=== PATIENT | female | born 1950 | race Caucasian/White ===

== ENCOUNTER 2022-01-23 19:39 | Inpatient (IN) | payer OTHER, SELFPAY ==
[2022-01-23] MEDS: Gabapentin 300 MG CAPSULE PO (22:05)
[2022-01-23] MEDS: QUEtiapine Fumarate 100 MG TABLET PO (22:05)
[2022-01-23] MEDS: Atorvastatin Calcium 20 MG TABLET PO (22:05)
[2022-01-23] MEDS: carvediloL 25 MG TABLET PO (22:05)
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
[2022-01-23] MEDS: traZODone HCL 50 MG TABLET PO (23:43)
[2022-01-23] MEDS: LORazepam 0.5 MG TABLET PO (23:43)
--- NOTE | 2022-01-24 00:17 | PC.NURSE ---
T/W received a phone call from Dr. Mueller at [facility] @[id number] alerting us that results from a CDiff test patient had while in ER came back positive after patient was transferred to our unit. T/W immediately notified InHouse Psychiatric Provider for a doc-to-doc to be done, and notified Nursing Director Foundation. Patient denies abdominal pain, denies diarrhea, reports no BM since arriving on the unit; patient's only report is of burning sensation of genital region, and burning and urgency of urination; UA from [facility] ER was negative. Patient was moved into a private room and placed on precautions; d/t agitation level patient refusing to stay isolated in bedroom. Discussed situation with Psychiatric Provider and Nursing Director Foundation who are aware of patient being in milieu; bleach wipes being used on all surfaces touched, patient limited to using only her bathroom. Will continue to monitor situation and notify MD of changes.
[2022-01-24 06:00] VITALS: BP 132/92; PULSE 74; O2SAT 96
[2022-01-24] MEDS: Ascorbic Acid 500 MG TABLET PO (08:08)
[2022-01-24] MEDS: Gabapentin 300 MG CAPSULE PO ×2 (08:08→20:17)
[2022-01-24] MEDS: carvediloL 25 MG TABLET PO ×2 (08:08→20:17)
[2022-01-24 08:10] LABS: Estimated Average Glucose 82 mg/dL; Hemoglobin A1c % 4.5 %
[2022-01-24 09:14] LABS: Cholesterol 152 mg/dL; HDL Cholesterol 43 mg/dL; LDL Cholesterol Calculated 94 mg/dl; Magnesium 1.7 mg/dL (1.6-2.6); Triglycerides 78 mg/dL
[2022-01-24 09:37] LABS: Free T4 (Free Thyroxine) 0.97 ng/dL (0.71-1.85); Thyroid Stimulating Hormone 0.82 uIU/mL (0.32-4.0)
[2022-01-24 11:20] LABS: Folate 13.5 ng/mL (> or = 4.0); Vitamin B12 449 pg/mL (200-900)
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
[2022-01-24 18:00] VITALS: BP 130/80; PULSE 69; RESP 20; TEMP 36.7; O2SAT 95
[2022-01-24] MEDS: Atorvastatin Calcium 20 MG TABLET PO (20:17)
[2022-01-24] MEDS: QUEtiapine Fumarate 100 MG TABLET PO (20:17)
[2022-01-24] MEDS: vancomycin HCL 125 MG CAPSULE PO (22:01)
[2022-01-24] MEDS: Lidocaine 5 % Ointment 35 GM 1 APPL TOPICAL (23:59)
[2022-01-25] MEDS: Acetaminophen 325 MG TABLET 650 MG PO (00:35)
[2022-01-25] MEDS: hydrOXYzine HCL 25 MG TABLET PO (00:36)
[2022-01-25] MEDS: traZODone HCL 50 MG TABLET PO (00:36)
[2022-01-25] MEDS: LORazepam 0.5 MG TABLET PO (03:39)
--- NOTE | 2022-01-25 05:10 | PC.NURSE ---
Received a phone call from the patient's son, Imer at 02:30h asking for an update of the patient and informed this medical technical writer that Patient has been taking Oxycodone and requested to bring it to the doctors attention in the morning. He said he will call again in the morning.
[2022-01-25] MEDS: vancomycin HCL 125 MG CAPSULE PO ×3 (05:43→16:32)
[2022-01-25 08:15] VITALS: BP 158/93; PULSE 71; RESP 17; TEMP 36.2; O2SAT 98
[2022-01-25] MEDS: Isosorbide Mononitrate 60 MG TAB.ER.24H PO (08:35)
[2022-01-25] MEDS: carvediloL 25 MG TABLET PO ×2 (08:35→20:55)
[2022-01-25] MEDS: Gabapentin 300 MG CAPSULE PO ×2 (08:35→20:54)
[2022-01-25] MEDS: Ascorbic Acid 500 MG TABLET PO (08:35)
--- NOTE | 2022-01-25 15:23 | P.PNPSI_ITS ---
Subjective Subjective Date of Service: 01/25/22 Reason For Visit: Manic Subjective Notes: Conditional Voluntary Interim History: The nursing staff reported the patient is on constant observation due to C diff positive. She slept 5 hours. On interview the patient reports that she is doing fine and she denies side effects with medications. She wanted to go back to [facility]. But the patient is not aware that she was manic and her family called 911. We will try to gather collateral information Mental Status Exam Mental Status Exam Patient Appearance: Well Grooomed Patient Orientation: Person and Situation Level of Consciousness: Awake Patient Behavior: Cooperative Mood Description: Calm Affect Description: Labile Ability to Follow Directions: Good Speech Pattern: Clear Hallucinations: None Delusions: Grandiose Thought Process: Racing and Distracted Thought Content: positive for [place] and positive for Poverty of Content Judgement: Poor Diagnostics Vital Signs (24Hr): Vital Signs - 24 hr 01/24/22 18:00 01/25/22 08:15 Temperature 98.1 F 97.2 F Pulse Rate 69 71 Respiratory Rate 20 17 Blood Pressure 130/80 158/93 H Pulse Oximetry 95 98 Oxygen Delivery Method Room Air Room Air Labs Labs: Laboratory Results - last 48 hr 01/24/22 01/24/22 01/24/22 07:54 07:54 07:54 Estimat Average Glucose 82 Hemoglobin A1c % 4.5 Magnesium 1.7 Triglycerides 78 Cholesterol 152 LDL Cholesterol, Calc 94 HDL Cholesterol 43 Vitamin B12 449 Folate 13.5 TSH 0.82 Free T4 0.97 Medications Medications Current Medications Acetaminophen (Acetaminophen 325 Mg Tablet) 650 mg PO Q6H PRN PRN Reason: Headache/Pain Mild Scale (1-3) Last Admin: 01/25/22 00:35 Dose: 650 mg Al Hydroxide/Mg Hydroxide (Magnesium Hydrox/Alum Hydrox 30 Ml Oral.Susp) 30 ml PO Q6H PRN PRN Reason: Heartburn/Nausea Ascorbic Acid (Ascorbic Acid 500 Mg Tablet) 500 mg PO DAILY [facility] Last Admin: 01/25/22 08:35 Dose: 500 mg Atorvastatin Calcium (Atorvastatin Calcium 20 Mg Tablet) 20 mg PO BEDTIME [facility] Last Admin: 01/24/22 20:17 Dose: 20 mg Carvedilol (Carvedilol 25 Mg Tablet) 25 mg PO BID [facility]; Protocol Last Admin: 01/25/22 08:35 Dose: 25 mg Gabapentin (Gabapentin 300 Mg Capsule) 300 mg PO BID [facility] Last Admin: 01/25/22 08:35 Dose: 300 mg Hydroxyzine HCl (Hydroxyzine Hcl 25 Mg Tablet) 25 mg PO Q6H PRN PRN Reason: Anxiety Last Admin: 01/25/22 00:36 Dose: 25 mg Isosorbide Mononitrate (Isosorbide Mononitrate 60 Mg Tab.Er.24h) 60 mg PO DAILY [facility]; Protocol Last Admin: 01/25/22 08:35 Dose: 60 mg Lidocaine (Lidocaine 5 % Ointment 35 Gm) 1 appl TOPICAL Q6H PRN PRN Reason: musculoskeletal pain Last Admin: 01/24/22 23:59 Dose: 1 appl Lorazepam (Lorazepam 0.5 Mg Tablet) 0.5 mg PO Q6H PRN PRN Reason: anxiety Last Admin: 01/25/22 03:39 Dose: 0.5 mg Magnesium Hydroxide (Milk Of Magnesia 30 Ml Oral.Susp) 30 ml PO DAILY PRN PRN Reason: Constipation Melatonin (Melatonin 3 Mg Tablet) 9 mg PO BEDTIME PRN PRN Reason: sleep Oxybutynin Chloride (Oxybutynin Chloride Er 5 Mg Tab.Er.24) 5 mg PO DAILY [facility] Last Admin: 01/25/22 08:35 Dose: 5 mg Oxycodone HCl (Oxycodone Hcl Immed Release 5 Mg Tablet) 5 mg PO TID [facility] Quetiapine Fumarate (Quetiapine Fumarate 100 Mg Tablet) 100 mg PO BEDTIME [facility] Last Admin: 01/24/22 20:17 Dose: 100 mg Trazodone HCl (Trazodone Hcl 50 Mg Tablet) 50 mg PO BEDTIME PRN PRN Reason: Insomnia Last Admin: 01/25/22 00:36 Dose: 50 mg Vancomycin HCl (Vancomycin Hcl 125 Mg Capsule) 125 mg PO Q6H [facility] Stop: 02/03/22 11:01 Last Admin: 01/25/22 11:37 Dose: 125 mg Allergies Allergies Allergy/AdvReac Type Severity Reaction Status Date / Time No Known Allergies Allergy Verified 01/23/22 20:18 Assessment & Plan Assessment & Plan (1) Clostridioides difficile infection: Status: Acute Code(s): A49.8 - Other bacterial infections of unspecified site (2) Bipolar disorder: Status: Acute Code(s): F31.9 - Bipolar disorder, unspecified (3) Alcohol use with alcohol-induced disorder: Status: Acute Code(s): F10.99 - Alcohol use, unspecified with unspecified alcohol-induced disorder Plan Elderly female , referred from the community for increased agitation and james in the context of starting Cymbalta with a prior history of an admission 10 years ago. She also has history of alcohol use disorder that she denies and now medical problems such as closely during the physical. Plan 1. Gather collateral information. 2. Continue neuroleptics. 3. Cymbalta. 4. Continue treatment for C diff I spent ___20___ minutes with the patient and/or on the patient floor today, greater than?50% of which was spent counseling/coordinating care. Reason for contiued inpatient stay Substantial Risk for: inability to function, rapid decompensation and med/psych decompensation
[2022-01-25] MEDS: oxyCODONE HCl Immed Release 5 MG TABLET PO ×2 (16:32→20:54)
[2022-01-25 18:00] VITALS: BP 154/94; PULSE 68; TEMP 36.7; O2SAT 96
[2022-01-25] MEDS: QUEtiapine Fumarate 100 MG TABLET PO (20:53)
[2022-01-25] MEDS: Atorvastatin Calcium 20 MG TABLET PO (20:54)
[2022-01-26] MEDS: vancomycin HCL 125 MG CAPSULE PO ×4 (04:11→22:04)
--- NOTE | 2022-01-26 04:25 | PC.NURSE ---
Pt's son Imer called at approx 0230 to get an update on his mother. Son reported that pt has a hx of kidney disease and was worried about pt being prescribed vancomycin.
[2022-01-26 06:00] VITALS: BP 173/87; PULSE 75; RESP 17; TEMP 36.9; O2SAT 96
[2022-01-26] MEDS: Isosorbide Mononitrate 60 MG TAB.ER.24H PO (08:26)
[2022-01-26] MEDS: oxyCODONE HCl Immed Release 5 MG TABLET PO ×3 (08:26→20:31)
[2022-01-26] MEDS: carvediloL 25 MG TABLET PO ×2 (08:27→20:30)
[2022-01-26] MEDS: Ascorbic Acid 500 MG TABLET PO (08:27)
[2022-01-26] MEDS: Gabapentin 300 MG CAPSULE PO ×2 (08:27→20:31)
--- NOTE | 2022-01-26 15:23 | HO.PSYCHPN ---
Subjective Subjective Date of Service: 01/26/22 Reason For Visit: Manic Subjective Notes: Section 7, Section 8 and Section 12B Interim History: The nursing staff reported that her stools are normal no diarrhea. The elementary school social worker reported that we are going to schedule a family meeting tomorrow. Apparently she has a history of substance abuse and she was in recovery for quite a long time but eventually she drank before coming here when she was manic due to Cymbalta. On interview the patient reports that she is feeling fine that she wants to get discharged today I explained her that we are going to file for section 7 and 8, still with very labile mood. Mental Status Exam Mental Status Exam Patient Appearance: Appropriate Patient Orientation: Person, Place and Situation Level of Consciousness: Restless Patient Behavior: Guarded Mood Description: Labile Affect Description: Withdrawn and Sad Ability to Follow Directions: Fair Speech Pattern: Clear Hallucinations: None Delusions: Bizarre Thought Process: Distracted Thought Content: positive for [place] and positive for Poverty of Content Judgement: Fair Diagnostics Vital Signs (24Hr): Vital Signs - 24 hr 01/25/22 18:00 01/26/22 06:00 Temperature 98.0 F 98.4 F Pulse Rate 68 75 Respiratory Rate 17 Blood Pressure 154/94 H 173/87 H Pulse Oximetry 96 96 Oxygen Delivery Method Room Air Medications Medications Current Medications Acetaminophen (Acetaminophen 325 Mg Tablet) 650 mg PO Q6H PRN PRN Reason: Headache/Pain Mild Scale (1-3) Last Admin: 01/25/22 00:35 Dose: 650 mg Al Hydroxide/Mg Hydroxide (Magnesium Hydrox/Alum Hydrox 30 Ml Oral.Susp) 30 ml PO Q6H PRN PRN Reason: Heartburn/Nausea Ascorbic Acid (Ascorbic Acid 500 Mg Tablet) 500 mg PO DAILY [facility] Last Admin: 01/26/22 08:27 Dose: 500 mg Atorvastatin Calcium (Atorvastatin Calcium 20 Mg Tablet) 20 mg PO BEDTIME [facility] Last Admin: 01/25/22 20:54 Dose: 20 mg Carvedilol (Carvedilol 25 Mg Tablet) 25 mg PO BID [facility]; Protocol Last Admin: 01/26/22 08:27 Dose: 25 mg Gabapentin (Gabapentin 300 Mg Capsule) 300 mg PO BID [facility] Last Admin: 01/26/22 08:27 Dose: 300 mg Hydroxyzine HCl (Hydroxyzine Hcl 25 Mg Tablet) 25 mg PO Q6H PRN PRN Reason: Anxiety Last Admin: 01/25/22 00:36 Dose: 25 mg Isosorbide Mononitrate (Isosorbide Mononitrate 60 Mg Tab.Er.24h) 60 mg PO DAILY [facility]; Protocol Last Admin: 01/26/22 08:26 Dose: 60 mg Lidocaine (Lidocaine 5 % Ointment 35 Gm) 1 appl TOPICAL Q6H PRN PRN Reason: musculoskeletal pain Last Admin: 01/24/22 23:59 Dose: 1 appl Lorazepam (Lorazepam 0.5 Mg Tablet) 0.5 mg PO Q6H PRN PRN Reason: anxiety Last Admin: 01/25/22 03:39 Dose: 0.5 mg Magnesium Hydroxide (Milk Of Magnesia 30 Ml Oral.Susp) 30 ml PO DAILY PRN PRN Reason: Constipation Melatonin (Melatonin 3 Mg Tablet) 9 mg PO BEDTIME PRN PRN Reason: sleep Oxybutynin Chloride (Oxybutynin Chloride Er 5 Mg Tab.Er.24) 5 mg PO DAILY [facility] Last Admin: 01/26/22 08:27 Dose: 5 mg Oxycodone HCl (Oxycodone Hcl Immed Release 5 Mg Tablet) 5 mg PO TID [facility] Last Admin: 01/26/22 08:26 Dose: 5 mg Quetiapine Fumarate (Quetiapine Fumarate 100 Mg Tablet) 100 mg PO BEDTIME [facility] Last Admin: 01/25/22 20:53 Dose: 100 mg Trazodone HCl (Trazodone Hcl 50 Mg Tablet) 50 mg PO BEDTIME PRN PRN Reason: Insomnia Last Admin: 01/25/22 00:36 Dose: 50 mg Vancomycin HCl (Vancomycin Hcl 125 Mg Capsule) 125 mg PO Q6H [facility] Stop: 02/03/22 11:01 Last Admin: 01/26/22 11:29 Dose: 125 mg Allergies Allergies Allergy/AdvReac Type Severity Reaction Status Date / Time No Known Allergies Allergy Verified 01/23/22 20:18 Assessment & Plan Assessment & Plan (1) Clostridioides difficile infection: Status: Acute Code(s): A49.8 - Other bacterial infections of unspecified site (2) Bipolar disorder: Status: Acute Code(s): F31.9 - Bipolar disorder, unspecified (3) Alcohol use with alcohol-induced disorder: Status: Acute Code(s): F10.99 - Alcohol use, unspecified with unspecified alcohol-induced disorder Plan Elderly female , referred from the community for increased agitation and james in the context of starting Cymbalta with a prior history of an admission 10 years ago. She also has history of alcohol use disorder that she denies and now medical problems such as closely during the physical. Plan 1. Gather collateral information. 2. Continue neuroleptics. 3. Discontinue Cymbalta. 4. Continue treatment for C diff. 5. Blood work for tomorrow morning I spent ___20___ minutes with the patient and/or on the patient floor today, greater than?50% of which was spent counseling/coordinating care. Reason for contiued inpatient stay Substantial Risk for: inability to function, rapid decompensation and med/psych decompensation
[2022-01-26 20:15] VITALS: BP 162/88; PULSE 80; RESP 16; TEMP 36.4; O2SAT 95
[2022-01-26] MEDS: QUEtiapine Fumarate 100 MG TABLET PO (20:32)
[2022-01-26] MEDS: Atorvastatin Calcium 20 MG TABLET PO (20:32)
[2022-01-27] MEDS: vancomycin HCL 125 MG CAPSULE PO ×4 (05:36→23:34)
[2022-01-27 07:00] VITALS: BP 166/86; PULSE 69; RESP 16; TEMP 37.2; O2SAT 95
[2022-01-27 08:06] LABS: MANUAL DIFF FLAG NO
[2022-01-27 08:09] LABS: Basophils Percent Auto 0.6 % (0-2); Eosinophils Absolute Auto 1.4 X10*3/uL (0.0-0.4); Eosinophils Percent Auto 19.6 % (0-4); Hematocrit 35.3 % (37.0-47.0); Hemoglobin 11.4 g/dl (12.0-16.0); Imm Gran Abs Auto 0.02 X10*3/uL (0.00-0.03); Imm Gran Pct Auto 0.3 % (0.0-0.4); Lymphocytes Absolute Auto 2.1 X10*3/uL (1.2-4.9); Lymphocytes Percent Auto 30.8 % (20-40); Mean Corpuscular HGB Conc 32.3 g/dl (31.0-35.0); Mean Corpuscular Hemoglobin 36.1 pg (27.0-33.0); Mean Platelet Volume 10.4 fL (9.4-12.3); Monocytes Absolute Auto 0.4 X10*3/uL (0.1-1.2); Monocytes Percent Auto 6.4 % (2-11); Neutrophils Absolute Auto 2.9 x10*3/uL (2.0-8.3); Neutrophils Percent Auto 42.3 % (45-73); Platelet Count 178 X10*3/uL (160-400); Red Blood Count 3.16 X10*6/uL (4.20-5.50); Red Cell Distribution Width 11.6 % (11.0-16.0); White Blood Count 6.9 X10*3/uL (4.8-10.8)
[2022-01-27 08:10] LABS: Mean Corpuscular Volume 111.7 fL (80.0-98.0)
[2022-01-27 08:31] LABS: Alanine Aminotransferase 13 U/L (0-31); Alkaline Phosphatase 120 U/L (39-117); Anion Gap 10 (12-20); Aspartate Amino Transferase 21 U/L (5-31); Bilirubin Direct < 0.2 mg/dL (0.0-0.5); Bilirubin Total 0.3 mg/dL (0.0-1.0); Blood Urea Nitrogen 15 mg/dL (9-16); Carbon Dioxide 29 mmol/L (22-29); Chloride 106 mmol/L (96-108); Cholesterol 148 mg/dL; Estimated Glomerular Filt Rate 41; Glucose Random 94 mg/dL (60-115); HDL Cholesterol 39 mg/dL; LDL Cholesterol Calculated 90 mg/dl; Potassium 4.4 mmol/L (3.3-5.1); Sodium 141 mmol/L (135-145); Total Protein 6.5 g/dL (6.5-8.0); Triglycerides 98 mg/dL
[2022-01-27 08:44] LABS: Estimated Average Glucose 82 mg/dL; Hemoglobin A1c % 4.5 %
[2022-01-27 08:52] LABS: Thyroid Stimulating Hormone 2.64 uIU/mL (0.32-4.0)
[2022-01-27 09:10] LABS: Vancomycin Random < 3.0 mcg/mL (15-20)
[2022-01-27] MEDS: oxyCODONE HCl Immed Release 5 MG TABLET PO ×3 (09:51→20:32)
[2022-01-27] MEDS: Ascorbic Acid 500 MG TABLET PO (09:51)
[2022-01-27] MEDS: carvediloL 25 MG TABLET PO ×2 (09:51→20:33)
[2022-01-27] MEDS: Gabapentin 300 MG CAPSULE PO ×2 (09:51→20:32)
[2022-01-27] MEDS: Isosorbide Mononitrate 60 MG TAB.ER.24H PO (09:51)
[2022-01-27] MEDS: Paliperidone Palmitate 156 MG/ML SYRINGE IM (17:30)
[2022-01-27 18:00] VITALS: BP 143/92; PULSE 88; RESP 16; TEMP 37.1; O2SAT 96
[2022-01-27] MEDS: Atorvastatin Calcium 20 MG TABLET PO (20:32)
[2022-01-27] MEDS: QUEtiapine Fumarate 100 MG TABLET PO (20:32)
[2022-01-28] MEDS: vancomycin HCL 125 MG CAPSULE PO ×4 (05:19→23:19)
[2022-01-28] MEDS: Lidocaine 5 % Ointment 35 GM 1 APPL TOPICAL (06:40)
[2022-01-28 07:00] VITALS: BP 149/72; PULSE 73; RESP 17; TEMP 36.2; O2SAT 99
[2022-01-28] MEDS: Gabapentin 300 MG CAPSULE PO ×2 (08:28→20:55)
[2022-01-28] MEDS: carvediloL 25 MG TABLET PO ×2 (08:28→20:57)
[2022-01-28] MEDS: Isosorbide Mononitrate 60 MG TAB.ER.24H PO (08:28)
[2022-01-28] MEDS: oxyCODONE HCl Immed Release 5 MG TABLET PO ×3 (08:29→20:55)
[2022-01-28] MEDS: Ascorbic Acid 500 MG TABLET PO (08:35)
--- NOTE | 2022-01-28 10:02 | P.PNPSI_ITS ---
Subjective Subjective Date of Service: 01/28/22 Reason For Visit: Manic Subjective Notes: Conditional Voluntary Interim History: The nursing staff reported that her stools are normal no diarrhea. Pt has been visible on the unit. She is social with select peer. She reports she is doing good. He reports sleeping and eating well. She denies SI/HI. no VH/AH. Per nursing, pt with no behavioral concerns. Medication Compliance: Yes Side effects from medications: No Attending Groups: Intermittent Review of Systems Review of Systems Yes Unobtainable due to mental status Mental Status Exam Mental Status Exam Patient Appearance: Appropriate Patient Orientation: Person, Place and Situation Level of Consciousness: Restless Patient Behavior: Guarded Mood Description: Labile Affect Description: Withdrawn and Sad Ability to Follow Directions: Fair Speech Pattern: Clear Diagnostics Vital Signs (24Hr): Vital Signs - 24 hr 01/28/22 19:58 01/29/22 06:00 Temperature 97.4 F 97.3 F Pulse Rate 79 80 Respiratory Rate 16 16 Blood Pressure 127/82 154/84 H Pulse Oximetry 96 95 Oxygen Delivery Method Room Air Room Air Labs Results: 01/27/22 08:02 01/27/22 08:02 Labs: Laboratory Results - last 48 hr 01/27/22 08:02 Smear Path Review SEE NOTE Medications Medications Current Medications Acetaminophen (Acetaminophen 325 Mg Tablet) 650 mg PO Q6H PRN PRN Reason: Headache/Pain Mild Scale (1-3) Last Admin: 01/25/22 00:35 Dose: 650 mg Al Hydroxide/Mg Hydroxide (Magnesium Hydrox/Alum Hydrox 30 Ml Oral.Susp) 30 ml PO Q6H PRN PRN Reason: Heartburn/Nausea Ascorbic Acid (Ascorbic Acid 500 Mg Tablet) 500 mg PO DAILY [facility] Last Admin: 01/29/22 08:39 Dose: 500 mg Atorvastatin Calcium (Atorvastatin Calcium 20 Mg Tablet) 20 mg PO BEDTIME [facility] Last Admin: 01/28/22 20:57 Dose: 20 mg Carvedilol (Carvedilol 25 Mg Tablet) 25 mg PO BID [facility]; Protocol Last Admin: 01/29/22 08:40 Dose: 25 mg Gabapentin (Gabapentin 300 Mg Capsule) 300 mg PO BID [facility] Last Admin: 01/29/22 08:40 Dose: 300 mg Hydroxyzine HCl (Hydroxyzine Hcl 25 Mg Tablet) 25 mg PO Q6H PRN PRN Reason: Anxiety Last Admin: 01/25/22 00:36 Dose: 25 mg Isosorbide Mononitrate (Isosorbide Mononitrate 60 Mg Tab.Er.24h) 60 mg PO DAILY [facility]; Protocol Last Admin: 01/29/22 08:40 Dose: 60 mg Lidocaine (Lidocaine 5 % Ointment 35 Gm) 1 appl TOPICAL Q6H PRN PRN Reason: musculoskeletal pain Last Admin: 01/28/22 06:40 Dose: 1 appl Magnesium Hydroxide (Milk Of Magnesia 30 Ml Oral.Susp) 30 ml PO DAILY PRN PRN Reason: Constipation Melatonin (Melatonin 3 Mg Tablet) 9 mg PO BEDTIME PRN PRN Reason: sleep Oxybutynin Chloride (Oxybutynin Chloride Er 5 Mg Tab.Er.24) 5 mg PO DAILY [facility] Last Admin: 01/29/22 08:39 Dose: 5 mg Oxycodone HCl (Oxycodone Hcl Immed Release 5 Mg Tablet) 5 mg PO TID [facility] Last Admin: 01/29/22 08:39 Dose: 5 mg Quetiapine Fumarate (Quetiapine Fumarate 100 Mg Tablet) 100 mg PO BEDTIME [facility] Last Admin: 01/28/22 20:57 Dose: 100 mg Trazodone HCl (Trazodone Hcl 50 Mg Tablet) 50 mg PO BEDTIME PRN PRN Reason: Insomnia Last Admin: 01/25/22 00:36 Dose: 50 mg Vancomycin HCl (Vancomycin Hcl 125 Mg Capsule) 125 mg PO Q6H [facility] Stop: 02/03/22 11:01 Last Admin: 01/29/22 05:47 Dose: 125 mg Allergies Allergies Allergy/AdvReac Type Severity Reaction Status Date / Time No Known Allergies Allergy Verified 01/23/22 20:18 Assessment & Plan Assessment & Plan (1) Clostridioides difficile infection: Status: Acute Code(s): A49.8 - Other bacterial infections of unspecified site (2) Bipolar disorder: Status: Acute Code(s): F31.9 - Bipolar disorder, unspecified (3) Alcohol use with alcohol-induced disorder: Status: Acute Code(s): F10.99 - Alcohol use, unspecified with unspecified alcohol-induced disorder Plan Elderly female , referred from the community for increased agitation and james in the context of starting Cymbalta with a prior history of an admission 10 years ago. She also has history of alcohol use disorder that she denies and now medical problems such as closely during the physical. Plan 1. Gather collateral information. 2. Continue neuroleptics. 3. Discontinue Cymbalta. 4. Continue treatment for C diff. 5. Blood work for tomorrow morning 01/29/2022- continue current medications. I spent minutes with the patient and/or on the patient floor today, greater than?50% of which was spent counseling/coordinating care. Reason for contiued inpatient stay Substantial Risk for: inability to function
[2022-01-28 19:58] VITALS: BP 127/82; PULSE 79; RESP 16; TEMP 36.3; O2SAT 96
[2022-01-28] MEDS: Atorvastatin Calcium 20 MG TABLET PO (20:57)
[2022-01-28] MEDS: QUEtiapine Fumarate 100 MG TABLET PO (20:57)
[2022-01-29] MEDS: vancomycin HCL 125 MG CAPSULE PO ×4 (05:47→23:28)
[2022-01-29 06:00] VITALS: BP 154/84; PULSE 80; RESP 16; TEMP 36.3; O2SAT 95
[2022-01-29] MEDS: oxyCODONE HCl Immed Release 5 MG TABLET PO ×3 (08:39→20:40)
[2022-01-29] MEDS: Ascorbic Acid 500 MG TABLET PO (08:39)
[2022-01-29] MEDS: Isosorbide Mononitrate 60 MG TAB.ER.24H PO (08:40)
[2022-01-29] MEDS: carvediloL 25 MG TABLET PO ×2 (08:40→20:40)
[2022-01-29] MEDS: Gabapentin 300 MG CAPSULE PO ×2 (08:40→20:40)
--- NOTE | 2022-01-29 10:20 | P.PNPSI_ITS ---
Subjective Subjective Date of Service: 01/29/22 Reason For Visit: Manic Subjective Notes: Conditional Voluntary Healthcare Proxy: No Guardianship: No Medical Problems Affecting Mental Status: No Interim History: Patient was seen and discussed in rounds today. Records and plans were reviewed. She is doing much better with no signs of hypomania. Eating and sleeping adequately. No complaints or side effects. No symptoms related to her C diff. no dangerous behaviors. She is interactive on the unit and social. No changes were made Review of Systems Review of Systems Yes all other systems are reviewed and are negative Mental Status Exam Mental Status Exam Narrative: In today's visit she is alert, oriented and pleasant. She was reading a book. Normal speech. Good eye contact. Affect is appropriate and varied. No acute signs of psychosis. No hyper home james or hyperactivity. No SI. Cognitively is grossly intact. Judgment is intact Diagnostics Vital Signs (24Hr): Vital Signs - 24 hr 01/28/22 19:58 01/29/22 06:00 Temperature 97.4 F 97.3 F Pulse Rate 79 80 Respiratory Rate 16 16 Blood Pressure 127/82 154/84 H Pulse Oximetry 96 95 Oxygen Delivery Method Room Air Room Air Labs Results: 01/27/22 08:02 01/27/22 08:02 Labs: Laboratory Results - last 48 hr 01/27/22 08:02 Smear Path Review SEE NOTE Medications Medications Current Medications Acetaminophen (Acetaminophen 325 Mg Tablet) 650 mg PO Q6H PRN PRN Reason: Headache/Pain Mild Scale (1-3) Last Admin: 01/25/22 00:35 Dose: 650 mg Al Hydroxide/Mg Hydroxide (Magnesium Hydrox/Alum Hydrox 30 Ml Oral.Susp) 30 ml PO Q6H PRN PRN Reason: Heartburn/Nausea Ascorbic Acid (Ascorbic Acid 500 Mg Tablet) 500 mg PO DAILY [facility] Last Admin: 01/29/22 08:39 Dose: 500 mg Atorvastatin Calcium (Atorvastatin Calcium 20 Mg Tablet) 20 mg PO BEDTIME [facility] Last Admin: 01/28/22 20:57 Dose: 20 mg Carvedilol (Carvedilol 25 Mg Tablet) 25 mg PO BID [facility]; Protocol Last Admin: 01/29/22 08:40 Dose: 25 mg Gabapentin (Gabapentin 300 Mg Capsule) 300 mg PO BID [facility] Last Admin: 01/29/22 08:40 Dose: 300 mg Hydroxyzine HCl (Hydroxyzine Hcl 25 Mg Tablet) 25 mg PO Q6H PRN PRN Reason: Anxiety Last Admin: 01/25/22 00:36 Dose: 25 mg Isosorbide Mononitrate (Isosorbide Mononitrate 60 Mg Tab.Er.24h) 60 mg PO DAILY [facility]; Protocol Last Admin: 01/29/22 08:40 Dose: 60 mg Lidocaine (Lidocaine 5 % Ointment 35 Gm) 1 appl TOPICAL Q6H PRN PRN Reason: musculoskeletal pain Last Admin: 01/28/22 06:40 Dose: 1 appl Magnesium Hydroxide (Milk Of Magnesia 30 Ml Oral.Susp) 30 ml PO DAILY PRN PRN Reason: Constipation Melatonin (Melatonin 3 Mg Tablet) 9 mg PO BEDTIME PRN PRN Reason: sleep Oxybutynin Chloride (Oxybutynin Chloride Er 5 Mg Tab.Er.24) 5 mg PO DAILY [facility] Last Admin: 01/29/22 08:39 Dose: 5 mg Oxycodone HCl (Oxycodone Hcl Immed Release 5 Mg Tablet) 5 mg PO TID [facility] Last Admin: 01/29/22 08:39 Dose: 5 mg Quetiapine Fumarate (Quetiapine Fumarate 100 Mg Tablet) 100 mg PO BEDTIME [facility] Last Admin: 01/28/22 20:57 Dose: 100 mg Trazodone HCl (Trazodone Hcl 50 Mg Tablet) 50 mg PO BEDTIME PRN PRN Reason: Insomnia Last Admin: 01/25/22 00:36 Dose: 50 mg Vancomycin HCl (Vancomycin Hcl 125 Mg Capsule) 125 mg PO Q6H [facility] Stop: 02/03/22 11:01 Last Admin: 01/29/22 05:47 Dose: 125 mg Allergies Allergies Allergy/AdvReac Type Severity Reaction Status Date / Time No Known Allergies Allergy Verified 01/23/22 20:18 Assessment & Plan Assessment & Plan (1) Clostridioides difficile infection: Status: Acute Code(s): A49.8 - Other bacterial infections of unspecified site (2) Bipolar disorder: Status: Acute Code(s): F31.9 - Bipolar disorder, unspecified (3) Alcohol use with alcohol-induced disorder: Status: Acute Code(s): F10.99 - Alcohol use, unspecified with unspecified alcohol-induced disorder Plan Elderly female , referred from the community for increased agitation and james in the context of starting Cymbalta with a prior history of an admission 10 years ago. She also has history of alcohol use disorder that she denies and now medical problems such as closely during the physical. Plan 1. Gather collateral information. 2. Continue neuroleptics. 3. Discontinue Cymbalta. 4. Continue treatment for C diff. 5. Blood work for tomorrow morning 01/28/2022- continue current medications. 01/29: Continue current regimen and plans I spent minutes with the patient and/or on the patient floor today, greater than?50% of which was spent counseling/coordinating care. Reason for contiued inpatient stay Substantial Risk for: med/psych decompensation
[2022-01-29 18:00] VITALS: BP 153/83; PULSE 77; RESP 18; O2SAT 95
[2022-01-29] MEDS: Atorvastatin Calcium 20 MG TABLET PO (20:40)
[2022-01-29] MEDS: QUEtiapine Fumarate 100 MG TABLET PO (20:40)
[2022-01-30] MEDS: vancomycin HCL 125 MG CAPSULE PO ×4 (04:28→22:06)
[2022-01-30] MEDS: Ascorbic Acid 500 MG TABLET PO (07:59)
[2022-01-30] MEDS: carvediloL 25 MG TABLET PO ×2 (07:59→20:23)
[2022-01-30 08:00] VITALS: BP 147/81; PULSE 82; RESP 17; TEMP 36.2; O2SAT 98
[2022-01-30] MEDS: Gabapentin 300 MG CAPSULE PO ×2 (08:01→20:23)
[2022-01-30] MEDS: oxyCODONE HCl Immed Release 5 MG TABLET PO ×3 (08:01→20:22)
[2022-01-30] MEDS: Isosorbide Mononitrate 60 MG TAB.ER.24H PO (08:01)
--- NOTE | 2022-01-30 14:42 | HO.PSYCHPN ---
Subjective Subjective Date of Service: 01/30/22 Reason For Visit: Manic Subjective Notes: Conditional Voluntary Interim History: The nursing staff reported that she was confused last night from 05-15, she wanted to leave somatically preoccupied stating that she has pain after urinating and she said that she had diarrhea but it was not documented by nursing staff. The nursing staff reported that probably she has cellulitis oin her legs. On interview the patient reported somatic complaints and stated that she has to leave the hospital. I explained about her legal circumstances. Mental Status Exam Mental Status Exam Patient Appearance: Well Grooomed Patient Orientation: Person and Situation Level of Consciousness: Awake Patient Behavior: Guarded and Suspicious Mood Description: Withdrawn Affect Description: Labile Patient Cognition Impaired: Yes Ability to Follow Directions: Good Speech Pattern: Clear Hallucinations: None Delusions: Paranoid Ideation Thought Process: Evasive Thought Content: positive for [place] and positive for Poverty of Content Judgement: Poor Diagnostics Vital Signs (24Hr): Vital Signs - 24 hr 01/29/22 18:00 01/30/22 08:00 Temperature 97.1 F Pulse Rate 77 82 Respiratory Rate 18 17 Blood Pressure 153/83 H 147/81 H Pulse Oximetry 95 98 Oxygen Delivery Method Room Air Room Air Labs Results: 01/27/22 08:02 01/27/22 08:02 Medications Medications Current Medications Acetaminophen (Acetaminophen 325 Mg Tablet) 650 mg PO Q6H PRN PRN Reason: Headache/Pain Mild Scale (1-3) Last Admin: 01/25/22 00:35 Dose: 650 mg Al Hydroxide/Mg Hydroxide (Magnesium Hydrox/Alum Hydrox 30 Ml Oral.Susp) 30 ml PO Q6H PRN PRN Reason: Heartburn/Nausea Ascorbic Acid (Ascorbic Acid 500 Mg Tablet) 500 mg PO DAILY [facility] Last Admin: 01/30/22 07:59 Dose: 500 mg Atorvastatin Calcium (Atorvastatin Calcium 20 Mg Tablet) 20 mg PO BEDTIME [facility] Last Admin: 01/29/22 20:40 Dose: 20 mg Carvedilol (Carvedilol 25 Mg Tablet) 25 mg PO BID [facility]; Protocol Last Admin: 01/30/22 07:59 Dose: 25 mg Estrogens Conjugated (Estrogens, Conjugated Cream 30 Gm Tube) 0.5 gm VAGINAL DAILY [facility] Gabapentin (Gabapentin 300 Mg Capsule) 300 mg PO BID [facility] Last Admin: 01/30/22 08:01 Dose: 300 mg Hydroxyzine HCl (Hydroxyzine Hcl 25 Mg Tablet) 25 mg PO Q6H PRN PRN Reason: Anxiety Last Admin: 01/25/22 00:36 Dose: 25 mg Isosorbide Mononitrate (Isosorbide Mononitrate 60 Mg Tab.Er.24h) 60 mg PO DAILY [facility]; Protocol Last Admin: 01/30/22 08:01 Dose: 60 mg Lidocaine (Lidocaine 5 % Ointment 35 Gm) 1 appl TOPICAL Q6H PRN PRN Reason: musculoskeletal pain Last Admin: 01/28/22 06:40 Dose: 1 appl Magnesium Hydroxide (Milk Of Magnesia 30 Ml Oral.Susp) 30 ml PO DAILY PRN PRN Reason: Constipation Melatonin (Melatonin 3 Mg Tablet) 9 mg PO BEDTIME PRN PRN Reason: sleep Oxybutynin Chloride (Oxybutynin Chloride Er 5 Mg Tab.Er.24) 5 mg PO DAILY [facility] Last Admin: 01/30/22 08:00 Dose: 5 mg Oxycodone HCl (Oxycodone Hcl Immed Release 5 Mg Tablet) 5 mg PO TID [facility] Last Admin: 01/30/22 08:01 Dose: 5 mg Quetiapine Fumarate (Quetiapine Fumarate 100 Mg Tablet) 100 mg PO BEDTIME [facility] Last Admin: 01/29/22 20:40 Dose: 100 mg Trazodone HCl (Trazodone Hcl 50 Mg Tablet) 50 mg PO BEDTIME PRN PRN Reason: Insomnia Last Admin: 01/25/22 00:36 Dose: 50 mg Vancomycin HCl (Vancomycin Hcl 125 Mg Capsule) 125 mg PO Q6H [facility] Stop: 02/03/22 11:01 Last Admin: 01/30/22 11:19 Dose: 125 mg Allergies Allergies Allergy/AdvReac Type Severity Reaction Status Date / Time No Known Allergies Allergy Verified 01/23/22 20:18 Assessment & Plan Assessment & Plan (1) Clostridioides difficile infection: Status: Acute Code(s): A49.8 - Other bacterial infections of unspecified site (2) Bipolar disorder: Status: Acute Code(s): F31.9 - Bipolar disorder, unspecified (3) Alcohol use with alcohol-induced disorder: Status: Acute Code(s): F10.99 - Alcohol use, unspecified with unspecified alcohol-induced disorder Plan Elderly female , referred from the community for increased agitation and james in the context of starting Cymbalta with a prior history of an admission 10 years ago. She also has history of alcohol use disorder that she denies and now medical problems such as closely during the physical. Plan 1. Gather collateral information. 2. Continue neuroleptics. 3. Discontinue Cymbalta. 4. Continue treatment for C diff. 5. u/A and possible hospital consult. I spent __20____ minutes with the patient and/or on the patient floor today, greater than?50% of which was spent counseling/coordinating care. Reason for contiued inpatient stay Substantial Risk for: inability to function, rapid decompensation and med/psych decompensation
[2022-01-30 14:58] LABS: Appearance Urine CLEAR; Color Urine YELLOW; Glucose Urine UA NEG (NEG); Leukocyte Esterase Urine NEG (NEG); Nitrite Urine NEG (NEG); Urine Blood NEG (NEG); Urine Ketones NEG (NEG); Urine Protein NEG (NEG-TRACE)
[2022-01-30 18:00] VITALS: BP 151/93; PULSE 71; TEMP 36.3; O2SAT 96
--- NOTE | 2022-01-30 19:13 | PC.NURSE ---
Pt upset re: meeting with with Dr Emmanuel. States Dr Emmanuel informed her he would be filing for commitment. Pt called lithographic press feeder and lithographic press feeder in at present time meeting with pt.
[2022-01-30] MEDS: QUEtiapine Fumarate 100 MG TABLET PO (20:23)
[2022-01-30] MEDS: Atorvastatin Calcium 20 MG TABLET PO (20:23)
[2022-01-30] MEDS: Lidocaine 5 % Ointment 35 GM 1 APPL TOPICAL (22:06)
--- NOTE | 2022-01-31 04:53 | PC.NURSE ---
Pt's son Michael called at approx.[phone], to check on mother's status, son was assured of mothers well being. The son asked staff to note the following; 1. He would like to speak to the social welfare administrator before 02/[address] ([address] date) 2. Why the pt had spoken a section chief on 01/30/22 without him (the HCP) being present. 3. The status of the pt's legs (Bilateral Edema with right leg showing more swelling). 4. To remove the applicator from pt's room after the scheduled Estrogen cream is applied.
[2022-01-31] MEDS: vancomycin HCL 125 MG CAPSULE PO ×4 (05:36→23:05)
[2022-01-31 08:10] VITALS: BP 142/87; PULSE 79; RESP 18; TEMP 36.4; O2SAT 98
[2022-01-31] MEDS: Ascorbic Acid 500 MG TABLET PO (08:26)
[2022-01-31] MEDS: oxyCODONE HCl Immed Release 5 MG TABLET PO ×3 (08:27→19:51)
[2022-01-31] MEDS: Gabapentin 300 MG CAPSULE PO ×2 (08:27→19:54)
[2022-01-31] MEDS: carvediloL 25 MG TABLET PO ×2 (08:28→19:53)
[2022-01-31] MEDS: Isosorbide Mononitrate 60 MG TAB.ER.24H PO (08:28)
--- NOTE | 2022-01-31 15:14 | HO.PSYCHPN ---
Subjective Subjective Date of Service: 01/27/22 Reason For Visit: Manic Subjective Notes: Section 7 and Section 8 Interim History: The nursing staff reported the patient was in her room most of the time. She was confused stating that she was going to be discharged. She was seen interacting with peers. Mental Status Exam Mental Status Exam Patient Appearance: Well Grooomed Patient Orientation: Person and Situation Level of Consciousness: Awake Patient Behavior: Guarded Mood Description: Labile Affect Description: Expansive Patient Cognition Impaired: Yes Ability to Follow Directions: Good Speech Pattern: Clear Hallucinations: None Delusions: Paranoid Ideation and Grandiose Thought Process: Evasive Thought Content: positive for [place] Judgement: Fair Diagnostics Vital Signs (24Hr): Vital Signs - 24 hr 01/30/22 18:00 01/31/22 08:10 Temperature 97.4 F 97.5 F Pulse Rate 71 79 Respiratory Rate 18 Blood Pressure 151/93 H 142/87 H Pulse Oximetry 96 98 Oxygen Delivery Method Room Air Room Air Labs Results: 01/27/22 08:02 01/27/22 08:02 Labs: Laboratory Results - last 48 hr 01/30/22 14:23 Urine Color YELLOW Urine Appearance CLEAR Urine pH 6.0 Ur Specific [place] 1.020 Urine Protein NEG Urine Glucose (UA) NEG Urine Ketones NEG Urine Blood NEG Urine Nitrite NEG Ur Leukocyte Esterase NEG Medications Medications Current Medications Acetaminophen (Acetaminophen 325 Mg Tablet) 650 mg PO Q6H PRN PRN Reason: Headache/Pain Mild Scale (1-3) Last Admin: 01/25/22 00:35 Dose: 650 mg Al Hydroxide/Mg Hydroxide (Magnesium Hydrox/Alum Hydrox 30 Ml Oral.Susp) 30 ml PO Q6H PRN PRN Reason: Heartburn/Nausea Ascorbic Acid (Ascorbic Acid 500 Mg Tablet) 500 mg PO DAILY [facility] Last Admin: 01/31/22 08:26 Dose: 500 mg Atorvastatin Calcium (Atorvastatin Calcium 20 Mg Tablet) 20 mg PO BEDTIME [facility] Last Admin: 01/30/22 20:23 Dose: 20 mg Carvedilol (Carvedilol 25 Mg Tablet) 25 mg PO BID [facility]; Protocol Last Admin: 01/31/22 08:28 Dose: 25 mg Estrogens Conjugated (Estrogens, Conjugated Cream 30 Gm Tube) 0.5 gm VAGINAL Mo@2100 [facility] Last Admin: 01/30/22 21:02 Dose: Not Given Gabapentin (Gabapentin 300 Mg Capsule) 300 mg PO BID [facility] Last Admin: 01/31/22 08:27 Dose: 300 mg Hydroxyzine HCl (Hydroxyzine Hcl 25 Mg Tablet) 25 mg PO Q6H PRN PRN Reason: Anxiety Last Admin: 01/25/22 00:36 Dose: 25 mg Isosorbide Mononitrate (Isosorbide Mononitrate 60 Mg Tab.Er.24h) 60 mg PO DAILY [facility]; Protocol Last Admin: 01/31/22 08:28 Dose: 60 mg Lidocaine (Lidocaine 5 % Ointment 35 Gm) 1 appl TOPICAL Q6H PRN PRN Reason: musculoskeletal pain Last Admin: 01/30/22 22:06 Dose: 1 appl Magnesium Hydroxide (Milk Of Magnesia 30 Ml Oral.Susp) 30 ml PO DAILY PRN PRN Reason: Constipation Melatonin (Melatonin 3 Mg Tablet) 9 mg PO BEDTIME PRN PRN Reason: sleep Oxybutynin Chloride (Oxybutynin Chloride Er 5 Mg Tab.Er.24) 5 mg PO DAILY [facility] Last Admin: 01/31/22 08:27 Dose: 5 mg Oxycodone HCl (Oxycodone Hcl Immed Release 5 Mg Tablet) 5 mg PO TID [facility] Last Admin: 01/31/22 14:40 Dose: 5 mg Quetiapine Fumarate (Quetiapine Fumarate 100 Mg Tablet) 100 mg PO BEDTIME [facility] Last Admin: 01/30/22 20:23 Dose: 100 mg Trazodone HCl (Trazodone Hcl 50 Mg Tablet) 50 mg PO BEDTIME PRN PRN Reason: Insomnia Last Admin: 01/25/22 00:36 Dose: 50 mg Vancomycin HCl (Vancomycin Hcl 125 Mg Capsule) 125 mg PO Q6H [facility] Stop: 02/03/22 11:01 Last Admin: 01/31/22 11:14 Dose: 125 mg Allergies Allergies Allergy/AdvReac Type Severity Reaction Status Date / Time latex Allergy Facial Verified 01/30/22 15:29 Swelling red meat Allergy Severe Swelling Uncoded 01/30/22 15:27 Assessment & Plan Assessment & Plan (1) Clostridioides difficile infection: Status: Acute Code(s): A49.8 - Other bacterial infections of unspecified site (2) Bipolar disorder: Status: Acute Code(s): F31.9 - Bipolar disorder, unspecified (3) Alcohol use with alcohol-induced disorder: Status: Acute Code(s): F10.99 - Alcohol use, unspecified with unspecified alcohol-induced disorder Plan Elderly female , referred from the community for increased agitation and james in the context of starting Cymbalta with a prior history of an admission 10 years ago. She also has history of alcohol use disorder that she denies and now medical problems such as closely during the physical. Plan 1. Gather collateral information. 2. Continue neuroleptics. 3. Discontinue Cymbalta. 4. Continue treatment for C diff. I spent __20____ minutes with the patient and/or on the patient floor today, greater than?50% of which was spent counseling/coordinating care. Reason for contiued inpatient stay Substantial Risk for: inability to function, rapid decompensation and med/psych decompensation
--- NOTE | 2022-01-31 16:08 | HO.PSYCHPN ---
Subjective Subjective Date of Service: 01/31/22 Reason For Visit: Manic Subjective Notes: Conditional Voluntary Interim History: The staff reported that the patient met with her coconut boiler last evening. Her leg has been much better less swollen. On interview the patient denies having any symptoms she was reading a book and was not interested and engaged in conversation. She wanted to be discharged as soon as possible she stated that I was not going to be her psychiatrist gain since her coconut boiler told him that she looks confused. Mental Status Exam Mental Status Exam Patient Appearance: Appropriate Patient Orientation: Person, Place and Situation Level of Consciousness: Alert Patient Behavior: Belligerent Mood Description: Withdrawn Affect Description: Labile Patient Cognition Impaired: Yes Ability to Follow Directions: Good Speech Pattern: Clear Hallucinations: None Delusions: Paranoid Ideation Thought Process: Distracted Thought Content: positive for [place] and positive for Poverty of Content Judgement: Fair Diagnostics Vital Signs (24Hr): Vital Signs - 24 hr 01/30/22 18:00 01/31/22 08:10 Temperature 97.4 F 97.5 F Pulse Rate 71 79 Respiratory Rate 18 Blood Pressure 151/93 H 142/87 H Pulse Oximetry 96 98 Oxygen Delivery Method Room Air Room Air Labs Results: 01/27/22 08:02 01/27/22 08:02 Labs: Laboratory Results - last 48 hr 01/30/22 14:23 Urine Color YELLOW Urine Appearance CLEAR Urine pH 6.0 Ur Specific [place] 1.020 Urine Protein NEG Urine Glucose (UA) NEG Urine Ketones NEG Urine Blood NEG Urine Nitrite NEG Ur Leukocyte Esterase NEG Medications Medications Current Medications Acetaminophen (Acetaminophen 325 Mg Tablet) 650 mg PO Q6H PRN PRN Reason: Headache/Pain Mild Scale (1-3) Last Admin: 01/25/22 00:35 Dose: 650 mg Al Hydroxide/Mg Hydroxide (Magnesium Hydrox/Alum Hydrox 30 Ml Oral.Susp) 30 ml PO Q6H PRN PRN Reason: Heartburn/Nausea Ascorbic Acid (Ascorbic Acid 500 Mg Tablet) 500 mg PO DAILY [facility] Last Admin: 01/31/22 08:26 Dose: 500 mg Atorvastatin Calcium (Atorvastatin Calcium 20 Mg Tablet) 20 mg PO BEDTIME [facility] Last Admin: 01/30/22 20:23 Dose: 20 mg Carvedilol (Carvedilol 25 Mg Tablet) 25 mg PO BID [facility]; Protocol Last Admin: 01/31/22 08:28 Dose: 25 mg Estrogens Conjugated (Estrogens, Conjugated Cream 30 Gm Tube) 0.5 gm VAGINAL Mo@2100 [facility] Last Admin: 01/30/22 21:02 Dose: Not Given Gabapentin (Gabapentin 300 Mg Capsule) 300 mg PO BID [facility] Last Admin: 01/31/22 08:27 Dose: 300 mg Hydroxyzine HCl (Hydroxyzine Hcl 25 Mg Tablet) 25 mg PO Q6H PRN PRN Reason: Anxiety Last Admin: 01/25/22 00:36 Dose: 25 mg Isosorbide Mononitrate (Isosorbide Mononitrate 60 Mg Tab.Er.24h) 60 mg PO DAILY [facility]; Protocol Last Admin: 01/31/22 08:28 Dose: 60 mg Lidocaine (Lidocaine 5 % Ointment 35 Gm) 1 appl TOPICAL Q6H PRN PRN Reason: musculoskeletal pain Last Admin: 01/30/22 22:06 Dose: 1 appl Magnesium Hydroxide (Milk Of Magnesia 30 Ml Oral.Susp) 30 ml PO DAILY PRN PRN Reason: Constipation Melatonin (Melatonin 3 Mg Tablet) 9 mg PO BEDTIME PRN PRN Reason: sleep Oxybutynin Chloride (Oxybutynin Chloride Er 5 Mg Tab.Er.24) 5 mg PO DAILY [facility] Last Admin: 01/31/22 08:27 Dose: 5 mg Oxycodone HCl (Oxycodone Hcl Immed Release 5 Mg Tablet) 5 mg PO TID [facility] Last Admin: 01/31/22 14:40 Dose: 5 mg Paliperidone Palmitate (Paliperidone Palmitate 156 Mg/Ml Syringe) 156 mg IM Q30D [facility] Quetiapine Fumarate (Quetiapine Fumarate 100 Mg Tablet) 100 mg PO BEDTIME [facility] Last Admin: 01/30/22 20:23 Dose: 100 mg Trazodone HCl (Trazodone Hcl 50 Mg Tablet) 50 mg PO BEDTIME PRN PRN Reason: Insomnia Last Admin: 01/25/22 00:36 Dose: 50 mg Vancomycin HCl (Vancomycin Hcl 125 Mg Capsule) 125 mg PO Q6H [facility] Stop: 02/03/22 11:01 Last Admin: 01/31/22 11:14 Dose: 125 mg Allergies Allergies Allergy/AdvReac Type Severity Reaction Status Date / Time latex Allergy Facial Verified 01/30/22 15:29 Swelling red meat Allergy Severe Swelling Uncoded 01/30/22 15:27 Assessment & Plan Assessment & Plan (1) Clostridioides difficile infection: Status: Acute Code(s): A49.8 - Other bacterial infections of unspecified site (2) Bipolar disorder: Status: Acute Code(s): F31.9 - Bipolar disorder, unspecified (3) Alcohol use with alcohol-induced disorder: Status: Acute Code(s): F10.99 - Alcohol use, unspecified with unspecified alcohol-induced disorder Plan Elderly female , referred from the community for increased agitation and james in the context of starting Cymbalta with a prior history of an admission 10 years ago. She also has history of alcohol use disorder that she denies and now medical problems such as closely during the physical. Plan 1. Gather collateral information. 2. Continue neuroleptics. 3. Discontinue Cymbalta. 4. Continue treatment for C diff. 5. Continue with Invega Sustenna long-acting injectable I spent __20____ minutes with the patient and/or on the patient floor today, greater than?50% of which was spent counseling/coordinating care. Reason for contiued inpatient stay Substantial Risk for: inability to function, rapid decompensation and med/psych decompensation
--- NOTE | 2022-01-31 16:27 | HE.PHANOTE ---
Paliperidone MD made aware that initiation dose was lower than typical dose. Suspect maybe a renal dose adjustment may be needed for second dose. MD was also made aware, chose to continue at dose ordered.
[2022-01-31 18:00] VITALS: BP 162/88; PULSE 77; RESP 16; TEMP 36.3; O2SAT 95
[2022-01-31] MEDS: QUEtiapine Fumarate 100 MG TABLET PO (19:53)
[2022-01-31] MEDS: Atorvastatin Calcium 20 MG TABLET PO (19:54)
[2022-02-01] MEDS: Estrogens, Conjugated CREAM 30 GM TUBE VAGINAL (01:02)
--- NOTE | 2022-02-01 01:05 | PC.NURSE ---
Pt. requested estrogen cream at 0100. RN unable to document under current order. The order scanned and was documented under discontinued order. Pharmacy to be notified in the morning.
[2022-02-01] MEDS: vancomycin HCL 125 MG CAPSULE PO ×4 (05:54→21:37)
[2022-02-01 07:30] VITALS: BP 170/99; PULSE 88; RESP 17; TEMP 36.6; O2SAT 96
[2022-02-01] MEDS: Gabapentin 300 MG CAPSULE PO ×2 (08:38→20:43)
[2022-02-01] MEDS: Ascorbic Acid 500 MG TABLET PO (08:38)
[2022-02-01] MEDS: Isosorbide Mononitrate 60 MG TAB.ER.24H PO (08:38)
[2022-02-01] MEDS: oxyCODONE HCl Immed Release 5 MG TABLET PO ×3 (08:39→20:44)
[2022-02-01] MEDS: carvediloL 25 MG TABLET PO ×2 (08:40→20:49)
--- NOTE | 2022-02-01 14:22 | P.PNPSI_ITS ---
Subjective Subjective Date of Service: 02/01/22 Reason For Visit: Manic Subjective Notes: Conditional Voluntary Interim History: The nursing staff reported the patient has been angry with short answers but no evidence of violence. Today in the morning she was pleasant with her breakfast. Today she will have her 2nd shot of Invega Sustenna still internally preoccupied and delusional at times. Occupational therapy did a new [place] she scored 13/30 Medication Compliance: Yes Side effects from medications: No Attending Groups: Intermittent Mental Status Exam Mental Status Exam Patient Appearance: Appropriate Patient Orientation: Person and Situation Level of Consciousness: Awake Patient Behavior: Guarded and Passive Mood Description: Calm Affect Description: Labile Patient Cognition Impaired: Yes Ability to Follow Directions: Good Speech Pattern: Clear Hallucinations: None Delusions: Paranoid Ideation Thought Process: Illogical and Slowed Thinking Thought Content: positive for [place] Judgement: Fair Diagnostics Vital Signs (24Hr): Vital Signs - 24 hr 01/31/22 18:00 02/01/22 07:30 Temperature 97.3 F 97.8 F Pulse Rate 77 88 Respiratory Rate 16 17 Blood Pressure 162/88 H 170/99 H Pulse Oximetry 95 96 Oxygen Delivery Method Room Air Room Air Labs Results: 01/27/22 08:02 01/27/22 08:02 Labs: Laboratory Results - last 48 hr 01/30/22 14:23 Urine Color YELLOW Urine Appearance CLEAR Urine pH 6.0 Ur Specific [place] 1.020 Urine Protein NEG Urine Glucose (UA) NEG Urine Ketones NEG Urine Blood NEG Urine Nitrite NEG Ur Leukocyte Esterase NEG Medications Medications Current Medications Acetaminophen (Acetaminophen 325 Mg Tablet) 650 mg PO Q6H PRN PRN Reason: Headache/Pain Mild Scale (1-3) Last Admin: 01/25/22 00:35 Dose: 650 mg Al Hydroxide/Mg Hydroxide (Magnesium Hydrox/Alum Hydrox 30 Ml Oral.Susp) 30 ml PO Q6H PRN PRN Reason: Heartburn/Nausea Ascorbic Acid (Ascorbic Acid 500 Mg Tablet) 500 mg PO DAILY [facility] Last Admin: 02/01/22 08:38 Dose: 500 mg Atorvastatin Calcium (Atorvastatin Calcium 20 Mg Tablet) 20 mg PO BEDTIME [facility] Last Admin: 01/31/22 19:54 Dose: 20 mg Carvedilol (Carvedilol 25 Mg Tablet) 25 mg PO BID [facility]; Protocol Last Admin: 02/01/22 08:40 Dose: 25 mg Estrogens Conjugated (Estrogens, Conjugated Cream 30 Gm Tube) 0.5 gm VAGINAL Mo@2100 [facility] Last Admin: 01/30/22 21:02 Dose: Not Given Gabapentin (Gabapentin 300 Mg Capsule) 300 mg PO BID [facility] Last Admin: 02/01/22 08:38 Dose: 300 mg Hydroxyzine HCl (Hydroxyzine Hcl 25 Mg Tablet) 25 mg PO Q6H PRN PRN Reason: Anxiety Last Admin: 01/25/22 00:36 Dose: 25 mg Isosorbide Mononitrate (Isosorbide Mononitrate 60 Mg Tab.Er.24h) 60 mg PO DAILY [facility]; Protocol Last Admin: 02/01/22 08:38 Dose: 60 mg Lidocaine (Lidocaine 5 % Ointment 35 Gm) 1 appl TOPICAL Q6H PRN PRN Reason: musculoskeletal pain Last Admin: 01/30/22 22:06 Dose: 1 appl Magnesium Hydroxide (Milk Of Magnesia 30 Ml Oral.Susp) 30 ml PO DAILY PRN PRN Reason: Constipation Melatonin (Melatonin 3 Mg Tablet) 9 mg PO BEDTIME PRN PRN Reason: sleep Oxybutynin Chloride (Oxybutynin Chloride Er 5 Mg Tab.Er.24) 5 mg PO DAILY [facility] Last Admin: 02/01/22 08:38 Dose: 5 mg Oxycodone HCl (Oxycodone Hcl Immed Release 5 Mg Tablet) 5 mg PO TID [facility] Last Admin: 02/01/22 08:39 Dose: 5 mg Paliperidone Palmitate (Paliperidone Palmitate 156 Mg/Ml Syringe) 156 mg IM Q30D [facility] Quetiapine Fumarate (Quetiapine Fumarate 100 Mg Tablet) 100 mg PO BEDTIME [facility] Last Admin: 01/31/22 19:53 Dose: 100 mg Trazodone HCl (Trazodone Hcl 50 Mg Tablet) 50 mg PO BEDTIME PRN PRN Reason: Insomnia Last Admin: 01/25/22 00:36 Dose: 50 mg Vancomycin HCl (Vancomycin Hcl 125 Mg Capsule) 125 mg PO Q6H [facility] Stop: 02/03/22 11:01 Last Admin: 02/01/22 11:04 Dose: 125 mg Allergies Allergies Allergy/AdvReac Type Severity Reaction Status Date / Time latex Allergy Facial Verified 01/30/22 15:29 Swelling red meat Allergy Severe Swelling Uncoded 01/30/22 15:27 Assessment & Plan Assessment & Plan (1) Clostridioides difficile infection: Status: Acute Code(s): A49.8 - Other bacterial infections of unspecified site (2) Bipolar disorder: Status: Acute Code(s): F31.9 - Bipolar disorder, unspecified (3) Alcohol use with alcohol-induced disorder: Status: Acute Code(s): F10.99 - Alcohol use, unspecified with unspecified alcohol-induced disorder Plan Elderly female , referred from the community for increased agitation and james in the context of starting Cymbalta with a prior history of an admission 10 years ago. She also has history of alcohol use disorder that she denies and now medical problems such as closely during the physical. Plan 1. Gather collateral information. 2. Continue neuroleptics. 3. Discontinue Cymbalta. 4. Continue treatment for C diff. 5. Continue with Invega Sustenna long-acting injectable I spent __20__ minutes with the patient and/or on the patient floor today, greater than?50% of which was spent counseling/coordinating care. Reason for contiued inpatient stay Substantial Risk for: inability to function, rapid decompensation and med/psych decompensation
[2022-02-01] MEDS: Paliperidone Palmitate 156 MG/ML SYRINGE IM (14:44)
[2022-02-01 18:00] VITALS: BP 181/94; PULSE 73; RESP 16; TEMP 36.3; O2SAT 98
[2022-02-01] MEDS: QUEtiapine Fumarate 100 MG TABLET PO (20:43)
[2022-02-01] MEDS: Atorvastatin Calcium 20 MG TABLET PO (20:44)
[2022-02-01 21:48] VITALS: BP 134/68; PULSE 77; RESP 16; O2SAT 97
[2022-02-02] MEDS: vancomycin HCL 125 MG CAPSULE PO ×4 (05:56→21:56)
[2022-02-02 07:00] VITALS: BMI 26.0
[2022-02-02 07:30] VITALS: BP 144/78; PULSE 84; RESP 14; TEMP 36.2; O2SAT 98
[2022-02-02] MEDS: Estrogens, Conjugated CREAM 30 GM TUBE VAGINAL (09:54)
[2022-02-02] MEDS: Isosorbide Mononitrate 60 MG TAB.ER.24H PO (09:58)
[2022-02-02] MEDS: Gabapentin 300 MG CAPSULE PO ×2 (09:58→21:55)
[2022-02-02] MEDS: oxyCODONE HCl Immed Release 5 MG TABLET PO ×3 (09:59→21:56)
[2022-02-02] MEDS: carvediloL 25 MG TABLET PO ×2 (09:59→21:56)
[2022-02-02] MEDS: Ascorbic Acid 500 MG TABLET PO (10:00)
--- NOTE | 2022-02-02 10:34 | HO.PSYCHPN ---
Subjective Subjective Date of Service: 02/02/22 Reason For Visit: Manic Subjective Notes: Section 7, Section 8 and Section 12B Interim History: The nursing staff reported the patient has been fully compliant with medications, she slept well and she was seen on the common areas participating in groups. On interview the patient denies new symptoms. Yesterday the patient was visited by her son and he has noticed and change of his irritability. Mental Status Exam Mental Status Exam Patient Appearance: Well Grooomed and Appropriate Patient Orientation: Person, Place and Situation Level of Consciousness: Awake Patient Behavior: Guarded and Passive Mood Description: Labile Affect Description: Calm Patient Cognition Impaired: Yes Ability to Follow Directions: Good Speech Pattern: Clear Hallucinations: None Delusions: Not Present Thought Process: Linear Thought Content: positive for Circumstantial Judgement: Fair Diagnostics Vital Signs (24Hr): Vital Signs - 24 hr 02/01/22 18:00 02/01/22 21:48 Temperature 97.3 F Pulse Rate 73 77 Respiratory Rate 16 16 Blood Pressure 181/94 H 134/68 Pulse Oximetry 98 97 Oxygen Delivery Method Room Air Room Air Labs Results: 01/27/22 08:02 01/27/22 08:02 Medications Medications Current Medications Acetaminophen (Acetaminophen 325 Mg Tablet) 650 mg PO Q6H PRN PRN Reason: Headache/Pain Mild Scale (1-3) Last Admin: 01/25/22 00:35 Dose: 650 mg Al Hydroxide/Mg Hydroxide (Magnesium Hydrox/Alum Hydrox 30 Ml Oral.Susp) 30 ml PO Q6H PRN PRN Reason: Heartburn/Nausea Ascorbic Acid (Ascorbic Acid 500 Mg Tablet) 500 mg PO DAILY [facility] Last Admin: 02/02/22 10:00 Dose: 500 mg Atorvastatin Calcium (Atorvastatin Calcium 20 Mg Tablet) 20 mg PO BEDTIME [facility] Last Admin: 02/01/22 20:44 Dose: 20 mg Carvedilol (Carvedilol 25 Mg Tablet) 25 mg PO BID [facility]; Protocol Last Admin: 02/02/22 09:59 Dose: 25 mg Estrogens Conjugated (Estrogens, Conjugated Cream 30 Gm Tube) 0.5 gm VAGINAL Mo@2100 [facility] Last Admin: 02/02/22 09:54 Dose: 0.5 gm Gabapentin (Gabapentin 300 Mg Capsule) 300 mg PO BID [facility] Last Admin: 02/02/22 09:58 Dose: 300 mg Hydroxyzine HCl (Hydroxyzine Hcl 25 Mg Tablet) 25 mg PO Q6H PRN PRN Reason: Anxiety Last Admin: 01/25/22 00:36 Dose: 25 mg Isosorbide Mononitrate (Isosorbide Mononitrate 60 Mg Tab.Er.24h) 60 mg PO DAILY [facility]; Protocol Last Admin: 02/02/22 09:58 Dose: 60 mg Lidocaine (Lidocaine 5 % Ointment 35 Gm) 1 appl TOPICAL Q6H PRN PRN Reason: musculoskeletal pain Last Admin: 01/30/22 22:06 Dose: 1 appl Magnesium Hydroxide (Milk Of Magnesia 30 Ml Oral.Susp) 30 ml PO DAILY PRN PRN Reason: Constipation Melatonin (Melatonin 3 Mg Tablet) 9 mg PO BEDTIME PRN PRN Reason: sleep Oxybutynin Chloride (Oxybutynin Chloride Er 5 Mg Tab.Er.24) 5 mg PO DAILY [facility] Last Admin: 02/02/22 09:58 Dose: 5 mg Oxycodone HCl (Oxycodone Hcl Immed Release 5 Mg Tablet) 5 mg PO TID [facility] Last Admin: 02/02/22 09:59 Dose: 5 mg Paliperidone Palmitate (Paliperidone Palmitate 156 Mg/Ml Syringe) 156 mg IM Q30D [facility] Last Admin: 02/01/22 14:44 Dose: 156 mg Quetiapine Fumarate (Quetiapine Fumarate 100 Mg Tablet) 100 mg PO BEDTIME [facility] Last Admin: 02/01/22 20:43 Dose: 100 mg Trazodone HCl (Trazodone Hcl 50 Mg Tablet) 50 mg PO BEDTIME PRN PRN Reason: Insomnia Last Admin: 01/25/22 00:36 Dose: 50 mg Vancomycin HCl (Vancomycin Hcl 125 Mg Capsule) 125 mg PO Q6H [facility] Stop: 02/03/22 11:01 Last Admin: 02/02/22 05:56 Dose: 125 mg Allergies Allergies Allergy/AdvReac Type Severity Reaction Status Date / Time latex Allergy Facial Verified 01/30/22 15:29 Swelling red meat Allergy Severe Swelling Uncoded 01/30/22 15:27 Assessment & Plan Assessment & Plan (1) Clostridioides difficile infection: Status: Acute Code(s): A49.8 - Other bacterial infections of unspecified site (2) Bipolar disorder: Status: Acute Code(s): F31.9 - Bipolar disorder, unspecified (3) Alcohol use with alcohol-induced disorder: Status: Acute Code(s): F10.99 - Alcohol use, unspecified with unspecified alcohol-induced disorder Plan Elderly female , referred from the community for increased agitation and james in the context of starting Cymbalta with a prior history of an admission 10 years ago. She also has history of alcohol use disorder that she denies and now medical problems such as closely during the physical. Plan 1. Gather collateral information. 2. Continue neuroleptics. 3. Discontinue Cymbalta. 4. Continue treatment for C diff. 5. Continue with Invega Sustenna long-acting injectable I spent __20____ minutes with the patient and/or on the patient floor today, greater than?50% of which was spent counseling/coordinating care. Reason for contiued inpatient stay Substantial Risk for: inability to function, rapid decompensation and med/psych decompensation
[2022-02-02 18:00] VITALS: BP 141/81; PULSE 88; TEMP 36.6; O2SAT 98
[2022-02-02] MEDS: QUEtiapine Fumarate 100 MG TABLET PO (21:54)
[2022-02-02] MEDS: Atorvastatin Calcium 20 MG TABLET PO (21:55)
[2022-02-03] MEDS: vancomycin HCL 125 MG CAPSULE PO ×3 (06:10→20:40)
[2022-02-03 07:30] VITALS: BP 154/80; PULSE 77; RESP 17; TEMP 36.2; O2SAT 95
[2022-02-03] MEDS: Gabapentin 300 MG CAPSULE PO ×2 (10:10→20:41)
[2022-02-03] MEDS: carvediloL 25 MG TABLET PO ×2 (10:10→20:41)
[2022-02-03] MEDS: oxyCODONE HCl Immed Release 5 MG TABLET PO ×3 (10:11→20:41)
[2022-02-03] MEDS: Isosorbide Mononitrate 60 MG TAB.ER.24H PO (10:11)
[2022-02-03] MEDS: Ascorbic Acid 500 MG TABLET PO (10:12)
--- NOTE | 2022-02-03 11:24 | P.PNPSI_ITS ---
Subjective Subjective Date of Service: 02/03/22 Reason For Visit: Manic Subjective Notes: Conditional Voluntary Interim History: The nursing staff reported the patient has been compliant with treatment, she was being visible in the unit and participating certain groups. On interview the patient denies new symptoms she looks less irritable but still angry since she could not be discharged. Every day the patient states that she is going to be discharged the day and when she is redirected she seems upset. Even though the we discussed with her the discharge plan the patient cannot understand very well. We are planning for an early discharge early next week. Mental Status Exam Mental Status Exam Patient Appearance: Appropriate Patient Orientation: Person and Situation Level of Consciousness: Awake Patient Behavior: Guarded and Passive Mood Description: Withdrawn Affect Description: Labile Patient Cognition Impaired: Yes Ability to Follow Directions: Good Speech Pattern: Clear Hallucinations: None Delusions: Not Present Thought Process: Distracted Thought Content: positive for Circumstantial Judgement: Fair Diagnostics Vital Signs (24Hr): Vital Signs - 24 hr 02/02/22 18:00 Temperature 98 F Pulse Rate 88 Blood Pressure 141/81 H Pulse Oximetry 98 Oxygen Delivery Method Room Air BMI result Body Mass Index 26.0 Labs Results: 01/27/22 08:02 01/27/22 08:02 Medications Medications Current Medications Acetaminophen (Acetaminophen 325 Mg Tablet) 650 mg PO Q6H PRN PRN Reason: Headache/Pain Mild Scale (1-3) Last Admin: 01/25/22 00:35 Dose: 650 mg Al Hydroxide/Mg Hydroxide (Magnesium Hydrox/Alum Hydrox 30 Ml Oral.Susp) 30 ml PO Q6H PRN PRN Reason: Heartburn/Nausea Ascorbic Acid (Ascorbic Acid 500 Mg Tablet) 500 mg PO DAILY [facility] Last Admin: 02/03/22 10:12 Dose: 500 mg Atorvastatin Calcium (Atorvastatin Calcium 20 Mg Tablet) 20 mg PO BEDTIME [facility] Last Admin: 02/02/22 21:55 Dose: 20 mg Carvedilol (Carvedilol 25 Mg Tablet) 25 mg PO BID [facility]; Protocol Last Admin: 02/03/22 10:10 Dose: 25 mg Estrogens Conjugated (Estrogens, Conjugated Cream 30 Gm Tube) 0.5 gm VAGINAL Mo@2100 [facility] Last Admin: 02/02/22 09:54 Dose: 0.5 gm Gabapentin (Gabapentin 300 Mg Capsule) 300 mg PO BID [facility] Last Admin: 02/03/22 10:10 Dose: 300 mg Hydroxyzine HCl (Hydroxyzine Hcl 25 Mg Tablet) 25 mg PO Q6H PRN PRN Reason: Anxiety Last Admin: 01/25/22 00:36 Dose: 25 mg Isosorbide Mononitrate (Isosorbide Mononitrate 60 Mg Tab.Er.24h) 60 mg PO DAILY [facility]; Protocol Last Admin: 02/03/22 10:11 Dose: 60 mg Lidocaine (Lidocaine 5 % Ointment 35 Gm) 1 appl TOPICAL Q6H PRN PRN Reason: musculoskeletal pain Last Admin: 01/30/22 22:06 Dose: 1 appl Magnesium Hydroxide (Milk Of Magnesia 30 Ml Oral.Susp) 30 ml PO DAILY PRN PRN Reason: Constipation Melatonin (Melatonin 3 Mg Tablet) 9 mg PO BEDTIME PRN PRN Reason: sleep Oxybutynin Chloride (Oxybutynin Chloride Er 5 Mg Tab.Er.24) 5 mg PO DAILY [facility] Last Admin: 02/03/22 10:12 Dose: 5 mg Oxycodone HCl (Oxycodone Hcl Immed Release 5 Mg Tablet) 5 mg PO TID [facility] Last Admin: 02/03/22 10:11 Dose: 5 mg Paliperidone Palmitate (Paliperidone Palmitate 156 Mg/Ml Syringe) 156 mg IM Q30D [facility] Last Admin: 02/01/22 14:44 Dose: 156 mg Quetiapine Fumarate (Quetiapine Fumarate 100 Mg Tablet) 100 mg PO BEDTIME [facility] Last Admin: 02/02/22 21:54 Dose: 100 mg Trazodone HCl (Trazodone Hcl 50 Mg Tablet) 50 mg PO BEDTIME PRN PRN Reason: Insomnia Last Admin: 01/25/22 00:36 Dose: 50 mg Allergies Allergies Allergy/AdvReac Type Severity Reaction Status Date / Time latex Allergy Facial Verified 01/30/22 15:29 Swelling red meat Allergy Severe Swelling Uncoded 01/30/22 15:27 Assessment & Plan Assessment & Plan (1) Clostridioides difficile infection: Status: Acute Code(s): A49.8 - Other bacterial infections of unspecified site (2) Bipolar disorder: Status: Acute Code(s): F31.9 - Bipolar disorder, unspecified (3) Alcohol use with alcohol-induced disorder: Status: Acute Code(s): F10.99 - Alcohol use, unspecified with unspecified alcohol-induced disorder Plan Elderly female , referred from the community for increased agitation and james in the context of starting Cymbalta with a prior history of an admission 10 years ago. She also has history of alcohol use disorder that she denies and now medical problems such as closely during the physical. Plan 1. Gather collateral information. 2. Continue neuroleptics. 3. Discontinue Cymbalta. 4. Continue treatment for C diff. 5. Continue with Invega Sustenna long-acting injectable I spent __20____ minutes with the patient and/or on the patient floor today, greater than?50% of which was spent counseling/coordinating care. Reason for contiued inpatient stay Substantial Risk for: inability to function, rapid decompensation and med/psych decompensation
[2022-02-03 18:00] VITALS: BP 149/78; PULSE 76; RESP 18; TEMP 36.1; O2SAT 97
[2022-02-03] MEDS: Atorvastatin Calcium 20 MG TABLET PO (20:41)
[2022-02-03] MEDS: QUEtiapine Fumarate 100 MG TABLET PO (20:41)
[2022-02-04 08:50] VITALS: BP 124/73; PULSE 85; RESP 16; TEMP 36.6; O2SAT 98
[2022-02-04] MEDS: oxyCODONE HCl Immed Release 5 MG TABLET PO (08:53)
[2022-02-04] MEDS: Gabapentin 300 MG CAPSULE PO ×2 (08:54→20:08)
[2022-02-04] MEDS: Ascorbic Acid 500 MG TABLET PO (08:54)
[2022-02-04] MEDS: carvediloL 25 MG TABLET PO ×2 (08:54→20:08)
[2022-02-04] MEDS: Isosorbide Mononitrate 60 MG TAB.ER.24H PO (08:55)
[2022-02-04] MEDS: vancomycin HCL 125 MG CAPSULE PO (08:55)
--- NOTE | 2022-02-04 09:27 | HO.PSYCHPN ---
Subjective Subjective Date of Service: 02/04/22 Reason For Visit: Manic Subjective Notes: Conditional Voluntary Interim History: The nursing staff reported the patient has being compliant with treatment, she was slightly tearful in the evening but in general her mood is more stable. On interview she denies new symptoms Mental Status Exam Mental Status Exam Patient Appearance: Well Grooomed Patient Orientation: Person and Situation Level of Consciousness: Awake Patient Behavior: Cooperative Mood Description: Withdrawn and Constricted Affect Description: Constricted Patient Cognition Impaired: Yes Ability to Follow Directions: Fair Speech Pattern: Clear Hallucinations: None Delusions: Not Present Thought Process: Linear Thought Content: positive for Circumstantial Judgement: Fair Diagnostics Vital Signs (24Hr): Vital Signs - 24 hr 02/03/22 18:00 02/04/22 08:50 Temperature 97 F 97.9 F Pulse Rate 76 85 Respiratory Rate 18 16 Blood Pressure 149/78 H 124/73 Pulse Oximetry 97 98 Oxygen Delivery Method Room Air Room Air BMI result Body Mass Index 26.0 Labs Results: 01/27/22 08:02 01/27/22 08:02 Medications Medications Current Medications Acetaminophen (Acetaminophen 325 Mg Tablet) 650 mg PO Q6H PRN PRN Reason: Headache/Pain Mild Scale (1-3) Last Admin: 01/25/22 00:35 Dose: 650 mg Al Hydroxide/Mg Hydroxide (Magnesium Hydrox/Alum Hydrox 30 Ml Oral.Susp) 30 ml PO Q6H PRN PRN Reason: Heartburn/Nausea Ascorbic Acid (Ascorbic Acid 500 Mg Tablet) 500 mg PO DAILY [facility] Last Admin: 02/04/22 08:54 Dose: 500 mg Atorvastatin Calcium (Atorvastatin Calcium 20 Mg Tablet) 20 mg PO BEDTIME [facility] Last Admin: 02/03/22 20:41 Dose: 20 mg Carvedilol (Carvedilol 25 Mg Tablet) 25 mg PO BID [facility]; Protocol Last Admin: 02/04/22 08:54 Dose: 25 mg Estrogens Conjugated (Estrogens, Conjugated Cream 30 Gm Tube) 0.5 gm VAGINAL Mo@2100 [facility] Last Admin: 02/02/22 09:54 Dose: 0.5 gm Gabapentin (Gabapentin 300 Mg Capsule) 300 mg PO BID [facility] Last Admin: 02/04/22 08:54 Dose: 300 mg Hydroxyzine HCl (Hydroxyzine Hcl 25 Mg Tablet) 25 mg PO Q6H PRN PRN Reason: Anxiety Last Admin: 01/25/22 00:36 Dose: 25 mg Isosorbide Mononitrate (Isosorbide Mononitrate 60 Mg Tab.Er.24h) 60 mg PO DAILY [facility]; Protocol Last Admin: 02/04/22 08:55 Dose: 60 mg Lidocaine (Lidocaine 5 % Ointment 35 Gm) 1 appl TOPICAL Q6H PRN PRN Reason: musculoskeletal pain Last Admin: 01/30/22 22:06 Dose: 1 appl Magnesium Hydroxide (Milk Of Magnesia 30 Ml Oral.Susp) 30 ml PO DAILY PRN PRN Reason: Constipation Melatonin (Melatonin 3 Mg Tablet) 9 mg PO BEDTIME PRN PRN Reason: sleep Oxybutynin Chloride (Oxybutynin Chloride Er 5 Mg Tab.Er.24) 5 mg PO DAILY [facility] Last Admin: 02/04/22 08:55 Dose: 5 mg Oxycodone HCl (Oxycodone Hcl Immed Release 5 Mg Tablet) 5 mg PO TID [facility] Last Admin: 02/04/22 08:53 Dose: 5 mg Paliperidone Palmitate (Paliperidone Palmitate 156 Mg/Ml Syringe) 156 mg IM Q30D [facility] Last Admin: 02/01/22 14:44 Dose: 156 mg Quetiapine Fumarate (Quetiapine Fumarate 100 Mg Tablet) 100 mg PO BEDTIME [facility] Last Admin: 02/03/22 20:41 Dose: 100 mg Trazodone HCl (Trazodone Hcl 50 Mg Tablet) 50 mg PO BEDTIME PRN PRN Reason: Insomnia Last Admin: 01/25/22 00:36 Dose: 50 mg Allergies Allergies Allergy/AdvReac Type Severity Reaction Status Date / Time latex Allergy Facial Verified 01/30/22 15:29 Swelling red meat Allergy Severe Swelling Uncoded 01/30/22 15:27 Assessment & Plan Assessment & Plan (1) Clostridioides difficile infection: Status: Acute Code(s): A49.8 - Other bacterial infections of unspecified site (2) Bipolar disorder: Status: Acute Code(s): F31.9 - Bipolar disorder, unspecified (3) Alcohol use with alcohol-induced disorder: Status: Acute Code(s): F10.99 - Alcohol use, unspecified with unspecified alcohol-induced disorder Plan Elderly female , referred from the community for increased agitation and james in the context of starting Cymbalta with a prior history of an admission 10 years ago. She also has history of alcohol use disorder that she denies and now medical problems such as closely during the physical. Plan 1. Gather collateral information. 2. Continue neuroleptics. 3. Discontinue Cymbalta. 4. Continue treatment for C diff. 5. Continue with Invega Sustenna long-acting injectable I spent ___20___ minutes with the patient and/or on the patient floor today, greater than?50% of which was spent counseling/coordinating care. Reason for contiued inpatient stay Substantial Risk for: inability to function, rapid decompensation and med/psych decompensation
[2022-02-04] MEDS: Magnesium Hydrox/Alum Hydrox 30 ML ORAL.SUSP PO (18:32)
[2022-02-04 20:00] VITALS: BP 139/83; PULSE 86; RESP 16; TEMP 36.2; O2SAT 95
[2022-02-04] MEDS: QUEtiapine Fumarate 100 MG TABLET PO (20:08)
[2022-02-04] MEDS: Atorvastatin Calcium 20 MG TABLET PO (20:08)
[2022-02-04] MEDS: Estrogens, Conjugated CREAM 30 GM TUBE VAGINAL (21:03)
[2022-02-04] MEDS: Loperamide HCl 2 MG CAPSULE PO (21:50)
[2022-02-05 06:00] VITALS: BP 147/81; PULSE 72; RESP 20; TEMP 36.3; O2SAT 97
[2022-02-05] MEDS: Isosorbide Mononitrate 60 MG TAB.ER.24H PO (08:56)
[2022-02-05] MEDS: Ascorbic Acid 500 MG TABLET PO (08:56)
[2022-02-05] MEDS: carvediloL 25 MG TABLET PO ×2 (08:57→22:25)
[2022-02-05] MEDS: Gabapentin 300 MG CAPSULE PO ×2 (08:57→22:24)
--- NOTE | 2022-02-05 09:57 | P.PNPSI_ITS ---
Subjective Subjective Date of Service: 02/05/22 Reason For Visit: Manic Subjective Notes: Section 7 and Section 8 Interim History: The nursing staff reported the patient has been compliant with his treatment, she woke up early last night but she went back to bed. On interview the patient denies new symptoms Mental Status Exam Mental Status Exam Patient Appearance: Well Grooomed Patient Orientation: Person, Place and Situation Level of Consciousness: Awake Patient Behavior: Avoidant Mood Description: Withdrawn Affect Description: Constricted Patient Cognition Impaired: Yes Ability to Follow Directions: Good Speech Pattern: Clear Hallucinations: None Delusions: Not Present Thought Process: Distracted Thought Content: positive for [place] Judgement: Fair Diagnostics Vital Signs (24Hr): Vital Signs - 24 hr 02/04/22 20:00 02/05/22 06:00 Temperature 97.1 F 97.3 F Pulse Rate 86 72 Respiratory Rate 16 20 Blood Pressure 139/83 147/81 H Pulse Oximetry 95 97 Oxygen Delivery Method Room Air Room Air BMI result Body Mass Index 26.0 Labs Results: 01/27/22 08:02 01/27/22 08:02 Medications Medications Current Medications Acetaminophen (Acetaminophen 325 Mg Tablet) 650 mg PO Q6H PRN PRN Reason: Headache/Pain Mild Scale (1-3) Last Admin: 01/25/22 00:35 Dose: 650 mg Al Hydroxide/Mg Hydroxide (Magnesium Hydrox/Alum Hydrox 30 Ml Oral.Susp) 30 ml PO Q6H PRN PRN Reason: Heartburn/Nausea Last Admin: 02/04/22 18:32 Dose: 30 ml Ascorbic Acid (Ascorbic Acid 500 Mg Tablet) 500 mg PO DAILY [facility] Last Admin: 02/05/22 08:56 Dose: 500 mg Atorvastatin Calcium (Atorvastatin Calcium 20 Mg Tablet) 20 mg PO BEDTIME [facility] Last Admin: 02/04/22 20:08 Dose: 20 mg Carvedilol (Carvedilol 25 Mg Tablet) 25 mg PO BID [facility]; Protocol Last Admin: 02/05/22 08:57 Dose: 25 mg Estrogens Conjugated (Estrogens, Conjugated Cream 30 Gm Tube) 0.5 gm VAGINAL Mo@2100 [facility] Last Admin: 02/04/22 21:03 Dose: 0.5 gm Gabapentin (Gabapentin 300 Mg Capsule) 300 mg PO BID [facility] Last Admin: 02/05/22 08:57 Dose: 300 mg Hydroxyzine HCl (Hydroxyzine Hcl 25 Mg Tablet) 25 mg PO Q6H PRN PRN Reason: Anxiety Last Admin: 01/25/22 00:36 Dose: 25 mg Isosorbide Mononitrate (Isosorbide Mononitrate 60 Mg Tab.Er.24h) 60 mg PO DAILY [facility]; Protocol Last Admin: 02/05/22 08:56 Dose: 60 mg Lidocaine (Lidocaine 5 % Ointment 35 Gm) 1 appl TOPICAL Q6H PRN PRN Reason: musculoskeletal pain Last Admin: 01/30/22 22:06 Dose: 1 appl Loperamide HCl (Loperamide Hcl 2 Mg Capsule) 2 mg PO Q4H PRN PRN Reason: Diarrhea Last Admin: 02/04/22 21:50 Dose: 2 mg Magnesium Hydroxide (Milk Of Magnesia 30 Ml Oral.Susp) 30 ml PO DAILY PRN PRN Reason: Constipation Melatonin (Melatonin 3 Mg Tablet) 9 mg PO BEDTIME PRN PRN Reason: sleep Oxybutynin Chloride (Oxybutynin Chloride Er 5 Mg Tab.Er.24) 5 mg PO DAILY [facility] Last Admin: 02/05/22 08:56 Dose: 5 mg Paliperidone Palmitate (Paliperidone Palmitate 156 Mg/Ml Syringe) 156 mg IM Q30D [facility] Last Admin: 02/01/22 14:44 Dose: 156 mg Quetiapine Fumarate (Quetiapine Fumarate 100 Mg Tablet) 100 mg PO BEDTIME [facility] Last Admin: 02/04/22 20:08 Dose: 100 mg Trazodone HCl (Trazodone Hcl 50 Mg Tablet) 50 mg PO BEDTIME PRN PRN Reason: Insomnia Last Admin: 01/25/22 00:36 Dose: 50 mg Allergies Allergies Allergy/AdvReac Type Severity Reaction Status Date / Time latex Allergy Facial Verified 01/30/22 15:29 Swelling red meat Allergy Severe Swelling Uncoded 01/30/22 15:27 Assessment & Plan Assessment & Plan (1) Clostridioides difficile infection: Status: Acute Code(s): A49.8 - Other bacterial infections of unspecified site (2) Bipolar disorder: Status: Acute Code(s): F31.9 - Bipolar disorder, unspecified (3) Alcohol use with alcohol-induced disorder: Status: Acute Code(s): F10.99 - Alcohol use, unspecified with unspecified alcohol-induced disorder Plan Elderly female , referred from the community for increased agitation and james in the context of starting Cymbalta with a prior history of an admission 10 years ago. She also has history of alcohol use disorder that she denies and now medical problems such as closely during the physical. Plan 1. Gather collateral information. 2. Continue neuroleptics. 3. Discontinue Cymbalta. 4. Continue treatment for C diff. 5. Continue with Invega Sustenna long-acting injectable I spent __20____ minutes with the patient and/or on the patient floor today, greater than?50% of which was spent counseling/coordinating care. Reason for contiued inpatient stay Substantial Risk for: inability to function, rapid decompensation and med/psych decompensation
[2022-02-05] MEDS: oxyCODONE HCl Immed Release 5 MG TABLET PO ×2 (16:14→22:06)
[2022-02-05 18:00] VITALS: BP 162/89; PULSE 79; RESP 18; TEMP 36.1; O2SAT 95
[2022-02-05] MEDS: Atorvastatin Calcium 20 MG TABLET PO (22:24)
[2022-02-05] MEDS: QUEtiapine Fumarate 100 MG TABLET PO (22:24)
[2022-02-06] MEDS: Gabapentin 300 MG CAPSULE PO (08:18)
[2022-02-06] MEDS: Isosorbide Mononitrate 60 MG TAB.ER.24H PO (08:19)
[2022-02-06] MEDS: oxyCODONE HCl Immed Release 5 MG TABLET PO (08:19)
[2022-02-06] MEDS: carvediloL 25 MG TABLET PO (08:19)
[2022-02-06] MEDS: Ascorbic Acid 500 MG TABLET PO (08:19)
--- NOTE | 2022-02-06 10:10 | P.DS_ITS ---
DS: Providers Provider Date of Service: 02/06/22 Date of admission: 01/23/22 19:39 Date of discharge: 02/06/22 Primary care physician: Unknown Physician Consults: 01/23/22 20:18 Consult to Hospitalist Routine Consulting Provider: Hospitalist Reason For Exam: new admit from [facility] Attending physician on discharge: Jesus Emmanuel DS: Diagnosis Discharge Diagnosis (1) Clostridioides difficile infection: Status: Acute (2) Bipolar disorder: Status: Acute (3) Alcohol use with alcohol-induced disorder: Status: Acute DS: Medications Discharge Medications Home Medications: Home Medications Medication Instructions Recorded Confirmed Aspirin Low-Strength 81 mg PO DAILY 01/24/22 01/24/22 Coreg 25 mg PO BID 01/24/22 01/24/22 Myrbetriq 25 mg PO DAILY 01/24/22 01/28/22 Neurontin 300 mg PO BID 01/24/22 01/24/22 Vitamin C 500 mg PO DAILY 01/24/22 01/24/22 atorvastatin 20 mg tablet 20 mg PO DAILY 01/24/22 01/24/22 duloxetine 20 mg capsule,delayed 20 mg PO DAILY 01/24/22 01/28/22 release (Cymbalta) estradiol 0.01% (0.1 mg/gram) 1 g vaginal 2XW 01/24/22 01/24/22 vaginal cream ferrous sulfate 325 mg PO DAILY 01/24/22 01/24/22 isosorbide mononitrate 60 mg 60 mg PO DAILY 01/24/22 01/24/22 tablet,extended release 24 hr lidocaine 5 % topical cream 1 appl topical BID PRN Analgesia 01/24/22 01/24/22 methenamine hippurate 1 gram tablet 1 g PO BID 01/24/22 01/24/22 oxycodone-acetaminophen 5 mg-325 1 tab PO TID PRN Pain 01/24/22 01/24/22 mg tablet (Percocet) quetiapine 100 mg PO DAILY 01/24/22 01/24/22 Mental Status Exam Mental Status Exam Patient Appearance: Well Grooomed Patient Orientation: Person and Situation Level of Consciousness: Awake Patient Behavior: Cooperative Mood Description: Appropriate Affect Description: Constricted Ability to Follow Directions: Good Speech Pattern: Clear Hallucinations: None Delusions: Not Present Thought Process: Distracted Thought Content: positive for Circumstantial Judgement: Fair Data Data Completed and Pending Completed studies during hospitalization [Text1]: 01/30/22 14:23 Urine Color YELLOW Urine Appearance CLEAR Urine pH 6.0 Ur Specific [place] 1.020 Urine Protein NEG Urine Glucose (UA) NEG Urine Ketones NEG Urine Blood NEG Urine Nitrite NEG Ur Leukocyte Esterase NEG DS: Summary Hospital Course Hospital Course: The patient was admitted for mood dysregulation in the context of noncompliance and alcohol use disorder. Please see HPI of the admission and for further details. On admission, we noticed that the patient was positive to C.diff and she received 10 days of vancomycin and she was on the protocol as per infection control. On admission, the patient was restarted on her regular medications. We stopped the Cymbalta since it seems that it caused her manic episode. The patient's mood was very unstable so we discussed at length different treatment options. Her son who is his primary care provider reported that historically she did very well on Risperdal. We offer her Invega Sustenna and she agreed on the use of an long-acting injectable for mood stabilizing. The patient admissions sinus CV but later on she wanted to be discharged and she is in a 3 day notice. We filed for Section 7 and 8 but her case was continue 8 several weeks after. The patient's mood improved, she was able to participate in groups and she was future oriented. Since there were no safety concerns discharge planning was discussed. Case managing was provided and she had aftercare. Time spent discussing smoking cessation with patient: 3 to 10 minutes Status at Discharge Cognitive/behavioral status at discharge: At baseline Functional status at discharge: independent ambulation Overall status at discharge: patient is back to baseline Time Spent with Patient Time attestation: Total time spent providing and/or coordinating discharge services: Time spent: Less than 30 minutes Discharge Plan Discharge Patient Disposition: Home, Self-Care Discharge Diagnosis: Bipolar disorder Alcohol use disorder Referrals: [facility] [Other] - 02/27/22 9:30 am (Next scheduled appointment is for February 27, 2022 @ 10:30 AM IN OFFICE with Nicolasa Bhandari) [facility] discharge specialists Shelly [Other] - 1 Week Physician,Unknown J [Primary Care Provider] - 1 Week Discharge Medications: New carvedilol 25 mg Tablet 25 mg PO BID 30 Days Qty: 60 0RF Protocol: Hold for SBP/HR < HOLD for SBP < : 90 HOLD for HR < : 60 quetiapine 100 mg Tablet 100 mg PO BEDTIME 30 Days Qty: 30 0RF ascorbic acid (vitamin C) [Vitamin C] 500 mg Tablet 500 mg PO DAILY 30 Days Qty: 30 0RF Premarin 0.625 mg/gram Cream 0.5 g vaginal Mo@2100 30 Days Qty: 1 0RF oxybutynin chloride 5 mg Tablet Extended Release 24hr 5 mg PO DAILY 30 Days Qty: 30 0RF gabapentin 300 mg Capsule 300 mg PO BID 30 Days Qty: 60 0RF Invega Sustenna 156 mg/mL Syringe 156 mg IM Q30D 30 Days Qty: 1 0RF Continued Aspirin Low-Strength 81 mg PO DAILY 30 Days Qty: 30 0RF atorvastatin 20 mg Tablet 20 mg PO DAILY 30 Days Qty: 30 0RF lidocaine 5 % Cream 1 appl TOPICAL BID PRN (Reason: Analgesia) 30 Days Qty: 1 0RF oxycodone-acetaminophen [Percocet] 5-325 mg Tablet 1 tab PO TID PRN (Reason: Pain) 30 Days Qty: 90 0RF isosorbide mononitrate 60 mg Tablet Extended Release 24 Hr 60 mg PO DAILY 30 Days Qty: 30 0RF methenamine hippurate 1 gram Tablet 1 g PO BID 30 Days Qty: 60 0RF Discontinued duloxetine [Cymbalta] 20 mg Capsule,Delayed Release(Dr/Ec) 20 mg PO DAILY quetiapine tablet 100 mg PO DAILY Coreg 25 mg PO BID Myrbetriq 25 mg PO DAILY Neurontin 300 mg PO BID estradiol 0.01 % (0.1 mg/gram) Cream 1 g VAGINAL 2XW Vitamin C 500 mg PO DAILY ferrous sulfate 325 mg PO DAILY Discharge Orders: Discharge Order (Routine); Ordered 02/06/22 Ordered By: Jesus Emmanuel Diet: Advance to usual diet Activity on Discharge: As tolerated Stand Alone Forms: Patient Portal Discharge page Care Plan Goals: Care plan goals achieved in this unit Health Concerns: Continue outpatient services Plan of Treatment: Continue medication management and outpatient services Assessment: Elderly female with bipolar disorder, alcohol use disorder and noncompliance admitted for mood lability in the context of recent addition of Cymbalta that cause james. Now stable
== END 2022-02-06 11:14 | disposition home or self-care (01) | DRG 885 ==
PROVIDERS: Registered Nurse; Admitting Provider Psychiatry & Neurology Psychiatry; Visit Provider Psychiatry & Neurology Psychiatry
DX: F31.9 Bipolar disorder, unspecified (principal); A04.72 Enterocolitis due to Clostridium difficile, not specified as recurrent; E78.5 Hyperlipidemia, unspecified; I10 Essential (primary) hypertension; F03.90 Unspecified dementia, unspecified severity, without behavioral disturbance, psychotic disturbance, mood disturbance, and anxiety; F10.10 Alcohol abuse, uncomplicated; Z62.810 Personal history of physical and sexual abuse in childhood; Z91.14 Patient's other noncompliance with medication regimen; Z91.040 Latex allergy status; Z79.899 Other long term (current) drug therapy
CPT/HCPCS: 36415; 80048; 80061; 80076; 80202; 81003; 82607; 82746; 83036; 83735; 84439; 84443; 85025; J2426

== ENCOUNTER 2022-08-15 19:07 | Inpatient (IN) | payer OTHER, SELFPAY ==
--- NOTE | ~2022-08-15 | MR_ITS ---
EXAMINATION: MRI OF THE BRAIN WITHOUT CONTRAST CLINICAL INFORMATION: History of bipolar disorder with increased confusion and gait disturbance. COMPARISON: None TECHNIQUE: The patient could not tolerate this study. Motion degraded sagittal T1 and axial diffusion series are obtained. MR/MR head/brain wo con FINDINGS/IMPRESSION: The patient could not tolerate this incomplete exam. 2 series were obtained, a motion degraded sagittal T1 series and a nondiagnostic axial diffusion series, the latter secondary to significant dental hardware artifact. Consider a repeat study with sedation as clinically indicated.
--- NOTE | ~2022-08-15 | FL_ITS ---
EXAMINATION: FL BARIUM SWALLOW CLINICAL INFORMATION: Globus. COMPARISON: None TECHNIQUE: Barium swallow examination is performed using fluoroscopic evaluation in addition to multiple fluoroscopic spot views. The patient is imaged both upright and prone and using both thick and thin sulfate along with effervescent granules. Fluoroscopy time: 2.3 minutes DAP: 5.664 Gycm2 Images: 35 FINDINGS: Following oral administration of thin, thick barium and barium coated turkey in the semiupright view there is normal propagation of bolus from the oral cavity through the pharynx, esophagus into stomach without any evidence of obstruction, narrowing or stricture. No laryngeal penetration, aspiration or retention of food in the valleculae. There is a transitional small hiatal hernia visualized. No extrinsic compression. FL/FL barium swallow IMPRESSION: Unremarkable barium swallow exam in semiupright view with different consistencies of food coated with barium.
--- OUTSIDE RECORDS SUMMARY | 2022-08-15 19:10 | XMS_ITS | Continuity of Care Document ---
:1950 Author Organization [facility] Address [address] [place] [id number]- Care Team Providers Name Role Phone Flor Reddy MD Primary Care Physician [facility] [id number] Date(s): 03/14/22 - 04/13/22 [facility] [address] [address] Attending Physician: Charan Broderick Admitting Physician: Charan Broderick Referring Physician: AdmtrCharan Allergies, Adverse Reactions, Alerts No Known Allergies Medications Albuterol 90 mcg Inhaler 2, puffs, Inhalation, 4 times a day, PRN, Refills 0, Maintenance, 11/26/15 10:39:26, Inhaler Start Date: 11/26/15 Status: OrderedAscorbic Acid Tablet 500 mg, By Mouth, Daily, Maintenance, 05/20/15 8:07:04 Start Date: 05/20/15 Status: Orderedatorvastatin 20 mg oral tablet TAKE 1 TABLET BY MOUTH ONCE DAILY FOR 90 DAYS Start Date: 01/21/22 Status: Orderedcarvedilol 25 mg oral tablet TAKE 1 TABLET BY MOUTH TWICE DAILY FOR 90 DAYS Start Date: 01/21/22 Status: Orderedestradiol 0.1 mg/g vaginal cream APPLY 1 GRAM VAGINALLY NIGHTLY FOR 2 WEEKS AND THEN 1-2 NIGHTS A WEEK THEREAFTER Start Date: 01/21/22 Status: Orderedgabapentin 300 mg oral capsule TAKE 1 CAPSULE BY MOUTH TWICE DAILY Start Date: 01/21/22 Status: OrderedhydrALAZINE 25 mg oral tablet 50 mg, 2, tablet, By Mouth, Daily, Refills 0, Maintenance, 01/23/22 18:20:00 EDT, Partial fill upon patient request if the prescription is for a schedule II opioid drug. Start Date: 01/23/22 Status: Orderedisosorbide mononitrate 60 mg oral tablet, extended release 1 tablet = 60 mg, By Mouth, Daily in AM, # 30 tablet, 0 Refills, Maintenance, 01/23/22 18:21:00 EDT,ER Tablet, Partial fill upon patient request if the prescription is for a schedule II opioid drug. Start Date: 01/23/22 Status: Orderedmethenamine hippurate 1 gm oral tablet TAKE 1 TABLET BY MOUTH TWICE DAILY TAKE WITH VITAMIN C OR CRANBERRY TABS Start Date: 01/21/22 Status: OrderedMyrbetriq 25 mg oral tablet, extended release TAKE 1 TABLET BY MOUTH ONCE DAILY Start Date: 01/21/22 Status: Orderedsenna 187 mg oral tablet 1 tablet = 8.6 mg, By Mouth, Daily at bedtime, 0 Refills, Maintenance, 03/31/16 13:08:33 Start Date: 03/31/16 Status: OrderedSEROquel 25 mg oral tablet 25 mg, 1, tablet, By Mouth, 2 times a day, PRN, Refills 0, Maintenance, Agitation, 01/23/22 18:22:00EDT, Partial fill upon patient request if the prescription is for a schedule II opioid drug. 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 Active Conditions Classified Elsewhere Family history of Confirmed Active alcoholism Family history of Confirmed Active depression: mother Limitation due to Confirmed Active disability2 Drug or alcohol Confirmed Active risk assessment3 History of total Confirmed 11/24/15 Active knee replacement, bilateral4 Knee pain, left Confirmed Active Knee pain, right Confirmed Active Anemia, macrocytic Confirmed 10/2015 Active Mechanical low Confirmed Active back pain Elevated TSH Confirmed Active Lack of adequate Confirmed Active sleep 1Epworth Sleepiness Scale: 8 on Initial Oswestry Disability Questionnaire: 38% ( moderate disability ) on 03/31/16. Initial [place] Back Pain Disability Scale: 56 on SOAPP-R: 9 () on 03/31/1645: Right cemented total knee arthroplasty with computer navigation by Dr Tee. On 05/17/15, Dr Tee replaced her left knee. Patient Care team information PersonnelName: Flor Reddy MD Address: Address: [address] [place] [address]
--- OUTSIDE RECORDS SUMMARY | 2022-08-15 19:10 | XMS_ITS | Continuity of Care Document ---
:1950 Author Organization [facility] Address [address] [place] [address]- Care Team Providers Name Role Phone Maureen MEHTA, Flor Primary Care Physician Encounter [facility] Date(s): 10/28/20 - 12/03/20 [facility] [address], [place] [address] Attending Physician: Jaclyn Mast NP Admitting Physician: Jaclyn Mast NP Referring Physician: Jaclyn Mast NP Allergies, Adverse Reactions, Alerts Substance Reaction Severity Status Keflex RASH Active Motrin hives Active Latex hives Active Medications Albuterol 90 mcg Inhaler 2, puffs, Inhalation, 4 times a day, PRN, Refills 0, Maintenance, 11/26/15 10:39:26, Inhaler Start Date: 11/26/15 Status: OrderedAscorbic Acid Tablet 500 mg, By Mouth, Daily, Maintenance, 05/20/15 8:07:04 Start Date: 05/20/15 Status: Orderedgabapentin 400 mg oral capsule 800 mg, By Mouth, Daily at bedtime, Refills 0, Maintenance, 11/26/15 10:39:34 Start Date: 11/26/15 Status: OrderedhydrOXYzine pamoate 25 mg oral capsule 1 capsule = 25 mg, By Mouth, 3 times a day, PRN for itching, # 40 capsule, 0 Refills, Maintenance, 11/24/15 3:06:16, Capsule Start Date: 11/24/15 Status: OrderedoxyCODONE 30 mg oral tablet 1 tablet = 30 mg, By Mouth, Every 6 hours, PRN Pain, 0 Refills, Maintenance, 12/14/15 3:21:22, Tablet Start Date: 12/14/15 Status: OrderedPlease check INR on 12/17/15 and report to Orthopedic clinic or Dr Hercules Please check INR on 12/17/15 and report to Orthopedic clinic or Dr Hercules, See Instructions, # 1 supp, Refills 0, Tot. Refills 0, Maintenance, Check INR on 12/17/2015, 12/15/15 16:00:22, Compound Start Date: 12/15/15 Status: Orderedrivaroxaban 20 mg oral tablet 1 tablet = 20 mg, By Mouth, Daily in PM, # 30 tablet, 0 Refills, Maintenance, 03/31/16 12:56:12, Tablet Start Date: 03/31/16 Status: Orderedsenna 187 mg oral tablet 1 tablet = 8.6 mg, By Mouth, Daily at bedtime, 0 Refills, Maintenance, 03/31/16 13:08:33 Start Date: 03/31/16 Status: OrderedSEROquel 300 mg oral tablet 1 tablet = 300 mg, By Mouth, Daily at bedtime, 0 Refills, Maintenance, 05/17/15 5:30:31 Start Date: 05/17/15 Status: Orderedsolifenacin 10 mg oral tablet 1 tablet = 10 mg, By Mouth, Daily, # 30 tablet, 0 Refills, Maintenance, 03/31/16 12:56:30, Tablet Start Date: 03/31/16 Status: OrderedVitamin D3 1000 intl units oral tablet 1 tablet = 1,000 International_Units, By Mouth, Daily, 0 Refills, Maintenance, 03/31/16 12:57:03 Start Date: 03/31/16 Status: OrderedZocor 20 mg oral tablet 20 mg, By Mouth, Daily at bedtime, Refills 0, Maintenance, 11/26/15 10:40:03 Start Date: 11/26/15 Status: Ordered Problem List Condition Effective Dates Status Health Status Informant Overweight (BMI 25.0-29.9)(Confirmed) Active Daytime somnolence(Confirmed)1 Active 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 Active Elsewhere(Confirmed) Family history of Active alcoholism(Confirmed) Family history of depression: Active mother(Confirmed) Limitation due to Active disability(Confirmed)2 Drug or alcohol risk Active assessment(Confirmed)3 History of total knee replacement, 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 Initial [place] Back Pain Disability Scale: 56 on SOAPP-R: 9 () on 03/31/1645: Right cemented total knee arthroplasty with computer navigation by Dr Tee. On 05/17/15, Dr Tee replaced her left knee.
--- OUTSIDE RECORDS SUMMARY | 2022-08-15 19:10 | XMS_ITS | Continuity of Care Document ---
:1950 Author Organization [facility] Address [address] [place] [id number]- Care Team Providers Name Role Phone Nik Cooley MD Primary Care Physician [place] [facility] 08/28/19 - 08/28/[address] [address]- [facility] Attending Physician: Nik Cooley MD Allergies, Adverse Reactions, Alerts Substance Reaction Severity [...] ( moderate disability ) on 03/31/16. Initial [place] Back Pain Disability Scale: 56 on SOAPP-R: 9 () on 03/31/1645: Right cemented total knee arthroplasty with computer navigation by Dr Tee. On 05/17/15, Dr Tee replaced her left knee.
--- OUTSIDE RECORDS SUMMARY | 2022-08-15 19:10 | XMS_ITS | Continuity of Care Document ---
:1950 Author Organization [facility] Address [address] [place] [id number]- Care Team Providers Name Role Phone Flor Reddy MD Primary Care Physician Encounter [facility] [place] Date(s): 07/18/22 - 07/19/[address] [address]- Encounter Diagnosis Dysuria (Final) - 07/18/22 Discharge Disposition: A-D/C Home Attending Physician: Yaw Figueroa MD Admitting Physician: Yaw Figueroa MD Referring Physician: Not on Staff, Referring MD Allergies, Adverse Reactions, Alerts Substance Reaction Severity Status Keflex RASH Active Motrin hives Active Latex hives Active Cymbalta Active Immunizations Given and Recorded Vaccine Date Status Refusal Reason influenza virus vaccine, inactivated 06/15/22 Given influenza virus vaccine, inactivated 05/09/21 Recorded influenza virus vaccine, inactivated 03/10/20 Recorded influenza virus vaccine, inactivated 04/15/19 Recorded influenza virus vaccine, inactivated 04/25/18 Recorded influenza virus vaccine, inactivated 03/31/17 Recorded influenza virus vaccine, inactivated 04/03/16 Recorded influenza virus vaccine, inactivated 03/31/15 Recorded influenza virus vaccine, inactivated 04/16/14 Recorded influenza virus vaccine, inactivated 02/28/13 Recorded influenza virus vaccine, inactivated 04/01/12 Recorded influenza virus vaccine, inactivated 03/23/11 Recorded influenza virus vaccine, inactivated 03/25/10 Recorded influenza virus vaccine, inactivated 06/03/08 Recorded [id number] 12y+ bivalent booster vax 04/03/22 Recorde d SARS-CoV-2 mRNA ([id number]) vax 01/11/22 Recorde d SARS-CoV-2 (COVID-19) mRNA BNT-162b2 vac 05/12/21 Recorde d SARS-CoV-2 (COVID-19) mRNA BNT-162b2 vac 09/18/20 Recorde d SARS-CoV-2 (COVID-19) mRNA BNT-162b2 vac 08/26/20 Recorde d pneumococcal 13-valent vaccine 04/01/20 Recorded pneumococcal 13-valent vaccine 06/15/15 Recorded zoster vaccine, inactivated 10/28/18 Recorded zoster vaccine, inactivated 08/06/18 Recorded pneumococcal 23-valent vaccine 12/11/13 Recorded pneumococcal 23-valent vaccine 04/27/09 Recorded tetanus/diphtheria/pertussis, acel(Tdap) 12/13/12 Recorde d Zoster Vaccine Live 03/01/12 Recorded tetanus-diphtheria toxoids (Td) 02/29/04 Recorded Medications Albuterol 90 mcg Inhaler 2, puffs, Inhalation, 4 times a day, PRN, Refills 0, Maintenance, 11/26/15 10:39:26, Inhaler Start Date: 11/26/15 Status: Orderedamoxicillin-clavulanate 500 mg-125 mg oral tablet 1 tablet, By Mouth, Every 12 hours, for 5 days, # 10 tablet, 0 Refills, Acute 07/23/22 23:13:00 EST,07/18/22 23:13:00 EST, Tablet, [facility] 1967, Partial fill upon patient request if the prescription is for a schedule II opioid drug., 160, cm... Start Date: 07/18/22 Stop Date: 07/23/22 Status: OrderedAscorbic Acid Tablet 500 mg, By Mouth, Daily, Maintenance, 05/20/15 8:07:04 Start Date: 05/20/15 Status: Orderedatorvastatin 20 mg oral tablet TAKE 1 TABLET BY MOUTH ONCE DAILY FOR 90 DAYS Start Date: 01/21/22 Status: Orderedcarvedilol 25 mg oral tablet TAKE 1 TABLET BY MOUTH TWICE DAILY FOR 90 DAYS Start Date: 01/21/22 Status: OrderedhydrALAZINE 25 mg oral tablet 50 mg, 2, tablet, By Mouth, Daily, Refills 0, Maintenance, 01/23/22 18:20:00 EDT, Partial fill upon patient request if the prescription is for a schedule II opioid drug. Start Date: 01/23/22 Status: OrderedImodium A-D 2 mg oral tablet 2 mg, 1, tablet, By Mouth, Every 4 hours, PRN, # 60 tablet, Refills 0, Tot. Refills 0, Maintenance, for loose stool, 06/15/22 12:46:00 EST, Route to Pharmacy Electronically, [facility] 1966, Partial fill upon patient request if the prescription... Start Date: 06/15/22 Status: Orderedisosorbide mononitrate 60 mg oral tablet, [...] OR CRANBERRY TABS Start Date: 01/21/22 Status: OrderedMorPHINE Inj 4 mg, Injection, IV Push Slowly, Every 5 minutes for 3 doses/times, PRN for Pain , Moderate, and SBPgreater than 100, Routine, 07/18/22 14:42:00 EST, Stop date Limited # of times Start Date: 07/18/22 Stop Date: 07/19/22 Status: DiscontinuedMorPHINE Inj 2 mg, Injection, IV Push Slowly, Once, STAT, 07/18/22 17:32:00 EST, Stop date 07/18/22 17:32:00 EST Start Date: 07/18/22 Stop Date: 07/18/22 Status: CompletedPercocet 5 mg-325 mg oral tablet By Mouth, 3 times a day, Refills 0, Tot. Refills 0, Maintenance, 06/13/22 15:32:00 EST, Partial fillupon patient request if the prescription is for a schedule II opioid drug. Start Date: 06/13/22 Status: Orderedsenna 187 mg oral tablet 1 tablet = 8.6 mg, By Mouth, Daily at bedtime, 0 Refills, Maintenance, 03/31/16 13:08:33 Start Date: 03/31/16 Status: OrderedSEROquel 100 mg oral tablet 100 mg, 1, tablet, By Mouth, Daily, bedtime, Refills 0, Maintenance, 06/13/22 15:31:00 EST, Partial fill upon patient request if the prescription is for a schedule II opioid drug. Start Date: 06/13/22 Status: Ordered Problem List Condition Confirmation Course [...] 05/17/15, Dr Tee replaced her left knee. Results Radiology Reports Exam Date Time Procedure Performing Provider Status 07/18/22 8:[address] Abd/Pelvis W/ IV Contrast Mei Chan; Auth (Verified) Only Notes:(CT Abd/Pelvis W/ IV Contrast Only) Reason For Exam: abodminal pain;Other: RESULT: CT Abd/Pelvis W/ IV Contrast Only EXAMINATION: CT Angio Chest, CT Abd/Pelvis W/ IV Contrast Only INDICATION: Hx of Present Illness: bladder inf and now worse; Reason: Other:; PE suspected, Intermediate prob, positive D-dimer,; left flank pain. Clinical Question(s): Pulmonary Embolism; Order Comment: TECHNIQUE: Spiral CTA of the chest was performed after rapid IV contrast administration without cardiac gating triggered by an POPEYE on the main pulmonary artery. Spiral CT of the abdomen and pelvis was then performed in the portal venous phase. Images are formatted in multiple planes using 2-D multiplanar and 3-D maximum intensity projection. 100 cc of Omnipaque 300 was administered intravenously. Weight-based protocol using automatic tube modulation was used to optimize exposure parameters. CTDIvol Body: 10.25 mGy, DLP Body: 1270 mGy*cm. COMPARISONS: CTA chest dated 12/14/2015. ANGIOGRAPHIC FINDINGS: Evaluation is mildly limited by motion artifact. No pulmonary embolism to the segmental level. Normal caliber pulmonary arteries. No acute aortic abnormality seen on this study performed without cardiac gating. Thoracic aorta is tortuous. Vasculature of the abdomen and pelvis was imaged in the venous phase. No abdominal aortic aneurysm. No acute vascular findings. NON-ANGIOGRAPHIC FINDINGS: Due Diligence Coordinator View Findings, Lines and Tubes: None. Trachea and Airways: Patent without evidence of tracheal or endobronchial lesion. Lungs and Pleura: Clear lungs with limited evaluation of the lower lung dickey due to breathing motion artifacts. Dependent atelectasis in lower lobes. No effusion or pneumothorax. Mediastinum and kristel: No mass or hematoma. No mediastinal or hilar lymphadenopathy. No esophageal abnormality. Heart: Heart is normal in size. No pericardial effusion. Mild coronary artery calcification. Chest Wall Soft Tissues: Normal. Diaphragm: No significant abnormality. Liver: Normal. Gallbladder: No CT evidence of gallbladder pathology. Bile ducts: Dilated common bile duct measuring 1.5 cm proximally with mild intrahepatic biliary ductal dilatation. No calcified choledocholithiasis is seen. Spleen: Normal. Pancreas: Normal. Adrenal glands: Normal. Kidneys and ureters: No hydronephrosis, stones, or suspicious masses. Multifocal scarring in the left kidney. Bladder: Under distended but appears normal. Reproductive organs: Unremarkable. Stomach, small bowel, and large bowel: No evidence of bowel obstruction. Moderate degree colonic stool retention with formed stool in the rectum. Scattered colonic diverticuli. No evidence of surrounding inflammatory change. Appendix: Normal. Peritoneum and retroperitoneum: No ascites or pneumoperitoneum. No omental or mesenteric lesions. Lymph nodes: No enlarged lymph nodes. Abdominal and pelvic wall: Diffuse muscle atrophy. Bones: No acute abnormality. Moderate to severe multilevel degenerative disc disease. IMPRESSION: 1. No evidence of pulmonary embolism. 2. Biliary ductal dilatation is of uncertain etiology. There is no pancreatic ductal dilatation. If the patient has obstructive biochemical pattern, further evaluation with MRCP may be of additional value. 3. Constipation without evidence of bowel obstruction or stercoral colitis. WSN: [id number] Ordering Physician: Sakshi Banda Dictated By: Justus Rosario MD Dictated Date/Time: 07/18/22 9:09 pm Reviewed By: Justus Rosario MD Signed By: Justus Rosario MD Signed Date/Time: 07/18/22 9:09 pm Transcribed By: TORIE Transcribed Date/Time: 07/18/22 8:58 pm Exam Date Time Procedure Performing Provider Status 07/18/22 8:[address] Angio Chest Mei Chan; Adan (Kaci ified) Notes:(CT Angio Chest) Reason For Exam: PE suspected, Intermediate prob, positive D-dimer,;Other:RESULT: CT Angio Chest EXAMINATION: CT Angio Chest, CT Abd/Pelvis W/ IV Contrast Only INDICATION: Hx of Present Illness: bladder inf and now worse; Reason: Other:; PE suspected, Intermediate prob, positive D-dimer,; left flank pain. Clinical Question(s): Pulmonary Embolism; Order Comment: TECHNIQUE: Spiral CTA of the chest was performed after rapid IV contrast administration without cardiac gating triggered by an POPEYE on the main pulmonary artery. Spiral CT of the abdomen and pelvis was then performed in the portal venous phase. Images are formatted in multiple planes using 2-D multiplanar and 3-D maximum intensity projection. 100 cc of Omnipaque 300 was administered intravenously. Weight-based protocol using automatic tube modulation was used to optimize exposure parameters. CTDIvol Body: 10.25 mGy, DLP Body: 1270 mGy*cm. COMPARISONS: CTA chest dated 12/14/2015. ANGIOGRAPHIC FINDINGS: Evaluation is mildly limited by motion artifact. No pulmonary embolism to the segmental level. Normal caliber pulmonary arteries. No acute aortic abnormality seen on this study performed without cardiac gating. Thoracic aorta is tortuous. Vasculature of the abdomen and pelvis was imaged in the venous phase. No abdominal aortic aneurysm. No acute vascular findings. NON-ANGIOGRAPHIC FINDINGS: Due Diligence Coordinator View Findings, Lines and Tubes: None. Trachea and Airways: Patent without evidence of tracheal or endobronchial lesion. Lungs and Pleura: Clear lungs with limited evaluation of the lower lung dickey due to breathing motion artifacts. Dependent atelectasis in lower lobes. No effusion or pneumothorax. Mediastinum and kristel: No mass or hematoma. No mediastinal or hilar lymphadenopathy. No esophageal abnormality. Heart: Heart is normal in size. No pericardial effusion. Mild coronary artery calcification. Chest Wall Soft Tissues: Normal. Diaphragm: No significant abnormality. Liver: Normal. Gallbladder: No CT evidence of gallbladder pathology. Bile ducts: Dilated common bile duct measuring 1.5 cm proximally with mild intrahepatic biliary ductal dilatation. No calcified choledocholithiasis is seen. Spleen: Normal. Pancreas: Normal. Adrenal glands: Normal. Kidneys and ureters: No hydronephrosis, stones, or suspicious masses. Multifocal scarring in the left kidney. Bladder: Under distended but appears normal. Reproductive organs: Unremarkable. Stomach, small bowel, and large bowel: No evidence of bowel obstruction. Moderate degree colonic stool retention with formed stool in the rectum. Scattered colonic diverticuli. No evidence of surrounding inflammatory change. Appendix: Normal. Peritoneum and retroperitoneum: No ascites or pneumoperitoneum. No omental or mesenteric lesions. Lymph nodes: No enlarged lymph nodes. Abdominal and pelvic wall: Diffuse muscle atrophy. Bones: No acute abnormality. Moderate to severe multilevel degenerative disc disease. IMPRESSION: 1. No evidence of pulmonary embolism. 2. Biliary ductal dilatation is of uncertain etiology. There is no pancreatic ductal dilatation. If the patient has obstructive biochemical pattern, further evaluation with MRCP may be of additional value. 3. Constipation without evidence of bowel obstruction or stercoral colitis. WSN: [id number] Ordering Physician: Sakshi Banda Dictated By: Justus Rosario MD Dictated Date/Time: 07/18/22 9:09 pm Reviewed By: Justus Rosario MD Signed By: Justus Rosario MD Signed Date/Time: 07/18/22 9:09 pm Transcribed By: TORIE Transcribed Date/Time: 07/18/22 8:58 pm Exam Date Time Procedure Performing Provider Status 07/18/22 4:10 PM Chest 2 Views Frontal and Lat Jaclyn Cruz; Au th (Verified) Notes:(Chest 2 Views Frontal and Lat) Reason For Exam: Shortness of Breath, Fever;Other:RESULT: Chest 2 Views Frontal and Lat Chest 2 Views Frontal and Lat INDICATION: 55. Intermittent chest pain. COMPARISON: Most recent on 323 FINDINGS: LINES AND TUBES: None. LUNGS AND PLEURA: Clear lungs. Normal pulmonary vascularity. No pleural effusion. No pneumothorax. HEART, MEDIASTINUM AND KRISTEL: Heart is normal in size. Normal mediastinal and hilar contour. BONES AND SOFT TISSUES: No acute abnormality. IMPRESSION: No acute abnormality. WSN: [id number] Ordering Physician: Demetrio Maki Dictated By: Dileep Gaitan MD Dictated Date/Time: 07/18/22 4:13 pm Reviewed By: Dileep Gaitan MD Signed By: Dileep Gaitan MD Signed Date/Time: 07/18/22 4:13 pm Transcribed By: TORIE Transcribed Date/Time: 07/18/22 4:11 pm Vital Signs Most recent to oldest 1 2 3 [Reference Range]: Oxygen Saturation [94-100 %] 96 % 98 % 97 % (07/18/22 11:44 PM) (07/18/22 3:09 PM) (07/18/22 1: 30 PM) Pulse Rate [55-90 bpm] 80 bpm 86 bpm 79 bpm (07/18/22 11:44 PM) (07/18/22 3:09 PM) (07/18/22 1: 30 PM) Blood Pressure [90-138/55-84 142/80 mm Hg 130/88 mm Hg 148 /83 mm Hg mm Hg] *H* (07/18/22 3:09 PM) *H* (07/18/22 11:44 PM) (07/18/22 1:30 PM) Respiratory Rate [16-30 18 br/min 18 br/min 18 br/mi n br/min] (07/18/22 11:44 PM) (07/18/22 5:35 PM) (07/18/22 3: 12 PM) Temperature [96.8-100.4 DegF] 97.9 DegF 98.1 DegF 98 .2 DegF (07/18/22 11:44 PM) (07/18/22 3:09 PM) (07/18/22 1: 30 PM) Liters per Minute 0 L/min (07/18/22 1:30 PM) Mode of Delivery (Oxygen) Room air Room air Room a ir (07/18/22 11:44 PM) (07/18/22 3:09 PM) (07/18/22 1: 30 PM) Blood pressure sites Arm, right Arm, right Arm, right (07/18/22 11:44 PM) (07/18/22 3:09 PM) (07/18/22 1: 30 PM) Temperature Route Oral Oral Oral (07/18/22 11:44 PM) (07/18/22 3:09 PM) (07/18/22 1: 30 PM) EKG study Event Display: EKG Authored Date: Event Display: EKG Authored Date: Event Display: ECG 12-Lead Authored Date: Please click on pdf link to open report Event Display: ECG 12-Lead Authored Date: Ventricular Rate: 77 BPM Atrial Rate: 77 BPM P-R Interval: 190 ms QRS Duration: 92 ms Q-T Interval: 382 ms QTC Calculation(Bazett): 432 ms P [place]: 84 degrees R [place]: -14 degrees T [place]: 9 degrees Normal sinus rhythm Inferior infarct , age undetermined Abnormal ECG When compared with ECG of 18-JUL-2022 16:12, MANUAL COMPARISON REQUIRED, DATA IS UNCONFIRMED Confirmed by GONZÁLEZ PEREZ MD ([id number]) on 07/19/2022 8:45:41 AM [place]: GONZÁLEZ PEREZ MD, DO, Emily: PERFORM Event Display: Patient Education Leaflets Authored Date: Zones UTI ?? 479 URINARY TRACT INFECTION ZONES EVERY DAY Urinary Tract Infections occur when bacteria enters the urethra and travels up to the bladder. ?? EVERY DAY: ??? Take your medicine as directed by your doctor.?? Be sure to take as directed until medicine is complete. ??? Keep an updated medicine list with you. ??? Be sure to see your primary care provider within a few days for a follow up. ??? Drink plenty of fluids.?? 9-13 eight-ounce glasses per day. ???Pee often.?? Do not hold urine in. ??? Rest often. ??? Avoid sex if your partner has an infection. Which Zone are you today? GREEN, YELLOW, or RED? GREEN ZONE ALL CLEAR - This zone is your goal Your symptoms are under control when: ??? You have no fever or pain when peeing YELLOW ZONE ?? STOP && CALL CAUTION - This zone is a warning If you have one or more, of the following: Call Your Doctor: ??? You have questions or concerns about your medicines or condition. ??? You have a fever. ??? You have blood in your urine. ??? You have new or worse pain or burning when peeing. ??? Your urine looks cloudy or has a bad smell. ??? You feel the need to urinate more often. [facility] Seek care immediately if you have any of the following (DO NOT DRIVE YOURSELF): ??? You pee small amounts or not at all. ??You feel like you cannot empty your bladder completely. ??? You feel confused. ??? You have shaking chills with a fever. ??? You begin vomiting and cannot keep down liquids. ??? You have side or back pain that is getting worse. ??? You are breathing faster than usual or have a fast heart beat. ?[employer] , CIS S: TRANSCRIDileep Shabazz MD: VERIFY Event Display: Result: Authored Date: [id number] Chest 2 Views Frontal and Lat INDICATION: 55. Intermittent chest pain. COMPARISON: Most recent on 323 FINDINGS: LINES AND TUBES: None. LUNGS AND PLEURA: Clear lungs. Normal pulmonary vascularity. No pleural effusion. No pneumothorax. HEART, MEDIASTINUM AND KRISTEL: Heart is normal in size. Normal mediastinal and hilar contour. BONES AND SOFT TISSUES: No acute abnormality. IMPRESSION: No acute abnormality. WSN: [id number] Ordering Physician: Demetrio Maki Dictated By: Dileep Gaitan MD Dictated Date/Time: 07/18/22 4:13 pm Reviewed By: Dileep Gaitan MD Signed By: Dileep Gaitan MD Signed Date/Time: 07/18/22 4:13 pm Transcribed By: TORIE Transcribed Date/Time: 07/18/22 4:[address] Abdomen and Pelvis W contrast IV [facility] , CIS S: TRANSCRIBE Justus Rosario MD: VERIFY Event Display: Result: Authored Date: EXAMINATION: CT Angio Chest, CT Abd/Pelvis W/ IV Contrast Only INDICATION: Hx of Present Illness: bladder inf and now worse; Reason: Other:; PE suspected, Intermediate prob, positive D-dimer,; left flank pain. Clinical Question(s): Pulmonary Embolism; Order Comment: TECHNIQUE: Spiral CTA of the chest was performed after rapid IV contrast administration without cardiac gating triggered by an POPEYE on the main pulmonary artery. Spiral CT of the abdomen and pelvis was then performed in the portal venous phase. Images are formatted in multiple planes using 2-D multiplanar and 3-D maximum intensity projection. 100 cc of Omnipaque 300 was administered intravenously. Weight-based protocol using automatic tube modulation was used to optimize exposure parameters. CTDIvol Body: 10.25 mGy, DLP Body: 1270 mGy*cm. COMPARISONS: CTA chest dated 12/14/2015. ANGIOGRAPHIC FINDINGS: Evaluation is mildly limited by motion artifact. No pulmonary embolism to the segmental level. Normal caliber pulmonary arteries. No acute aortic abnormality seen on this study performed without cardiac gating. Thoracic aorta is tortuous. Vasculature of the abdomen and pelvis was imaged in the venous phase. No abdominal aortic aneurysm. No acute vascular findings. NON-ANGIOGRAPHIC FINDINGS: Due Diligence Coordinator View Findings, Lines and Tubes: None. Trachea and Airways: Patent without evidence of tracheal or endobronchial lesion. Lungs and Pleura: Clear lungs with limited evaluation of the lower lung dickey due to breathing motion artifacts. Dependent atelectasis in lower lobes. No effusion or pneumothorax. Mediastinum and kristel: No mass or hematoma. No mediastinal or hilar lymphadenopathy. No esophageal abnormality. Heart: Heart is normal in size. No pericardial effusion. Mild coronary artery calcification. Chest Wall Soft Tissues: Normal. Diaphragm: No significant abnormality. Liver: Normal. Gallbladder: No CT evidence of gallbladder pathology. Bile ducts: Dilated common bile duct measuring 1.5 cm proximally with mild intrahepatic biliary ductal dilatation. No calcified choledocholithiasis is seen. Spleen: Normal. Pancreas: Normal. Adrenal glands: Normal. Kidneys and ureters: No hydronephrosis, stones, or suspicious masses. Multifocal scarring in the left kidney. Bladder: Under distended but appears normal. Reproductive organs: Unremarkable. Stomach, small bowel, and large bowel: No evidence of bowel obstruction. Moderate degree colonic stool retention with formed stool in the rectum. Scattered colonic diverticuli. No evidence of surrounding inflammatory change. Appendix: Normal. Peritoneum and retroperitoneum: No ascites or pneumoperitoneum. No omental or mesenteric lesions. Lymph nodes: No enlarged lymph nodes. Abdominal and pelvic wall: Diffuse muscle atrophy. Bones: No acute abnormality. Moderate to severe multilevel degenerative disc disease. IMPRESSION: 1. No evidence of pulmonary embolism. 2. Biliary ductal dilatation is of uncertain etiology. There is no pancreatic ductal dilatation. If the patient has obstructive biochemical pattern, further evaluation with MRCP may be of additional value. 3. Constipation without evidence of bowel obstruction or stercoral colitis. WSN: [id number] Ordering Physician: Sakshi Banda Dictated By: Justus Rosario MD Dictated Date/Time: 07/18/22 9:09 pm Reviewed By: Justus Rosario MD Signed By: Justus Rosario MD Signed Date/Time: 07/18/22 9:09 pm Transcribed By: TORIE Transcribed Date/Time: 07/18/22 8:58 pm CTA Chest vessels W contrast IV [facility] , CIS S: TRANSCRIBE Justus Rosario MD: VERIFY Event Display: Result: Authored Date: [id number] EXAMINATION: CT Angio Chest, CT Abd/Pelvis W/ IV Contrast Only INDICATION: Hx of Present Illness: bladder inf and now worse; Reason: Other:; PE suspected, Intermediate prob, positive D-dimer,; left flank pain. Clinical Question(s): Pulmonary Embolism; Order Comment: TECHNIQUE: Spiral CTA of the chest was performed after rapid IV contrast administration without cardiac gating triggered by an POPEYE on the main pulmonary artery. Spiral CT of the abdomen and pelvis was then performed in the portal venous phase. Images are formatted in multiple planes using 2-D multiplanar and 3-D maximum intensity projection. 100 cc of Omnipaque 300 was administered intravenously. Weight-based protocol using automatic tube modulation was used to optimize exposure parameters. CTDIvol Body: 10.25 mGy, DLP Body: 1270 mGy*cm. COMPARISONS: CTA chest dated 12/14/2015. ANGIOGRAPHIC FINDINGS: Evaluation is mildly limited by motion artifact. No pulmonary embolism to the segmental level. Normal caliber pulmonary arteries. No acute aortic abnormality seen on this study performed without cardiac gating. Thoracic aorta is tortuous. Vasculature of the abdomen and pelvis was imaged in the venous phase. No abdominal aortic aneurysm. No acute vascular findings. NON-ANGIOGRAPHIC FINDINGS: Due Diligence Coordinator View Findings, Lines and Tubes: None. Trachea and Airways: Patent without evidence of tracheal or endobronchial lesion. Lungs and Pleura: Clear lungs with limited evaluation of the lower lung dickey due to breathing motion artifacts. Dependent atelectasis in lower lobes. No effusion or pneumothorax. Mediastinum and kristel: No mass or hematoma. No mediastinal or hilar lymphadenopathy. No esophageal abnormality. Heart: Heart is normal in size. No pericardial effusion. Mild coronary artery calcification. Chest Wall Soft Tissues: Normal. Diaphragm: No significant abnormality. Liver: Normal. Gallbladder: No CT evidence of gallbladder pathology. Bile ducts: Dilated common bile duct measuring 1.5 cm proximally with mild intrahepatic biliary ductal dilatation. No calcified choledocholithiasis is seen. Spleen: Normal. Pancreas: Normal. Adrenal glands: Normal. Kidneys and ureters: No hydronephrosis, stones, or suspicious masses. Multifocal scarring in the left kidney. Bladder: Under distended but appears normal. Reproductive organs: Unremarkable. Stomach, small bowel, and large bowel: No evidence of bowel obstruction. Moderate degree colonic stool retention with formed stool in the rectum. Scattered colonic diverticuli. No evidence of surrounding inflammatory change. Appendix: Normal. Peritoneum and retroperitoneum: No ascites or pneumoperitoneum. No omental or mesenteric lesions. Lymph nodes: No enlarged lymph nodes. Abdominal and pelvic wall: Diffuse muscle atrophy. Bones: No acute abnormality. Moderate to severe multilevel degenerative disc disease. IMPRESSION: 1. No evidence of pulmonary embolism. 2. Biliary ductal dilatation is of uncertain etiology. There is no pancreatic ductal dilatation. If the patient has obstructive biochemical pattern, further evaluation with MRCP may be of additional value. 3. Constipation without evidence of bowel obstruction or stercoral colitis. WSN: [id number] Ordering Physician: Sakshi Banda Dictated By: Justus Rosario MD Dictated Date/Time: 07/18/22 9:09 pm Reviewed By: Justus Rosario MD Signed By: Justus Rosario MD Signed Date/Time: 07/18/22 9:09 pm Transcribed By: TORIE Transcribed Date/Time: 07/18/22 8:58 pm Patient Care team information Care Team PersonnelName: Paz Leo RN Position: [facility] RN Member Role: Primary Care Nurse Name: Flor Reddy MD Position: S Physician -Physician Practices Member Role: PCP Address: Address: [address] [place] [address] Name: Jenna Ulloa RN Position: [facility] SN RN Member Role: Primary Care Nurse Name: Guerita Garcia RN Position: [facility] RN Member Role: Primary Care Nurse Name: Glen Orona RN Position: [facility] RN Member Role: Primary Care Nurse Name: Jm Rene MD Position: [facility] Physician (General Medicine) Member Role: Lifetime Consulting Physician Address: Address: [address] [place] [address], [address] [place] [address]- [place] Name: Terrence Cook RN Position: [facility] RN Member Role: Primary Care Nurse Name: Sharona Chun Position: [facility] RN Member Role: Primary Care Nurse Name: Diana Rondon RN Position: [facility] RN Member Role: Primary Care Nurse Name: Fercho Galeana RN Position: [facility] RN Member Role: Primary Care Nurse Name: Jay Stern MD Position: [facility] Renal MD Member Role: Lifetime Consulting Physician Address: Address: [address] [place] [address] [address] [facility] [place] [address]- [place] Name: Iglesia Feldman MD Position: [facility] Renal MD Member Role: Lifetime Consulting Physician Address: Address: [address] [place] [address] [facility] [place] [address]- [place] Name: Estrellita Wong RN Position: [facility] Onco RN Member Role: Primary Care Nurse Name: Jodee Grijalva Position: [facility] ED TA [facility] Name: Dayna Leos RN Position: [facility] ED RN W/OE and Tasks Member Role: Patient Care Provider Name: Yaw Figueroa MD Position: [facility] Resident Member Role: ED Attending Physician Address: Address: [address] [place] [address]- [place] Name: Sakshi Banda DO Position: [facility] Resident Member Role: ED Resident Address: Address: [address] [place] [address]- Care Team Related PersonsName: ZAK STALLWORTH Address: home [address] [place] [id number] Name: ZAK STALLWORTH Address: home [address] [place] [address] Name: LEN STALLWORTH Address: home [address] [place] [address]
--- OUTSIDE RECORDS SUMMARY | 2022-08-15 19:10 | XMS_ITS | Continuity of Care Document ---
:1950 Author Organization [facility] re Address [address] [place] [address]- Care Team Providers Name Role Phone Maureen MEHTA, Flor Primary Care Physician Encounter [facility] [place] Date(s): 07/14/22 - 08/13/22 [facility] [address] [place], [place] [address] Attending Physician: Charan Broderick Admitting Physician: AdmCharan humphries Referring Physician: AdmtrCharan Allergies, Adverse Reactions, Alerts Substance Reaction Severity [...] Recorded influenza virus vaccine, inactivated 06/03/08 Recorded [id number] 12y+ bivalent booster vax 04/03/22 Recorde d SARS-CoV-2 mRNA ([id number]) vax 01/11/22 Recorde d SARS-CoV-2 (COVID-19) mRNA [...] Recorded tetanus-diphtheria toxoids (Td) 02/29/04 Recorded Medications acetaminophen-oxycodone 325 mg-2.5 mg oral tablet 1 tablet, By Mouth, 3 times a day, Take with 5 mg-325 mg, 0 Refills, Maintenance, 08/08/22 9:36:00 EST, ; Start Date: 08/08/22 Status: Orderedacetaminophen-oxyCODONE 325 mg-5 mg oral tablet 1, tablet, By Mouth, 3 times a day, Take with 2.5 mg-325 mg, Refills 0, Tot. Refills 0, Maintenance,08/08/22 9:36:00 EST, ; Start Date: 08/08/22 Status: OrderedAlbuterol 90 mcg Inhaler 2, puffs, Inhalation, 4 times a day, PRN, Refills 0, Maintenance, 11/26/15 10:39:26 EDT, Inhaler Start Date: 11/26/15 Status: Orderedaspirin 81 mg oral delayed release tablet 81 mg, By Mouth, Daily, # 30 tablet, Refills 0, Tot. Refills 0, Maintenance, 08/03/22 15:33:00 EST, Route to Pharmacy Electronically, [facility], Partial fill upon patient request if the prescription is for a schedule II opioid drug., 16... Start Date: 08/03/22 Status: Orderedatorvastatin 20 mg oral tablet 1 tablet = 20 mg, By Mouth, Daily Start Date: 01/21/22 Status: Orderedcarvedilol 25 mg oral tablet 25 mg, 1, tablet, By Mouth, 2 times a day Start Date: 01/21/22 Status: OrderedCranberry = 450 mg, By Mouth, 2 times a day, Maintenance, 08/08/22 9:44:00 EST, ; Start Date: 08/08/22 Status: OrderedDeep Sea Nasal 0.65% nasal spray 2 sprays, Nares, Both, 2 times a day, PRN as needed for dry nasal passages, Maintenance, 08/08/22 9:45:00 EST, ; Start Date: 08/08/22 Status: Orderedgabapentin 300 mg oral capsule 300 mg, 1, capsule, By Mouth, Daily in AM, PRN, Maintenance, as needed, 08/08/22 9:38:00 EST, ; Start Date: 08/08/22 Status: Orderedgabapentin 300 mg oral capsule 300 mg, 1, capsule, By Mouth, Daily at bedtime, Refills 0, Maintenance, 07/31/22 16:37:00 EST, ; Start Date: 07/31/22 Status: OrderedhydrALAZINE 50 mg oral tablet 1 tablet = 50 mg, By Mouth, Daily, WITH FOOD Start Date: 08/07/22 Status: OrderedInvega Sustenna 156 mg/mL intramuscular suspension, extended release = 156 mg, Intramuscular, Every 28 days, on the 15 Start Date: 07/31/22 Status: Orderedisosorbide mononitrate 60 mg oral tablet, extended release 1 tablet = 60 mg, By Mouth, Daily in AM, 0 Refills, Maintenance, 01/23/22 18:21:00 EDT, ER Tablet, ; Start Date: 01/23/22 Status: Orderedlidocaine 5% topical film 1 patch, Topically, Daily, PRN Pain , Mild, remove after 12 hours, Maintenance, 08/08/22 9:44:00 EST, Film, ; Start Date: 08/08/22 Status: Orderedlidocaine 5% topical ointment Topically, 2 times a day, PRN pain, Maintenance, 08/08/22 9:43:00 EST, ; Start Date: 08/08/22 Status: Orderedloperamide 2 mg oral capsule 2 mg, 1, capsule, By Mouth, 2 times a day, PRN, Maintenance, as needed for loose stool, 08/08/22 9:43:00 EST, ; Start Date: 08/08/22 Status: Orderedmeclizine 12.5 mg oral tablet 1-2 tablets, By Mouth, Every 12 hours, PRN as needed for dizziness Start Date: 07/31/22 Status: Orderedmethenamine hippurate 1 gm oral tablet 1 tablet = 1 Gm, By Mouth, 2 times a day, TAKE WITH VITAMIN C OR CRANBERRY TABS Start Date: 01/21/22 Status: Orderedpaliperidone 156 mg/mL intramuscular suspension, extended release = 156 mg, Intramuscular, Every 28 days, 0 Refills, Maintenance, 08/08/22 13:21:00 EST, Partial fill upon patient request if the prescription is for a schedule II opioid drug. Start Date: 08/08/22 Status: OrderedQUEtiapine 100 mg oral tablet 100 mg, 1, tablet, By Mouth, Daily at bedtime, 150 mg total dose Start Date: 08/07/22 Status: OrderedQUEtiapine 50 mg oral tablet 1 tablet = 50 mg, By Mouth, Daily, PRN as needed, Maintenance, 08/08/22 9:35:00 EST, Tablet, ; Start Date: 08/08/22 Status: OrderedQUEtiapine 50 mg oral tablet 1 tablet = 50 mg, By Mouth, Daily at bedtime, 150 mg total dose Start Date: 08/08/22 Status: OrderedVitamin C 500 mg oral tablet 1 tablet = 500 mg, By Mouth, Daily, Maintenance, 08/08/22 9:39:00 EST, Tablet, ; Start Date: 08/08/22 Status: Ordered Problem List Condition Confirmation Course [...] ( moderate disability ) on 03/31/16. 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 On 05/17/15, Dr Tee replaced her left knee. Social History Social History Type Response Smoking Status Never (less than 100 in life time) entered on: 08/01/22 Sex Patient Care team information Care Team PersonnelName: Paz Leo RN Position: [facility] RN Member Role: Primary Care Nurse Name: Flor Reddy MD Position: [facility] Physician -Physician Practices Member Role: PCP Address: Address: [address] [place] [address] Name: Martha Gross RN Position: [facility] RN Member Role: Primary Care Nurse Name: Jenna Ulloa RN Position: [facility] SN RN Member Role: Primary Care Nurse Name: Guerita Garcia RN Position: [facility] RN Member Role: Primary Care Nurse Name: Gini Nash Position: [facility] RN Member Role: Primary Care Nurse Name: Glen Orona RN Position: [facility] RN Member Role: Primary Care Nurse Name: Jm Rene MD Position: [facility] Physician (General Medicine) Member Role: Lifetime Consulting Physician Address: Address: [address] [place] [address], [address] Name: Sue Hurtado RN Position: [facility] RN Member Role: Primary Care Nurse Name: Terrence Cook RN Position: [facility] RN Member Role: Primary Care Nurse Name: Gail Oneil LPN Position: [facility] RN Member Role: Primary Care Nurse Name: Sharona Chun Position: [facility] RN Member Role: Primary Care Nurse Name: Diana Rondon RN Position: [facility] RN Member Role: Primary Care Nurse Name: Fercho Galeana RN Position: [facility] RN Member Role: Primary Care Nurse Name: Jay Stern MD Position: [facility] Renal MD Member Role: Lifetime Consulting Physician Address: Address: [address] [place] [address] [address] [facility] [address] Name: Steff Flores RN Position: [facility] RN Member Role: Primary Care Nurse Name: Ingrid Min RN Position: [facility] RN Member Role: Primary Care Nurse Name: Iglesia Feldman MD Position: [facility] Renal MD Member Role: Lifetime Consulting Physician Address: Address: [address] [place] [address] [facility] [address] Name: Melany Arnold RN Position: [facility] RN Member Role: Primary Care Nurse Name: Marvin LOCK, Estrellita Hernández Position: [facility] Onco RN Member Role: Primary Care Nurse Care Team Related PersonsName: ZAK STALLWORTH Address: home [address] [place] [address] Name: ZAK STALLWORTH Address: [place] [address] Name: LEN STALLWORTH Address: [place] [address]
--- OUTSIDE RECORDS SUMMARY | 2022-08-15 19:10 | XMS_ITS | Continuity of Care Document ---
:1950 Author Organization [facility] re Address [address] [place] [address]- Care Team Providers Name Role Phone Flor Reddy MD Primary Care Physician Encounter [facility] Date(s): 03/14/22 - 07/14/[address] [facility] [place] [address] [place], [place] [address] Discharge Disposition: A-D/C Home Attending Physician: Gwendolyn Reagan MD Admitting Physician: Gwendolyn Reagan MD Referring Physician: Flor Reddy MD Allergies, Adverse Reactions, Alerts Substance Reaction [...] Recorded influenza virus vaccine, inactivated 06/03/08 Recorded [id number] 12y+ bivalent booster vax 04/03/22 Recorde d SARS-CoV-2 mRNA ([id number]) vax 01/11/22 Recorde d SARS-CoV-2 (COVID-19) mRNA [...] 06/15/22 12:46:00 EST, Route to Pharmacy Electronically, [facility], Partial fill upon patient request [...] OR CRANBERRY TABS Start Date: 01/21/22 Status: Orderednitrofurantoin macrocrystals-monohydrate 100 mg oral capsule 1 capsule = 100 mg, By Mouth, 2 times a day, for 7 days, # 14 capsule, 0 Refills, Acute 07/18/22 18:55:00 EST, 07/11/22 18:55:00 EST, Capsule, [facility], Partial fill upon patient request if the prescription is for a schedule II opioid ap[place]... Start Date: 07/11/22 Stop Date: 07/18/22 Status: OrderedPercocet 5 mg-325 mg oral tablet By Mouth, [...] her left knee. Patient Care team information Care Team PersonnelName: Paz Leo RN Position: [facility] RN Member Role: Primary Care Nurse Name: Flor Reddy MD Position: [facility] Physician -Physician Practices Member Role: PCP Address: Address: [address] [place] [address] Name: Jenna Ulloa RN Position: [facility] SN RN Member Role: Primary Care Nurse Name: Guerita Garcia RN Position: [facility] RN Member Role: Primary Care Nurse Name: Glen Orona RN Position: [facility] RN Member Role: Primary Care Nurse Name: Jm Rene MD Position: [facility] Physician (General Medicine) Member Role: Lifetime Consulting Physician Address: Address: [address] [place] [address], [place] [address]- Name: Terrence Cook RN Position: [facility] RN Member Role: Primary Care Nurse Name: Sharona Chun Position: [facility] RN Member Role: Primary Care Nurse Name: Diana Rondon RN Position: [facility] RN Member Role: Primary Care Nurse Name: Fercho Galeana RN Position: [facility] RN Member Role: Primary Care Nurse Name: Jay Stern MD Position: [facility] Renal MD Member Role: Lifetime Consulting Physician Address: Address: [address] [place] [address] [address] [facility], [place] [address]- Name: Iglesia Feldman MD Position: [facility] Renal MD Member Role: Lifetime Consulting Physician Address: Address: [address] [place] [address] [facility] [address] Name: Estrellita Wong RN Position: [facility] Onco RN Member Role: Primary Care Nurse Care Team Related PersonsName: ZAK STALLWORTH Address: [address] [address] Name: ZAK STALLWORTH Address: [address] [address] Name: ELN STALLWORTH Address: [place] [address]
--- OUTSIDE RECORDS SUMMARY | 2022-08-15 19:10 | XMS_ITS | Continuity of Care Document ---
:1950 Author Organization [facility] Address [address] [place] [address]- Care Team Providers Name Role Phone Flor Reddy MD Primary Care Physician Encounter [facility] [place] Date(s): 07/11/22 - 07/11/[address] [address]- Discharge Disposition: A-D/C Home Attending Physician: Nils Hummel MD Admitting Physician: Nils Hummel MD Referring Physician: Not on Staff, Referring [...] Recorded influenza virus vaccine, inactivated 06/03/08 Recorded [id number] 12y+ bivalent booster vax 04/03/22 Recorde d SARS-CoV-2 mRNA ([id number]) vax 01/11/22 Recorde d SARS-CoV-2 (COVID-19) mRNA [...] 06/15/22 12:46:00 EST, Route to Pharmacy Electronically, [facility] 1966, Partial fill upon patient [...] 07/18/22 18:55:00 EST, 07/11/22 18:55:00 EST, Capsule, [facility] 1967, Partial fill upon patient [...] II opioid drug. Start Date: 06/13/22 Status: OrderedPercocet-5 Tablet 1 tablet, Tablet, By Mouth, Once, STAT, 07/11/22 18:53:00 EST, Stop date 07/11/22 18:53:00 EST Start Date: 07/11/22 Stop Date: 07/11/22 Status: Completedsenna 187 mg oral tablet 1 tablet = [...] ( moderate disability ) on 03/31/16. 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 On 05/17/15, Dr Tee replaced her left knee. Results Radiology Reports Exam Date Time Procedure Performing Provider Status 07/11/22 4:35 PM Chest 2 Views Frontal and Lat Tio , Maryam; Au th (Verified) Notes:(Chest 2 Views Frontal and Lat) Reason For Exam: Shortness of Breath, Fever;Other:RESULT: Chest 2 Views Frontal and Lat Chest 2 Views Frontal and Lat REASON: Shortness of Breath, Fever; Clinical Question(s): Pneumonia COMPARISON: Multiple priors, most recent 06/12/2022 FINDINGS: LINES AND TUBES: None. LUNGS AND PLEURA: Clear lungs. Normal pulmonary vascularity. No pleural effusion. No pneumothorax. HEART, MEDIASTINUM AND GEOFFREY: Heart is normal in size. Normal mediastinal and hilar contour. BONES AND SOFT TISSUES: No acute abnormality. Mild-moderate degenerative changes noted in the thoracic spine. IMPRESSION: No acute abnormality. No focal consolidation. I have personally reviewed the images and I agree with this report. WSN: [id number] Ordering Physician: Radha Doe Dictated By: Temi Dixon DO Dictated Date/Time: 07/11/22 4:44 pm Reviewed By: Roland Rodney MD, V Signed By: Roland Rodney MD, V Signed Date/Time: 07/11/22 4:49 pm Transcribed By: TORIE Transcribed Date/Time: 07/11/22 4:40 pm Vital Signs Most recent to oldest [Reference Range]: 1 2 Oxygen Saturation [94-100 %] 96 % (07/11/22 3:44 PM) Pulse Rate [55-90 bpm] 88 bpm (07/11/22 3:44 PM) Blood Pressure [90-138/55-84 mm Hg] 126/84 mm Hg (07/11/22 3:44 PM) Respiratory Rate [16-30 br/min] 18 br/min 18 br/mi n (07/11/22 7:14 PM) (07/11/22 3:44 PM) Temperature [96.8-100.4 DegF] 97.9 DegF (07/11/22 3:44 PM) Mode of Delivery (Oxygen) Room air (07/11/22 3:44 PM) Blood pressure sites Arm, right (07/11/22 3:44 PM) Temperature Route Oral (07/11/22 3:44 PM) Note Nader MEHTA, Radha Dong: PERFORM Event Display: Patient Education Leaflets Authored Date: [id number] Urinary Tract Infections in Women ?? [id number] Urinary Tract Infections in Women Urinary tract infections (UTIs) are most often caused by bacteria. These bacteria enter the urinarytract. The bacteria may come from inside the body. Or they may travel from the skin outside the rectum or vagina into the urethra. Female anatomy makes it easy for bacteria from the bowel to enter a woman???s urinary tract. This is the most common source of UTI. This means women develop UTIs more often than men. Pain in or around the urinary tract is a common UTI symptom. Most UTIs are treated with antibiotics. These kill the bacteria. The length of time you need to take them depends on the type of infection. It may be as short as 3 days. If you have repeated UTIs, youmay need a low-dose antibiotic for several months. Take antibiotics exactly as directed. Don???t stop taking them until all of the medicine is gone. If you stop taking the antibiotic too soon, the infection may not go away. You may also develop a resistance to the antibiotic. This can make it much harder to treat in the future. Gender words are used here to talk about anatomy and health risk. Please use this information in a way that works best for you and your provider as you talk about your care. Home care The lifestyle changes below will help get rid of your UTI. They may also help prevent future UTIs: ??? Drink plenty of fluids. This includes water, juice, or other caffeine-free drinks. Fluids help flush bacteria out of your body. ??? Empty your bladder. Always empty your bladder when you feel the urge to pee. And always pee before going to sleep. Urine that stays in your bladder can lead to infection. Try to pee before and after sex as well. ??? Practice good personal hygiene. Wipe yourself from front to back after using the toilet. This helps keep bacteria from getting into the urethra. ??? Use condoms during sex. These help prevent UTIs caused by sexually transmitted bacteria. Also don't use sp ermicides during sex. These can increase the risk for UTIs. Choose other forms of control instead. For women who tend to get UTIs after sex, a low dose of a preventive antibiotic may be used. Be sure to discuss this choice with your healthcare provider. ??? Try holistic supplements, such as cranberry tablets and D-mannose. These may help prevent UTIs. ??? Try topical vaginal estrogen. You can use this to help prevent UTIs if you have gone through menopause. ?? Follow-up care Follow up with your healthcare provider as directed. They may test to make sure the infection has cleared. If needed, more treatment may be started. ?? When to get medical advice Call your healthcare provider right away if any of the following occur: ??? Frequent urination ??? Pain or burning when passing urine ??? Fever of 100.4??F (38??C) or higher, or as directed by your healthcare provider ??? Urine looks dark, cloudy, or reddish in color. This may mean that blood is in the urine. ??? Urine smells bad ??? Feeling pain even when not urinating ??? Tiredness ??? Pain in thebelly (abdomen) area below the bellybutton, or in the back or side, below the ribs ??? Nausea or vomiting ??? Have a strong urge to urinate, but only a small amount of urine is passed ??? Uncomfortablepressure above the pubic bone ??? Feeling confused or very tired (in older adults) ?? Last Reviewed Date: 2022 ?? [id number] [employer]. All rights reserved. This information is not intended as a substitute for professional medical care. Always follow your healthcare professional's instructions. ??BHSPowerscribe , ARNOLD S: TRANSCRIBE Temi Dixon DO: SIGN Roland Rodney MD, V: VERIFY Event Display: Result: Authored Date: [id number] Chest 2 Views Frontal and Lat REASON: Shortness of Breath, Fever; Clinical Question(s): Pneumonia COMPARISON: Multiple priors, most recent 06/12/2022 FINDINGS: LINES AND TUBES: None. LUNGS AND PLEURA: Clear lungs. Normal pulmonary vascularity. No pleural effusion. No pneumothorax. HEART, MEDIASTINUM AND GEOFFREY: Heart is normal in size. Normal mediastinal and hilar contour. BONES AND SOFT TISSUES: No acute abnormality. Mild-moderate degenerative changes noted in the thoracic spine. IMPRESSION: No acute abnormality. No focal consolidation. I have personally reviewed the images and I agree with this report. WSN: [id number] Ordering Physician: Radha Doe Dictated By: Temi Dixon DO Dictated Date/Time: 07/11/22 4:44 pm Reviewed By: Roland Rodney MD, V Signed By: Roland Rodney MD, V Signed Date/Time: 07/11/22 4:49 pm Transcribed By: CSNorbert Transcribed Date/Time: 07/11/22 4:40 pm Patient Care team information Care Team PersonnelName: Paz Leo RN Position: [facility] RN Member Role: Primary Care Nurse Name: Flor Reddy MD Position: [facility] Physician -Physician Practices Member Role: PCP Address: Address: [address] [place] [address] Name: Jenna Ulloa RN Position: [facility] RN Member Role: Primary Care Nurse Name: Guerita Garcia RN Position: S RN Member Role: Primary Care Nurse Name: Glen Orona RN Position: S RN Member Role: Primary Care Nurse Name: Jm Rene MD Position: [facility] Physician (General Medicine) Member Role: [employer] Consulting Physician Address: Address: [address] [place] [address], [address] Name: Terrence Cook RN Position: S RN Member Role: Primary Care Nurse Name: Sharona Chun Position: [facility] RN Member Role: Primary Care Nurse Name: Diana Rondon RN Position: [facility] RN Member Role: Primary Care Nurse Name: Fercho Galeana RN Position: [facility] RN Member Role: Primary Care Nurse Name: Jay Stern MD Position: [facility] Renal MD Member Role: Lifetime Consulting Physician Address: Address: [address] [facility] [address] [facility] [place] [address]- Name: Iglesia Feldman MD Position: [facility] Renal MD Member Role: Lifetime Consulting Physician Address: Address: [address] [facility] [place] [address]- Name: Estrellita Wong RN Position: [facility] Onco RN Member Role: Primary Care Nurse Name: Rian Love Position: [facility] ED TA [facility] Member Role: Emergency Care Attendant Name: Radha Doe MD Position: [facility] Resident Member Role: ED Resident Address: Address: [address] [place] [address]- Name: Linda George RN Position: [facility] ED RN W/OE and Tasks Member Role: Patient Care Provider Name: Nils Hummel MD Position: [facility] ED Medicine MD Member Role: Admitting Physician Address: Address: [address] [place] [address]- Care Team Related PersonsName: ZAK STALLWORTH Address: home [address] [place] [address] Name: ZAK STALLWORTH Address: home [address] [place] [address] Name: LEN STALLWORTH Address: home [address] [place] [address]
--- OUTSIDE RECORDS SUMMARY | 2022-08-15 19:10 | XMS_ITS | Continuity of Care Document ---
:1950 Author Organization [facility] Address [address] [place] [address]- Care Team Providers Name Role Phone Flor Reddy MD Primary Care Physician Encounter [facility] [place] [place] Date(s): 01/12/21 - 01/13/[address] [address]- Encounter Diagnosis Head contusion (Final) - 01/12/21 Discharge Disposition: A-D/C Home Attending Physician: Lalit Villanueva MD Admitting Physician: Lalit Villanueva MD Referring Physician: Not on Staff, Referring MD Allergies, Adverse Reactions, Alerts Substance Reaction Severity Status NKA Active Medications carvedilol 25 mg oral tablet 25 mg, Tablet, By Mouth, 01/13/21 10:58:00 EDT Start Date: 01/13/21 Stop Date: 01/13/21 Status: Completedlisinopril 20 mg oral tablet 40 mg, Tablet, By Mouth, 01/13/21 10:58:00 EDT Start Date: 01/13/21 Stop Date: 01/13/21 Status: CompletedoxyCODONE 5 mg oral tablet 5 mg, Tablet, By Mouth, Every 4 hours, PRN for Pain , Severe, Routine, 01/13/21 3:51:00 EDT Start Date: 01/13/21 Stop Date: 01/14/21 Status: Discontinued Results Radiology Reports Exam Date Time Procedure Performing Provider Status 01/12/21 6:08 PM Chest Portable Darius Reynolds (Ve rified) Notes:(Chest Portable) Reason For Exam: Trauma;Other:RESULT: Chest Portable AP supine portable chest dated January 12, 2021 at 1757 hours. No prior studies are available. HISTORY: Pain secondary to trauma. FINDINGS: The cardiac silhouette is within normal limits for size. Mural calcifications are present in the aorta and Airways. No airspace infiltrate or pleural effusion is identified. No displaced rib fracture or pneumothorax is seen. IMPRESSION: No evidence of acute pulmonary disease. Examination [address]. Thank you for allowing me to participate in the care of this patient. WSN: [id number] Ordering Physician: Shonda Alexander Dictated By: Myke Osman MD Dictated Date/Time: 01/12/21 6:21 pm Reviewed By: Myke Osman MD Signed By: Myke Osman MD Signed Date/Time: 01/12/21 6:21 pm Transcribed By: TORIE Transcribed Date/Time: 01/12/21 6:21 pm Exam Date Time Procedure Performing Provider Status 01/12/21 6:08 PM Pelvis 1 or 2 Views Jad Reynolds; dAan (Verified) Notes:(Pelvis 1 or 2 Views) Reason For Exam: TraumaRESULT: Pelvis 1 or 2 Views Pelvis 1 or 2 Views Reason: Trauma; Clinical Question(s): Other: COMPARISON: None. FINDINGS: There is no evidence of acute fracture or dislocation. There are sclerotic changes of the left sacroiliac joint. There are sclerotic changes at the pubic symphysis. Normal soft tissues. IMPRESSION: Chronic changes as detailed above. There is no evidence of acute fracture or dislocation. WSN: [id number] Ordering Physician: Shonda Alexander Dictated By: Neva Giordano MD Dictated Date/Time: 01/12/21 6:14 pm Reviewed By: Neva Giordano MD Signed By: Neva Giordano MD Signed Date/Time: 01/12/21 6:14 pm Transcribed By: TORIE Transcribed Date/Time: 01/12/21 6:11 pm Vital Signs Most recent to oldest 1 2 3 [Reference Range]: Oxygen Saturation [94-100 %] 96 % 98 % 95 % (01/13/21 2:00 PM) (01/13/21 12:28 PM) (01/13/21 11:19 AM) Pulse Rate [55-90 bpm] 87 bpm 77 bpm 83 bpm (01/13/21 12:28 PM) (01/13/21 11:19 AM) (01/13/21 9:44 AM) Blood Pressure [90-138/55-84 mm 130/89 mm Hg 163/100 mm Hg 163/100 mm Hg Hg] (01/13/21 2:00 PM) *H* *H* (01/13/21 12:28 PM) (01/13/21 12:28 PM) Respiratory Rate [16-30 br/min] 18 br/min 18 br/min 18 br/min (01/13/21 2:00 PM) (01/13/21 1:59 PM) (01/13/21 12:28 PM) Temperature [96.8-100.4 DegF] 98.3 DegF (01/12/21 6:47 PM) Mode of Delivery (Oxygen) Room air Room air Room a ir (01/13/21 2:00 PM) (01/13/21 12:28 PM) (01/13/21 11:19 AM) Blood pressure sites Arm, left Arm, left Arm, left (01/13/21 2:00 PM) (01/13/21 12:28 PM) (01/13/21 11:19 AM) Temperature Route Oral (01/12/21 6:47 PM)
--- OUTSIDE RECORDS SUMMARY | 2022-08-15 19:10 | XMS_ITS | Continuity of Care Document ---
:1950 Author Organization [facility] Address [address] [place] [address]- Care Team Providers Name Role Phone Maureen MEHTA, Flor Primary Care Physician Encounter [facility] [place] Date(s): 10/28/20 - 11/27/20 [facility] [address] [place], [place] [address] Attending Physician: Charan Broderick Admitting Physician: AdmtrCharan Referring Physician: AdmtrCharan Allergies, Adverse Reactions, Alerts [...] and report to Orthopedic clinic or Dr Hecrules Please check INR on 12/17/15 and report [...] ( moderate disability ) on 03/31/16. Initial [place] Back Pain Disability Scale: 56 on SOAPP-R: 9 () on 03/31/1645: Right cemented total knee arthroplasty with computer navigation by Dr Tee. On 05/17/15, Dr Tee replaced her left knee.
--- OUTSIDE RECORDS SUMMARY | 2022-08-15 19:11 | XMS_ITS | Continuity of Care Document ---
:1950 Author Organization [facility] Address [address] [place] [address]- Care Team Providers Name Role Phone Flor Reddy MD Primary Care Physician Encounter [facility] [place] Date(s): 06/22/20 - 07/28/[address] [address] Attending Physician: Jaclyn Mast NP Admitting Physician: [...] and report to Orthopedic clinic or Dr Delisa Please check INR on 12/17/15 and report [...]
--- OUTSIDE RECORDS SUMMARY | 2022-08-15 19:11 | XMS_ITS | Continuity of Care Document ---
:1950 Author Organization [facility] Address [address] [place] [id number]- Care Team Providers Name Role Phone Flor Reddy MD Primary Care Physician Encounter [facility] [place] Date(s): 07/05/22 - 07/05/[address] [address]- Encounter Diagnosis Diarrhea (Final) - 07/05/22 Chronic diarrhea (Final) - 07/05/22 Losing weight (Final) - 07/05/22 Discharge Disposition: A-D/C Home Attending Physician: Jaclyn Raman MD Admitting Physician: Jaclyn Raman MD Referring Physician: Not on Staff, Referring [...] Recorded influenza virus vaccine, inactivated 06/03/08 Recorded [id number] 12y+ bivalent booster vax 04/03/22 Recorde d SARS-CoV-2 mRNA ([id number]) vax 01/11/22 Recorde d SARS-CoV-2 (COVID-19) mRNA [...] 06/15/22 12:46:00 EST, Route to Pharmacy Electronically, [facility], Partial fill upon patient request [...] OR CRANBERRY TABS Start Date: 01/21/22 Status: OrderedPercocet 5 mg-325 mg oral tablet [...] ( moderate disability ) on 03/31/16. Initial [place] Back Pain Disability Scale: 56 on SOAPP-R: 9 () on 03/31/1645: Right cemented total knee arthroplasty with computer navigation by Dr Tee. On 05/17/15, Dr Tee replaced her left knee. Vital Signs Most recent to oldest [Reference Range]: 1 2 Oxygen Saturation [94-100 %] 96 % 95 % (07/05/22 11:38 AM) (07/05/22 10:18 AM) Pulse Rate [55-90 bpm] 90 bpm 84 bpm (07/05/22 11:38 AM) (07/05/22 10:18 AM) Blood Pressure [90-138/55-84 mm Hg] 138/77 mm Hg 141/ 78 mm Hg (07/05/22 11:38 AM) *H* (07/05/22 10:18 AM) Respiratory Rate [16-30 br/min] 20 br/min 16 br/mi n (07/05/22 11:38 AM) (07/05/22 10:18 AM) Temperature [96.8-100.4 DegF] 98 DegF 98.6 DegF (07/05/22 11:38 AM) (07/05/22 10:18 AM) Mode of Delivery (Oxygen) Room air (07/05/22 11:38 AM) Temperature Route Oral (07/05/22 11:38 AM) EKG study Event Display: ECG 12-Lead Authored Date: Please click on pdf link to open report Event Display: ECG 12-Lead Authored Date: Ventricular Rate: 84 BPM Atrial Rate: 84 BPM P-R Interval: 190 ms QRS Duration: 82 ms Q-T Interval: 364 ms QTC Calculation(Bazett): 430 ms P [place]: 75 degrees R [place]: 27 degrees T [place]: 71 degrees Normal sinus rhythm Normal ECG When compared with ECG of 12-JUN-2022 21:06, Minimal criteria for Anterior infarct are no longer Present Confirmed by BEVERLY MAZARIEGOS ([id number]) on 07/05/2022 1:23:40 PM [place]: BEVERLY MAZARIEGOS Note [place] MEHTA Sabino: PERFORM Event Display: Patient Education Leaflets Authored Date: Diarrhea with Uncertain Cause (Adult) ?? [id number] Diarrhea with Uncertain Cause (Adult) Diarrhea is when stools are loose and watery. This can be caused by: ??? Viral infections ??? Bacterial infections ??? Food poisoning ??? Parasites ??? Irritable bowel syndrome (IBS) ??? Inflammatory bowel diseases such as ulcerative colitis, Crohn's disease, and celiac disease ??? Food intolerance, such as to lactose, the sugar found in milk and milk products ??? Reaction to medicines like antibiotics, laxatives, cancer medicines, and antacids Along with diarrhea, you may also have: ??? Abdominal pain and cramping ??? Nausea and vomiting ??? Loss of bowel control ??? Fever and chills ??? Bloody stools In some cases, antibiotics may help to treat diarrhea. You may have a stool sample test which is done to see what is causing your diarrhea, and if antibiotics will help treat it. The results of a stool sample test may take up to 2 days. The healthcare provider may not give you antibiotics until they have the stool test results. Diarrhea can cause dehydration. This is the loss of too much water and other fluids from the body. When this occurs, you must replace those body fluids. This can be done with oral rehydration solutions. Oral rehydration solutions are available at drugstores and grocery stores without a prescription. Sports drinks are not the best choice if you are very dehydrated. They usually have too much sugar and not enough electrolytes. Home care Follow all instructions given by your healthcare provider. Rest at home for the next 24 hours, or until you feel better. Avoid caffeine, tobacco, and alcohol. These can make diarrhea, cramping, and pain worse. If taking medicines: ??? Xzoz-eaz-mnsfusf nausea and diarrhea medicines are generally OK unless you experience fever or blood in the stool. Check with your healthcare provider first in those circumstances. ??? You may useacetaminophen or nonsteroidal anti- inflammatory drugs (NSAIDs) such as ibuprofen or naproxen to reduce pain and fever. Don???t use these if you have chronic liver or kidney disease, or ever had a stomach ulcer or gastrointestinal??bleeding. Don't use NSAID medicines if you are already taking one for another condition (like arthritis) or are on daily aspirin therapy (such as for heart disease or aftera stroke). Talk with your healthcare provider first. ??? If antibiotics were prescribed, be sure you take them until they are finished. Don???t stop taking them even when you feel better. Antibiotics must be taken exactly as prescribed. To prevent the spread of illness: ??? Remember that washing with soap and clean, running water and using alcohol- based finishing trimmer is the best way to prevent the spread of infection. Dry your hands with a single-use towel (like a paper towel). ??? Clean the toilet after each use. ??? Wash your hands before eating. ??? Wash your hands before and after preparing food. Keep in mind that people with diarrhea or vomiting should not preparefood for others. ??? Wash your hands after using cutting boards, counter tops, and knives that have been in contact with raw foods. ??? Wash and then peel fruits and vegetables. ??? Keep uncooked meatsaway from cooked and giaij-pm-fvx foods. ??? Use a food thermometer when cooking. Cook poultry to at least 165??F (74??C). Cook ground meat (beef, veal, pork, conklin) to at least 160??F (71??C). Cook fresh beef, veal, conklin, and pork to at least 145??F (63??C). ??? Don???t eat raw or undercooked eggs (poached or alejandro side up), poultry, meat, or unpasteurized milk and juices. Food and drinks The main goal while treating vomiting or diarrhea is to prevent dehydration. This is done by takingsmall amounts of liquids often. ??? Keep in mind that liquids are more important than food right now. ??? Drink only small amounts of liquids at a time. ??? Don???t force yourself to eat, especially if you are??having cramping, vomiting, or diarrhea. Don???t eat large amounts at a time, even if you are hungry. ??? If you eat, avoidfatty, greasy, spicy, or fried foods. ??? Don???t eat dairy foods or drink milk if you have diarrhea.??These can make??diarrhea worse. During the first 24 hours you can try: ??? Oral rehydration solutions.?? Sports drinks may be used if you are not too dehydrated and are otherwise healthy. ??? Soft drinks without caffeine ??? Rita david ??? Water (plain or flavored) ??? Decaf tea or coffee ??? Clear broth, consomm??, or bouillon ??? Gelatin, ice pops, or frozen fruit juice bars The second 24 hours, if you are feeling better, you can add: ??? Hot cereal, plain toast, bread, rolls, or crackers ??? Plain noodles, rice, mashed potatoes, chicken noodle soup, or rice soup ??? Applesauce, unsweetened canned fruit (no pineapple) ??? Bananas As you recover: ??? Limit fat intake to less than 15 grams per day. Don???t eat margarine, butter, oils, mayonnaise, sauces, gravies, fried foods, peanut butter, meat, poultry, or fish. ??? Limit fiber. Don???t eat raw or cooked vegetables, fresh fruits except bananas, or bran cereals. ??? Limit caffeine and chocolate. ??? Limit dairy. ??? Don???t use spices or seasonings except salt. ??? Go back toyour normal diet over time, as you feel better and your symptoms improve. ??? If the symptoms come back, go back to a simple diet or clear liquids. ?? Follow-up care Follow up with your healthcare provider, or as advised. If a stool sample was taken or cultures were done, call the healthcare provider for the results as instructed. ?? Call 911 Call 911 if you have any of these symptoms: ??? Trouble breathing ??? Confusion ??? Extreme drowsiness or trouble walking ??? Loss of consciousness ??? Rapid heart rate ??? Chest pain ??? Stiff neck ??? Seizure ?? When to get medical advice Call your healthcare provider right away if any of these occur: ??? Abdominal pain that gets worse ??? Constant lower right abdominal pain ??? Continued vomiting and inability to keep liquids down ???Diarrhea more than 5 times a day ??? Blood in vomit or stool ??? Dark urine or no urine for 8 hours,dry mouth and tongue, tiredness, weakness, or dizziness ??? Drowsiness ??? New rash ??? You don???t get better in 2 to 3 days ??? Fever of 100.4??F (38??C) or higher, or as advised by your provider ?? Last Reviewed Date: 2021 ?? 1385-4106 The [employer]. All rights reserved. This information is not intended as a substitute for professional medical care. Always follow your healthcare professional's instructions. ?? Patient Care team information Care Team PersonnelName: Paz Leo RN Position: [facility] RN Member Role: Primary Care Nurse Name: Flor Reddy MD Position: [facility] Physician -Physician Practices Member Role: PCP Address: Address: [address] [place] [address]- Name: Jenna Ulloa RN Position: [facility] SN RN Member Role: Primary Care Nurse Name: Guerita Garcia RN Position: [facility] RN Member Role: Primary Care Nurse Name: Glen Orona RN Position: [facility] RN Member Role: Primary Care Nurse Name: Jm Rene MD Position: [facility] Physician (General Medicine) Member Role: Lifetime Consulting Physician Address: Address: [address] [place] [address], [place] [address]- Name: Terrence Cook RN Position: [facility] RN Member Role: Primary Care Nurse Name: Sharona Chun Position: [facility] RN Member Role: Primary Care Nurse Name: Diana Rondon RN Position: [facility] RN Member Role: Primary Care Nurse Name: Fercho Galeana RN Position: [facility] RN Member Role: Primary Care Nurse Name: Jay Stern MD Position: [facility] Renal MD Member Role: Lifetime Consulting Physician Address: Address: [address] [place] [address] [address] [facility] [place] [address]- Name: Iglesia Feldman MD Position: [facility] Renal MD Member Role: Lifetime Consulting Physician Address: Address: [address] [place] [address] [facility] [place] [address]- Name: Estrellita Wong RN Position: [facility] Onco RN Member Role: Primary Care Nurse Name: Sabino Treviño MD Position: [facility] Resident Member Role: ED Resident Address: Address: [address] [place] [id number] Name: Chung Bhumi Position: [facility] ED TA [facility] Member Role: Video Coordinator Name: Jaclyn Raman MD Position: [facility] ED Medicine MD Member Role: Admitting Physician Address: Address: [address] [place] [address] Name: Jasmin Chavarria RN Position: [facility] ED RN W/OE and Tasks Member Role: Patient Care Provider Care Team Related PersonsName: ZAK STALLWORTH Address: home [address] [place] [address] Name: ZAK STALLWORTH Address: home [address] [place] [address] Name: LEN STALLWORTH Address: home [address] [place] [address]
--- OUTSIDE RECORDS SUMMARY | 2022-08-15 19:11 | XMS_ITS | Continuity of Care Document ---
:1950 Author Organization [facility] Address [address] [place] [id number] Care Team Providers Name Role Phone Flor Reddy MD Primary Care Physician Encounter [facility] Date(s): 06/12/22 - 06/15/[address] [address] Encounter Diagnosis Hyponatremia (Final) - 06/12/22 Discharge Disposition: A-D/C Home Attending Physician: Deny Wayne MD Admitting Physician: Kurt Nelson MD Referring Physician: Not on Staff, Referring [...] Recorded influenza virus vaccine, inactivated 06/03/08 Recorded [id number] 12y+ bivalent booster vax 04/03/22 Recorde d SARS-CoV-2 mRNA ([id number]) vax 01/11/22 Recorde d SARS-CoV-2 (COVID-19) mRNA [...] Orderedcarvedilol 25 mg oral tablet 25 mg, Tablet, By Mouth, Hold for: SBP<100, HR<150, 06/15/22 9:00:00 EST Start Date: 06/15/22 Stop Date: 06/15/22 Status: Completedcarvedilol 25 mg oral tablet TAKE 1 TABLET BY MOUTH TWICE DAILY FOR 90 DAYS Start Date: 01/21/22 Status: OrderedhydrALAZINE 25 mg oral tablet 50 mg, Tablet, By Mouth, 06/15/22 9:00:00 EST Start Date: 06/15/22 Stop Date: 06/15/22 Status: CompletedhydrALAZINE 25 mg oral tablet 50 mg, 2, [...] 06/15/22 12:46:00 EST, Route to Pharmacy Electronically, [facility], Partial fill upon patient [...] OR CRANBERRY TABS Start Date: 01/21/22 Status: OrderedoxyCODONE 5 mg oral tablet 5 mg, Tablet, By Mouth, 06/15/22 14:00:00 EST Start Date: 06/15/22 Stop Date: 06/15/22 Status: CompletedPercocet 5 mg-325 mg oral tablet [...] Dr Tee replaced her left knee. Results Orders for Microbiology Reports Name Date Urine Culture (URINE CULTURE) 06/12/22 Microbiology Reports TEST:Urine Culture STATUS:Auth (Verified) BODY SITE: SOURCE:URINE COLLECTED DATE/TIME:06/12/22 10:24 PMUrine Culture SPECIMEN DESCRIPTION : URINE SPECIAL REQUESTS : NONE CULTURE : NO GROWTH REPORT STATUS : FINAL 2Radiology Reports Exam Date Time Procedure Performing Provider Status 06/13/22 5:[address] Head/Brain W/O Contrast Na Romero; Auth (Verified) Notes:(CT Head/Brain W/O Contrast) Reason For Exam: Increased Lethargy;Other: RESULT: CT Head/Brain W/O Contrast CT Head/Brain W/O Contrast CLINICAL INDICATION: Reason: Other:; Increased Lethargy; Clinical Question(s): Hematoma; Order Comment:. PRIOR EXAMS: 01/20/2022.. TECHNIQUE: Head CT was performed without intravenous contrast, using axial technique and reconstructed in axialand coronal plane. Iterative reconstruction techniques are used to optimize dose and image quality. CTDIvol Head: 39.57 mGy, DLP Head: 633 mGy*cm. FINDINGS: BRAIN: There is no infarct. There is no intracerebral hemorrhage. There is no mass. VENTRICLES, SULCI, AND CISTERNS: The ventricles and sulci are symmetrical and show mild atrophy.. WHITE MATTER: Mild white matter abnormality typically be due to small vessel disease.. EXTRA AXIAL SPACES: There is no abnormal epidural, subdural, or subarachnoid blood or fluid. SKULL: There is no skull fracture.. PARANASAL SINUSES: Mucosal thickening left maxillary sinus.. TEMPORAL BONES: The mastoid air cells are clear, as are the middle ear cavities. IMPRESSION: 1. No acute intracranial abnormality. 2. No skull fracture. WSN: [id number] Ordering Physician: Priyank Rodriguez Dictated By: Artemio Jiang MD Dictated Date/Time: 06/13/22 7:47 pm Reviewed By: Artemio Jiang MD Signed By: Artemio Jiang MD Signed Date/Time: 06/13/22 7:47 pm Transcribed By: TORIE Transcribed Date/Time: 06/13/22 7:43 pm Exam Date Time Procedure Performing Provider Status 06/12/22 10:50 PM Chest 2 Views Frontal and Lat Jacquie Rios [facility] (Verified) Notes:(Chest 2 Views Frontal and Lat) Reason For Exam: Shortness of Breath RESULT: Chest 2 Views Frontal and Lat Chest 2 Views Frontal and Lat Hx of Present Illness: Patient reports SOB x 2 days and pain when voiding x 3 days. Denies chest pain. Patient reports light-headedness.; Reason: Shortness of Breath; Clinical Question(s): Pneumonia; Special Instructions: This is a protocol film and radiologist should call any findings to the Charge Nurse COMPARISON: 01/22/2012 FINDINGS: LINES AND TUBES: None. LUNGS AND PLEURA: Clear lungs. Normal pulmonary vascularity. No pleural effusion. No pneumothorax. HEART, MEDIASTINUM AND GEOFFREY: Heart is at the upper limits of normal for size. Normal mediastinal and hilar contour. BONES AND SOFT TISSUES: No acute abnormality. IMPRESSION: No acute abnormality. WSN: [id number] Ordering Physician: Geovanan Epstein Dictated By: Bro Jesus MD Dictated Date/Time: 06/12/22 10:53 p Reviewed By: Bro Jesus MD Signed By: Bro Jesus MD Signed Date/Time: 06/12/22 10:53 pm Transcribed By: TORIE Transcribed Date/Time: 06/12/22 10:52 pm Vital Signs Most recent to oldest 1 2 3 4 [Reference Range]: Height 160 cm 160 cm 160 cm (06/15/22 1:48 PM) (06/15/22 11:26 AM) (06/13/22 11:27 AM ) Weight 67.0 kg 67.4 kg 66.2 kg (06/15/22 9:00 AM) (06/14/22 5:10 AM) (06/13/22 12:54 PM) Oxygen Saturation 94 % 94 % 95 % [94-100 %] (06/15/22 1:48 PM) (06/15/22 11:26 AM) (06/15/22 7:35 AM) Pulse Rate [55-90 bpm] 90 bpm 83 bpm 71 bpm (06/15/22 1:48 PM) (06/15/22 11:26 AM) (06/15/22 8:20 AM) Body Mass Index 25.86 kg/m2 [18.5-24.99 kg/m2] *H* (06/13/22 11:27 AM) Blood Pressure 94/61 mm Hg 104/61 mm Hg 138/78 mm Hg 138/78 mm Hg [90-138/55-84 mm Hg] (06/15/22 1:48 PM) (06/15/22 11:26 AM) (06/15/22 8:20 AM) (06/15/22 8:20 AM) Respiratory Rate [16-30 16 br/min 19 br/min 19 br/min br/min] (06/15/22 2:06 PM) (06/15/22 1:48 PM) (06/15/22 11:26 AM) Temperature [96.8-100.4 97.9 DegF 98.0 DegF 98.0 DegF DegF] (06/15/22 1:48 PM) (06/15/22 11:26 AM) (06/15/22 7:35 AM) Liters per Minute 2 L/min 2 L/min 2 L/min (06/14/22 11:00 AM) (06/14/22 6:00 AM) (06/13/22 10:00 PM ) Mode of Delivery Room air Room air Room air (Oxygen) (06/15/22 1:48 PM) (06/15/22 11:26 AM) (06/15/22 7:35 AM) Blood pressure sites Arm, left Arm, right Arm, right (06/15/22 1:48 PM) (06/15/22 11:26 AM) (06/15/22 7:35 AM) Temperature Route Oral Oral Oral (06/15/22 1:48 PM) (06/15/22 11:26 AM) (06/15/22 7:35 AM) Dry Weight 66.2 kg (06/13/22 11:27 AM) Weight Obtained Via Bed scale Bed scale Bed scale (06/15/22 9:00 AM) (06/14/22 5:10 AM) (06/13/22 12:54 PM) Dry Weight Obtained Via Bed scale (06/13/22 11:27 AM) History and physical note Pam MEHTA, Ubaldo Zayas: PERFORM Event Display: History and Physical Hospital Authored Date: Patient: ??AFANASIANNABELLA, CLAY ? Age:??71 Years?Sex:??Female?:??1950?? Chief Complaint/Reason for Consultation coming from home. shortness of breath and urinary retention. family states she is confused, aox 4 on transport. family concerned for jaundice, appears well. History of Present Illness 06/13/2022. ?? 71-year-old female with past medical history including HTN, HLD, asthma, CKD, macrocytic anemia,?DVT, history of C. difficile (01/2022), osteoarthritis, recurrent UTI,??bipolar, PTSD. ??Patient presented to ER with complaints of I think I have UTI . ?? The patient said that for about 3 to 4 days she has been voiding urine frequently. ??So she thinks that she has yet another episode of UTI. ??She however denies any burning sensation during micturition. ??No fever. ??Denies chest pain, shortness of breath, cough, rhinorrhea, stuffy nose, sore throat, abdominal pain, nausea, vomiting, diarrhea. ??She has decreased p.o. intake for the last few days. ??We are documented that the patient's family said that she was more slow to respond than usual. ?? In ER patient was hemodynamically stable. ??Labs shows baseline macrocytic anemia, hyponatremia 117, chloride 80, creatinine 1.2 which seems a new baseline, mostly normal liver enzymes, normal lipase and lactate, COVID- negative, UA nitrate positive but only 2 WBC. ??EKG showed sinus rhythm with heartrate of 82, QTc 441, anterior and inferior Q waves. ??Chest x-ray shows no acute abnormality. ?? Patient was given 500 mL IV fluid and was admitted for further management. ??Also patient was retaining urine about 560 cc, a Watson was placed, however patient was uncomfortable and the Watson was taken off. ? Past medical history: As above Social history: Denies tobacco/drug. ??History of alcohol abuse, currently denies. Family history: Mother had A. fib. Review of Systems All systems reviewed and negative except as in HPI. Objective ? Vital Signs?? Temperature: 97.1 DegF (06/13/22 01:09:00) Temperature Route: Oral (06/12/22 19:44:00) Pulse Rate: 80 bpm (06/13/22 01:09:00) Respiratory Rate: 18 br/min (06/13/22 01:13:00) Systolic Blood Pressure:??160 mm Hg??High (06/13/22 01:09:00) Diastolic Blood Pressure: 80 mm Hg (06/13/22 01:09:00) Blood pressure sites: Arm, left (06/12/22 20:34:00) Mean Arterial Pressure: 101 mm Hg (06/12/22 20:34:00) Pulse Pressure: 50 mm Hg (06/12/22 20:34:00) Oxygen Saturation: 94 % (06/13/22 01:09:00) Mode of Delivery (Oxygen): Room air (06/13/22 01:09:00) Early Warning Score: 6 (06/13/22 01:13:38) ? Physical Exam Constitutional: ??Alert,??no acute distress, co-operative, lying on the bed, saturating well on room air. ?? Mental state: Oriented x 3. Head: ??Normocephalic, atraumatic. ?? Eye:?No discharge. ENT: No discharge. Neck: ??Supple,??no JVD. Cardiovascular: ??S1, S2. Regular rhythm. No MRG. Respiratory: ??Lungs are clear to auscultation b/l, No RRR. ?? Gastrointestinal: ??Soft, Nontender, Non distended, ??Normal bowel sounds.?? Genitourinary: No costovertebral angle tenderness. Neurological: ??Cranial nerves intact. Motor and sensory intact. Back: ??Nontender. Musculoskeletal: ??Normal ROM.?? No edema Hematology: No lymphadenopathy Skin: ??Warm, dry. Psychiatric: ??Cooperative.?? Assessment/Plan Diagnoses Hyponatremia ??(E87.1) Urinary retention ??(R33.9) ?? Assessment:??71-year-old female with past medical history including HTN, HLD, asthma, CKD, macrocytic anemia, ? DVT, history of C. difficile (01/2022), osteoarthritis, recurrent UTI, bipolar, PTSD. Patient presented to ER with complaints of I think I have UTI . ?? Hyponatremia (E87.1):??. Patient presenting with??frequent??micturition.?? UA does not show any UTI.?? Patient however foundto have??hyponatremia,??the cause is unclear.?? Patient is not overloaded.?? Possibly reduced p.o. intake, other causes. Monitor vitals closely. Continue telemetry. Monitor sodium level every??4 hours. Continue gentle IV hydration. Goal is to??correct??about 8 mEq/L/day.?? Avoid over correcting, avoid fast recollecting. Neuro check. Seizure precaution. Hypoglycemia precaution. Will check??urine sodium, urine osmolality, serum sodium level. Will check magnesium and TSH level. Check alcohol level. Nephrology??RTANE??consult requested. ?? Urinary retention (R33.9):??. Patient also had initial retention, Watson was placed but then it was taken off??due to patient??notbeing able to tolerate.?? Monitor bladder scan. ? Chronic conditions/home medication: Unable to get??complete medication list from the patient, please??check with patient's pharmacy in the morning and update the medication as??needed. HTN: Continue??Coreg,??hydralazine. HLD: Continue atorvastatin. Asthma:??Not exacerbation, nebs as needed. CKD: Creatinine at baseline, monitor. Macrocytic anemia: Chronic, monitor. History of DVT:??No longer on anticoagulant. Bipolar/PTSD/anxiety:??Continue??Seroquel.?? Mirtazapine. ?? VTE Prophylaxis:??heparin s/c ?VTE Prophylaxis Assessment:??VTE Prophylaxis Ordered ?? Code Status:??full code ?Order Code Status:??Code Status Ordered ?? Discharge Planning:? Histories Allergies Allergies ?(Active and Proposed Allergies Only) NKA? (Severity: Unknown severity, Onset: Unknown) Keflex? (Severity: Unknown severity, Onset: Unknown) ?Reactions: RASH Latex? (Severity: Unknown severity, Onset: Unknown) ?Reactions: hives Motrin? (Severity: Unknown severity, Onset: Unknown) ?Reactions: hives ? 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 Past Surgical History No surgery history documented. ? Social History No social history documented. ? Family History No family history recorded. ? Medications Home Medications Albuterol (Albuterol 90 mcg Inhaler)?2?puff(s)?Inhalation?4 times a day?as needed?Wheezing/Shortness of Breath Ascorbic Acid (Ascorbic Acid Tablet)?500?Milligram?By Mouth?Daily Atorvastatin (atorvastatin 20 mg oral tablet)?TAKE 1 TABLET BY MOUTH ONCE DAILY FOR 90 DAYS Carvedilol (carvedilol 25 mg oral tablet)?TAKE 1 TABLET BY MOUTH TWICE DAILY FOR 90 DAYS Estradiol Topical (estradiol 0.1 mg/g vaginal cream)?APPLY 1 GRAM VAGINALLY NIGHTLY FOR 2 WEEKS AND THEN 1-2 NIGHTS A WEEK THEREAFTER Gabapentin (gabapentin 300 mg oral capsule)?TAKE 1 CAPSULE BY MOUTH TWICE DAILY hydrALAZINE (hydrALAZINE 25 mg oral tablet)?50?Milligram?2?tablet?By Mouth?Daily Isosorbide Mononitrate (isosorbide mononitrate 60 mg oral tablet, extended release)?1?tab(s)?60?Milligram?By Mouth?Daily in AM Methenamine (methenamine hippurate 1 gm oral tablet)?TAKE 1 TABLET BY MOUTH TWICE DAILY TAKE WITH VITAMIN C OR CRANBERRY TABS mirabegron (Myrbetriq 25 mg oral tablet, extended release)?TAKE 1 TABLET BY MOUTH ONCE DAILY Quetiapine (SEROquel 25 mg oral tablet)?25?Milligram?1?tablet?By Mouth?2 times a day?as needed?Agitation Senna (senna 187 mg oral tablet)?1?tab(s)?8.6?Milligram?By Mouth?Daily at bedtime Solifenacin (solifenacin 10 mg oral tablet)?1?tab(s)?10?Milligram?By Mouth?Daily ? Inpatient Medications Medications (20) Active SCHEDULED: (7) Atorvastatin 20 mg Tablet (atorvastatin 20 mg oral tablet) ??20 mg, By Mouth, Daily at bedtime Carvedilol 25 mg Tablet (carvedilol 25 mg oral tablet) ??25 mg, By Mouth, 2 times a day Gabapentin 300 mg Capsule (gabapentin 300 mg oral capsule) ??300 mg, By Mouth, 2 times a day Heparin 5000 units/mL Inj (1 mL) (Heparin Inj) ??5,000 units 1 mL, Subcutaneous Injection, 3 times a day hydrALAZINE 25 mg Tablet (hydrALAZINE 25 mg oral tablet) ??50 mg, By Mouth, Daily NaCl 0.9% Flush 3ml (NaCL 0.9% Flush) ??3 mL, IV Push, Every 8 hours Quetiapine 100 mg Tablet (SEROquel 25 mg oral tablet) ??100 mg, By Mouth, Daily at bedtime CONTINUOUS: (1) NaCL 0.9% (1000 mL) Cont IV 1,000 mL (NaCL 0.9% 1,000 mL) ??1,000 mL, IV Infusion, 100 mL/hr PRN: (12) Acetaminophen 325 mg Tablet (Acetaminophen Tablet) ??650 mg, By Mouth, Every 4 hours Dextromethorphan-Guaifenesin 20 mg-200 mg/10 mL Liqu UD (Robitussin DM Liquid) ??10 mL, By Mouth, Every 4 hours Dextrose Inj Syringe (Dextrose 50% Inj Syringe (25Gm)) ??12.5 Gm, IV Push Slowly, Every 20 minutes Dextrose Inj Syringe (Dextrose 50% Inj Syringe (25Gm)) ??25 Gm, IV Push Slowly, Every 15 minutes Glucagon 1 mg Inj (Glucagon Inj) ??1 mg, Intramuscular, Once Glucose 40% Gel (15 Gm) (Glucose Gel) ??15 Gm, By Mouth, Every 20 minutes Glucose 40% Gel (15 Gm) (Glucose Gel) ??30 Gm, By Mouth, Every 20 minutes Melatonin 3 mg Tablet (Melatonin Tablet) ??3 mg, By Mouth, Daily at bedtime NaCl 0.9% Flush 3ml (NaCL 0.9% Flush) ??3 mL, IV Push, Every 8 hours Polyethylene Glycol 17 Gm Powder (MiraLax Powder) ??17 Gm 1 pack/packet, By Mouth, Daily Senna 8.6 mg / Docusate 50 mg tablet (Docusate/Senna Tablet) ??1 tablet, By Mouth, 2 times a day Simethicone 80 mg Chewable Tablet (Simethicone Tablet) ??80 mg, Chew, 3 times a day ? Results Recent Labs BLOOD COUNT & DIFF WBC 6.7 k/mm3 ()?? 06/12/2022 20:42 RBC 3.23 m/mm3 (Low)?? 06/12/2022 20:42 Hgb 11.3 Gm/dL (Low)?? 06/12/2022 20:42 Hct 32.9 % (Low)?? 06/12/2022 20:42 MCV 101.9 femtoliters (High)?? 06/12/2022 20:42 MCH 35.0 pg (High)?? 06/12/2022 20:42 MCHC 34.3 g/dL ()?? 06/12/2022 20:42 Platelet Count 211 k/mm3 ()?? 06/12/2022 20:42 RDW-SD 42.0 femtoliters ()?? 06/12/2022 20:42 MPV 8.8 femtoliters (Low)?? 06/12/2022 20:42 Nucleated RBC (Automated) 0.0 #/100 WBC'S ()?? 06/12/2022 20:42 Abs. NRBC 0.0 k/mm3 ()?? 06/12/2022 20:42 Abs. Neut 4.0 k/mm3 ()?? 06/12/2022 20:42 Abs. Lymph 1.8 k/mm3 ()?? 06/12/2022 20:42 Abs. [place] 0.7 k/mm3 ()?? 06/12/2022 20:42 Abs. Eo 0.2 k/mm3 ()?? 06/12/2022 20:42 Abs. Baso 0.0 k/mm3 ()?? 06/12/2022 20:42 Neut % 58.6 % ()?? 06/12/2022 20:42 Lymph % 26.9 % ()?? 06/12/2022 20:42 [place] % 10.4 % ()?? 06/12/2022 20:42 Eos % 3.4 % ()?? 06/12/2022 20:42 Baso % 0.4 % ()?? 06/12/2022 20:42 Imm Gran 0.3 % ()?? 06/12/2022 20:42 Abs. Imm Gran 0.0 k/mm3 ()?? 06/12/2022 20:42 ?? CHEM GENERAL Sodium 117 mmol/L (Critical)?? 06/12/2022 20:42 Potassium 4.4 mmol/L ()?? 06/12/2022 20:42 Chloride 80 mmol/L (Low)?? 06/12/2022 20:42 Bicarbonate Level 23 mmol/L ()?? 06/12/2022 20:42 Anion Gap 14 ()?? 06/12/2022 20:42 Glucose Level 100 mg/dL (High)?? 06/12/2022 20:42 BUN 10 mg/dL ()?? 06/12/2022 20:42 Creatinine-Blood 1.2 mg/dL (High)?? 06/12/2022 20:42 Estimated GFR Creatinine 49 ML/MIN/1.73 M2 ()?? 06/12/2022 20:42 Calcium 9.6 mg/dL ()?? 06/12/2022 20:42 Protein, Total 6.7 Gm/dL ()?? 06/12/2022 20:42 Albumin 4.7 Gm/dL ()?? 06/12/2022 20:42 AG Ratio 2.4 ()?? 06/12/2022 20:42 Alkaline Phosphatase 95 units/L ()?? 06/12/2022 20:42 Lipase 24 units/L ()?? 06/12/2022 20:42 AST (SGOT) 38 units/L (High)?? 06/12/2022 20:42 ALT (SGPT) 25 units/L ()?? 06/12/2022 20:42 Bilirubin, Total 0.5 mg/dL ()?? 06/12/2022 20:42 Lactate 0.9 mmol/L ()?? 06/12/2022 20:43 ?? HEME OTHER Hold Blue Top SPECIMEN DISCARDED AFTER 4 HOURS. ()?? 06/12/2022 20:42 ?? UA/URINALYSIS Appear/Color, Urine ORANGE ()?? 06/12/2022 22:24 Specific [place], Urine 1.004 ()?? 06/12/2022 22:24 pH, Urine 6.0 ()?? 06/12/2022 22:24 Albumin, Urine NEGATIVE (N)?? 06/12/2022 22:24 Glucose, Urine NEGATIVE (N)?? 06/12/2022 22:24 Ketones, Urine NEGATIVE (N)?? 06/12/2022 22:24 Bilirubin, Urine NEGATIVE (N)?? 06/12/2022 22:24 Hemoglobin, Urine NEGATIVE (N)?? 06/12/2022 22:24 Nitrite, Urine POSITIVE (Abnormal)?? 06/12/2022 22:24 Leukocyte, Urine NEGATIVE (N)?? 06/12/2022 22:24 Urobilinogen NORMAL mg/dL (N)?? 06/12/2022 22:24 WBC's, Urine 2 /HPF ()?? 06/12/2022 22:24 RBC's, Urine NONE SEEN /HPF ()?? 06/12/2022 22:24 Squamous Epith 4 /HPF ()?? 06/12/2022 22:24 Mucus SLIGHT /LPF ()?? 06/12/2022 22:24 Hold Urine Culture Testing available 48 hours from time of collection. ()?? 06/12/2022 22:24 ?? VIROLOGY COVID-19 POC Result NEGATIVE ()?? 06/12/2022 19:46 ? Priyank Rodriguez DO: PERFORM Event Display: History and Physical Hospital Authored Date: Assumed care for patient on 06/13??at??7 AM. ?? Patient was admitted to the hospital overnight with initial concerns for urinary tract infection ultimately found to be hyponatremic to a value of 117.?? She was given??two liters of normal saline fluid resuscitation in the ED and we are closely monitoring as she has high risk for overcorrection.?? Unfortunately the course the morning she did in fact trend towards overcorrection with her sodium goingfrom 117-1 25 over the course of 12 hours.?? Secondary to this we will start free water with D5W andcontinue to closely monitor her sodium values.?? Nephrology has been consulted and are involved withcare and assisting.?? Patient will continue with every 4 hour sodium checks and instructed nurse on need for strict I&O monitoring.?? Patient is denying Watson catheter at this time 2/2 discomfort??and we will attempt to use a purewick to accurate I's and O's however if unable to do this we will need to have a Watson catheter placed for strict monitoring.?? Patient otherwise was somewhat sleepy at time of evaluation but awakens appropriately and is alert and oriented x4 with no focal deficits and able to follow commands with full strength.?? Sleepiness at this point is likely the setting of not having slept in the last 2 days and we will continue to closely monitor her.?? Remainder of plan as outlined in admission note.?? Patient now out of the emergency department and in the intermediate care unit for close monitoring of mental status and lab values. Note Event Display: Cardiac Rhythm Strips Authored Date: Linda Pfeiffer RN: PERFORM Event Display: Discharge/Transfer Note Hospital Authored Date: Nursing Discharge Note Entered On: 06/15/2022 18:02 EST Performed On: 06/15/2022 18:02 EST by Linda Pfeiffer RN Nursing Discharge Note 2 Discharge Time : 06/15/2022 17:55 EST Discharge Level of Care at Discharge : Home/Snf/Foster Care Patient Left Unit Via : Wheelchair Patient Accompanied Off Unit with : Responsible adult DC Instructions Provided & Signed by Pt : Yes Patient Understands D/C Instructions : Yes Patient Instructions Discharge Signed : Yes Did Pt have Specialty Bed or Wound Vac : No Linda Pfeiffer RN - 06/15/2022 18:02 Qiana MEHTA, Deny Li: PERFORM Event Display: Discharge/Transfer Note Hospital Authored Date: Patient: ??AFANASIANNABELLA, CLAY ? Age:??71 Years?Sex:??Female?:??1950?? Patient Information Discharge Location: W4 Primary Care Physician: Flor Reddy MD Admit Date/Time: 06/12/22 23:06 Discharge Disposition Discharge Disposition: home?? Discharge Diagnosis Hyponatremia (E87.1) Urinary retention (R33.9) ?? _ Discharge Medications Albuterol (Albuterol 90 mcg Inhaler)?2?puff(s)?Inhalation?4 times a day?as needed?Wheezing/Shortness of Breath Ascorbic Acid (Ascorbic Acid Tablet)?500?Milligram?By Mouth?Daily Atorvastatin (atorvastatin 20 mg oral tablet)?TAKE 1 TABLET BY MOUTH ONCE DAILY FOR 90 DAYS Carvedilol (carvedilol 25 mg oral tablet)?TAKE 1 TABLET BY MOUTH TWICE DAILY FOR 90 DAYS hydrALAZINE (hydrALAZINE 25 mg oral tablet)?50?Milligram?2?tablet?By Mouth?Daily Isosorbide Mononitrate (isosorbide mononitrate 60 mg oral tablet, extended release)?1?tab(s)?60?Milligram?By Mouth?Daily in AM Methenamine (methenamine hippurate 1 gm oral tablet)?TAKE 1 TABLET BY MOUTH TWICE DAILY TAKE WITHVITAMIN C OR CRANBERRY TABS Oxycodone / Acetaminophen (Percocet 5 mg-325 mg oral tablet)?By Mouth?3 times a day Quetiapine (SEROquel 100 mg oral tablet)?100?Milligram?1?tablet?By Mouth?Daily?bedtime Senna (senna 187 mg oral tablet)?1?tab(s)?8.6?Milligram?By Mouth?Daily at bedtime ? Vaccinations and Immunoprophylaxis influenza virus vaccine, inactivated: 0.7 mL (06/15/22 10:15:00) influenza virus vaccine, inactivated: 0.5 Unknown (05/09/21 08:00:00) influenza virus vaccine, inactivated: 0.7 Unknown (03/10/20 08:00:00) influenza virus vaccine, inactivated: 0.5 Unknown (04/15/19 08:00:00) influenza virus vaccine, inactivated: 0.5 Unknown (04/25/18 08:00:00) influenza virus vaccine, inactivated: 0.5 Unknown (03/31/17 08:00:00) influenza virus vaccine, inactivated: 0.5 Unknown (04/03/16 08:00:00) influenza virus vaccine, inactivated: 0.5 Unknown (03/31/15 08:00:00) influenza virus vaccine, inactivated: 0.5 Unknown (04/16/14 08:00:00) influenza virus vaccine, inactivated: 0 Unknown (02/28/13 08:00:00) influenza virus vaccine, inactivated: 0.5 Unknown (04/01/12 08:00:00) influenza virus vaccine, inactivated: 0.5 Unknown (03/23/11 08:00:00) influenza virus vaccine, inactivated: 0.5 Unknown (03/25/10 08:00:00) influenza virus vaccine, inactivated: 0.5 Unknown (06/03/08 07:00:00) pneumococcal 13-valent vaccine: 0.5 Unknown (04/01/20 08:00:00) pneumococcal 13-valent vaccine: 0.5 Unknown (06/15/15 07:00:00) pneumococcal 23-valent vaccine: 0.5 Unknown (12/11/13 08:00:00) pneumococcal 23-valent vaccine: 0.5 Unknown (04/27/09 08:00:00) SARS-CoV-2 (COVID-19) mRNA BNT-162b2 vac: 0.3 Unknown (05/12/21 08:00:00) SARS-CoV-2 (COVID-19) mRNA BNT-162b2 vac: 0.3 Unknown (09/18/20 07:00:00) SARS-CoV-2 (COVID-19) mRNA BNT-162b2 vac: 0.3 Unknown (08/26/20 07:00:00) SARS-CoV-2 mRNA (hnyyfdd-[id number]) vax: 0.3 Unknown (01/11/22 08:00:00) [id number] 12y+ bivalent booster vax: 0.3 Unknown (04/03/22 08:00:00) tetanus/diphtheria/pertussis, acel(Tdap): 0.5 Unknown (12/13/12 08:00:00) tetanus-diphtheria toxoids (Td): 0 Unknown (02/29/04 08:00:00) Zoster Vaccine Live: 0.65 Unknown (03/01/12 08:00:00) zoster vaccine, inactivated: 1 Unknown (10/28/18 08:00:00) zoster vaccine, inactivated: 1 Unknown (08/06/18 07:00:00) ?? Allergies Allergies ?(Active and Proposed Allergies Only) Cymbalta? (Severity: Unknown severity, Onset: Unknown) Keflex? (Severity: Unknown severity, Onset: Unknown) ?Reactions: RASH Latex? (Severity: Unknown severity, Onset: Unknown) ?Reactions: hives Motrin? (Severity: Unknown severity, Onset: Unknown) ?Reactions: hives ? Hospital Course History of present illness: 71-year-old female with past medical history including HTN, HLD, asthma, CKD, macrocytic anemia,?DVT, history of C. difficile (01/2022), osteoarthritis, recurrent UTI,??bipolar, PTSD. ??Patient presented to ER with complaints of I think I have UTI . ?? The patient said that for about 3 to 4 days she has been voiding urine frequently. ??So she thinks that she has yet another episode of UTI. ??She however denies any burning sensation during micturition. ??No fever. ??Denies chest pain, shortness of breath, cough, rhinorrhea, stuffy nose, sore throat, a bdominal pain, nausea, vomiting, diarrhea. ??She has decreased p.o. intake for the last few days. ??We are documented that the patient's family said that she was more slow to respond than usual. ?? In ER patient was hemodynamically stable. ??Labs shows baseline macrocytic anemia, hyponatremia 117,chloride 80, creatinine 1.2 which seems a new baseline, mostly normal liver enzymes, normal lipase and lactate, COVID-negative, UA nitrate positive but only 2 WBC. ??EKG showed sinus rhythm with heart rate of 82, QTc 441, anterior and inferior Q waves. ??Chest x-ray shows no acute abnormality. ?? Hospital course: Problem list: ?Severe hyponatremia??secondary to poor solute intake??versus psychogenic polydipsia ?Urinary retention ?Chronic diarrhea likely functional ??? History of essential hypertension ??? History of hyperlipidemia ?Chronic kidney disease stage III ??? Microcytic anemia ?History of DVT not on any anticoagulation ??? History of chronic lower back pain and??opiate pain medication dependence ??? History of bipolar disorder/PTSD/anxiety ?? Management plan: ??? Patient presented to the hospital with??severe hyponatremia with??sodium of 117 serum osmolalityof??238, urine osmolality of 70, patient was seen by nephrology team who determined patient likely has poor solute intake along with psychogenic polydipsia leading to hyponatremia patient was initiallytreated with IV fluids??with significant improvement of sodium level??and was placed on 1.5 L fluid restriction,??patient had some intermittent diarrhea??during hospital stay which was less likely to be infected and likely functional??and suggested to continue taking Imodium at home along with probiotics,??patient is not on any diuretic MAILE inhibitor or angiotensin receptor blockers at home, sodium on the date of discharge is 132, patient has been mentating aniket, patient was also found to have urinary retention and required straight catheterization at admission??and currently urinating aniket will discontinue home dose Myrbetriq. ?Continue regular diet as tolerated along with 1.5 L fluid restriction at home ?Continue Imodium as needed for diarrhea will send to the pharmacy ?Kidney functions are currently stable creatinine is 1.3 ?Resume home dose Seroquel ???Discontinue Myrbetriq ?Continue home dose Coreg and hydralazine ?? Patient is ambulating around with help of walker spoke with the son who is??nurse??and suggested thepatient can be discharged home without any services. ?? Full code ?? Regular diet ?? Pending Results Add On Lab Order ordered on 06/13/2022 Add On Lab Order ordered on 06/13/2022 Basic Metabolic Panel ordered on 06/13/2022 Basic Metabolic Panel ordered on 06/14/2022 COVID-19 (2019 Novel Coronavirus) PCR ordered on 06/15/2022 Copeptin proAVP, Plasma ordered on 06/13/2022 Electrolytes ordered on 06/13/2022 Hgb + Hct ordered on 06/14/2022 Osmolality Urine ordered on 06/13/2022 Sodium Level ordered on 06/13/2022 Sodium Urine ordered on 06/13/2022 Follow-Up Appointments Added Follow Up ?Time Frame ?Comments Flor Reddy MD?2 to 3 weeks Post Discharge Care Diet: Regular Diet Discharge ?06/15/22 12:43:00 EST Home Health Face to Face ^HomeHealthFTF Results Discharge Labs BLOOD COUNT & DIFF WBC 4.3 k/mm3 ()?? 06/15/2022 06:37 RBC 3.50 m/mm3 (Low)?? 06/15/2022 06:37 Hgb 11.8 Gm/dL ()?? 06/15/2022 08:44 Hct 35.4 % (Low)?? 06/15/2022 08:44 MCV 106.0 femtoliters (High)?? 06/15/2022 06:37 MCH 35.1 pg (High)?? 06/15/2022 06:37 MCHC 33.2 g/dL ()?? 06/15/2022 06:37 Platelet Count 174 k/mm3 ()?? 06/15/2022 06:37 RDW-SD 45.6 femtoliters ()?? 06/15/2022 06:37 MPV 10.0 femtoliters ()?? 06/15/2022 06:37 Nucleated RBC (Automated) 0.0 #/100 WBC'S ()?? 06/15/2022 06:37 Abs. NRBC 0.0 k/mm3 ()?? 06/15/2022 06:37 Abs. Neut 2.3 k/mm3 ()?? 06/15/2022 06:37 Abs. Lymph 1.3 k/mm3 ()?? 06/15/2022 06:37 Abs. [place] 0.4 k/mm3 ()?? 06/15/2022 06:37 Abs. Eo 0.2 k/mm3 ()?? 06/15/2022 06:37 Abs. Baso 0.0 k/mm3 ()?? 06/15/2022 06:37 Neut % 52.9 % ()?? 06/15/2022 06:37 Lymph % 31.3 % ()?? 06/15/2022 06:37 [place] % 9.4 % ()?? 06/15/2022 06:37 Eos % 5.4 % ()?? 06/15/2022 06:37 Baso % 0.5 % ()?? 06/15/2022 06:37 Hemoglobin (POC) POC Cartridge 10.9 Gm/dL (Low)?? 06/13/2022 17:27 Hematocrit (POC) POC Cartridge 32 % (Low)?? 06/13/2022 17:27 Imm Gran 0.5 % ()?? 06/15/2022 06:37 Abs. Imm Gran 0.0 k/mm3 ()?? 06/15/2022 06:37 ?? BLOOD GAS pH (POC) POC Cartridge 7.36 ()?? 06/13/2022 17:27 pCO2 (POC) POC Cartridge 47.6 mm Hg (High)?? 06/13/2022 17:27 pO2 (POC) POC Cartridge 133 mm Hg (High)?? 06/13/2022 17:27 Estimated Bicarbonate (POC) POC Cart 26.9 mmol/L ()?? 06/13/2022 17:27 % O2 Sat Arterial (POC) POC Cartridge 99 % ()?? 06/13/2022 17:27 FIO2 (POC) POC Cartridge 28 % ()?? 06/13/2022 17:27 Base Excess (POC) POC Cartridge 1 ()?? 06/13/2022 17:27 Specimen Type - Blood Gas ARTERIAL ()?? 06/13/2022 17:27 ?? CHEM GENERAL Sodium 132 mmol/L (Low)?? 06/15/2022 06:37 Potassium 4.7 mmol/L ()?? 06/15/2022 06:37 Chloride 98 mmol/L ()?? 06/15/2022 06:37 Bicarbonate Level 23 mmol/L ()?? 06/15/2022 06:37 Anion Gap 11 ()?? 06/15/2022 06:37 Sodium (POC) POC Cartridge 125 mmol/L (Low)?? 06/13/2022 17:27 Potassium (POC) POC Cartridge 3.9 mmol/L ()?? 06/13/2022 17:27 Glucose Level 92 mg/dL ()?? 06/15/2022 06:37 Glucose (POC) POC Cartridge 89 ()?? 06/13/2022 17:27 BUN 12 mg/dL ()?? 06/15/2022 06:37 Creatinine-Blood 1.3 mg/dL (High)?? 06/15/2022 06:37 Estimated GFR Creatinine 43 ML/MIN/1.73 M2 ()?? 06/15/2022 06:37 Osmolality 238 mOs/kg (Low)?? 06/12/2022 20:42 Calcium 9.3 mg/dL ()?? 06/15/2022 06:37 Ionized Calcium (POC) POC Cartridge 1.31 mmol/L ()?? 06/13/2022 17:27 Phosphorus 3.4 mg/dL ()?? 06/15/2022 06:37 Magnesium 1.5 mg/dL (Low)?? 06/12/2022 20:42 Protein, Total 6.7 Gm/dL ()?? 06/12/2022 20:42 Albumin 3.9 Gm/dL ()?? 06/14/2022 08:16 AG Ratio 2.4 ()?? 06/12/2022 20:42 Alkaline Phosphatase 95 units/L ()?? 06/12/2022 20:42 Lipase 24 units/L ()?? 06/12/2022 20:42 AST (SGOT) 38 units/L (High)?? 06/12/2022 20:42 ALT (SGPT) 25 units/L ()?? 06/12/2022 20:42 Bilirubin, Total 0.5 mg/dL ()?? 06/12/2022 20:42 Lactate 0.9 mmol/L ()?? 06/12/2022 20:43 ?? ENDOCRINE/TUMOR MARKER TSH 1.70 uIU/mL ()?? 06/12/2022 20:42 ? HEME OTHER Hold Lavender Top SPECIMEN DISCARDED AFTER 24 HOURS. ()?? 06/14/2022 05:44 Hold Blue Top SPECIMEN DISCARDED AFTER 4 HOURS. ()?? 06/12/2022 20:42 ?? MISC. CHEMISTRY Hold Gel Top SPECIMEN DISCARDED AFTER 1 WEEK ()?? 06/15/2022 08:44 ? TOXICOLOGY/TDM Ethanol, Serum or Plasma NONE DETECTED mg/dL ()?? 06/12/2022 20:42 ? UA/URINALYSIS Appear/Color, Urine ORANGE ()?? 06/12/2022 22:24 Specific [place], Urine 1.004 ()?? 06/12/2022 22:24 pH, Urine 6.0 ()?? 06/12/2022 22:24 Albumin, Urine NEGATIVE (N)?? 06/12/2022 22:24 Glucose, Urine NEGATIVE (N)?? 06/12/2022 22:24 Ketones, Urine NEGATIVE (N)?? 06/12/2022 22:24 Bilirubin, Urine NEGATIVE (N)?? 06/12/2022 22:24 Hemoglobin, Urine NEGATIVE (N)?? 06/12/2022 22:24 Nitrite, Urine POSITIVE (Abnormal)?? 06/12/2022 22:24 Leukocyte, Urine NEGATIVE (N)?? 06/12/2022 22:24 Urobilinogen NORMAL mg/dL (N)?? 06/12/2022 22:24 WBC's, Urine 2 /HPF ()?? 06/12/2022 22:24 RBC's, Urine NONE SEEN /HPF ()?? 06/12/2022 22:24 Squamous Epith 4 /HPF ()?? 06/12/2022 22:24 Mucus SLIGHT /LPF ()?? 06/12/2022 22:24 Hold Urine Culture Testing available 48 hours from time of collection. ()?? 06/12/2022 22:24 ?? URINE OTHER Sodium, Urine Random <20 mmol/L ()?? 06/13/2022 16:05 Chloride, Urine Random <20 mmol/L ()?? 06/13/2022 10:10 Urea Nitrogen, Urine Random 66.0 mg/dL ()?? 06/13/2022 10:10 Osmolality, Urine Random 71 mOsm/kg ()?? 06/13/2022 16:05 Uric Acid, Urine Random 5.4 mg/dL ()?? 06/13/2022 10:10 ? VIROLOGY COVID-19 POC Result NEGATIVE ()?? 06/12/2022 19:46 ? More than 30??minutes spent on discharge. Linda Pfeiffer RN: PERFORM Event Display: Patient Education/Instruction Authored Date: Inpatient Adult Discharge Instructions [address] [address] Name: CLAY STALLWORTH : 1950 Visit: 06/12/2022 23:06:00 Current Date: 06/15/2022 16:28 Account: [id number] Inpatient Adult Discharge Instructions We would like to thank you for allowing us to assist you with your healthcare needs. The following includes patient education materials and information regarding your injury/illness. Our entire staff strives to provide an excellent experience for our patients and their families. PLEASE ENSURE YOU FOLLOW-UP PER THE INSTRUCTIONS BELOW! ?? YOUR OPINION IS IMPORTANT TO US! Please complete the survey you may receive by mail or email. Your feedback will be used to make improvements to the healthcare experiences of our patients and their families. Surveys are administered by [employer] ?? If further treatment with your primary care physician or another doctor is recommended, it is important for you to keep the appointment. Call your primary care physician or return to the Emergency Department immediately if your condition worsens, fails to improve, or new symptoms develop. If you need to find a doctor, you can call [facility] [employer] for a referral at [phone] or toll free at [phone] ([phone]) or log in to [email or web address].. ?? You can view and manage your care through the patient portal or by using a health care alexandr of your choosing. [employer] is a website that allows you to securely view your medical information including your hospital discharge summary, office visit summaries, medications and follow-up visits. You can also request appointments, renew medications, and request access to your medical information using a health care alexandr of your choosing, or just ask a question. You can enroll at [email or web address] or register during your next office visit. You have been discharged from [facility], Patient Care Unit: S3. If you have any questions regarding these instructions after you leave, please call us and we will be happy to assist you. [facility] Your Care Team Attending Physician Deny Wayne MD Discharging Providers Deny Wayne MD Reason for Admission coming from home. shortness of breath and urinary retention. family states she is confused, aox 4 on transport. family concerned for jaundice, appears well. Your Diagnosis Hyponatremia Urinary retention Tests Performed Below is a partial list of the tests performed during your hospitalization. You may have had other tests and procedures not included in this list. Please discuss all test results with your provider. ABG POC CARTRIDGE Albumin Level BASE EXCESS POC CARTRIDGE Basic Metabolic Panel BUN CALCIUM IONIZED POC CART Calcium Level CBC w/ Differential Comprehensive Metabolic Panel COVID-19 (2019 Novel Coronavirus) PCR COVID-19 RNA POC Creatinine Electrolytes ETHANOL Glucose Level GLUCOSE POC CARTRIDGE H + H HEMATOCRIT POC CARTRIDGE HEMOGLOBIN POC CARTRIDGE Hold Blue Top Tube HOLD GEL TUBE HOLD LAVENDER TUBE Lactic Acid Level Lipase MAGNESIUM Na Urine O2 PERCENT (POINT OF CARE) Osmolality Urine?-- Results Pending -- OSMOLALITY, SERUM Phosphorus Level POTASSIUM POC CARTRIDGE SODIUM POC CARTRIDGE TSH UREA NITROGEN, URINE MG/DL Uric Acid Urine Urinalysis w/hold for Urine Culture Urine Chloride Urine Osmolality Urine Sodium CT Head/Brain W/O Contrast XR Chest 2 Views Frontal and Lat ? You will be contacted within 72 hours with your results. Primary Care Provider Flor Reddy MD Advance Directive Health Care Proxy on File Yes - Health Care Proxy No qualifying data available. Discharge Vitals Temperature: 97.9 DegF Height: 160 cm Pulse Rate: 90 bpm Weight: 67 kg Respiratory Rate: 16 br/min Body Mass Index:??25.86 kg/m2??High Systolic Blood Pressure: 94 mm Hg Body surface area: 1.72 Diastolic Blood Pressure: 61 mm Hg ?? Oxygen Saturation: 94 % ?? Studies Pending All tests and labs ordered during this hospital stay have been completed unless listed below. Pleasediscuss all pending results with your provider listed above in these instructions. ?? Add On Lab Order Basic Metabolic Panel Copeptin proAVP, Plasma Electrolytes Hgb + Hct (H + H) Osmolality Urine Sodium Level Sodium Urine (Na Urine) What to do next Instructions From Your Doctor Discharge Orders Diet:??Regular Diet You Need to Schedule the Following Appointments Follow Up with??Flor Reddy MD When??Within 2 to 3 weeks Where: [address] [place] [address] [address] [place] [address]- Discharge Medications CLAY STALLWORTH :1950 Visit Date:06/12/2022 Medications: Please continue your medications until treatment is completed or stopped by your provider. Medications not listed below should be discontinued. Discuss any questions related to medications with your provider. What How Much When Instructions Next Dose New Loperamide (Imodium A-D 2 mg oral tablet) 1 tab(s) Oral Every 4 hours as needed for for loose stool Pickup at [place] [address] as needed Changed Quetiapine (SEROquel 100 mg oral tablet) 1 tab(s) Oral Daily bedtime ?? 06/15 Unchanged Albuterol (Albuterol 90 mcg Inhaler) 2 puff(s) Inhalation 4 times a day as needed for Wheezing/Shortness of Breath as needed Unchanged Ascorbic Acid (Ascorbic Acid Tablet) 500 Milligram Oral Daily 06/16 Unchanged Atorvastatin (atorvastatin 20 mg oral tablet) TAKE 1 TABLET BY MOUTH ONCE DAILY FOR 90 DAYS ?? 06/15 Unchanged Carvedilol (carvedilol 25 mg oral tablet) TAKE 1 TABLET BY MOUTH TWICE DAILY FOR 90 DAYS ?? 906/15 Unchanged hydrALAZINE (hydrALAZINE 25 mg oral tablet) 2 tab(s) Oral Daily 06/16 Unchanged Isosorbide Mononitrate (isosorbide mononitrate 60 mg oral tablet, extended release) 1 tab(s) Oral Daily in the morning 06/16 Unchanged Methenamine (methenamine hippurate 1 gm oral tablet) TAKE 1 TABLET BY MOUTH TWICE DAILY TAKE WITH VITAMIN C OR CRANBERRY TABS ?? 906/15 Unchanged Oxycodone / Acetaminophen (Percocet 5 mg-325 mg oral tablet) Oral 3 times a day last dosed received 2pm 06/15 Unchanged Senna (senna 187 mg oral tablet) 1 tab(s) Oral Daily at Bedtime 9pm 06/15 Pharmacy Information [facility] 1969: [address], [place] [id number] [phone] ?? What How Much When Comments Stop Taking Estradiol Topical (estradiol 0.1 mg/ g vaginal cream) APPLY 1 GRAM VAGINALLY NIGHTLY FOR 2 WEEKS AND THEN 1-2 NIGHTS A WEEK THEREAFTER ?? Stop Taking Gabapentin (gabapentin 300 mg oral capsule) TAKE 1 CAPSULE BY MOUTH TWICE DAILY ?? Stop Taking mirabegron (Myrbetriq 25 mg oral tablet, extended release) TAKE 1 TABLET BY MOUTH ONCE DAILY ?? Stop Taking Solifenacin (solifenacin 10 mg oral tablet) 1 tab(s) Oral Daily Test Results Below is a partial list of the most recent Laboratory test results done prior to this discharge. You may have had other tests and procedures not included in this list. Please discuss all test results with your provider. ABG POC CARTRIDGE (06/13/2022) ???pH (POC) POC Cartridge - 7.36???pCO2 (POC) POC Cartridge - 47.6 mm Hg???pO2 (POC) POC Cartridge -133 mm Hg???Estimated Bicarbonate (POC) POC Cart - 26.9 mmol/L???% O2 Sat Arterial (POC) POC Cartridge - 99 %???Specimen Type - Blood Gas - ARTERIAL Albumin Level (06/14/2022) ???Albumin - 3.9 Gm/dL BASE EXCESS POC CARTRIDGE (06/13/2022) ???Base Excess (POC) POC Cartridge - 1 Basic Metabolic Panel (06/15/2022) ???Sodium - 134 mmol/L???Potassium - 4.8 mmol/L???Chloride - 100 mmol/L???Bicarbonate Level - 24 mmol/L???Anion Gap - 10???Glucose Level - 102 mg/dL???BUN - 12 mg/dL???Creatinine-Blood - 1.2 mg/dL???Estimated GFR Creatinine - 47 ML/MIN/1.73 M2???Calcium - 9.2 mg/dL BUN (06/14/2022) ???BUN - 13 mg/dL CALCIUM IONIZED POC CART (06/13/2022) ???Ionized Calcium (POC) POC Cartridge - 1.31 mmol/L Calcium Level (06/14/2022) ???Calcium - 9.0 mg/dL CBC w/ Differential (06/15/2022) ???WBC - 4.3 k/mm3???RBC - 3.50 m/mm3???Hgb - 12.3 Gm/dL???Hct - 37.1 %???MCV - 106.0 femtoliters???MCH - 35.1 pg???MCHC - 33.2 g/dL???Platelet Count - 174 k/mm3???RDW-SD - 45.6 femtoliters???MPV - 10.0 femtoliters???Nucleated RBC (Automated) - 0.0 #/100 WBC'S???Abs. NRBC - 0.0 k/mm3???Abs. Neut - 2.3 k/mm3???Abs. Lymph - 1.3 k/mm3???Abs. [place] - 0.4 k/mm3???Abs. Eo - 0.2 k/mm3???Abs. Baso - 0.0 k/mm3???Neut % - 52.9 %???Lymph % - 31.3 %???Augusta % - 9.4 %???Eos % - 5.4 %???Baso % - 0.5 %???Imm Gran - 0.5 %???Abs. Imm Gran - 0.0 k/mm3 Comprehensive Metabolic Panel (06/12/2022) ???Sodium - 117 mmol/L???Potassium - 4.4 mmol/L???Chloride - 80 mmol/L???Bicarbonate Level - 23 mmol/L???Anion Gap - 14???Glucose Level - 100 mg/dL???BUN - 10 mg/dL???Creatinine-Blood - 1.2 mg/dL???Estimated GFR Creatinine - 49 ML/MIN/1.73 M2???Calcium - 9.6 mg/dL???Protein, Total - 6.7 Gm/dL???Albumin - 4.7 Gm/dL???AG Ratio - 2.4???Alkaline Phosphatase - 95 units/L???AST (SGOT) - 38 units/L???ALT (SGPT) - 25 units/L???Bilirubin, Total - 0.5 mg/dL COVID-19 (2019 Novel Coronavirus) PCR (06/15/2022) ???COVID-19 PCR Specimen Source - NASAL???COVID-19 PCR Result - NEGATIVE COVID-19 RNA POC (06/12/2022) ???COVID-19 POC Result - NEGATIVE Creatinine (06/14/2022) ???Creatinine-Blood - 1.6 mg/dL???Estimated GFR Creatinine - 33 ML/MIN/1.73 M2 Electrolytes (06/15/2022) ???Sodium - 130 mmol/L???Potassium - 4.4 mmol/L???Chloride - 97 mmol/L???Bicarbonate Level - 26 mmol/L???Anion Gap - 7 ETHANOL (06/12/2022) ???Ethanol, Serum or Plasma - NONE DETECTED Glucose Level (06/14/2022) ???Glucose Level - 94 mg/dL GLUCOSE POC CARTRIDGE (06/13/2022) ???Glucose (POC) POC Cartridge - 89 H + H (06/15/2022) ???Hgb - 11.8 Gm/dL???Hct - 35.4 % HEMATOCRIT POC CARTRIDGE (06/13/2022) ???Hematocrit (POC) POC Cartridge - 32 % HEMOGLOBIN POC CARTRIDGE (06/13/2022) ???Hemoglobin (POC) POC Cartridge - 10.9 Gm/dL Hold Blue Top Tube (06/12/2022) ???Hold Blue Top - SPECIMEN DISCARDED AFTER 4 HOURS. HOLD GEL TUBE (06/15/2022) ???Hold Gel Top - SPECIMEN DISCARDED AFTER 1 WEEK HOLD LAVENDER TUBE (06/14/2022) ???Hold Lavender Top - SPECIMEN DISCARDED AFTER 24 HOURS. Lactic Acid Level (06/12/2022) ???Lactate - 0.9 mmol/L Lipase (06/12/2022) ???Lipase - 24 units/L MAGNESIUM (06/12/2022) ???Magnesium - 1.5 mg/dL Na Urine (06/13/2022) ? ?Sodium, Urine Random - <20 mmol/L O2 PERCENT (POINT OF CARE) (06/13/2022) ???FIO2 (POC) POC Cartridge - 28 % OSMOLALITY, SERUM (06/12/2022) ???Osmolality - 238 mOs/kg Phosphorus Level (06/15/2022) ???Phosphorus - 3.4 mg/dL POTASSIUM POC CARTRIDGE (06/13/2022) ???Potassium (POC) POC Cartridge - 3.9 mmol/L SODIUM POC CARTRIDGE (06/13/2022) ???Sodium (POC) POC Cartridge - 125 mmol/L TSH (06/12/2022) ???TSH - 1.70 uIU/mL UREA NITROGEN, URINE MG/DL (06/13/2022) ???Urea Nitrogen, Urine Random - 66.0 mg/dL Uric Acid Urine (06/13/2022) ???Uric Acid, Urine Random - 5.4 mg/dL Urinalysis w/hold for Urine Culture (06/12/2022) ???Appear/Color, Urine - ORANGE???Specific [place], Urine - 1.004???pH, Urine - 6.0???Albumin, Urine- NEGATIVE???Glucose, Urine - NEGATIVE???Ketones, Urine - NEGATIVE???Bilirubin, Urine - NEGATIVE???Hemoglobin, Urine - NEGATIVE???Nitrite, Urine - POSITIVE???Leukocyte, Urine - NEGATIVE???Urobilinogen - NORMAL???WBC's, Urine - 2 /HPF???RBC's, Urine - NONE SEEN???Squamous Epith - 4 /HPF???Mucus - SLIGHT???Hold Urine Culture - Testing available 48 hours from time of collection. Urine Chloride (06/13/2022) ? ?Chloride, Urine Random - <20 mmol/L Urine Osmolality (06/13/2022) ???Osmolality, Urine Random - 71 mOsm/kg Urine Sodium (06/13/2022) ? 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 Anemia, macrocytic?? Asthma?? Daytime somnolence?? Delirium of mixed origin?? 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 Drug or alcohol risk assessment?? Elevated TSH?? Family history of alcoholism?? Family history of depression: mother?? History of total knee replacement, bilateral?? Knee pain, left?? Knee pain, right?? Lack of adequate sleep?? Limitation due to disability?? Mechanical low back pain?? Overweight (BMI 25.0-29.9)?? 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 Education Materials Below is the list of Educational Leaflet Providered with your Discharge Instructions. Urinary Tract Infections in Women?? Dehydration (Adult)?? Discharge Instructions for Hyponatremia?? Valuables and Belongings I fully understand and agree that [facility] accepts no responsibility for all my personal property including clothing, toilet articles, radios, jewelry, dentures, hearing aids, rings, money, or any other property that is in my possession or is brought to me after admission. I understand certain valuables may be placed in a hospital safe for a short period of time. I understand that the hospital is not liable for loss or damage due to accident, fire, or other natural occurrence while said property is in the safe. I accept full responsibility for any personal property that I keep with me, and will not hold the hospital responsible in case of loss or disappearance. I acknowledge that i have been encouraged to send valuables and belongings home. ?? Review of Valuable and Belonging List: With patient Possessions released to: all valuables present on arrival to [facility] Date for Pt to Sign Valuables/Belongings: 06/15/22 13:36:00 ?? Other Discharge Information ? Pulmonary Rehab Status?? Pulmonary Rehab Discharge Status?? Respiratory Rate: 16 br/min ? Common Emergency Awareness Tips IS IT A STROKE? Act FAST and Check for these signs: FACE Does the face look uneven? ARM Does one arm drift down? SPEECH Does their speech sound strange? TIME Call at any sign of stroke ?? Heart Attack Signs Chest discomfort: Most heart attacks involve discomfort in the center of the chest and lasts more than a few minutes, or goes away and comes back. It can feel like uncomfortable pressure, squeezing, fullness or pain. Discomfort in upper body: Symptoms can include pain or discomfort in one or both arms, back, neck, jaw or stomach. Shortness of breath: With or without discomfort. Other signs: Breaking out in a cold sweat, nausea, or lightheaded. Remember, MINUTES DO MATTER. If you experience any of these heart attack warning signs, call to get immediate medical attention! ?? Smoking can increase your chances of developing chronic health problems and can cause harmful effects to other family members in your house. If you smoke, you are strongly encouraged to quit. Please call [facility] at [phone] or [phone]) or log in to [email or web address] for referrals to smoking cessation programs. ?? The National Suicide Prevention Hotline is available 29/01 if you or someone you know needs to find areason to keep living. By calling 3-406-283-ZANK.mobi (4602) you'll be connected to a skilled, trained counselor at a crisis center in your area. INPATIENT DISCHARGE INSTRUCTIONS SIGNATURE PAGE MIRNADARIELCLAY CORONADO Location:[facility] Registration Date and Time:06/12/2022 23:[address] [facility] Primary Care Physician: Maureen MEHTA Flor, I CLAY STALLWORTH, have received the above patient education materials/instructions and have verbalized understanding. If ambulance or transport services are being used I further acknowledge being given a choice of service. ?? If you need to contact me, please call me at this number: . Patient/Production Inspector Name: Patient/Production Inspector Signature: Relationship to Patient: Witness Name/Signature: Date: Linda Pfeiffer RN: PERFORM Event Display: Patient Education Leaflets Authored Date: [id number] Urinary Tract Infections in Women ?? 94699 Urinary Tract Infections in Women Urinary tract infections (UTIs) are most often caused by??bacteria. These bacteria enter the urinary tract. The bacteria may come from inside the body. Or they may travel from the skin outside the??rectum or vagina into the urethra. Female anatomy makes it easy for bacteria from the bowel??to enter awoman???s urinary tract, which is the most common source of UTI. This means women develop UTIs more often than men. Pain in or around the urinary tract is a common UTI symptom. But the only way to knowfor sure if you have a UTI for the healthcare provider to test your urine. The two tests that may bedone are the urinalysis and urine culture. Types of UTIs ??? Cystitis. A bladder infection (cystitis) is the most common UTI in women. You mayhave urgent or frequent need to pee. You may also have??pain, burning when you pee, and bloody urine. ??? Urethritis. This is an inflamed urethra, which is the tube that carries urine from the bladder to outside the body. You may have lower stomach or back pain. You may also have urgent or frequent need to pee. ??? Pyelonephritis. This is a kidney infection. If not treated, it can be serious and damage your kidneys. In severe cases, you may need to stay in the??hospital. You may have a fever and lower back pain. ?? Medicines to treat a UTI Most UTIs are treated with antibiotics. These kill the bacteria. The length of time you need to take them depends on the type of infection. It may be as short as 3 days. If you have repeated UTIs, youmay need a low-dose antibiotic??for several months. Take antibiotics exactly as directed. Don???t stop taking them until all of the medicine is gone, even if you feel better. If you stop taking the antibiotic too soon, the infection may not go away. You may also develop a resistance to the antibiotic.This can make it much harder to treat. ?? Lifestyle changes to treat and prevent UTIs The lifestyle changes below will help get rid of your UTI. They may also help prevent future UTIs. ??? Drink plenty of fluids. This includes [...] bacteria from getting into the urethra. ??? Wearcotton underwear. Don't wear synthetic or tight-fitting underwear that can trap moisture. Change outof wet bathing suits and workout clothing quickly. ??? Take showers. Showers are better than baths for preventing UTIs. ??? Use condoms during sex. These help prevent UTIs caused by sexually transmitted bacteria. Also don't use spermicides during sex. These can increase the risk for UTIs. Choose otherforms of control instead. For women who tend to get UTIs after sex, a low-dose of a preventiveantibiotic may be used. Be sure to discuss this option with your healthcare provider. ??? Follow up with your healthcare provider as directed. They may test to make sure the infection has cleared. If needed, more treatment may be started. ?? Last Reviewed Date: 2021 ?? [id number] [employer]. All rights reserved. This information is not intended as a substitute for professional medical care. Always follow your healthcare professional's instructions. ??Linda Pfeiffer RN: PERFORM Event Display: Patient Education Leaflets Authored Date: [id number] Dehydration (Adult) ?? [id number] Dehydration (Adult) Dehydration occurs when your body loses too much fluid. This may be the result of prolonged vomiting or diarrhea, excessive sweating, or a high fever. It may also happen if you don???t drink enough fluid when you???re sick or out in the heat. Some medicines such as water pills (diuretics) can also kalani cause. Symptoms include thirst, less urine than usual, and darker-colored urine. You may also feel dizzy, weak, very tired, or very drowsy. You may also have muscle aches and headache. The diet described below is usually enough to treat dehydration. In some cases, you may need medicine. Home care ??? Drink at least 12, 8-ounce glasses of fluid every day until you are no longer dehydrated. Fluid can include: o Water o [place] juice o Lemonade o Apple, grape, or cranberry juice o Clear fruit drinks o Electrolyte replacement and sports drinks o Tea o Decaffeinated coffee ??? Don't drinkalcohol. ??? If you have been diagnosed with a kidney disease or heart failure, ask your doctor how much and what types of fluids you should drink to prevent dehydration. These diseases can cause fluidto build up in the body. This can be dangerous to your health. ??? If you have a fever, muscle aches, or a headache from a cold or flu, you may take acetaminophen, naproxen, or ibuprofen, unless another medicine was prescribed. Talk with your healthcare provider before using these medicines if you have chronic liver or kidney disease, or had a stomach ulcer or digestive bleeding. ?? Follow-up care Follow up with your healthcare provider as advised. ?? When to seek medical advice Call your healthcare provider right away if any of these occur: ??? Continued vomiting ??? Diarrheathat happens more than 5 times a day or mucus in diarrhea ??? Swollen belly (abdomen) or belly pain that gets worse ??? Less urine than usual or extreme thirst ??? Fever of 100.4??F (38??C) or higher, or as directed by your healthcare provider ?? Call 911 Call 911 right away if you have any of the following: ??? Weakness, dizziness, or fainting ??? Unusual drowsiness or confusion ??? Vomit or stool is red or black ?? Last Reviewed Date: 2021 ?? [employer]. All rights reserved. This information is not intended as a substitute for professional medical care. Always follow your healthcare professional's instructions. ??Linda Pfeiffer RN: PERFORM Event Display: Patient Education Leaflets Authored Date: [id number] Discharge Instructions for Hyponatremia ?? 07551 Discharge Instructions for Hyponatremia You were diagnosed with hyponatremia. This means your blood level of sodium (salt) is too low. Saltis needed for the body and brain to work. Very low blood levels of sodium can be fatal. Symptoms caninclude headache, confusion, severe tiredness (fatigue), muscle cramps, hallucinations, seizures, and coma.??You have been treated to raise your blood levels of sodium. These instructions will help youcare for yourself at home as you have been instructed. Home care ??? Limit your intake of fluids. Drink only the amounts directed by your healthcare provider. ??? Ask your provider what you should use to replace fluids if you are throwing up. ??? Keep all follow-upappointments. Your provider needs to watch your condition closely. To help prevent hyponatremia: ??? Take all medicines exactly as directed. Certain medicines can lower blood sodium levels. ??? If you have done something that makes you sweat a lot, drink fluids that contain salt and other electrolytes.? Tell all healthcare providers what medicines you take. Ment ion all prescription and [id number]-[id number] medicines, vitamins, supplements, and herbs. ??? Have yoursodium levels checked often. This is vital if you take a medicine that helps your body get rid of water (diuretic). ?? Follow-up Follow up with your healthcare provider, or as advised.? When to call your healthcare provider Call your provider right away if you have any of the following: ??? Severe tiredness ??? Fainting ??? Dizziness ??? Loss of appetite ??? Nausea or vomiting ??? Confusion or forgetfulness ??? Muscle spasms, cramping, or twitching ??? Seizures ??? Walking abnormally ?? Last Reviewed Date: 2020 ?? [employer]. All rights reserved. This information is not intended as a substitute for professional medical care. Always follow your healthcare professional's instructions. ?? Event Display: Cardiac Rhythm Strips Authored Date: SPowerscriARNOLD león S: TRANSCRIBE Bro Jesus MD: VERIFY Event Display: Result: Authored Date: Chest 2 Views Frontal and Lat Hx of Present Illness: Patient reports SOB x 2 days and pain when voiding x 3 days. Denies chest pain. Patient reports light-headedness.; Reason: Shortness of Breath; Clinical Question(s): Pneumonia; Special Instructions: This is a protocol film and radiologist should call any findings to the Charge Nurse COMPARISON: 01/22/2012 FINDINGS: LINES AND TUBES: None. LUNGS AND PLEURA: Clear lungs. Normal pulmonary vascularity. No pleural effusion. No pneumothorax. HEART, MEDIASTINUM AND GEOFFREY: Heart is at the upper limits of normal for size. Normal mediastinal and hilar contour. BONES AND SOFT TISSUES: No acute abnormality. IMPRESSION: No acute abnormality. WSN: [id number] Ordering Physician: Geovanna Epstein Dictated By: Bro Jesus MD Dictated Date/Time: 06/12/22 10:53 p Reviewed By: Bro Jesus MD Signed By: Bro Jesus MD Signed Date/Time: 06/12/22 10:53 pm Transcribed By: CSB Transcribed Date/Time: 06/12/22 10:52 pm EKG study Event Display: EKG Authored Date: Hospital Progress note Linda Pfeiffer RN: PERFORM, SIGN, VERIFY Event Display: Progress Note Hospital Authored Date: Patient: CLAY STALLWORTH Age: 71 years Sex: Female : 1950 Associated Diagnoses: None Author: Linda Pfeiffer RN Findings Narrative/Incidental Pt transferred to S34 from W4 with watson catheter still in place. Watson removed and pt voided :20. Pt clothed, iv removed and awaiting son to pick her up for dc home. will CTM..Sue Hogan MD: MODIFY, MODIFY, MODIFY, PERFORM Event Display: Progress Note Hospital Authored Date: [id number] Patient: ??CLAY STALLWORTH ? Age:??71 Years?Sex:??Female?:??1950?? Attending:??Deny Wayne MD Admission Date: 06/12/2022 ?? Subjective Patient seen and examined, events notes. ?UOP 1300 last 24 hrs removing watson ?? Objective Vital Signs (last 24 hrs) ?Last Charted Heart Rate Peripheral?83 bpm ??(DEC 08 11:26) Resp Rate?19 br/min ??(DEC 08 11:26) SBP?104 mm Hg ??(DEC 11:26) DBP?61 mm Hg ??(DEC 11:26) SpO2?94 % ??(DEC 11:26) Weight?67.0 kg ??(JUN 15 09:00) Height?160 cm ??(JUN 15 11:26) Intake?? Output?? Oral Fluids: 0 mL (:00) Urine Catheter: 700 mL (:00) ?? Bladder Scan Volume: 0 mL (:00) ?? Stool Frequency: 1 (13:00) ? Intake/Output? 06/12 23:06 06/15 07:00 12 07:00 06/13 07:00 06/12 07:00 ?? 06/15 12:49 06/15 12:49 06/15 06:59 06/14 06:59 06/13 06:59 Intake ? 2560 ?0 ?780 ? 1695 ? 85 Output ? 4200 ?700 ? 1300 ? 2200 ?0 Net Total ?-1640 ? -700 ? -520 ? -505 ? 85 ? Physical Exam Elderly lady in no acute distress??awake, alert and appropriately answers all the questions CVS regular rate rhythm no murmurs Lungs??clear lungs inspiratory and expiratory no wheeze and rhonchi GI distended nontender to palpation in all 4 Qs Extremities no peripheral edema, pulses present Neurologically alert and oriented to??person?? andplace ?? BLOOD COUNT & DIFF WBC 4.3 k/mm3 ()?? 06/15/2022 06:37 RBC 3.50 m/mm3 (Low)?? 06/15/2022 06:37 Hgb 11.8 Gm/dL ()?? 06/15/2022 08:44 Hct 35.4 % (Low)?? 06/15/2022 08:44 MCV 106.0 femtoliters (High)?? 06/15/2022 06:37 MCH 35.1 pg (High)?? 06/15/2022 06:37 MCHC 33.2 g/dL ()?? 06/15/2022 06:37 Platelet Count 174 k/mm3 ()?? 06/15/2022 06:37 RDW-SD 45.6 femtoliters ()?? 06/15/2022 06:37 MPV 10.0 femtoliters ()?? 06/15/2022 06:37 Nucleated RBC (Automated) 0.0 #/100 WBC'S ()?? 06/15/2022 06:37 Abs. NRBC 0.0 k/mm3 ()?? 06/15/2022 06:37 Abs. Neut 2.3 k/mm3 ()?? 06/15/2022 06:37 Abs. Lymph 1.3 k/mm3 ()?? 06/15/2022 06:37 Abs. [place] 0.4 k/mm3 ()?? 06/15/2022 06:37 Abs. Eo 0.2 k/mm3 ()?? 06/15/2022 06:37 Abs. Baso 0.0 k/mm3 ()?? 06/15/2022 06:37 Neut % 52.9 % ()?? 06/15/2022 06:37 Lymph % 31.3 % ()?? 06/15/2022 06:37 [place] % 9.4 % ()?? 06/15/2022 06:37 Eos % 5.4 % ()?? 06/15/2022 06:37 Baso % 0.5 % ()?? 06/15/2022 06:37 Imm Gran 0.5 % ()?? 06/15/2022 06:37 Abs. Imm Gran 0.0 k/mm3 ()?? 06/15/2022 06:37 ?? CHEM GENERAL Sodium 134 mmol/L ()?? 06/15/2022 11:28 Potassium 4.8 mmol/L ()?? 06/15/2022 11:28 Chloride 100 mmol/L ()?? 06/15/2022 11:28 Bicarbonate Level 24 mmol/L ()?? 06/15/2022 11:28 Anion Gap 10 ()?? 06/15/2022 11:28 Glucose Level 102 mg/dL (High)?? 06/15/2022 11:28 BUN 12 mg/dL ()?? 06/15/2022 11:28 Creatinine-Blood 1.2 mg/dL (High)?? 06/15/2022 11:28 Estimated GFR Creatinine 47 ML/MIN/1.73 M2 ()?? 06/15/2022 11:28 Calcium 9.2 mg/dL ()?? 06/15/2022 11:28 Phosphorus 3.4 mg/dL ()?? 06/15/2022 06:37 Albumin 3.9 Gm/dL ()?? 06/14/2022 08:16 ?? HEME OTHER Hold Lavender Top SPECIMEN DISCARDED AFTER 24 HOURS. ()?? 06/14/2022 05:44 ?? MISC. CHEMISTRY Hold Gel Top SPECIMEN DISCARDED AFTER 1 WEEK ()?? 06/15/2022 08:44 ?? No qualifying data available ? Assessment/Plan 71-year-old female with past medical history notable for bipolar disorder??frequent??recent admissions with falls, episodes of??psychosis/james, etoh use,??presented with concern of urinary tract infection as noted to have profound hyponatremia. ??Renal team was consulted for same ? Bipolar disorder Hypoosmolar hyponatremia Euvolemic hyponatremia Hx of alcohol misuse disorder ?? Ms Springer??presented with profound hyponatremia with a serum osmolality 238, ??urine osm 70 ??Serum sodium level of 117??in the absence of seizures. but patient was very lethargic but now active and alert to answer Qs.?Most likely etiology is low solute intake,??psychogenic polydipsia with a euvolemic volume status, as she reports drinking frequently and mostly flavored water with very low appetite. ? Recommendations ?? - s/p NS 1.5 L, was rapidly correcting yesterday , received D5W on admission , no woff IVF - no diuretics needed so far - cw fluid restriction 1. L - Volume : euvolemic - meds reviewed: no thiazides, only on Seroquel for maintenance ?? Discussed with Dr Feldman ?? Thank you for allowing us to participate in care of this patient. Renal team will continue to follow. Please do not hesitate to contact with any questions/concerns should they arise. ?? Sue Hogan MD Renal fellow PGY-4 ?? Available by [employer].?? Please note that this document was generated with the assistance of??[employer]?voice recognition technology, and may contain vocabulary/syntax errors.?Please do not hesitate to contact me in case ofany questions or concerns. ?? Gaston MEHTA, Iglesia: PERFORM Event Display: Progress Note Hospital Authored Date: Seen and examiend, case d/w fellow in detail and agree with her assessment and rec as noted Candida Cardona RN: SIGN, VERIFY, PERFORM Event Display: Progress Note Hospital Authored Date: [id number] Patient: CLAY STALLWORTH Age: 71 years Sex: Female : 1950 Associated Diagnoses: None Author: Candida Cardona RN Findings Problem Related to Alteration in Fluid Electrolyte : Alteration in Fluid Electrolyte Func/new 06/15/2022 4:00 EST Alteration Fluid Electrolytes Related to Electrolyte Imbalance, Other: Hyponatremia Goals & Outcomes, Fluid/Electrolyte Blood glucose levels will stabilize during hospitalization,Vital signs, electrolytes & glucose levels will stabilize, Pt will maintain adequate GI/ function appropriate for pt, Pt will maintain skin turgor, Pt will resume/maintain adequate cardiac output, Pt will resume/maintain adequate hemodynamic status, Other: slow correction of Na level Interventions, Fluid Electrolyte monitor cardiac status, monitor dietary intake, monitor for onset of acute bleeding, monitor for s/s of anemia: weakness, fatigue,, monitor for s/s of hypo or hyperglycemia, monitor GI/ status, monitor hydration status, monitor mucous membranes, monitor peripheral pulses, monitor skin turgor, temperature & capillary refill, Encourage & assist with increasedactivity as pt tolerates, Encourage oral intake of meals, snacks, supplements, Encourage oral intake/fluids as ordered BH Goals/Interventions,Fluid Electrolyte Yes Fluid Electrolyte, Problem Start 06/13/2022 20:08 Reviewed plan with, Fluid Electrolyte Patient Patient Progression, Fluid Electrolyte Pt progressing according to plan . Alteration in Genitourinary : Alteration in Genitourinary Function/new 06/15/2022 4:00 EST Alteration in Status Related to UTI Goals & Outcomes, Genitourinary Pt will achieve normal/improved fluid balance, Pt will maintainadequate function appropriate for pt Interventions, Assess/monitor/maintain Genitourinary status, Assist & encourage pt with meticulous brenda care, Encourage PO fluid intake as allowed by diet, Assess/monitor s/s of urinary tract infection BH Goals/Interventions, Genitourinary Yes Genitourinary, Problem Start 06/13/2022 12:02 Reviewed Plan with, Genitourinary Patient Patient Progression, Genitourinary Patient progressing according to plan Genitourinary, Problem Ongoing Yes . Nursing Data Vital Signs : VITAL SIGNS SECTION 06/15/2022 3:50 EST Temperature 97.3 DegF Temperature Route Oral Pulse Rate 68 bpm Respiratory Rate 18 br/min Systolic Blood Pressure 132 mm Hg Diastolic Blood Pressure 65 mm Hg Blood pressure sites Arm, right Mean Arterial Pressure 87 mm Hg Pulse Pressure 67 mm Hg Oxygen Saturation 95 % Mode of Delivery (Oxygen) Room air 06/14/2022 23:39 EST Early Warning Score 10.00 C 06/14/2022 23:39 EST Temperature 97.6 DegF Temperature Route Oral Pulse Rate 64 bpm Respiratory Rate 18 br/min Systolic Blood Pressure 90 mm Hg Diastolic Blood Pressure 53 mm Hg L Blood pressure sites Arm, right Mean Arterial Pressure 65 mm Hg Pulse Pressure 37 mm Hg Oxygen Saturation 93 % L Mode of Delivery (Oxygen) Room air 06/14/2022 19:51 EST Early Warning Score 7.00 06/14/2022 19:51 EST Temperature 98.1 DegF Temperature Route Oral Pulse Rate 64 bpm Respiratory Rate 18 br/min Systolic Blood Pressure 109 mm Hg Diastolic Blood Pressure 64 mm Hg Blood pressure sites Arm, right Mean Arterial Pressure 79 mm Hg Pulse Pressure 45 mm Hg Oxygen Saturation 93 % L Mode of Delivery (Oxygen) Room air . Evaluation Assumed care @1940. Pt is A&Ox4, 1A w/ a walker but has weakness in her lower extremities and yris a security monitor running NSR w/ a HR in the 60's. LS dim w/ inspiratory wheezing, pt denies any SOB and has no cough. Continuous O2 monitoring stating 92% overnight. Watson remains intact drainingclear/yellow urine. Pt was having 7/10 back pain, scheduled oxycodone given for relief and pt rated her pain 5/10 an hour later but is now calm & resting in bed. Her BP was 109/64 @1999, MD Dylan Conn notified; 25 mg dose of carvedilol held and a one time order for 12.5 mg was put in. BP rechecked @2300 and was 90/53, notified and the 12.5 mg dose of carvedilol was discontinued. Hourly checkscompleted, call aparicio in reach, bed in lowest position and environment assessed for safety. See CIS for more information. CT Head WO contrast BHSPowerscribe , CIS S: TRANSCRIBE Artemio Jiang MD: VERIFY Event Display: Result: Authored Date: [id number] CT Head/Brain W/O Contrast CLINICAL INDICATION: Reason: Other:; Increased Lethargy; Clinical Question(s): Hematoma; Order Comment:. PRIOR EXAMS: 01/20/2022.. TECHNIQUE: Head CT was performed without intravenous contrast, using axial technique and reconstructed in axialand coronal plane. Iterative reconstruction techniques are used to optimize dose and image quality. CTDIvol Head: 39.57 mGy, DLP Head: 633 mGy*cm. FINDINGS: BRAIN: There is no infarct. There is no intracerebral hemorrhage. There is no mass. VENTRICLES, SULCI, AND CISTERNS: The ventricles and sulci are symmetrical and show mild atrophy.. WHITE MATTER: Mild white matter abnormality typically be due to small vessel disease.. EXTRA AXIAL SPACES: There is no abnormal epidural, subdural, or subarachnoid blood or fluid. SKULL: There is no skull fracture.. PARANASAL SINUSES: Mucosal thickening left maxillary sinus.. TEMPORAL BONES: The mastoid air cells are clear, as are the middle ear cavities. IMPRESSION: 1. No acute intracranial abnormality. 2. No skull fracture. WSN: [id number] Ordering Physician: Priyank Rodriguez Dictated By: Artemio Jiang MD Dictated Date/Time: 06/13/22 7:47 pm Reviewed By: Artemio Jiang MD Signed By: Artemio Jiang MD Signed Date/Time: 06/13/22 7:47 pm Transcribed By: TORIE Transcribed Date/Time: 06/13/22 7:43 pm Patient Care team information Care Team PersonnelName: Paz Leo RN Position: [facility] RN Member Role: Primary Care Nurse Name: Flor Reddy MD Position: [facility] Physician -Physician Practices Member Role: PCP Address: Address: [address] [place] [address]- Name: Jenna Ulloa RN Position: [facility] SN RN Member Role: Primary Care Nurse Name: Guerita Garcia RN Position: [facility] RN Member Role: Primary Care Nurse Name: Glen Orona RN Position: [facility] RN Member Role: Primary Care Nurse Name: Jm Rene MD Position: [facility] Physician (General Medicine) Member Role: Lifetime Consulting Physician Address: Address: [address] [place] [address], [address] [place] [address]- Name: Terrence Cook RN Position: [facility] RN Member Role: Primary Care Nurse Name: Sharona Chun Position: [facility] RN Member Role: Primary Care Nurse Name: Diana Rondon RN Position: [facility] RN Member Role: Primary Care Nurse Name: Fercho Galeana RN Position: [facility] RN Member Role: Primary Care Nurse Name: Jay Stern MD Position: [facility] Renal MD Member Role: [employer] Consulting Physician Address: Address: [address] [place] [address] [address] [facility] [place] [address]- Name: Iglesia Feldman MD Position: [facility] Renal MD Member Role: Lifetime Consulting Physician Address: Address: [address] [place] [address] [facility] [place] [address]- Name: Estrellita Wong RN Position: [facility] Onco RN Member Role: Primary Care Nurse Name: Dyan REY Attending Position: [facility] ED Medicine MD Name: Delmi Guzman RN Position: [facility] ED RN W/OE and Tasks Member Role: Patient Care Provider Name: Dulce Maria Harris Position: [facility] ED OA Charge Member Role: ED Associate Name: Sakshi Gatica Position: [facility] ED TA [facility] Member Role: Draw Operator Care Team Related PersonsName: ZAK STALLWORTH Address: [address] [address] Name: ZAK STALLWORTH Address: [address] [address] Name: LEN STALLWORTH Address: [place] [address]
--- OUTSIDE RECORDS SUMMARY | 2022-08-15 19:11 | XMS_ITS | Continuity of Care Document ---
:1950 Author Organization [facility] Address [address] [place] [id number]- Care Team Providers Name Role Phone Maureen MEHTA, Flor Primary Care Physician Encounter [facility] Date(s): 07/31/22 - 08/03/[address] [id number] Encounter Diagnosis Chest pain (Final) - 07/31/22 Discharge Disposition: A-D/C Home Attending Physician: Niki Powers MD Admitting Physician: Bro Phipps MD Referring Physician: Not on Staff, Referring [...] Recorded influenza virus vaccine, inactivated 06/03/08 Recorded [id number] 12y+ bivalent booster vax 04/03/22 Recorde d SARS-CoV-2 mRNA ([id number]) vax 01/11/22 Recorde d SARS-CoV-2 (COVID-19) mRNA [...] Recorded tetanus-diphtheria toxoids (Td) 02/29/04 Recorded Medications acetaminophen 325 mg oral tablet 325 mg, Tablet, By Mouth, 08/03/22 5:00:00 EST Start Date: 08/03/22 Stop Date: 08/03/22 Status: Completedacetaminophen-oxycodone 325 mg-7.5 mg oral tablet 1 tablet, By Mouth, Every 4 hours, PRN as needed for pain, 0 Refills, Maintenance, 08/03/22 15:26:00EST, Tablet, Partial fill upon patient request if the prescription is for a schedule II opioid drug. Start Date: 08/03/22 Status: OrderedAlbuterol 90 mcg Inhaler 2, puffs, Inhalation, 4 times a day, PRN, Refills 0, Maintenance, 11/26/15 10:39:26, Inhaler Start Date: 11/26/15 Status: OrderedAscorbic Acid Tablet 500 mg, By Mouth, Daily, Maintenance, 05/20/15 8:07:04 Start Date: 05/20/15 Status: Orderedaspirin 81 mg oral delayed release tablet 81 mg, By Mouth, Daily, # 30 tablet, Refills 0, Tot. Refills 0, Maintenance, 08/03/22 15:33:00 EST, Route to Pharmacy Electronically, [facility], Partial fill upon patient request if the prescription is for a schedule II opioid drug., 16... Start Date: 08/03/22 Status: Orderedatorvastatin 20 mg oral tablet TAKE 1 TABLET BY MOUTH ONCE DAILY FOR 90 DAYS Start Date: 01/21/22 Status: Orderedcarvedilol 25 mg oral tablet 25 mg, Tablet, By Mouth, Hold for: Hold for SBP <110, 08/02/22 21:00:00 EST Start Date: 08/02/22 Stop Date: 08/02/22 Status: Completedcarvedilol 25 mg oral tablet TAKE 1 TABLET BY MOUTH TWICE DAILY FOR 90 DAYS Start Date: 01/21/22 Status: Orderedcarvedilol 25 mg oral tablet 25 mg, Tablet, By Mouth, Hold for: Hold for SBP <110, 08/03/22 9:00:00 EST Start Date: 08/03/22 Stop Date: 08/03/22 Status: Completedgabapentin 300 mg oral capsule 300 mg, 1, capsule, By Mouth, Daily at bedtime, Refills 0, Maintenance, 07/31/22 16:37:00 EST, Partial fill upon patient request if the prescription is for a schedule II opioid drug. Start Date: 07/31/22 Status: OrderedhydrALAZINE 25 mg oral tablet 50 mg, 2, tablet, By Mouth, Daily, Refills 0, Maintenance, 01/23/22 18:20:00 EDT, Partial fill upon patient request if the prescription is for a schedule II opioid drug. Start Date: 01/23/22 Status: OrderedInvega Sustenna 156 mg/mL intramuscular suspension, extended release INJECT 1 SYRINGE INTRAMUSCULARLY ONCE EVERY MONTH Start Date: 07/31/22 Status: Orderedisosorbide mononitrate 60 mg oral tablet, extended release 1 tablet = 60 mg, By Mouth, Daily in AM, # 30 tablet, 0 Refills, Maintenance, 01/23/22 18:21:00 EDT,ER Tablet, Partial fill upon patient request if the prescription is for a schedule II opioid drug. Start Date: 01/23/22 Status: Orderedmeclizine 12.5 mg oral tablet TAKE 1 TO 2 TABLETS BY MOUTH EVERY 12 HOURS NEEDED FOR DIZZINESS Start Date: 07/31/22 Status: Orderedmethenamine hippurate 1 gm oral tablet TAKE 1 TABLET BY MOUTH TWICE DAILY TAKE WITH VITAMIN C OR CRANBERRY TABS Start Date: 01/21/22 Status: OrderedoxyCODONE 5 mg oral tablet 7.5 mg, Tablet, By Mouth, 08/03/22 11:00:00 EST Start Date: 08/03/22 Stop Date: 08/03/22 Status: CompletedQUEtiapine 50 mg oral tablet 1 tablet = 50 mg, By Mouth, 3 times a day, PRN Agitation, # 30 tablet, 0 Refills, Maintenance, 08/03/22 15:24:00 EST, Tablet, Partial fill upon patient request if the prescription is for a schedule II opioid drug. Start Date: 08/03/22 Status: Orderedsenna 187 mg oral tablet 1 tablet = 8.6 mg, By Mouth, Daily at bedtime, 0 Refills, Maintenance, 03/31/16 13:08:33 Start Date: 03/31/16 Status: OrderedSEROquel 100 mg oral tablet 150 mg, 1.5, tablet, By Mouth, Daily, bedtime, Refills 0, Maintenance, 06/13/22 15:31:00 EST, Partial fill upon patient request if the prescription is for a schedule II opioid drug. Start Date: 06/13/22 Status: Orderedvancomycin 125 mg oral capsule 1 capsule = 125 mg, By Mouth, Every 12 hours, Doses over 125 mg require ID consult. Indication for Use: C. difficile colitis, # 13 capsule, 0 Refills, Acute 08/09/22 22:00:00 EST, 08/03/22 15:28:00 EST, Capsule, [facility], Partial fill... Start Date: 08/03/22 Stop Date: 08/09/22 Status: Ordered Problem List Condition Confirmation Course [...] Reports Name Date Urine Culture (URINE CULTURE) 07/31/22 Microbiology Reports TEST:Urine Culture STATUS:Auth (Verified) BODY SITE: SOURCE:URINE COLLECTED DATE/TIME:07/31/22 8:30 AMUrine Culture SPECIMEN DESCRIPTION : URINE SPECIAL REQUESTS : NONE CULTURE : NO GROWTH REPORT STATUS : FINAL 08/01/2022Radiology Reports Exam Date Time Procedure Performing Provider Status 07/31/22 5:25 PM US Doppler Ext Lower Venous Right Horn , Catheri ne; Auth (Verified) Notes:(US Doppler Ext Lower Venous Right) Reason For Exam: Pain/Tenderness ExtremitiesRESULT: US Doppler Ext Lower Venous Right US Doppler Ext Lower Venous Right REASON: Pain Tenderness Extremities; Clinical Question(s): Thrombus; Order Comment: 07 31 2022 14:07:51 EST closet organizer tried to get pt but pt's son in room w doctors. Went in room to inform pt she is goingto US and she is refusing but son is saying she has to do it. Telecommunications Clerk went to find RN but she is on break. Will try later KOF COMPARISON: 03/05/2020 IMAGING TECHNIQUE: Ultrasound of the veins from the groin through the calf was planned using grayscale, color, and spectral Doppler ultrasound assessing for complete compressibility and normal flow characteristics. After the popliteal vein was interrogated the patient passed this up further imaging, and the calf veins and contralateral common femoral vein were not interrogated. FINDINGS: Common femoral vein: Patent. No thrombosis. Femoral vein: Patent. No thrombosis. Popliteal vein: Patent. No thrombosis. IMPRESSION: No evidence of venous thrombosis involving the right common femoral, femoral, or popliteal veins. Patient declined further imaging. WSN: [id number] Ordering Physician: John Hanson Dictated By: Bro Arambula MD Dictated Date/Time: 07/31/22 5:36 pm Reviewed By: Bro Arambula MD Signed By: rBo Arambula MD Signed Date/Time: 07/31/22 5:36 pm Transcribed By: TORIE Transcribed Date/Time: 07/31/22 5:34 pm Exam Date Time Procedure Performing Provider Status 07/31/22 10:00 AM Chest 2 Views Frontal and Lat Pascual Abreu; Auth (Verified) Notes:(Chest 2 Views Frontal and Lat) Reason For Exam: Shortness of Breath RESULT: Chest 2 Views Frontal and Lat Chest 2 Views Frontal and Lat Hx of Present Illness: SI AMS; Reason: Shortness of Breath; Clinical Question(s): CHF COMPARISON: CT 07/18/2022. Chest radiograph 07/18/2022 and 07/11/2022. FINDINGS: LINES AND TUBES: None. LUNGS AND PLEURA: Clear lungs. Normal pulmonary vascularity. No pleural effusion. No pneumothorax. HEART, MEDIASTINUM AND KRISTEL: Heart is normal in size. Similar mild prominence of the kristel bilaterally. BONES AND SOFT TISSUES: No acute abnormality. IMPRESSION: No radiographic evidence of an acute cardiopulmonary process. I have personally reviewed the images and I agree with this report. WSN: [id number] Ordering Physician: Radha Doe Dictated By: Ubaldo Sales MD Dictated Date/Time: 07/31/22 10:36 a Reviewed By: Yaw Bowles MD Signed By: Yaw Bowles MD Signed Date/Time: 07/31/22 10:41 am Transcribed By: TORIE Transcribed Date/Time: 07/31/22 10:07 am Vital Signs Most recent to oldest 1 2 3 [Reference Range]: Height 163 cm 163 cm 163 cm (08/03/22 8:15 AM) (08/02/22 7:30 PM) (08/02/22 2:2 7 AM) Weight 60.0 kg 59.9 kg 59.0 kg (08/03/22 6:09 AM) (08/02/22 3:48 AM) (08/01/22 4:4 2 PM) Oxygen Saturation [94-100 %] 99 % 98 % 98 % (08/03/22 8:15 AM) (08/02/22 7:30 PM) (08/02/22 3:0 0 PM) Pulse Rate [55-90 bpm] 79 bpm 79 bpm 77 bpm (08/03/22 8:29 AM) (08/03/22 8:15 AM) (08/02/22 8:0 5 PM) Body Mass Index [18.5-24.99 22.21 kg/m2 22.58 kg/m2 22.5 8 kg/m2 kg/m2] (08/01/22 4:42 PM) (08/01/22 2:11 PM) (08/01/22 12: 10 PM) Blood Pressure [90-138/55-84 115/65 mm Hg 115/65 mm Hg 134 /83 mm Hg mm Hg] (08/03/22 8:29 AM) (08/03/22 8:15 AM) (08/02/22 8:0 5 PM) Respiratory Rate [16-30 18 br/min 20 br/min 18 br/mi n br/min] (08/03/22 1:08 PM) (08/03/22 8:15 AM) (08/03/22 6:1 0 AM) Temperature [96.8-100.4 DegF] 98.6 DegF 98.1 DegF 97 .5 DegF (08/02/22 7:30 PM) (08/02/22 3:00 PM) (08/02/22 11: 00 AM) Liters per Minute 2 L/min 2 L/min 2 L/min (08/01/22 2:11 PM) (08/01/22 12:10 PM) (08/01/22 11 :30 AM) Mode of Delivery (Oxygen) Room air Room air Room a ir (08/03/22 8:15 AM) (08/02/22 7:30 PM) (08/02/22 3:0 0 PM) Blood pressure sites Arm, right Arm, right Arm, right (08/03/22 8:15 AM) (08/02/22 7:30 PM) (08/02/22 3:0 0 PM) Temperature Route Oral Oral Oral (08/02/22 7:30 PM) (08/02/22 3:00 PM) (08/02/22 11: 00 AM) Dry Weight 59.0 kg 60 kg 60 kg (08/01/22 4:42 PM) (08/01/22 2:11 PM) (08/01/22 12: 10 PM) Weight Obtained Via Bed scale Bed scale Bed scale (08/03/22 6:09 AM) (08/02/22 3:48 AM) (08/01/22 4:4 2 PM) Social History Social History Type Response Smoking Status Never (less than 100 in life time) entered on: 08/01/22 Sex Admission evaluation note John Hanson MD: MODIFY, MODIFY Courtney MEHTA, Carolina Obrien: MODIFY, PERFORM Courtney MEHTA, Carolina Obrien: PERFORM Event Display: Admission Note Authored Date: [id number] Patient: ??FEDERICA, CLAY ? Age:??71 Years?Sex:??Female?:??1950?? Chief Complaint/Reason for Consultation Altered mental status, chest pain History of Present Illness 71 yo F with PMH of bipolar disease, HTN, asthma, osteoarthritis presenting to the ED with mental status alteration. Patient has had acute on chronic??worsening mental status change in the past coupledays, to the point where her son found her disheveled this morning unable to shower or take care of herself, and so agitated to the point where she was being combative. Son endorses she has had worsening agitation for the past month, which he believed was possibly in the setting of a UTI. Patient lives at home with her , and now her son lives at home due to increasing need for care. He reportsthe patient has had multiple hospital admissions over the course of the past year for various etiologies exacerbating her underlying psychiatric conditions. Patient reported a lot of frustration with diarrhea lately to the point where she didn't want to live anymore, and endorsed chest pain as per sonrecalling. Today she denies chest pain, N/V, SOB or fever/chills. Has not had a loose stool in over 2 days. ?? Upon evaluation, in the emergency department, patient remained hemodynamically stable, maintaining oxygen above 95% on room air, CBC with macrocytic anemia, chemistry showed creatinine of??1.1 baseline is around 0.9, troponin of 81 and 73, EKG shows normal sinus rhythm, no acute ST-T changes, unchanged from prior tracings, chest x-ray showed no focal consolidation or pleural effusion.??Patient admitted to hospital for further management. Review of Systems Negative except for HPI as above. Objective Vital Signs?? Temperature: 98.2 DegF (07/31/22 08:10:00) Temperature Route: Oral (07/31/22 08:10:00) Pulse Rate: 68 bpm (07/31/22 12:00:00) Respiratory Rate:??12 br/min??Low (07/31/22 12:39:00) Systolic Blood Pressure: 110 mm Hg (07/31/22 12:00:00) Diastolic Blood Pressure: 71 mm Hg (07/31/22 12:00:00) Blood pressure sites: Arm, right (07/31/22 08:10:00) Mean Arterial Pressure: 92 mm Hg (07/31/22 08:10:00) Pulse Pressure: 39 mm Hg (07/31/22 12:00:00) Oxygen Saturation: 100 % (07/31/22 12:00:00) Liters per Minute: 2 L/min (07/31/22 12:00:00) Mode of Delivery (Oxygen): Nasal cannula (07/31/22 12:00:00) Early Warning Score: 0 (07/31/22 12:39:38) ? Pain Scores 1 - 10 Pain Scale Score: 0 (08:30) ?? Physical Exam General: appears restless, psychomotor retardation, awake, alert HEENT: NCAT, EOM grossly intact, trachea midline CV: RRR Pulm: nonlabored breathing bilaterally Abd: soft, nontender, nondistended, no rebound or guarding Ext: moving all extremities spontaneously, no lower extremity edema Vasc: palpable radial and pedal pulses bilaterally Skin: no rash on limited exam, warm and well-perfused Neuro: answers questions appropriately, 5/5 strength in all extremities, sensation grossly intact, CN II-XII grossly intact Psych: appropriate Assessment/Plan 71 yo F with PMH of HTN, HLD, asthma, CKD, macrocytic anemia,?DVT, history of C. difficile (01/2022), osteoarthritis, recurrent UTI,??bipolar, PTSD presenting to the ED with mental status alteration, acute on chronic mental status decline, found to have elevated troponin, 81 and 73 in setting of prior chest pain admitted for ACS r/o, UTI, AMMY and ?delirium on dementia. ?? Elevated Troponin Chest Pain NSTEMI Most likely in setting of demand ischemia HTN Patient had elevated troponin 81, 73. Son recalls chest pain in the past day. no ischemic changes on EKG. - Patient herself is??difficult historian, not remembering symptoms well. however patient and son notes chest pain over the last two days. Given the difficult history and positive troponin (which possibly can be from AMMY), will obtain echocardiogram??to obtain further data. ?? Plan: - Continue Heparin - Continue ASA 81 mg daily (s/p?? 324mg ASA). - Continue Atorvastatin 40mg at bedtime - Continue isosorbide and Carvedilol with holding parameters. - Hold home hydralazine - ECHO - Cardiology consult ([facility]) -f/u a1c Lipid panel. ? Altered Mental Status Acute on Chronic Mental status decline Bipolar Disease with possible dementia TSH normal, BMP unremarkable for electrolyte abnormalities. EKG normal - Unable to perform most of her iADLs and ADLS over the past month, now having behavioral issues athome. - acute AMS possibly in setting of infection/dehydration. If does not resolve then this is possiblyprogression of her dementia. Patient was pending geripsych outpatient appointment on 07/31 which she wasn't able to go to it. - Per son,??She expressed to EMS that she??rather be because of her diarrhea. She currently isdenying SI. ?? Plan: - Continue home Seroquel. - Continue home Gabapentin - Patient gets Invega once monthly. 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 ?? Uncomplicated UTI hx of C.diff Found to have abnormal UA with slight 1+ leukocytes. Patient reports dysuria. No suprapubic tenderness - Continue IV Ceftriaxone x3 days - Will initiate oral vancomycin for C diff prophylaxis given history of c.diff. ?? AMMY Patient has creatinine of 1.1 upon admission, baseline around 0.9 Most likely due to dehydration, diarrhea - s/p 1L LR - Avoid nephrotoxic agents - Replete fluids in setting of possible dehydration - diarrhea resolved, if it re-occurs then low threshold to test for Cdiff. ?? R>L Left Swelling Patient was noted to have right leg larger than the left. - Ultrasound study for DVT screening ? Quality Measures Diet: Regular Dvt px: Heparin Code status: Full ?? Updated son (ZAK STALLWORTH) at bedside, he is an RN and very involved in her care and lives with her, he would like to be updated daily if possible. ?? Patient seen and discussed with attending physician Dr. Phipps Histories Allergies Allergies ?(Active and Proposed Allergies Only) Cymbalta? (Severity: Unknown severity, Onset: Unknown) Keflex? (Severity: Unknown severity, Onset: Unknown) ?Reactions: RASH Latex? (Severity: Unknown severity, Onset: Unknown) ?Reactions: hives Motrin? (Severity: Unknown severity, Onset: Unknown) ?Reactions: hives ? 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 Past Surgical History ?? History of total knee replacement, bilateral lumbar laminectomy spinal cord simulator insertion with Dr. Yoder left forefoot reconstruction 2011 rgith knee surgery , mieniscus repair 2011 left knee surgery , meniscus excision Dr. Rocha [address] Ray 09/2014? Social History lives with and son. Cannaboid use. Alcohol use. ? Family History father and three sisters had colon cancer? Medications Home Medications Albuterol (Albuterol 90 mcg Inhaler)?2?puff(s)?Inhalation?4 times a day?as needed?Wheezing/Shortness of Breath Ascorbic Acid (Ascorbic Acid Tablet)?500?Milligram?By Mouth?Daily Atorvastatin (atorvastatin 20 mg oral tablet)?TAKE 1 TABLET BY MOUTH ONCE DAILY FOR 90 DAYS Carvedilol (carvedilol 25 mg oral tablet)?TAKE 1 TABLET BY MOUTH TWICE DAILY FOR 90 DAYS Gabapentin (gabapentin 300 mg oral capsule)?300?Milligram?1?capsule?By Mouth?Daily at bedtime hydrALAZINE (hydrALAZINE 25 mg oral tablet)?50?Milligram?2?tablet?By Mouth?Daily Isosorbide Mononitrate (isosorbide mononitrate 60 mg oral tablet, extended release)?1?tab(s)?60?Milligram?By Mouth?Daily in AM Loperamide (Imodium A-D 2 mg oral tablet)?2?Milligram?1?tablet?By Mouth?Every 4 hours?as needed?for loose stool Meclizine (meclizine 12.5 mg oral tablet)?TAKE 1 TO 2 TABLETS BY MOUTH EVERY 12 HOURS NEEDED FOR DIZZINESS Methenamine (methenamine hippurate 1 gm oral tablet)?TAKE 1 TABLET BY MOUTH TWICE DAILY TAKE WITH VITAMIN C OR CRANBERRY TABS Oxycodone / Acetaminophen (Percocet 5 mg-325 mg oral tablet)?By Mouth?3 times a day paliperidone (Invega Sustenna 156 mg/mL intramuscular suspension, extended release)?INJECT 1 SYRINGE INTRAMUSCULARLY ONCE EVERY MONTH Quetiapine (SEROquel 100 mg oral tablet)?150?Milligram?1.5?tablet?By Mouth?Daily?bedtime Quetiapine (QUEtiapine 50 mg oral tablet)?Daily at bedtime?as needed?Agitation?TAKE 1 TABLET BY MOUTH AT BEDTIME WITH 100 MG TABLET FOR A TOTAL DOSE OF 150 MG MAY ALSO TAKE ONE NEEDED FOR PSYCHOSIS/AGITATION Senna (senna 187 mg oral tablet)?1?tab(s)?8.6?Milligram?By Mouth?Daily at bedtime ? Inpatient Medications Medications (14) Active SCHEDULED: (8) Ascorbic Acid 250 mg Tablet (Ascorbic Acid Tablet) ??500 mg, By Mouth, Daily Aspirin 81 mg EC Tablet (aspirin 81 mg oral delayed release tablet) ??81 mg, By Mouth, Daily Atorvastatin 40 mg Tablet (atorvastatin 20 mg oral tablet) ??40 mg, By Mouth, Daily at bedtime Carvedilol 25 mg Tablet (carvedilol 25 mg oral tablet) ??25 mg, By Mouth, 2 times a day Ceftriaxone 1 Gm Inj (Ceftriaxone Inj) ??1 Gm, IVPB, Every 24 hours Gabapentin 300 mg Capsule (gabapentin 300 mg oral capsule) ??300 mg, By Mouth, Daily at bedtime Isosorbide Mononitrate 30 mg ER Tablet (isosorbide mononitrate 30 mg oral tablet, extended release)??60 mg, By Mouth, Daily in AM Quetiapine 25 mg Tablet (Seroquel Tablet) ??150 mg, By Mouth, Daily at bedtime CONTINUOUS: (1) Heparin 25,000 units / 250 mL D5W premix 25,000 units [12 units/kg/hr] + D5%W Premixed IV 250 mL (Heparin 25,000 units in 250 mL Premix 25,000 units [12 units/kg/hr] + D5%W Premixed IV 250 mL) ??250 mL, IV Infusion, 7.2 mL/hr PRN: (5) Albuterol 90mcg/Inhalation Inhaler HFA (Albuterol 90 mcg Inhaler) ??180 mcg 2 puffs, Inhalation, 4 times a day Heparin 5000 units/mL Inj (1 mL) (Heparin Inj) ??3,500 units 0.7 mL, IV Push, Every 6 hours Heparin 5000 units/mL Inj (1 mL) (Heparin Inj) ??2,000 units 0.4 mL, IV Push, Every 6 hours OxyCODONE 5 mg IR Tablet (oxyCODONE 5 mg oral tablet) ??5 mg, By Mouth, Every 6 hours Quetiapine 25 mg Tablet (QUEtiapine 25 mg oral tablet) ??50 mg, By Mouth, Daily at bedtime ? Results Recent Labs BLOOD COUNT & DIFF WBC 6.7 k/mm3 ()?? 07/31/2022 08:26 RBC 2.72 m/mm3 (Low)?? 07/31/2022 08:26 Hgb 10.3 Gm/dL (Low)?? 07/31/2022 08:26 Hct 31.7 % (Low)?? 07/31/2022 08:26 MCV 116.5 femtoliters (High)?? 07/31/2022 08:26 MCH 37.9 pg (High)?? 07/31/2022 08:26 MCHC 32.5 g/dL (Low)?? 07/31/2022 08:26 Platelet Count 191 k/mm3 ()?? 07/31/2022 08:26 RDW-SD 54.4 femtoliters (High)?? 07/31/2022 08:26 MPV 10.1 femtoliters ()?? 07/31/2022 08:26 Nucleated RBC (Automated) 0.0 #/100 WBC'S ()?? 07/31/2022 08:26 Abs. NRBC 0.0 k/mm3 ()?? 07/31/2022 08:26 Abs. Neut 4.3 k/mm3 ()?? 07/31/2022 08:26 Abs. Lymph 1.6 k/mm3 ()?? 07/31/2022 08:26 Abs. Castro 0.6 k/mm3 ()?? 07/31/2022 08:26 Abs. Eo 0.3 k/mm3 ()?? 07/31/2022 08:26 Abs. Baso 0.0 k/mm3 ()?? 07/31/2022 08:26 Neut % 63.8 % ()?? 07/31/2022 08:26 Lymph % 23.7 % ()?? 07/31/2022 08:26 Castro % 8.3 % ()?? 07/31/2022 08:26 Eos % 3.7 % ()?? 07/31/2022 08:26 Baso % 0.4 % ()?? 07/31/2022 08:26 Imm Gran 0.1 % ()?? 07/31/2022 08:26 Abs. Imm Gran 0.0 k/mm3 ()?? 07/31/2022 08:26 ?? CARDIAC High Sensitivity Troponin (HSTnT) 73 ng/L (Critical)?? 07/31/2022 10:17 ?? CHEM GENERAL Sodium 141 mmol/L ()?? 07/31/2022 08:26 Potassium 3.9 mmol/L ()?? 07/31/2022 08:26 Chloride 106 mmol/L ()?? 07/31/2022 08:26 Bicarbonate Level 25 mmol/L ()?? 07/31/2022 08:26 Anion Gap 10 ()?? 07/31/2022 08:26 Glucose Level 111 mg/dL (High)?? 07/31/2022 08:26 Glucose, POC 116 mg/dL (High)?? 07/31/2022 08:13 Hemoglobin A1C (Monitoring) 4.2 % ()?? 07/31/2022 08:26 BUN 29 mg/dL (High)?? 07/31/2022 08:26 Creatinine-Blood 1.1 mg/dL (High)?? 07/31/2022 08:26 Estimated GFR Creatinine 56 ML/MIN/1.73 M2 ()?? 07/31/2022 08:26 Calcium 10.3 mg/dL ()?? 07/31/2022 08:26 Protein, Total 6.5 Gm/dL ()?? 07/31/2022 08:26 Albumin 4.3 Gm/dL ()?? 07/31/2022 08:26 AG Ratio 2.0 ()?? 07/31/2022 08:26 Alkaline Phosphatase 71 units/L ()?? 07/31/2022 08:26 Lipase 20 units/L ()?? 07/31/2022 08:26 AST (SGOT) 45 units/L (High)?? 07/31/2022 08:26 ALT (SGPT) 21 units/L ()?? 07/31/2022 08:26 Bilirubin, Total 0.4 mg/dL ()?? 07/31/2022 08:26 Lactate 1.0 mmol/L ()?? 07/31/2022 08:26 ?? ENDOCRINE/TUMOR MARKER TSH 3.26 uIU/mL ()?? 07/31/2022 08:26 ?? HEME OTHER Hold Blue Top SPECIMEN DISCARDED AFTER 4 HOURS. ()?? 07/31/2022 08:26 ?? LIPID STUDIES Cholesterol 140 mg/dL ()?? 07/31/2022 08:26 Triglycerides 127 mg/dL ()?? 07/31/2022 08:26 HDL Cholesterol 43 mg/dL ()?? 07/31/2022 08:26 LDL Cholesterol 72 mg/dL ()?? 07/31/2022 08:26 Non HDL Cholesterol 97 mg/dL ()?? 07/31/2022 08:26 ?? TOXICOLOGY/TDM Barbiturate Screen, Urine NONE DETECTED ()?? 07/31/2022 08:30 Cannabinoid Screen, Urine POSITIVE (Abnormal)?? 07/31/2022 08:30 Cocaine Metabolite Screen, Urine NONE DETECTED ()?? 07/31/2022 08:30 Benzodiazepine Screen, Urine NONE DETECTED ()?? 07/31/2022 08:30 Amphetamine Screen, Urine NONE DETECTED ()?? 07/31/2022 08:30 Opiate Screen, Urine NONE DETECTED ()?? 07/31/2022 08:30 ?? UA/URINALYSIS Appear/Color, Urine ORANGE ()?? 07/31/2022 08:30 Specific [place], Urine 1.027 ()?? 07/31/2022 08:30 pH, Urine 6.0 ()?? 07/31/2022 08:30 Albumin, Urine 1+ (Abnormal)?? 07/31/2022 08:30 Glucose, Urine NEGATIVE (N)?? 07/31/2022 08:30 Ketones, Urine NEGATIVE (N)?? 07/31/2022 08:30 Bilirubin, Urine NEGATIVE (N)?? 07/31/2022 08:30 Hemoglobin, Urine TRACE (Abnormal)?? 07/31/2022 08:30 Nitrite, Urine NEGATIVE (N)?? 07/31/2022 08:30 Leukocyte, Urine 1+ (Abnormal)?? 07/31/2022 08:30 Urobilinogen NORMAL mg/dL (N)?? 07/31/2022 08:30 WBC's, Urine 91 /HPF (High)?? 07/31/2022 08:30 RBC's, Urine 4 /HPF (High)?? 07/31/2022 08:30 Bacteria SLIGHT HPF (Abnormal)?? 07/31/2022 08:30 Squamous Epith 1 /HPF ()?? 07/31/2022 08:30 Transitional Epith 1 /HPF ()?? 07/31/2022 08:30 Renal Epith <1 /HPF ()?? 07/31/2022 08:30 Hyaline Cast 7 LPF (High)?? 07/31/2022 08:30 Mucus SLIGHT /LPF ()?? 07/31/2022 08:30 Hold Urine Culture Testing available 48 hours from time of collection. ()?? 07/31/2022 08:30 ?? VIROLOGY COVID-19 by RT-PCR NEGATIVE ()?? 07/31/2022 08:26 ? Microbiology ?? COVID-19 (Novel Coronavirus), Rapid PCR?? Completed?? Source: Nasal Body Site: Nose Collected Dt/Tm: 07/31/2022 08:13 Last Updated Dt/Tm: 07/31/2022 09:25 ? Blood Gases?? No qualifying data available. ?? Bro Phipps MD: PERFORM Event Display: Admission Note Authored Date: Attending Attestation:??I saw and examined the patient with the resident team and reviewed the charton the day of service. ??I have discussed the case and its management??with the resident as documented in the resident note on the day of service.??I agree with the resident's note and plan as documented. EKG study Event Display: EKG Authored Date: Event Display: ECG 12-Lead Authored Date: Please click on pdf link to open report Event Display: ECG 12-Lead Authored Date: Ventricular Rate: 75 BPM Atrial Rate: 75 BPM P-R Interval: 170 ms QRS Duration: 92 ms Q-T Interval: 386 ms QTC Calculation(Bazett): 431 ms P Weston: 52 degrees R Weston: 13 degrees T Weston: 55 degrees Normal sinus rhythm Normal ECG When compared with ECG of 18-JUL-2022 19:40, Minimal criteria for Inferior infarct are no longer Present Nonspecific T wave abnormality no longer evident in Anterior leads Confirmed by CAMRON JOSEPH MD ([id number]) on 08/03/2022 12:01:31 PM [place]: CAMRON JOSEPH MD Heart Event Display: Echocardiogram - Complete Authored Date: [id number] Transthoracic Echocardiography Report (TTE) Patient Demographics Patient Name CLAY STALLWORTH Date of Study 08/02/2022 Corporate Gender Female Facility Race Ethnicity Date of 1950 Height: 64.17 inches Age 71 year(s) Weight: 132.28 pounds Accession Number [id number] BSA: 1.64 m2 Room Number [id number] BMI: 22.58 kg/m2 Referring Physician Margie Lopez MD Interpreting Physician Kurt Linn MD Circular Saw Edge Fuser Dominique Prabhakar Indications Heart failure. Clinical History CHEST PAIN Study Data Type of Study TTE procedure:Echo Complete-Doppler, Colorflow, M-Mode. Study Date08/02/2022 Start Time: 11:34 AM Study Location: [facility] [place] Adult Echo Study Status: Bedside Patient Status: Routine Technical Quality: Good Blood Pressure:99/64 mmHg EKG: Normal sinus rhythm HR: 57 bpm 2D Measurements LV Diastolic Dimension: 3.5 cm LV Systolic Dimension: 3 cm LV Septum Diastolic: 0.9 cm LV PW Diastolic: 0.9 cm AO Root Dimension: 2.6 cm LA Dimension: 3.2 cm LA ESV (BP):30.2 ml LVOT Stroke Volume: 38.58 ml LA ESV Index: 18 ml/m2 Stroke Volume Index23.52 ml/m2 LVOT: 1.6 cm Cardiac Index:1.34 l/min/m2 Ascending Aorta:2.7 cm Doppler Measurements AV Peak Velocity: 153 cm/s MV Peak E-Wave: 33.5 cm/s AV Peak Gradient: 9.36 mmHg MV Peak A-Wave: 64.1 cm/s AV Mean Gradient: 6 mmHg MV E/A Ratio: 0.52 AV VTI:32.8 cm MV P1/2t: 54 msec LVOT Peak Velocity: 109 cm/s MV Mean Gradient: 1 mmHg LVOT VTI19.2 cm MV Area (continuity): 1.85 cm2 AV Area (Continuity):1.18 cm2 MV Deceleration Time: 183 msec MV Area (PHT): 4.07 cm2 PV Peak Velocity: 91.3 cm/s E' Septal Velocity: 5.22 cm/s PV Peak Gradient: 3.33 mmHg E' Lateral Velocity: 8.81 cm/s E/Med E':[id number] E/Lat E':3.020006 Cardiac Anatomy Left Ventricle/Interventricular Septum The left ventricular size is normal. There is mild discrete upper septal thickening. The LV systolic function is normal. The left ventricular ejection fraction is 55-60%. There are no definite regional wall motion abnormalities. Diastolic function appears normal. Left Atrium/Interatrial Septum The left atrium is normal in size. Aortic Valve There is mild aortic annular calcification. The aortic valve is trileaflet. There is no aortic stenosis. There is no aortic regurgitation. Mitral Valve The mitral valve is grossly normal. There is trace mitral regurgitation. Aorta The ascending aorta and aortic root are normal in size. Right Ventricle The right ventricle is normal in size. Right ventricular systolic function is mildly reduced. Right Atrium The right atrium is normal in size. Pulmonic Valve The pulmonic valve is poorly visualized. Tricuspid Valve The tricuspid valve is grossly normal. There is trace tricuspid valve regurgitation. Pumonary Artery An accurate pulmonary artery pressure could not be obtained. Venous Structures The inferior vena cava appears grossly normal. Pericardium/Extracardiac There is no significant pericardial effusion. Summary 1) The LV systolic function is normal. The left ventricular ejection fraction is 55-60%. There are no definite regional wall motion abnormalities. 2) There is mild discrete upper septal thickening. 3) The right ventricle is normal in size. Right ventricular systolic function is mildly reduced. 4) No significant valvular abnormalities Comparison No prior study available for comparison. Signature Event Display: Echocardiogram - Complete Authored Date: Note Margie MEHTA, John: MODIFY Margie MEHTA, John: MODIFY, MODIFY Margie MEHTA, John: MODIFY, MODIFY, MODIFY, MODIFY, MODIFY Roddy DO, Pallavi A: MODIFY, MODIFY Roddy DO, Pallavi A: MODIFY, MODIFY Roddy DO, Pallavi A: MODIFY, MODIFY Roddy DO, Pallavi A: MODIFY, MODIFY Roddy DO, Pallavi A: MODIFY, MODIFY Roddy DO, Pallavi A: MODIFY, MODIFY Roddy DO, Palalvi A: MODIFY, MODIFY Roddy DO, Pallavi A: MODIFY, PERFORM Roddy DO, Pallavi A: PERFORM, MODIFY Roddy DO, Pallavi A: MODIFY, MODIFY Roddy DO, Pallavi A: MODIFY, MODIFY Roddy DO, Pallavi A: MODIFY, MODIFY Roddy DO, Pallavi A: MODIFY, MODIFY Roddy DO, Pallavi A: MODIFY, MODIFY Roddy DO, Pallavi A: MODIFY, MODIFY Roddy DO, Pallavi A: MODIFY, MODIFY Roddy DO, Pallavi A: MODIFY, MODIFY Roddy DO, Pallavi A: MODIFY, MODIFY Roddy DO, Pallavi A: MODIFY, MODIFY Roddy DO, Pallavi A: MODIFY Event Display: Discharge/Transfer Note Hospital Authored Date: [id number] Patient: ??AFANASIEW, CLAY ? Age:??71 Years?Sex:??Female?:??1950?? Patient Information Discharge Location: M7 Primary Care Physician: Flor Reddy MD Admit Date/Time: 07/31/22 10:49 Discharge Date: 08/03/22 Discharge Disposition Discharge Disposition: Home with Home Health Discharge Diagnosis Chest pain (R07.9) Elevated troponin (R77.8) Demand Ischemia Hypertension (I10) Hyperlipidemia (E78.5) Altered mental status (R41.82) Dementia (F03.90) Bipolar disorder (F31.9) Urinary tract infection (N39.0) Diarrhea (R19.7) History of c. difficile colitis (A04.72) Constipation (K59.00) Acute kidney injury (N17.9) Swelling of RLE (M79.89) _ Discharge Medications Albuterol (Albuterol 90 mcg Inhaler)?2?puff(s)?Inhalation?4 times a day?as needed?Wheezing/Shortness of Breath Ascorbic Acid (Ascorbic Acid Tablet)?500?Milligram?By Mouth?Daily Aspirin (aspirin 81 mg oral delayed release tablet)?81?Milligram?By Mouth?Daily Atorvastatin (atorvastatin 20 mg oral tablet)?TAKE 1 TABLET BY MOUTH ONCE DAILY FOR 90 DAYS Carvedilol (carvedilol 25 mg oral tablet)?TAKE 1 TABLET BY MOUTH TWICE DAILY FOR 90 DAYS Gabapentin (gabapentin 300 mg oral capsule)?300?Milligram?1?capsule?By Mouth?Dailyat bedtime hydrALAZINE (hydrALAZINE 25 mg oral tablet)?50?Milligram?2?tablet?By Mouth?Daily Isosorbide Mononitrate (isosorbide mononitrate 60 mg oral tablet, extended release)?1?tab(s)?60?Milligram?By Mouth?Daily in AM Meclizine (meclizine 12.5 mg oral tablet)?TAKE 1 TO 2 TABLETS BY MOUTH EVERY 12 HOURS NEEDED FOR DIZZINESS Methenamine (methenamine hippurate 1 gm oral tablet)?TAKE 1 TABLET BY MOUTH TWICE DAILY TAKE WITHVITAMIN C OR CRANBERRY TABS Oxycodone / Acetaminophen (acetaminophen-oxycodone 325 mg-7.5 mg oral tablet)?1?tab(s)?By Mouth?Every 4 hours?as needed?as needed for pain paliperidone (Invega Sustenna 156 mg/mL intramuscular suspension, extended release)?INJECT 1 SYRINGE INTRAMUSCULARLY ONCE EVERY MONTH Quetiapine (SEROquel 100 mg oral tablet)?150?Milligram?1.5?tablet?By Mouth?Daily?bedtime Quetiapine (QUEtiapine 50 mg oral tablet)?1?tab(s)?50?Milligram?By Mouth?3 times aday?as needed?Agitation Senna (senna 187 mg oral tablet)?1?tab(s)?8.6?Milligram?By Mouth?Daily at bedtime Vancomycin (vancomycin 125 mg oral capsule)?1?capsule?125?Milligram?By Mouth?Every12 hours?Doses over 125 mg require ID consult. Indication for Use: C. difficile colitis ? Medications Started Aspirin (aspirin 81 mg oral delayed release tablet)?81?Milligram?By Mouth?Daily Vancomycin (vancomycin 125 mg oral capsule)?1?capsule?125?Milligram?By Mouth?Every12 hours?Doses over 125 mg require ID consult. Indication for Use: C. difficile colitis- to be taken through 08/09/22 Medications Discontinued None Doses Changed None PCP Follow-Up/Heads-Up [ ] Admitted for NSTEMI and AMS likely due to UTI. [ ] Seen by cardiology, NSTEMI thought to be due to demand ischemia in setting of UTI, recommended f/u out-patient. [ ] Treated with a 3 day course of Ceftriaxone with significant improvement in AMS- alert and oriented x3 by the time of discharge. [ ] Given possible history of C. diff, started ppx Vancomycin to be continued 7 days after Ceftriaxone therapy (should be taken through 08/09/22). [ ] Missed her apt with [facility] scheduled on 07/31- will need to reschedule this. Hospital Course 71-year-old female with medical history of??HTN, HLD, asthma, CKD, macrocytic anemia,?DVT, history of C. difficile (01/2022), osteoarthritis, recurrent UTI,??bipolar, PTSD presenting to the ED with mental status alteration, acute on chronic mental status decline, found to have elevated troponin, 81and 73 in setting of prior chest pain admitted for ACS r/o, UTI, AMMY and ?delirium on dementia. A Heparin ggt was started and cardiology was consulted. An ECHO was obtained and was relatively insignificant; NSTEMI was thought to be??due to demand ischemia in the setting of her UTI.??Patient was treated for a UTI and started on PO BID Vancomycin for c. diff ppx. AMS significantly improved with treatment of her UTI. She will follow-up with her primary care doctor, [facility],??and cardiology out-patient. ?? #Elevated Troponin #Chest Pain found to be more consistent with??Demand Ischemia #HTN #HLD Patient had elevated troponin 81, 73. No ischemic changes on EKG. Son recalls chest pain over the past 1-2 days. Patient herself is??difficult historian, not remembering symptoms. CP seems reproducible on exam. HgbA1c 4.2, lipid panel 07/31 Chol 140, TG 127, HDL 43, LDL??72. Home medications: ??- Carvedilol 25mg PO BID ??- Isosorbide mononitrate 60mg XR PO QD ??- Atorvastatin 20mg PO qPM?- Hydralazine 50mg PO QD SBP 109-149, home Hydralazine has been on hold since admission. Primary It Architect: Dr. Hadley Lara. Started on Aspirin 81mg PO QD this admission. ?? Do think elevated trops is demand ischemia in setting of AMMY and UTI, but given the difficulty history and positive trop, obtained ECHO to obtain further data. Cards consulted; next steps based on ECHO findings- if no significant abnormalities on ECHO, recommend discharge with outpatient follow-up. ECHO obtained on 08/02 and was relatively unremarkable. Was started on heparin ggt- discontinued after 48hrs. ?? RECOMENDATIONS: -F/U with out-patient turnaround engineer -Continue Aspirin 81mg PO QD; discuss continuing this medication with your turnaround engineer and primary care provider -Continue home meds as above: Aspirin, Carvedilol, Isosorbide mononitrate, Atorvastatin -Resume home??Hydralazine ?? #Altered Mental Status- resolved #Acute on Chronic Mental status decline #Bipolar Disease with possible dementia TSH normal, BMP unremarkable for electrolyte abnormalities. EKG normal. Unable to perform most of her iADLs and ADLS over the past month, now having behavioral issues at home. Acute AMS possibly in setting of infection/dehydration. If AMS doesn't improve after treatment then this is possibly progression of her dementia. Patient was pending a??geripsych outpatient appointment on 07/31 which??unfortunately she??wasn't able to go to. Per son,??she expressed to EMS that she??rather be because of her diarrhea.??No SI. Home medications: ??- Seroquel 150mg PO qPM +??50mg PRN TID??during the day for agitation ??- Invega (Paliperidone) injection monthly, last given on 07/22 or 07/23 per son ?? 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 Very agitated and??confused the night of??08/01 when she got to the floor. Agitation has significant decreased; confusion has also significantly improved- alert and oriented x3 at day of discharge. ?? RECOMENDATIONS: -Continue home Seroquel regimen as above -Delirium precautions -F/U with [facility] patient; will need to reschedule apt ?? #Uncomplicated UTI- resolved Found to have abnormal UA with slight 1+ leukocytes. Patient??does endorse dysuria and??urinary frequency for the past few months but is a poor historian. Is on home Methenamine PO BID??to help prevent urinary infections. Given AMS that per son, is worse than her baseline dementia, started Ceftriaxone on 07/31. Is on Methenamine 1gm PO BID for ppx; takes with Vitamin C (Ascorbic Acid 500mg PO QD). Completed 3 days of 1g IV Ceftriaxone 07/31 - 08/02. ?? Had some??some/mild urinary retention that has since resolved. No suprapubic tenderness on exam. ?? RECOMENDATIONS: -Continue home Methenamine with Vitamin C, follow-up with PCP ?? #Diarrhea- resolved #Hx of C.diff #Constipation- resolved History of C.diff?; had diarrhea for a couple of weeks, last episode of diarrhea was on Sunday (07/29). Son has been giving her Imodium at home PRN. Started PO Vancomycin BID on 07/31 for c. diff ppx given history. Diarrhea currently resolved. Has not had a BM since Sunday but refuses any meds for constipation because does not want to have recurrent diarrhea. ?? Successfully had a BM last night (08/02)- normally formed stool. ?? RECOMENDATIONS: -Continue on ppx Vancomycin 125mg PO BID until 08/09 -Continue home daily Senna PO qPM ?? #Chronic back pain History of herniated disc. On Oxycodone/Acetaminophen 7.5mg-325mg PO TID (was on Oxy 5mg PO TID but recently increased to 7.5mg- confirmed with son). Complaining of back pain and is frustrated she isn't getting her home dose of??oxy here. Initially??Oxycodone 5mg q6hrs PRN was ordered and patient was frustrated that this was not scheduled. Scheduled with Acetaminophen??on 08/02 with improvement in pain. ?? RECOMENDATIONS: -Continue home Oxy/Acetaminophen regimen ? RESOLVED/STABLE/CHRONIC MEDICAL CONDITIONS: ?? #Acute kidney injury- resolved Baseline creatinine ~0.9, Cr at time of admissions on 07/31 was 1.1. Most likely dehydration in setting of poor PO intake at home, UTI, and recent diarrhea (which is currently resolved). Received 1L LR in the ED with good effect. Resolved next day (08/01) with Cr of 0.7. ?? #RLE swelling Patient was noted to have right leg larger than the left. US RLE negative for DVT. May be a chronic finding. Was on Heparin ggt for concern of NSTEMI- d/c'd this AM, started Lovenox subQ for ppx. Objective Vital Signs?? Temperature: 98.6 DegF (08/02/22 19:30:00) Temperature Route: Oral (08/02/22 19:30:00) Pulse Rate: 79 bpm (08/03/22 08:29:00) Respiratory Rate: 18 br/min (08/03/22 13:08:00) Systolic Blood Pressure: 115 mm Hg (08/03/22 08:29:00) Diastolic Blood Pressure: 65 mm Hg (08/03/22 08:29:00) Blood pressure sites: Arm, right (08/03/22 08:15:00) Mean Arterial Pressure: 82 mm Hg (08/03/22 08:15:00) Pulse Pressure: 50 mm Hg (08/03/22 08:15:00) Oxygen Saturation: 99 % (08/03/22 08:15:00) Mode of Delivery (Oxygen): Room air (08/03/22 08:15:00) Early Warning Score: 0 (08/03/22 13:11:01) ? . Physical Exam Constitutional:??Resting in bed, appears??fatigued;??not in acute distress. Head: Normocephalic. Eyes: Pupils are equal, round and reactive to light. Extraocular muscles intact. Ear, Nose and Throat: Oropharynx clear, mucous membranes moist. Ears and nose without masses, lesions or deformities. Trachea midline. Neck: Supple, Full range of motion. Respiratory: Non-labored breathing, breathing comfortably on room air. Lungs clear to auscultation bilaterally without wheezing, rales, rhonchi, or crackles. Cardiovascular:??Normal rate, regular rhythm.??No murmurs, rubs or gallops. Gastrointestinal: Abdomen soft, non-tender, non-distended. Normal bowel sounds. Genitourinary: No suprapubic tenderness. Neurologic: Alert, oriented to person only. Speech clear, comprehension does seem intact. No gross focal neurological deficits. Skin: No acute or concerning rashes or lesions. No petechiae or purpura.?? Musculoskeletal: No gross deformities. Normal range of motion, moving all 4 extremities spontaneously. Psychiatric: Agitated. Consultants Cardiology (Ubaldo Sun MD) Pending Results None Patient Education Titles Urinary Tract Infections in Women?? Follow-Up Appointments Added Follow Up ?Time Frame ?Comments Maureen MEHTA, Flor?Within one week Hadley Lara MD?2 to 5 weeks?The office will call you with time/date of your appt. Patient Instructions You were admitted to the hospital for concern for a??mini heart attack along with??altered mental status. You were found to have a urinary tract infection and completed a 3-day course of IV antibiotics with improvement in symptoms; you are back to your baseline??mental??status at the time of discharge.??You were seen by cardiology and had imaging done of your heart. Based on the imaging of the heart, cardiology did not think you were having a true mini heart attack and will be calling you to schedule a follow-up appointment out-patient. Because of your cardiac history, we did start you on Aspirin.Please take medication daily until seen by your primary care provider or turnaround engineer. ?? Because you were recently having diarrhea and have a history of c. difficile infection, we started you on a prophylactic antibiotic??while receiving antibiotics for your urinary tract infection. The medication is called Vancomycin and should be taken by mouth two times a day. Please continue this medication until the evening of 08/09/22 (last dose will be that night). ?? Unfortunately you missed your appointment with [facility] on 07/31. We encourage you to reschedule this appointment. ?? We ask for you to follow-up with your primary care provider within a week from discharge from the hospital. You may need to call Dr. Reddy's office at the number above to schedule this appointment. ?? We are glad you are feeling better and wish you the best! Post Discharge Care Diet: Regular Activity: OOB as tolerated Wound Care: N/A Code Status:?Full Code Condition: Fair Prognosis: Fair Home Health Face to Face *Denotes mandatory dickey ?? *I certify that this patient is under my care and that I or an allowed non- physician working with azhad a face to face encounter with the patient on this date:??08/03/2022 15:05 ?? *The encounter with the patient was in whole, or in part, for the following medical condition, whichis the primary diagnosis(es) for home health care:??Chest pain (R07.9) ? *Select the indications for the discipline/s that are being arranged for this patient. Nursing (select all that apply): [_] None [_] Medication management (reconciliation, teaching)?? [_] Chronic disease management?? [_] Wound care and treatment?? [_] Home safety evaluation [_] Administer SQ/IM/IV medications?? [_] Cath care?? [_] Drain care?? [_] Trach or GT care?? Other _ Occupation Therapy (select all that apply): [_] None [_] ADL Management [_] Fall prevention training [_] Energy conservation [_] Cognitive training Other _ Physical Therapy (select all that apply): [_] None [X] Functional mobility training [X] Home exercise program to strengthen [X] Increase ROM?? [X] Falls prevention training [_] Home maintenance program for chronic disease Other _ Speech Therapy (select all that apply): [_] None [_] Swallow evaluation and training [_] Speech and language training [_] Cognitive training to process, organize, and/or recall information Other _ ? *Homebound due to (select all that apply): [_] Inability to leave home without assistance/supervision [_] Inability to ambulate without assistance [_] Pain [_] Decreased strength and endurance [_] Unsteady gait [_] Severe SOB and fatigue [_] Impaired transfers [_] Inability to negotiate stairs [_] Limited weight bearing [_] Mental status change? *Physician Signature:??Pallavi??Hawa Pereyra, DO ?? *By signing this, I certify that I have personally evaluated the patient and agree with the findingsand recommendations as documented above. ?? Results Discharge Labs BLOOD COUNT & DIFF WBC 4.4 k/mm3 ()?? 08/02/2022 05:51 RBC 3.00 m/mm3 (Low)?? 08/02/2022 05:51 Hgb 10.9 Gm/dL (Low)?? 08/02/2022 05:51 Hct 34.0 % (Low)?? 08/02/2022 05:51 MCV 113.3 femtoliters (High)?? 08/02/2022 05:51 MCH 36.3 pg (High)?? 08/02/2022 05:51 MCHC 32.1 g/dL (Low)?? 08/02/2022 05:51 Platelet Count 213 k/mm3 ()?? 08/02/2022 05:51 RDW-SD 53.8 femtoliters (High)?? 08/02/2022 05:51 MPV 10.8 femtoliters ()?? 08/02/2022 05:51 Nucleated RBC (Automated) 0.0 #/100 WBC'S ()?? 08/02/2022 05:51 Abs. NRBC 0.0 k/mm3 ()?? 08/02/2022 05:51 Abs. Neut 4.3 k/mm3 ()?? 07/31/2022 08:26 Abs. Lymph 1.6 k/mm3 ()?? 07/31/2022 08:26 Abs. Castro 0.6 k/mm3 ()?? 07/31/2022 08:26 Abs. Eo 0.3 k/mm3 ()?? 07/31/2022 08:26 Abs. Baso 0.0 k/mm3 ()?? 07/31/2022 08:26 Neut % 63.8 % ()?? 07/31/2022 08:26 Lymph % 23.7 % ()?? 07/31/2022 08:26 Castro % 8.3 % ()?? 07/31/2022 08:26 Eos % 3.7 % ()?? 07/31/2022 08:26 Baso % 0.4 % ()?? 07/31/2022 08:26 Imm Gran 0.1 % ()?? 07/31/2022 08:26 Abs. Imm Gran 0.0 k/mm3 ()?? 07/31/2022 08:26 ?? CARDIAC High Sensitivity Troponin (HSTnT) 56 ng/L (Critical)?? 07/31/2022 17:46 ? CHEM GENERAL Sodium 143 mmol/L ()?? 08/02/2022 05:51 Potassium 4.2 mmol/L ()?? 08/02/2022 05:51 Chloride 110 mmol/L (High)?? 08/02/2022 05:51 Bicarbonate Level 21 mmol/L (Low)?? 08/02/2022 05:51 Anion Gap 12 ()?? 08/02/2022 05:51 Glucose Level 106 mg/dL (High)?? 08/02/2022 05:51 Glucose, POC 116 mg/dL (High)?? 07/31/2022 08:13 Hemoglobin A1C (Monitoring) 4.2 % ()?? 07/31/2022 08:26 BUN 12 mg/dL ()?? 08/02/2022 05:51 Creatinine-Blood 0.7 mg/dL ()?? 08/02/2022 05:51 Estimated GFR Creatinine 87 ML/MIN/1.73 M2 ()?? 08/02/2022 05:51 Calcium 9.6 mg/dL ()?? 08/02/2022 05:51 Phosphorus 2.5 mg/dL ()?? 08/02/2022 05:51 Magnesium 1.5 mg/dL (Low)?? 08/02/2022 05:51 Protein, Total 6.5 Gm/dL ()?? 07/31/2022 08:26 Albumin 4.3 Gm/dL ()?? 07/31/2022 08:26 AG Ratio 2.0 ()?? 07/31/2022 08:26 Alkaline Phosphatase 71 units/L ()?? 07/31/2022 08:26 Lipase 20 units/L ()?? 07/31/2022 08:26 AST (SGOT) 45 units/L (High)?? 07/31/2022 08:26 ALT (SGPT) 21 units/L ()?? 07/31/2022 08:26 Bilirubin, Total 0.4 mg/dL ()?? 07/31/2022 08:26 Lactate 1.0 mmol/L ()?? 07/31/2022 08:26 ? COAG APTT 61.5 seconds (High)?? 08/02/2022 05:51 ? ENDOCRINE/TUMOR MARKER TSH 3.26 uIU/mL ()?? 07/31/2022 08:26 ? HEME OTHER Hold Lavender Top SPECIMEN DISCARDED AFTER 24 HOURS. ()?? 07/31/2022 14:44 Hold Blue Top SPECIMEN DISCARDED AFTER 4 HOURS. ()?? 07/31/2022 08:26 ?? LIPID STUDIES Cholesterol 140 mg/dL ()?? 07/31/2022 08:26 Triglycerides 127 mg/dL ()?? 07/31/2022 08:26 HDL Cholesterol 43 mg/dL ()?? 07/31/2022 08:26 LDL Cholesterol 72 mg/dL ()?? 07/31/2022 08:26 Non HDL Cholesterol 97 mg/dL ()?? 07/31/2022 08:26 ? MISC. CHEMISTRY Hold Gel Top SPECIMEN DISCARDED AFTER 1 WEEK ()?? 07/31/2022 22:35 ? TOXICOLOGY/TDM Ethanol, Serum or Plasma NONE DETECTED mg/dL ()?? 07/31/2022 10:17 Barbiturate Screen, Urine NONE DETECTED ()?? 07/31/2022 08:30 Cannabinoid Screen, Urine POSITIVE (Abnormal)?? 07/31/2022 08:30 Cocaine Metabolite Screen, Urine NONE DETECTED ()?? 07/31/2022 08:30 Benzodiazepine Screen, Urine NONE DETECTED ()?? 07/31/2022 08:30 Amphetamine Screen, Urine NONE DETECTED ()?? 07/31/2022 08:30 Opiate Screen, Urine NONE DETECTED ()?? 07/31/2022 08:30 ? UA/URINALYSIS Appear/Color, Urine ORANGE ()?? 07/31/2022 08:30 Specific [place], Urine 1.027 ()?? 07/31/2022 08:30 pH, Urine 6.0 ()?? 07/31/2022 08:30 Albumin, Urine 1+ (Abnormal)?? 07/31/2022 08:30 Glucose, Urine NEGATIVE (N)?? 07/31/2022 08:30 Ketones, Urine NEGATIVE (N)?? 07/31/2022 08:30 Bilirubin, Urine NEGATIVE (N)?? 07/31/2022 08:30 Hemoglobin, Urine TRACE (Abnormal)?? 07/31/2022 08:30 Nitrite, Urine NEGATIVE (N)?? 07/31/2022 08:30 Leukocyte, Urine 1+ (Abnormal)?? 07/31/2022 08:30 Urobilinogen NORMAL mg/dL (N)?? 07/31/2022 08:30 WBC's, Urine 91 /HPF (High)?? 07/31/2022 08:30 RBC's, Urine 4 /HPF (High)?? 07/31/2022 08:30 Bacteria SLIGHT HPF (Abnormal)?? 07/31/2022 08:30 Squamous Epith 1 /HPF ()?? 07/31/2022 08:30 Transitional Epith 1 /HPF ()?? 07/31/2022 08:30 Renal Epith <1 /HPF ()?? 07/31/2022 08:30 Hyaline Cast 7 LPF (High)?? 07/31/2022 08:30 Mucus SLIGHT /LPF ()?? 07/31/2022 08:30 Hold Urine Culture Testing available 48 hours from time of collection. ()?? 07/31/2022 08:30 ?? VIROLOGY COVID-19 by RT-PCR NEGATIVE ()?? 07/31/2022 08:26 ? 60??minutes spent on discharge. ? Patient reviewed with supervising??attending Dr. Powers. ?? Pallavi Pereyra, DO Internal Medicine, PGY-1 Pager# [phone] Niki Powers MD: PERFORM Event Display: Discharge/Transfer Note Hospital Authored Date: [id number] I have seen and evaluated the patient on the day of service. I have discussed the case and its management with medical radiation therapist and I agree with assessment and plan as documented in resident's note Steff Flores RN: PERFORM Event Display: Patient Education/Instruction Authored Date: [id number] Inpatient Adult Discharge Instructions [address] [id number] Name: CLAY STALLWORTH : 1950 Visit: 07/31/2022 10:49:00 Current Date: 08/03/2022 17:54 Account: [id number] Inpatient Adult Discharge Instructions We would like [...] and their families. Surveys are administered by [employer]. ?? If further treatment with your primary care physician or another doctor is recommended, it is important for you to keep the appointment. Call your primary care physician or return to the Emergency Department immediately if your condition worsens, fails to improve, or new symptoms develop. If you need to find a doctor, you can call [facility] for a referral at [phone] or toll free at [phone] ([phone]) or log in to [email or web address].. ?? You can view and manage your care through the patient portal or by using a health care alexandr of your choosing. [employer] is a website that allows you to securely view your medical information including your hospital discharge summary, office visit summaries, medications and follow-up visits. You can also request appointments, renew medications, and request access to your medical information using a health care alexandr of your choosing, or just ask a question. You can enroll at [email or web address] or register during your next office visit. You have been discharged from [facility], Patient Care Unit: M7. If you have any questions regarding these instructions after you leave, please call us and we will be happy to assist you. [facility] Your Care Team Attending Physician Niki Powers MD Discharging Providers Pallavi Pereyra DO A Reason for Admission Coming from home, lives with son (academic registrar), noticed that she had blood in urine, abd pain, recentbladder infection, increasing AMS and SI statements. Your Diagnosis Chest pain Elevated troponin NSTEMI (non-ST elevated myocardial infarction) Hypertension Hyperlipidemia Altered mental status Dementia: Acute on chronic mental status decline Bipolar disorder Urinary tract infection Diarrhea History of C. difficile colitis Constipation Acute kidney injury Swelling of extremity, right lower extremity Tests Performed Below is a partial list of the tests performed during your hospitalization. You may have had other tests and procedures not included in this list. Please discuss all test results with your provider. Amphetamine Urine Screen Barbiturate Urine Screen Basic Metabolic Panel Benzodiazepine Urine Screen Cannabinoid Urine Screen CBC CBC w/ Differential Cocaine Urine Screen Comprehensive Metabolic Panel COVID-19 (Novel Coronavirus), Rapid PCR ETHANOL GLUCOSE POC HEMOGLOBIN A1C High??Sensitivity??Troponin T HOLD BLUE TUBE HOLD GEL TUBE HOLD LAVENDER TUBE Lactate Level Lipase LIPID PANEL Magnesium Level Opiate Screen Urine Phosphorus Level PTT Troponin T, High Sensitivity TSH with T4 Reflex (Adults Only) Urinalysis w/hold for Urine Culture Venous Doppler Ext Lower Right (US) XR Chest 2 Views Frontal and Lat Primary Care Provider Flor Reddy MD Advance Directive Health Care Proxy on File Yes - Health Care Proxy No qualifying data available. Discharge Vitals Temperature: 98.6 DegF Height: 163 cm Pulse Rate: 79 bpm Weight: 60 kg Respiratory Rate: 18 br/min Body Mass Index: 22.21 kg/m2 Systolic Blood Pressure: 115 mm Hg Body surface area: 1.63 Diastolic Blood Pressure: 65 mm Hg ?? Oxygen Saturation: 99 % ?? Studies Pending All tests and labs ordered during this hospital stay have been completed unless listed below. Pleasediscuss all pending results with your provider listed above in these instructions. ?? Add On Lab Order COVID-19 (2019 Novel Coronavirus) PCR PTT What to do next Instructions From Your Doctor You were admitted to the hospital for concern for a??mini heart attack along with??altered mental status. You were found to have a urinary tract infection and completed a 3-day course of IV antibiotics with improvement in symptoms; you are back to your baseline??mental??status at the time of discharge.??You were seen by cardiology and had imaging done of your heart. Based on the imaging of the heart, cardiology did not think you were having a true mini heart attack and will be calling you to schedule a follow-up appointment out-patient. Because of your cardiac history, we did start you on Aspirin.Please take medication daily until seen by your primary care provider or turnaround engineer. ?? Because you were recently having diarrhea and have a history of c. difficile infection, we started you on a prophylactic antibiotic??while receiving antibiotics for your urinary tract infection. The medication is called Vancomycin and should be taken by mouth two times a day. Please continue this medication until the evening of 08/09/22 (last dose will be that night). ?? Unfortunately you missed your appointment with blanca-psych on 07/31. We encourage you to reschedule this appointment. ?? We ask for you to follow-up with your primary care provider within a week from discharge from the hospital. You may need to call Dr. Reddy's office at the number above to schedule this appointment. ?? We are glad you are feeling better and wish you the best! Discharge Orders You Need to Schedule the Following Appointments Follow Up with??Flor Reddy MD When??Within Within one week Where: [address] [place], [place] [id number] [place] [address]- Follow Up with??Marco MEHTA, Hadley Casarez When??Within 2 to 5 weeks Why: The office will call you with time/date of your appt. Where: [address] [place] [address] [place] [address]- Discharge Medications CLAY STALLWORTH :1950 Visit Date:07/31/2022 Medications: Please continue your medications until treatment is completed or stopped by your provider. Medications not listed below should be discontinued. Discuss any questions related to medications with your provider. What How Much When Instructions Next Dose New Aspirin (aspirin 81 mg oral delayed release tablet) 81 Milligram Oral Daily Pickup at [facility] 3 tomorrow morning New Vancomycin (vancomycin 125 mg oral capsule) 1 capsule Oral Every 12 hours Doses over 125 mg require ID consult. Indication for Use: C. difficile colitis ?? Pickup at [place] [address] tomorrow morning Changed Oxycodone / Acetaminophen (acetaminophen-oxycodone 325 mg-7.5 mg oral tablet) 1 tab(s) Oral Every 4 hours as needed for as needed for pain as needed after??9 pm Changed Quetiapine (QUEtiapine 50 mg oral tablet) 1 tab(s) Oral 3 times a day as needed for Agitation as needed Changed Quetiapine (SEROquel 100 mg oral tablet) 1.5 tab(s) Oral Daily bedtime ?? tonight Unchanged Albuterol (Albuterol 90 mcg Inhaler) 2 puff(s) Inhalation 4 times a day as needed for Wheezing/Shortness of Breath as needed Unchanged Ascorbic Acid (Ascorbic Acid Tablet) 500 Milligram Oral Daily tomorrow morning Unchanged Atorvastatin (atorvastatin 20 mg oral tablet) TAKE 1 TABLET BY MOUTH ONCE DAILY FOR 90 DAYS ?? tonight Unchanged Carvedilol (carvedilol 25 mg oral tablet) TAKE 1 TABLET BY MOUTH TWICE DAILY FOR 90 DAYS ?? tomorrow morning Unchanged Gabapentin (gabapentin 300 mg oral capsule) 1 capsule Oral Daily at Bedtime tonight Unchanged hydrALAZINE (hydrALAZINE 25 mg oral tablet) 2 tab(s) Oral Daily tomorrow morning?? Unchanged Isosorbide Mononitrate (isosorbide mononitrate 60 mg oral tablet, extended release) 1 tab(s) Oral Daily in the morning tomorrow morning Unchanged Meclizine (meclizine 12.5 mg oral tablet) TAKE 1 TO 2 TABLETS BY MOUTH EVERY 12 HOURS NEEDED FOR DIZZINESS ?? as needed Unchanged Methenamine (methenamine hippurate 1 gm oral tablet) TAKE 1 TABLET BY MOUTH TWICE DAILY TAKE WITH VITAMIN C OR CRANBERRY TABS ?? tomorrow morning Unchanged paliperidone (Invega Sustenna 156 mg/ mL intramuscular suspension, extended release) INJECT 1 SYRINGE INTRAMUSCULARLY ONCE EVERY MONTH ?? monthly Unchanged Senna (senna 187 mg oral tablet) 1 tab(s) Oral Daily at Bedtime tonight Pharmacy Information [facility] 3: [address] [place], [place] [id number] [phone] ?? What How Much When Comments Stop Taking Loperamide (Imodium A-D 2 mg oral tablet) 1 tab(s) Oral Every 4 hours as needed for for loose stool Test Results Below is a partial list of the most recent Laboratory test results done prior to this discharge. You may have had other tests and procedures not included in this list. Please discuss all test results with your provider. Amphetamine Urine Screen (07/31/2022) ???Amphetamine Screen, Urine - NONE DETECTED Barbiturate Urine Screen (07/31/2022) ???Barbiturate Screen, Urine - NONE DETECTED Basic Metabolic Panel (08/02/2022) ???Sodium - 143 mmol/L???Potassium - 4.2 mmol/L???Chloride - 110 mmol/L???Bicarbonate Level - 21 mmol/L???Anion Gap - 12???Glucose Level - 106 mg/dL???BUN - 12 mg/dL???Creatinine-Blood - 0.7 mg/dL???Estimated GFR Creatinine - 87 ML/MIN/1.73 M2???Calcium - 9.6 mg/dL Benzodiazepine Urine Screen (07/31/2022) ???Benzodiazepine Screen, Urine - NONE DETECTED Cannabinoid Urine Screen (07/31/2022) ???Cannabinoid Screen, Urine - POSITIVE CBC (08/02/2022) ???WBC - 4.4 k/mm3???RBC - 3.00 m/mm3???Hgb - 10.9 Gm/dL???Hct - 34.0 %???MCV - 113.3 femtoliters???MCH - 36.3 pg???MCHC - 32.1 g/dL???Platelet Count - 213 k/mm3???RDW-SD - 53.8 femtoliters???MPV - 10.8 femtoliters???Nucleated RBC (Automated) - 0.0 #/100 WBC'S???Abs. NRBC - 0.0 k/mm3 CBC w/ Differential (07/31/2022) ???WBC - 6.7 k/mm3???RBC - 2.72 m/mm3???Hgb - 10.3 Gm/dL???Hct - 31.7 %???MCV - 116.5 femtoliters???MCH - 37.9 pg???MCHC - 32.5 g/dL???Platelet Count - 191 k/mm3???RDW-SD - 54.4 femtoliters???MPV - 10.1 femtoliters???Nucleated RBC (Automated) - 0.0 #/100 WBC'S???Abs. NRBC - 0.0 k/mm3???Abs. Neut - 4.3 k/mm3???Abs. Lymph - 1.6 k/mm3???Abs. Castro - 0.6 k/mm3???Abs. Eo - 0.3 k/mm3???Abs. Baso - 0.0 k/mm3???Neut % - 63.8 %???Lymph % - 23.7 %???Castro % - 8.3 %???Eos % - 3.7 %???Baso % - 0.4 %???Imm Gran - 0.1 %???Abs. Imm Gran - 0.0 k/mm3 Cocaine Urine Screen (07/31/2022) ???Cocaine Metabolite Screen, Urine - NONE DETECTED Comprehensive Metabolic Panel (07/31/2022) ???Sodium - 141 mmol/L???Potassium - 3.9 mmol/L???Chloride - 106 mmol/L???Bicarbonate Level - 25 mmol/L???Anion Gap - 10???Glucose Level - 111 mg/dL???BUN - 29 mg/dL???Creatinine-Blood - 1.1 mg/dL???Estimated GFR Creatinine - 56 ML/MIN/1.73 M2???Calcium - 10.3 mg/dL???Protein, Total - 6.5 Gm/dL???Album in - 4.3 Gm/dL???AG Ratio - 2.0???Alkaline Phosphatase - 71 units/L???AST (SGOT) - 45 units/L???ALT (SGPT) - 21 units/L???Bilirubin, Total - 0.4 mg/dL COVID-19 (Novel Coronavirus), Rapid PCR (07/31/2022) ???COVID-19 by RT-PCR - NEGATIVE ETHANOL (07/31/2022) ???Ethanol, Serum or Plasma - NONE DETECTED GLUCOSE POC (07/31/2022) ???Glucose, POC - 116 mg/dL HEMOGLOBIN A1C (07/31/2022) ???Hemoglobin A1C (Monitoring) - 4.2 % High??Sensitivity??Troponin T (07/31/2022) ???High Sensitivity Troponin (HSTnT) - 81 ng/L HOLD BLUE TUBE (07/31/2022) ???Hold Blue Top - SPECIMEN DISCARDED AFTER 4 HOURS. HOLD GEL TUBE (07/31/2022) ???Hold Gel Top - SPECIMEN DISCARDED AFTER 1 WEEK HOLD LAVENDER TUBE (07/31/2022) ???Hold Lavender Top - SPECIMEN DISCARDED AFTER 24 HOURS. Lactate Level (07/31/2022) ???Lactate - 1.0 mmol/L Lipase (07/31/2022) ???Lipase - 20 units/L LIPID PANEL (07/31/2022) ???Cholesterol - 140 mg/dL???Triglycerides - 127 mg/dL???HDL Cholesterol - 43 mg/dL???LDL Cholesterol - 72 mg/dL???Non HDL Cholesterol - 97 mg/dL Magnesium Level (08/02/2022) ???Magnesium - 1.5 mg/dL Opiate Screen Urine (07/31/2022) ???Opiate Screen, Urine - NONE DETECTED Phosphorus Level (08/02/2022) ???Phosphorus - 2.5 mg/dL PTT (08/02/2022) ???APTT - 61.5 seconds Troponin T, High Sensitivity (07/31/2022) ???High Sensitivity Troponin (HSTnT) - 56 ng/L TSH with T4 Reflex (Adults Only) (07/31/2022) ???TSH - 3.26 uIU/mL Urinalysis w/hold for Urine Culture (07/31/2022) ???Appear/Color, Urine - ORANGE???Specific Crete, Urine - 1.027???pH, Urine - 6.0???Albumin, Urine- 1+???Glucose, Urine - NEGATIVE???Ketones, Urine - NEGATIVE???Bilirubin, Urine - NEGATIVE???Hemoglobin, Urine - TRACE???Nitrite, Urine - NEGATIVE???Leukocyte, Urine - 1+???Urobilinogen - NORMAL???WBC's, Urine - 91 /HPF???RBC's, Urine - 4 /HPF???Bacteria - SLIGHT???Squamous Epith - 1 /HPF???Transitional Epith - 1 /HPF? ?Renal Epith - <1 /HPF? ?Hyaline Cast - 7 LPF? ?Mucus - SLIGHT? ?Hold Urine Culture - Testing available 48 hours from time of collection. Allergies (NKA means No Known Allergies) Cymbalta Keflex??(RASH) Latex??(hives) Motrin??(hives) Problems Active Problems??(19) Alcohol abuse, in remission?? Anemia, macrocytic?? Asthma?? Daytime somnolence?? Delirium of mixed origin?? 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 Drug or alcohol risk assessment?? Dysuria?? Elevated TSH?? Family history of alcoholism?? Family history of depression: mother?? History of total knee replacement, bilateral?? Knee pain, left?? Knee pain, right?? Lack of adequate sleep?? Limitation due to disability?? Mechanical low back pain?? Overweight (BMI 25.0-29.9)?? 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 Education Materials Below is the list of Educational Leaflet Providered with your Discharge Instructions. Discharge Instructions for Acute Kidney Injury?? What Is C. Diff??? Urinary Tract Infections in Women?? Urinary Tract Infections in Women?? Valuables and Belongings I fully understand and agree that [facility] accepts [facility] responsibility for all my personal [...] Review of Valuable and Belonging List: With patient, With witness Date for Pt to Sign Valuables/Belongings: 07/31/22 08:38:00 ?? Other Discharge Information ? Case Management Discharge Plan?? Discharge Plan?? Discharge Agency Information?? Discharge Level of Care at Discharge: Homehealth/VNA Name of Agency #1: [facility] Discharge Transportation Arranged: Family Agency Sand Digger #1: Jenna ?? Service Categories #1: Physical Therapy ?? Service Comments #1: A physical therapist will call you to arrange a visit with you at your home. Ifyou do not hear from them please call [facility]. ?? Pulmonary Rehab Status?? Pulmonary Rehab Discharge Status?? Respiratory Rate: 18 br/min ? Common Emergency Awareness Tips IS [...] are strongly encouraged to quit. Please call [facility] [employer] [facility] Link at [phone] or [phone] ([phone]) or log in to [email or web address] for referrals to smoking cessation programs. ?? The National Suicide Prevention Hotline is available 29/01 if you or someone you know needs to find areason to keep living. By calling 3-958-748-eSpark (8687) you'll be connected to a skilled, trained counselor at a crisis center in your area. INPATIENT DISCHARGE INSTRUCTIONS SIGNATURE PAGE CLAY STALLWORTH Location:[facility] Registration Date and Time:07/31/2022 10:49 EST Primary Care Physician: Maureen MEHTA, Flor, I MIRNACLAY WOLF, have received the above patient education materials/instructions and have verbalized understanding. If ambulance or transport services are being used I further acknowledge being given a choice of service. ?? If you need to contact me, please call me at this number: . Patient/Senior Bioinformatics Scientist Name: Patient/Senior Bioinformatics Scientist Signature: Relationship to Patient: Witness Name/Signature: Date: Steff Flores RN: PERFORM Event Display: Patient Education Leaflets Authored Date: [id number] Discharge Instructions for Acute Kidney Injury ?? 86[address] Discharge Instructions for Acute Kidney Injury You have been diagnosed with acute kidney injury. This means that you have had a sudden episode of kidney failure or damage that causes your kidneys not to work correctly. When both kidneys are healthy, they help filter out fluid and waste from the blood and body.??Acute kidney injury has many causes. These include urinary blockages, infection, lack of enough blood supply, and medicines that can injure??kidneys. In some cases, acute kidney injury is short-term (temporary). This type lasts several days to a few months. This is because the kidney can repair itself. Acute kidney injury can also result in chronic kidney disease or end stage renal failure. Here are some directions for you to follow asyou recover. Home care ??? Follow any directions for eating and drinking given to you by your healthcare provider. o Drink less fluid, if directed by your healthcare provider. o Keep a record of everything you eatand drink. ??? Measure the amount of urine and stool you have each day. ??? Weigh yourself every day, at the same time of day, and in the same kind of clothes. Keep a daily record of your daily weights. ??? Take your temperature every day. Keep a record of the results. ??? Learn to take your own bloodpressure (BP). Your healthcare provider can teach you how to correctly measure your BP. Keep a record of your results. Bring the record to your follow-up appointments. Ask your healthcare provider whenyou should seek emergency medical attention. Your provider will tell you what blood pressure readingis dangerous. ??? Stay away from people who have infections. This includes people with colds, bronchitis, or skin conditions. ??? Practice good personal??hygiene. Wash your hands often. This is especially important if you have a catheter in place when you leave the hospital. Doing so helps keep you safe from infection. ??? Take your medicines exactly as directed. ??? You may need frequent blood and urine tests. These are done to keep track of your kidney function. ?? Follow-up care Follow up with your healthcare provider, or as advised. ?? When to call your healthcare provider Call your??healthcare provider??right away if any of the following occur: ??? Signs of bladder infection, such as urinating more often, burning or pain when you pee, pain above your pubic bone, blood in your urine, or trouble starting your urine stream ??? Signs of infection around your catheter, such as redness, swelling, warmth, or fluid leaking ??? Rapid weight loss or weight gain, such as 3??pounds or more in 24 hours or 6 pounds or more in 7 days ??? Fever above 100.4?? F ( 38??C ) or as directed by your healthcare provider ??? Chills ??? Muscle aches ??? Night sweats ??? Very little or no urine output ??? Swelling of your hands, legs, or feet ??? Back pain ??? Abdominal (belly) pain ??? Extreme tiredness ?? Last Reviewed Date: 2022 ?? [id number] The [employer]. All rights reserved. This information is not intended as a substitute for professional medical care. Always follow your healthcare professional's instructions. ??Steff Flores RN: PERFORM Event Display: Patient Education Leaflets Authored Date: [id number] What Is C. Diff? ?? [address]33 What Is C. Diff? C. diff is an infection caused by C. diff (Clostridioides difficile) bacteria. These are germs thatlive in the part of your belly called your colon, or large intestine. They don't often cause problems. But if the normal balance of good and bad bacteria in your colon changes, C. diff bacteria can grow out of control and lead to infection. This can harm your colon and cause diarrhea and belly pain. What are the symptoms of C. diff? Symptoms can include: ??? Watery diarrhea ??? Fever ??? Belly pain and cramping ??? Nausea and vomiting ??? Loss of appetite and weight loss?? Some people with C. diff have no symptoms, but they can still pass the infection to others. ?? Who is at risk of getting C. diff? Anyone can get C. diff. But you are more likely to get the infection if you: ??? Are age 65 or older ??? Are taking antibiotics ??? Have a weak immune system because of other health problems ??? Have inflammatory bowel disease ??? Have had C. diff before ??? Have had gastrointestinal (GI) surgery ???Work or are a patient in a hospital, clinic, or snf ?? Can C. diff come back? After treatment, C. diff can come back in about 1 in 6 people over the next 2 to 8 weeks. If C. diff does come back, you are at higher risk for infection again in the future. ?? How can I lower my chance of getting C. diff again? Take your C. diff treatment exactly as prescribed. This may include a 10- to 14-day treatment or a course of treatment with decreasing doses over 5 to 6 weeks. If you get C. diff again or it comes back after treatment, ask about new therapies that may be available to treat the infection and lower thechance of relapse. In some cases, your treatment may be a fecal transplant. This is where stool froma healthy person is introduced into your colon to replace the good bacteria that you have lost. Take antibiotics only when you really need them. Antibiotics don't help treat illnesses caused by viruses, such as colds and the flu. Don't ask for antibiotics from your healthcare provider??if they say they won't work. Take safety steps if you come into contact with others who have C. diff. Wear gloves when touching them or their body fluids. Wash your hands with soap and water after contact. Alcohol-based hand nurse rn bsn don't work against C. diff. ?? How can I stop the spread of C. diff? C. diff can easily spread to other people in your home or workplace. The germs can stay on your hands after using the bathroom, then spread to any person, surface, or object you touch. Here's how to not spread C. diff to other people: ??? Practice good handwashing. This is especially important after using the bathroom and before eating. Here's what to do: Wet your hands, scrub them with soap for 30 to 40 seconds, then rinse well and dry. ??? Wash your clothes, bed sheets, and towels in separate loads. Use hot water. Use both detergent and chlorine bleach.? Use chlorine bleach-based products to disinfect surfaces you touch often, such as tabletops, light switches, doorknobs, and toilet seats. ??? Remind others to wear gloves and to wash their hands if they are helping you in the bathroom. ?? Last Reviewed Date: 2022 ?? [id number] The [employer]. All rights reserved. This information is not intended as a substitute for professional medical care. Always follow your healthcare professional's instructions. ??Steff Flores RN: PERFORM Event Display: Patient Education Leaflets Authored Date: [id number] Urinary Tract Infections in Women ?? 28568 Urinary Tract Infections in Women Urinary tract [...] started. ?? Last Reviewed Date: 2021 ?? [id number] The [employer]. All rights reserved. This information is not intended as a substitute for professional medical care. Always follow your healthcare professional's instructions. ?? Event Display: Cardiac Rhythm Strips Authored Date: [id number] SPowers[employer] , CIS S: TRANSCRIBE Yaw Bowles MD: VERIFY Ubaldo Sales MD: SIGN Event Display: Result: Authored Date: [id number] Chest 2 Views Frontal and Lat Hx of Present Illness: SI AMS; Reason: Shortness of Breath; Clinical Question(s): CHF COMPARISON: CT 07/18/2022. Chest radiograph 07/18/2022 and 07/11/2022. FINDINGS: LINES AND TUBES: None. LUNGS AND PLEURA: Clear lungs. Normal pulmonary vascularity. No pleural effusion. No pneumothorax. HEART, MEDIASTINUM AND KRISTEL: Heart is normal in size. Similar mild prominence of the kristel bilaterally. BONES AND SOFT TISSUES: No acute abnormality. IMPRESSION: No radiographic evidence of an acute cardiopulmonary process. I have personally reviewed the images and I agree with this report. WSN: [id number] Ordering Physician: Radha Doe Dictated By: Ubaldo Sales MD Dictated Date/Time: 07/31/22 10:36 a Reviewed By: Yaw Bowles MD Signed By: Yaw Bowles MD Signed Date/Time: 07/31/22 10:41 am Transcribed By: TORIE Transcribed Date/Time: 07/31/22 10:07 TerranceARNOLD Smith S: TRANSCRIBro Mansfield MD: VERIFY Event Display: Result: Authored Date: [id number] US Doppler Ext Lower Venous Right REASON: Pain Tenderness Extremities; Clinical Question(s): Thrombus; Order Comment: 07 31 2022 14:07:51 EST closet organizer tried to get pt but pt's son in room w doctors. Went in room to inform pt she is goingto US and she is refusing but son is saying she has to do it. Telecommunications Clerk went to find RN but she is on break. Will try later [facility] COMPARISON: 03/05/2020 IMAGING TECHNIQUE: Ultrasound of the veins from the groin through the calf was planned using grayscale, color, and spectral Doppler ultrasound assessing for complete compressibility and normal flow characteristics. After the popliteal vein was interrogated the patient passed this up further imaging, and the calf veins and contralateral common femoral vein were not interrogated. FINDINGS: Common femoral vein: Patent. No thrombosis. Femoral vein: Patent. No thrombosis. Popliteal vein: Patent. No thrombosis. IMPRESSION: No evidence of venous thrombosis involving the right common femoral, femoral, or popliteal veins. Patient declined further imaging. WSN: [id number] Ordering Physician: John Hanson Dictated By: Bro Arambula MD Dictated Date/Time: 07/31/22 5:36 pm Reviewed By: Bro Arambula MD Signed By: Bro Arambula MD Signed Date/Time: 07/31/22 5:36 pm Transcribed By: TORIE Transcribed Date/Time: 07/31/22 5:34 pm Hospital Progress note Steff Flores RN: MODIFY, SIGN, PERFORM, SIGN, VERIFY Event Display: Progress Note Hospital Authored Date: [id number] Patient: CLAY STALLWORTH Age: 71 years Sex: Female : 1950 Associated Diagnoses: None Author: Steff Flores RN Findings Problem Related to Alteration in Genitourinary : Alteration in Genitourinary Function/new 08/03/2022 9:00 EST Alteration in Status Related to UTI Goals & Outcomes, Genitourinary Pt will achieve normal/improved fluid balance, Pt will maintainadequate GI function appropriate for pt, Pt will maintain adequate function appropriate for pt, Pt will maintain normal fluid balance, Pt will resume normal pattern of elimination, Pt/caregiver willstate understanding of self-care skills Interventions, Assess/monitor/maintain Genitourinary status, Assist & encourage pt with meticulous brenda care, Encourage PO fluid intake as allowed by diet, Assess/monitor effects of antibiotics, Assess/monitor s/s of urinary tract infection, Teach Pt/caregiver s/s of urinary tract infection BH Goals/Interventions, Genitourinary Yes Genitourinary, Problem Start 08/03/2022 11:02 Reviewed Plan with, Genitourinary Patient Patient Progression, Genitourinary Patient progressing according to plan Genitourinary, Problem Ongoing Yes . Nursing Data Cardiac Data. : Cardiac Data. 08/03/2022 10:39 EST Cardiovascular Symptoms Edema present (Modified) Cardiac Rhythm Normal sinus rhythm Edema, Left Pretibial 1+ trace Edema, Right Pretibial 1+ trace Ankle, left 1+ trace Ankle, right 1+ trace Pedal, left 1+ trace Pedal, right 1+ trace school lunch monitor Yes Cardiovascular WNL except . Respiratory/Pulmonary Data. 08/03/2022 10:39 EST Respiratory Symptoms Dyspnea with exertion Left Upper Lobe Breath Sounds Diminished Right Upper Lobe Breath Sounds Diminished Right Middle Lobe Breath Sounds Diminished Left Lower Lobe Breath Sounds Diminished Right Lower Lobe Breath Sounds Diminished Respiratory distress Mild Respiratory Treatment(s) Cough and deep breathe, Incentive spirometry Respiratory WNL except . Vital Signs : VITAL SIGNS SECTION 08/03/2022 8:15 EST Early Warning Score 0.00 08/03/2022 8:15 EST Pulse Rate 79 bpm Respiratory Rate 20 br/min Systolic Blood Pressure 115 mm Hg Diastolic Blood Pressure 65 mm Hg Blood pressure sites Arm, right Mean Arterial Pressure 82 mm Hg Pulse Pressure 50 mm Hg Oxygen Saturation 99 % Mode of Delivery (Oxygen) Room air . Narrative/Incidental Alert to self only. LS dim throughout, on room air. Some SOB with exertion. NSR in the 70s. No chestpain. Voiding in hat in bathroom, no pain on urination. LBM today, formed not diarrhea. Some trace edema in lower extremities. Ambulating with walker and one standby on the unit throughout the day. Constant dry kiln operator helper with patient for wandering risk. Attempted to replace magnesium that was 1.5 with IV mag, patient refused said it caused her diarrhea. Even after educating the patient and the importanceof increasing her magnesium level she still refused, Dr. Peeryra was made aware. Patient stable for discharge. Went over discharge information with son due to patient's altered mental status, emphasizedcontinuing the vancomycin prophylaxis until 08/09, continuing aspirin, and setting up follow up appointments with cardiology, pcp, and blanca/psych. Patient discharged with son in wheelchair.. Discharge Information Case Management Discharge Plan : Case Management Discharge Plan Data 08/02/2022 12:06 EST Discharge Level of Care at Discharge Homehealth/VNA Discharge Transportation Arranged Family Name of Agency #1 [facility] #1 Jenna Service Categories #1 Physical Therapy Service Comments #1 A physical therapist will call you to arrange a visit with you at your home. Ifyou do not hear from them please call [facility]. Rehabilitation Discharge : Rehab Discharge Index 08/02/2022 8:51 EST Comments on treatment indicated 71 y/o F admit with AMS and chest pain, found with elevated trops, UTI and AMMY. PT to see for bed mobility, transfers, balance and gait trng. Cane: distance no AD Walker: distance 180 ft Full chart review completed Yes Other findings Pt presents getting up with PCT, agreeable for walk with PT. Pt reportys no use of walker at home but felt safer using device. Pt walked x150 ft with walker and ~50 ft without, demo good balance w/ or w/o walker. Rec home w/ wheeled walker. Plan of care PT Gait training, Transfer training, Therapeutic exercise, Functional Activities, Balance trainingRian Gee RN: PERFORM, SIGN, VERIFY Event Display: Progress Note Hospital Authored Date: [id number] Patient: CLAY STALLWORTH Age: 71 years Sex: Female : 1950 Associated Diagnoses: None Author: Rian Gee RN Findings Nursing Data Cardiac Data. : Cardiac Data. 08/02/2022 20:13 EST Heart Sounds S1, S2 Heart Rhythm Regular Pacemaker No Cardiac Rhythm Normal sinus rhythm Ankle, left 1+ trace Ankle, right 1+ trace school lunch monitor Yes Cardiovascular WNL except . Evaluation patient anxious during shift, reporting pain in abdomen that was keeping her awake. Oxycodone given with good effect. patient using abx for UTI, reports it to give her diarrhea. Prior to asking physician for medication, patient was found to be sleeping. Patient allowed to sleep as long as possible to promote a healing rest. SR on tele with minimal edema. LSC upper dim lower lobes, denied SoB while ambulating in the halls with 1 assist holding hands. Patient needing frequent redirection and support when awake. Will continue to monitor cardiac status while admitted. Treating the UTI. Renal function being tracked via labs. See [facility] for tele and assessments..Radha Alvarez RN: VERIFY, PERFORM, SIGN Event Display: Progress Note Hospital Authored Date: [id number] Patient: CLAY STALLWORTH Age: 71 years Sex: Female : 1950 Associated Diagnoses: None Author: Antonio LOCK, Radha Findings Nursing Data Cardiac Data. : Cardiac Data. 08/02/2022 9:00 EST Cardiovascular WNL . Gastrointestinal Data. : Gastrointestinal Data. 08/02/2022 9:00 EST Last Bowel Movement 08/02/2022 GI WNL Normal Bowel Pattern Daily . Genitourinary Data. : Genitourinary Data. 08/02/2022 9:00 EST Genitourinary Symptoms Frequency, Urgency Urine Color Yellow Urine Description Cloudy Urine Odor Odorless WNL except . HEENT Data. : HEENT Assessment 08/02/2022 9:00 EST HEENT, Adult WNL . Integumentary Data. : Integumentary Data. 08/02/2022 9:00 EST Sensory Perception No impairment Sensory Perception No impairment Moisture Rarely moist Moisture Rarely moist Activity Walks occasionally Activity Walks frequently Activity Walks occasionally Mobility Slightly limited Mobility Slightly limited Mobility Slightly limited Nutrition Adequate Nutrition Adequate Friction and Shear No apparent problem Friction and Shear No apparent problem Odell Score 20 Odell Score 21 Nursing Care Plan initiated/updated Not applicable Nursing Care Plan initiated/updated Not applicable Integumentary WNL . Musculoskeletal Data. : Musculoskeletal Data. 08/02/2022 9:00 EST Musculoskeletal Symptoms Weakness Musculoskeletal WNL except . Neurological Data. : Neurological Data. 08/02/2022 20:05 EST Pain Intensity 10 Pain Intensity 10 Pain Intensity 10 08/02/2022 15:12 EST Pain Intensity 8 08/02/2022 14:12 EST Pain Intensity 0 08/02/2022 13:00 EST Pain Intensity Not Done: Order Discontinued (Not Done) Pain Intensity Not Done: Order Discontinued (Not Done) 08/02/2022 12:24 EST Pain Intensity 8 08/02/2022 11:24 EST Pain Intensity 10 08/02/2022 9:00 EST Neurological Symptoms Weakness or loss of muscle strength Gait Steady 1 - 10 Pain Scale Score 10 Pain Interventions Pharmacological, PRN medication, Repositioning, Rest Pain relief acceptable Yes Neuro WNL except . Respiratory/Pulmonary Data. 08/02/2022 19:30 EST Mode of Delivery (Oxygen) Room air 08/02/2022 15:00 EST Mode of Delivery (Oxygen) Room air 08/02/2022 11:00 EST Mode of Delivery (Oxygen) Room air 08/02/2022 9:00 EST Right Middle Lobe Breath Sounds Diminished Left Lower Lobe Breath Sounds Diminished Right Lower Lobe Breath Sounds Diminished Respiratory Treatment(s) Cough and deep breathe Respiratory WNL except . Evaluation Pt A&Ox4 and can be agitated/anxious at times. Pt is NSR on tele, and ambulates with walker 1 assist to bathroom. Pt seen by physical therapy today and no rehab is recommended. Pt had echocardiogram completed this morning with EF 55--60%. Pt's LBM 08/02/2022 and patient going to bathroom and voiding frequently for UTI, and bladder scan completed Q6 hours. Patient started on Ceftriaxone 1gm IVPB for UTI. Patient refused bowel regimen medications on shift. Pt had pain in stomach and back 04/17 andstated some relief from PRN Oxycodone and tylenol. Will continue to monitor patient's labs, vitals, and comfort. . Discharge Information Case Management Discharge Plan : Case Management Discharge Plan Data 08/02/2022 12:06 EST Discharge Level of Care at Discharge Homehealth/VNA Discharge Transportation Arranged Family Name of Agency #1 [facility] #1 Jenna Service Categories #1 Physical Therapy Service Comments #1 A physical therapist will call you to arrange a visit with you at your home. Ifyou do not hear from them please call [facility]. Rehabilitation Discharge : Rehab Discharge Index 08/02/2022 8:51 EST Comments on treatment indicated 71 y/o F admit with AMS and chest pain, found with elevated trops, UTI and AMMY. PT to see for bed mobility, transfers, balance and gait trng. Cane: distance no AD Walker: distance 180 ft Full chart review completed Yes Other findings Pt presents getting up with PCT, agreeable for walk with PT. Pt reportys no use of walker at home but felt safer using device. Pt walked x150 ft with walker and ~50 ft without, demo good balance w/ or w/o walker. Rec home w/ wheeled walker. Plan of care PT Gait training, Transfer training, Therapeutic exercise, Functional Activities, Balance training Patient Care team information Care Team PersonnelName: Paz Leo RN Position: [facility] RN Member Role: Primary Care Nurse Name: Flor Reddy MD Position: [facility] Physician -Physician Practices Member Role: PCP Address: Address: [address] [place] [address] Name: Martha Gross RN Position: [facility] RN Member Role: Primary Care Nurse Name: Jenna Ulloa RN Position: [facility] SN RN Member Role: Primary Care Nurse Name: Guerita Garcia RN Position: [facility] RN Member Role: Primary Care Nurse Name: Glen Orona RN Position: [facility] RN Member Role: Primary Care Nurse Name: Jm Rnee MD Position: [facility] Physician (General Medicine) Member Role: Lifetime Consulting Physician Address: Address: [address] [place] [address], [address] [place] [address]- Name: Terrence Cook RN Position: [facility] RN Member Role: Primary Care Nurse Name: Sharona Chun Position: [facility] RN Member Role: Primary Care Nurse Name: Diana Rondon RN Position: [facility] RN Member Role: Primary Care Nurse Name: Fercho Galeana RN Position: [facility] RN Member Role: Primary Care Nurse Name: Jay Stern MD Position: [facility] Renal MD Member Role: Lifetime Consulting Physician Address: Address: [address] [place] [address] [address] [facility], [place] [address]- Name: Steff Flores RN Position: [facility] RN Member Role: Primary Care Nurse Name: Iglesia Feldman MD Position: [facility] Renal MD Member Role: Lifetime Consulting Physician Address: Address: [address] [place] [address] [facility] [address] Name: Melany Arnold RN Position: S RN Member Role: Primary Care Nurse Name: Marvin LOCK, Estrellita Hernández Position: [facility] Onco RN Member Role: Primary Care Nurse Name: Dyan REY Attending Position: [facility] ED Medicine MD Name: Aurora Fernandez RN Position: [facility] ED RN W/OE and Tasks Member Role: Patient Care Provider Name: Lian Glover Position: [facility] ED TA [facility] Member Role: Manufacturing Teacher Name: Hayes Michele RN Position: [facility] RN Member Role: Patient Care Provider Name: Sulema Michel RN Position: [facility] ED RN W/OE and Tasks Member Role: Patient Care Provider Care Team Related PersonsName: ZAK STALLWORTH Address: home [address] [place] [address] Name: ZAK STALLWORTH Address: home [address] [place] [id number] Name: LEN STALLWORTH Address: home [address] [place] [id number]
[2022-08-15 21:12] VITALS: BP 114/76; PULSE 100; RESP 20; TEMP 36.4; O2SAT 99
[2022-08-15 21:13] VITALS: BMI 20.8
[2022-08-15] MEDS: hydrOXYzine HCL 25 MG TABLET PO (21:23)
[2022-08-15] MEDS: traZODone HCL 50 MG TABLET PO (21:23)
[2022-08-15] MEDS: Magnesium Hydrox/Alum Hydrox 30 ML ORAL.SUSP PO (21:30)
--- NOTE | 2022-08-15 21:42 | PC.ADMIT ---
Addendum entered by Su Cedeno RN 08/15/22 22:30: Pt. said that she has a fall at home and in [facility]. Pt. however did not have a fall here when she is admitted. Original Note: Admitted these 71 yrs. old, female pt. from [facility] per stretcher accompanied by ambulance staff w/ presenting problem of attempting to cut w/ butter knife and punch his teeth out. Family stated she is altered x1 month. Pt. w/ psychiatric history of major neurocognitive D/O and unspecified psychosis as well as medical hx of HTN, HLD, UTI, asthma, CKD, macrocytic anemia, hx of CHF, and osteoarthritis Pt is alert and oriented to person,place and time, forgets the date. Pt. presented the CV and signed it. Upon admission pt. oriented to the unit, staff, room and room mate. Pt. is pleasant and cooperative w/ the admission process. Pt. denies anxiety/depression/ SI and feels safe in the unit. Pt. appears anxious although she denies it. Pt. pacing in the regalado and keep on going to the BR saying she has diarrhea but did not have a BM. Pt. c/o stomach ache said she has a lot of pain but refused to take Tylenol. Pt. given Atarax 25 mg., Trazodone 50 mg and Mylanta 30 ml w/ pending effect. Pt. skin is warm and dry, no bruises or skin tears noted, no edema noted. Pt has upper dentures needs assist in ADLS, ambulates w/ walker w/ steady gait. Pt. denies agitation/ aggression, AVH. pt. signed the release of information. Pt. has no c/o SOB, lung sounds clear abdomen non tender w/ +bowel sounds in [address] Emmanuel informed of the admission and made some orders. We'll continue to monitor pt.
[2022-08-15] MEDS: Loperamide HCl 2 MG CAPSULE PO (23:39)
[2022-08-16] MEDS: traZODone HCL 50 MG TABLET PO (00:05)
[2022-08-16] MEDS: Acetaminophen 325 MG TABLET 650 MG PO (00:15)
[2022-08-16] MEDS: hydrOXYzine HCL 25 MG TABLET PO ×2 (05:47→12:14)
[2022-08-16 08:46] LABS: Alanine Aminotransferase 22 U/L (0-31); Albumin Level 4.3 g/dL (3.5-5.0); Alkaline Phosphatase 70 U/L (39-117); Anion Gap 18 (12-20); Aspartate Amino Transferase 30 U/L (5-31); Bilirubin Total 0.6 mg/dL (0.0-1.0); Blood Urea Nitrogen 9 mg/dL (9-16); Carbon Dioxide 20 mmol/L (22-29); Chloride 106 mmol/L (96-108); Cholesterol 162 mg/dL; Creatinine Clr Calc Pharmacy 53.6; Estimated Glomerular Filt Rate > 60; Glucose Fasting 108 mg/dL (60-99); HDL Cholesterol 50 mg/dL; LDL Cholesterol Calculated 99 mg/dl; Potassium 4.1 mmol/L (3.3-5.1); Sodium 140 mmol/L (135-145); Total Protein 6.8 g/dL (6.5-8.0); Triglycerides 69 mg/dL
[2022-08-16 10:55] VITALS: BP 165/92; PULSE 100; RESP 16; TEMP 35.9; O2SAT 99
[2022-08-16] MEDS: Atorvastatin Calcium 20 MG TABLET PO (11:11)
[2022-08-16] MEDS: Gabapentin 300 MG CAPSULE PO ×2 (11:11→20:36)
[2022-08-16] MEDS: hydrALAZINE HCl 50 MG TABLET PO ×2 (12:29→17:26)
[2022-08-16] MEDS: carvediloL 25 MG TABLET PO ×2 (12:29→20:35)
[2022-08-16] MEDS: Isosorbide Mononitrate 60 MG TAB.ER.24H PO (12:29)
[2022-08-16] MEDS: Mirabegron 25 MG TAB.ER.24H PO (12:29)
--- NOTE | 2022-08-16 14:30 | HO.PM.IMCN ---
History of Present Illness Data of Consult Service Date: 08/16/22 Requesting physician: Jesus Emmanuel Primary Care Provider: Flor Reddy MD HPI 71-year-old woman with history of severe depression, hypertension, hyperlipidemia admitted to Geriatrics psych for further mental health treatment. Patient reported that she has been having diarrhea, son stated that she was diagnosed with C diff at [facility] approximately 2 days ago, it does not appear that she is on oral vancomycin for this. Patient denied any other symptoms. Her vital signs are stable although her blood pressure is mildly elevated. Labs all within acceptable limits. Patient was transferred from [facility] to [facility] therefore medical consultation was placed. Review of Systems Review of Systems: Denies any recent fever chills or decrease in appetite respiratory denies any shortness of breath coverage production cardiovascular denied chest pain gastrointestinal denies any dysphagia abdominal pain nausea vomiting or diarrhea genitourinary denies any dysuria frequency or hematuria musculoskeletal denies any joint pain or swelling neuropsych denies any weakness or seizures all other systems reviewed are negative [facility] Medical History Alcohol use with alcohol-induced disorder Bipolar disorder Dementia Hypertension Surgical History History of spinal fusion Social History Household Members: Spouse and Other Household Members Other:: son Housing: House Do you presently have visiting nurse or other home services: Yes (Every six months') Patient Tobacco Use Status: Never used Tobacco Smoked in Last 30 Days: No Patient Interested in Nicotine Replacement: No Patient Given Instructions on How to Stop Smoking: No Second Hand Smoke Exposure: No Use of substances other than those prescribed or required for medical reasons: No Currently Displaying Signs/Symptoms of Drug Intoxication Withdrawal: No Any prior treatment program specific to substance use: No Have you been hit, kicked, punched, or otherwise hurt by someone within the past year? If so, by whom?: No Do you feel safe in your current relationship?: Yes Is there a partner from a previous relationship who is making you feel unsafe now?: No Are you made to feel afraid or neglected: No Advance Directives: No Advance Directives Information Provided: No Do you have thoughts of harming others: None Do you have a plan to hurt others: No Plan Recently lost weight without trying: Yes How much weight loss: Unsure Eating poorly because of decreased appetite: Yes Nutrition screen score: 5 Nutrition Risks: Poor intake 0-25% >4 days Patient : No : No Poor oral hygiene: No service: No Sexual orientation: Straight/Heterosexual Meds Allergies Allergy/AdvReac Type Severity Reaction Status Date / Time latex Allergy Facial Verified 01/30/22 15:29 Swelling red meat Allergy Severe Swelling Uncoded 01/30/22 15:27 Active Medications: Current Medications Acetaminophen (Acetaminophen 325 Mg Tablet) 650 mg PO Q6H PRN PRN Reason: Headache/Pain Mild Scale (1-3) Last Admin: 08/16/22 00:15 Dose: 650 mg Acetaminophen (Acetaminophen 325 Mg Tablet) 325 mg PO TID PRN PRN Reason: pain Al Hydroxide/Mg Hydroxide (Magnesium Hydrox/Alum Hydrox 30 Ml Oral.Susp) 30 ml PO Q6H PRN PRN Reason: Heartburn/Nausea Last Admin: 08/15/22 21:30 Dose: 30 ml Atorvastatin Calcium (Atorvastatin Calcium 20 Mg Tablet) 20 mg PO DAILY [facility] Last Admin: 08/16/22 11:11 Dose: 20 mg Carvedilol (Carvedilol 25 Mg Tablet) 25 mg PO BID [facility]; Protocol Last Admin: 08/16/22 12:29 Dose: 25 mg Estrogens Conjugated (Estrogens, Conjugated Cream 30 Gm Tube) 0.5 gm VAGINAL Mo@2100 [facility] Gabapentin (Gabapentin 300 Mg Capsule) 300 mg PO BID [facility] Last Admin: 08/16/22 11:11 Dose: 300 mg Hydralazine HCl (Hydralazine Hcl 50 Mg Tablet) 50 mg PO TIDWM [facility] Last Admin: 08/16/22 12:29 Dose: 50 mg Hydroxyzine HCl (Hydroxyzine Hcl 25 Mg Tablet) 25 mg PO Q6H PRN PRN Reason: Anxiety Last Admin: 08/16/22 12:14 Dose: 25 mg Isosorbide Mononitrate (Isosorbide Mononitrate 60 Mg Tab.Er.24h) 60 mg PO DAILY [facility]; Protocol Last Admin: 08/16/22 12:29 Dose: 60 mg Lidocaine HCl (Lidocaine 4 % Cream Kit) 1 appl TOPICAL BID PRN PRN Reason: Analgesia Loperamide HCl (Loperamide Hcl 2 Mg Capsule) 2 mg PO BID PRN PRN Reason: Loose Stool Magnesium Hydroxide (Milk Of Magnesia 30 Ml Oral.Susp) 30 ml PO DAILY PRN PRN Reason: Constipation Mirabegron (Mirabegron 25 Mg Tab.Er.24h) 25 mg PO DAILY [facility] Last Admin: 08/16/22 12:29 Dose: 25 mg Non-Formulary Medication (Methenamine Hippurate) 1 gm PO BID [facility] Oxycodone HCl (Oxycodone Hcl Immed Release 5 Mg Tablet) 2.5 mg PO TID PRN PRN Reason: Pain Quetiapine Fumarate (Quetiapine Fumarate 50 Mg Tablet) 150 mg PO BEDTIME [facility] Trazodone HCl (Trazodone Hcl 50 Mg Tablet) 50 mg PO BEDTIME MRX1 PRN PRN Reason: Insomnia Last Admin: 08/16/22 00:05 Dose: 50 mg Home Medications Medication Instructions Recorded Confirmed Last Taken Type hydralazine 50 mg PO TIDWM 08/16/22 08/16/22 Unknown History loperamide 2 mg capsule 2 mg PO BID PRN Loose Stool 08/16/22 08/16/22 Unknown History mirabegron 25 mg tablet,extended 25 mg PO DAILY 08/16/22 08/16/22 Unknown History release 24 hr (Myrbetriq) oxycodone-acetaminophen 2.5 mg-325 1 tab PO TID PRN Pain 08/16/22 08/16/22 Unknown History mg tablet (Percocet) quetiapine 100 mg tablet 150 mg PO BEDTIME 08/16/22 08/16/22 Unknown History quetiapine 50 mg tablet 50 mg PO DAILY PRN Psychosis 08/16/22 08/16/22 Unknown History Physical Exam Vital Signs and Narrative: Vital Signs: Last Vital Signs Temp 96.7 F L 08/16/22 10:55 Pulse 100 08/16/22 10:55 Resp 16 08/16/22 10:55 BP 165/92 H 08/16/22 10:55 Pulse Ox 99 08/16/22 10:55 O2 Del Method 08/16/22 10:55 BMI result Body Mass Index 20.8 Appearing in no acute distress head is normocephalic atraumatic eyes pupils are PERRLA sclera is anicteric mouth throat mucous membranes are intact and moist neck is supple no lymphadenopathy, no JVD noted lung sounds are clear to auscultation heart regular rate rhythm, clear S1, S2 positive bowel sounds, abdomen is soft, nontender neuro patient is alert x3, no focal deficits Cranial nerves 2-12 are grossly intact without focal deficits Results Labs 08/16/22 08:00 Labs: Laboratory Results - last 24 hr 08/16/22 08:00 Anion Gap 18 Estim Creat Clear Calc 53.6 Estimated GFR > 60 Fasting Glucose 108 H Calcium 10.0 D Total Bilirubin 0.6 AST 30 ALT 22 Alkaline Phosphatase 70 Total Protein 6.8 Albumin 4.3 Triglycerides 69 Cholesterol 162 LDL Cholesterol, Calc 99 HDL Cholesterol 50 Assessment and Plan (1) Bipolar disorder: Status: Acute Plan 71 year old women admitted to [facility] psych Mental health management as per psychiatry Hypertension continue all home medications Hyperlipidemia statin Overactive bladder Mirabetriq Apparent dx cdiff at [facility] provider unsure of date can request records and treat if needed should be vancomycin 125mg QID for total 10 days chronic pain continue oxycodone, gabapentin Time Spent With Patient Time: Total time managing care of this patient today ____ minutes.
[2022-08-16] MEDS: Loperamide HCl 2 MG CAPSULE PO (15:24)
[2022-08-16 18:00] VITALS: BP 94/60; PULSE 76; RESP 16; TEMP 36.4; O2SAT 95
[2022-08-16] MEDS: QUEtiapine Fumarate 50 MG TABLET 150 MG PO (20:36)
[2022-08-17 07:00] VITALS: BMI 21.0
[2022-08-17 07:30] VITALS: BP 117/82; PULSE 78; RESP 16; TEMP 36; O2SAT 100
[2022-08-17] MEDS: Isosorbide Mononitrate 60 MG TAB.ER.24H PO (08:23)
[2022-08-17] MEDS: hydrALAZINE HCl 50 MG TABLET PO ×3 (08:23→17:59)
[2022-08-17] MEDS: Atorvastatin Calcium 20 MG TABLET PO (08:23)
[2022-08-17] MEDS: Gabapentin 300 MG CAPSULE PO ×2 (08:23→19:54)
[2022-08-17] MEDS: Mirabegron 25 MG TAB.ER.24H PO (08:23)
[2022-08-17] MEDS: carvediloL 25 MG TABLET PO ×2 (08:23→19:53)
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
--- NOTE | 2022-08-17 12:05 | MHC.CLN ---
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
[2022-08-17 12:18] LABS: COVID-19 Test Negative (Negative)
[2022-08-17] MEDS: Acetaminophen 325 MG TABLET 650 MG PO (18:01)
[2022-08-17 19:40] VITALS: BP 116/67; PULSE 99; RESP 15; TEMP 36.6; O2SAT 95
[2022-08-17] MEDS: QUEtiapine Fumarate 50 MG TABLET 150 MG PO (19:53)
[2022-08-18 06:00] VITALS: BP 145/84; PULSE 84; RESP 18; TEMP 36.3; O2SAT 97
[2022-08-18] MEDS: hydrALAZINE HCl 50 MG TABLET PO (07:44)
[2022-08-18] MEDS: carvediloL 25 MG TABLET PO ×2 (07:45→20:07)
[2022-08-18] MEDS: Gabapentin 300 MG CAPSULE PO ×2 (07:45→20:07)
[2022-08-18] MEDS: Mirabegron 25 MG TAB.ER.24H PO (07:45)
[2022-08-18] MEDS: Isosorbide Mononitrate 60 MG TAB.ER.24H PO (07:45)
[2022-08-18] MEDS: Atorvastatin Calcium 20 MG TABLET PO (07:45)
[2022-08-18] MEDS: Acetaminophen 325 MG TABLET 650 MG PO ×2 (09:06→15:25)
[2022-08-18] MEDS: oxyCODONE HCl Immed Release 5 MG TABLET 2.5 MG PO ×2 (09:09→15:27)
[2022-08-18] MEDS: Loperamide HCl 2 MG CAPSULE PO (13:08)
[2022-08-18 13:13] VITALS: BP 98/61; PULSE 88
[2022-08-18 13:14] VITALS: BMI 21.7
[2022-08-18] MEDS: hydrOXYzine HCL 25 MG TABLET PO (15:26)
[2022-08-18 17:15] VITALS: BP 117/69; PULSE 86; RESP 18; O2SAT 96
--- NOTE | 2022-08-18 17:33 | PC.NURSE ---
attempted to force fluids with pt. pt stated if she drinks anything she will be urinating all night. encouraged drinking before 6pm
[2022-08-18 19:10] VITALS: BP 121/73; PULSE 91; RESP 16; TEMP 36.1; O2SAT 98
[2022-08-18] MEDS: QUEtiapine Fumarate 50 MG TABLET 150 MG PO (20:07)
[2022-08-18] MEDS: Acetaminophen 325 MG TABLET PO (20:11)
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
[2022-08-19 06:00] VITALS: BP 133/87; PULSE 80; RESP 18; TEMP 36.1
[2022-08-19] MEDS: Isosorbide Mononitrate 60 MG TAB.ER.24H PO (08:48)
[2022-08-19] MEDS: Gabapentin 300 MG CAPSULE PO ×2 (08:48→20:08)
[2022-08-19] MEDS: Mirabegron 25 MG TAB.ER.24H PO (08:48)
[2022-08-19] MEDS: hydrALAZINE HCl 50 MG TABLET PO ×3 (08:48→16:52)
[2022-08-19] MEDS: carvediloL 25 MG TABLET PO ×2 (08:48→20:08)
[2022-08-19] MEDS: Atorvastatin Calcium 20 MG TABLET PO (08:48)
[2022-08-19] MEDS: hydrOXYzine HCL 25 MG TABLET PO (09:16)
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
[2022-08-19 11:21] LABS: COVID-19 Test Negative (Negative); IDNOW Serial# 16C4AD1C
[2022-08-19 11:42] LABS: Appearance Urine Clear; Color Urine Yellow; Glucose Urine UA Negative (Negative); Leukocyte Esterase Urine Small (1+) (Negative); Nitrite Urine Negative (Negative); UMIC TRIGGER UACC YES; Urine Blood Negative (Negative); Urine Ketones Negative (Negative); Urine Protein Trace mg/dL (Neg-Trace)
[2022-08-19 11:56] LABS: Bacteria Urine None Seen (None Seen); Calcium Oxalate Crystals Urine Present; UACC Culture Trigger YES
[2022-08-19] MEDS: Acetaminophen 325 MG TABLET 650 MG PO (12:53)
[2022-08-19] MEDS: oxyCODONE HCl Immed Release 5 MG TABLET 2.5 MG PO (16:14)
[2022-08-19] MEDS: QUEtiapine Fumarate 50 MG TABLET 150 MG PO (20:07)
[2022-08-19 20:10] VITALS: BP 129/62; PULSE 88; RESP 18; TEMP 36.2; O2SAT 95
[2022-08-20 06:00] VITALS: BP 141/81; PULSE 84; RESP 16; TEMP 36.1; O2SAT 96
[2022-08-20] MEDS: hydrALAZINE HCl 50 MG TABLET PO (08:25)
[2022-08-20] MEDS: Atorvastatin Calcium 20 MG TABLET PO (08:25)
[2022-08-20] MEDS: carvediloL 25 MG TABLET PO ×2 (08:25→20:24)
[2022-08-20] MEDS: Isosorbide Mononitrate 60 MG TAB.ER.24H PO (08:25)
[2022-08-20] MEDS: Mirabegron 25 MG TAB.ER.24H PO (08:25)
[2022-08-20] MEDS: Gabapentin 300 MG CAPSULE PO ×2 (08:25→20:24)
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
[2022-08-20 18:00] VITALS: BP 128/77; PULSE 90; RESP 16; TEMP 35.9; O2SAT 97
[2022-08-20] MEDS: QUEtiapine Fumarate 50 MG TABLET 150 MG PO (20:24)
[2022-08-21 06:00] VITALS: BP 117/82; PULSE 92; RESP 18; TEMP 36.2; O2SAT 96
[2022-08-21 08:15] LABS: MANUAL DIFF FLAG NO
[2022-08-21 08:17] LABS: Basophils Percent Auto 0.7 % (0-2); Eosinophils Absolute Auto 0.2 X10*3/uL (0.0-0.4); Eosinophils Percent Auto 4.1 % (0-4); Hematocrit 34.1 % (37.0-47.0); Hemoglobin 11.3 g/dl (12.0-16.0); Lymphocytes Absolute Auto 1.5 X10*3/uL (1.2-4.9); Lymphocytes Percent Auto 36.8 % (20-40); Mean Corpuscular HGB Conc 33.1 g/dl (31.0-35.0); Mean Corpuscular Volume 108.6 fL (80.0-98.0); Mean Platelet Volume 10.2 fL (9.4-12.3); Monocytes Absolute Auto 0.4 X10*3/uL (0.1-1.2); Monocytes Percent Auto 8.4 % (2-11); Neutrophils Absolute Auto 2.1 x10*3/uL (2.0-8.3); Platelet Count 191 X10*3/uL (160-400); Red Blood Count 3.14 X10*6/uL (4.20-5.50); Red Cell Distribution Width 11.6 % (11.0-16.0); White Blood Count 4.2 X10*3/uL (4.8-10.8)
[2022-08-21 08:41] LABS: Alanine Aminotransferase 25 U/L (0-31); Albumin Level 4.2 g/dL (3.5-5.0); Alkaline Phosphatase 67 U/L (39-117); Anion Gap 14 (12-20); Aspartate Amino Transferase 28 U/L (5-31); Bilirubin Total 0.5 mg/dL (0.0-1.0); Blood Urea Nitrogen 12 mg/dL (9-16); Calcium 10.7 mg/dL (8.4-10.2); Carbon Dioxide 25 mmol/L (22-29); Chloride 107 mmol/L (96-108); Creatinine Clr Calc Pharmacy 43.3; Estimated Glomerular Filt Rate 54; Glucose Fasting 140 mg/dL (60-99); Sodium 142 mmol/L (135-145); Total Protein 6.7 g/dL (6.5-8.0)
[2022-08-21 09:10] LABS: Folate 15.2 ng/mL (> or = 4.0); Vitamin B12 814 pg/mL (200-900)
[2022-08-21] MEDS: Atorvastatin Calcium 20 MG TABLET PO (09:21)
[2022-08-21] MEDS: Isosorbide Mononitrate 60 MG TAB.ER.24H PO (09:21)
[2022-08-21] MEDS: Gabapentin 300 MG CAPSULE PO ×2 (09:21→19:59)
[2022-08-21] MEDS: hydrALAZINE HCl 50 MG TABLET PO (09:21)
[2022-08-21] MEDS: Mirabegron 25 MG TAB.ER.24H PO (09:21)
[2022-08-21 09:28] LABS: Syphilis Screen Nonreactive (Nonreactive)
[2022-08-21] MEDS: carvediloL 25 MG TABLET PO ×2 (09:36→19:59)
[2022-08-21] MEDS: Lidocaine 4 % Cream KIT 1 APPL TOPICAL ×2 (10:30→18:10)
[2022-08-21] MEDS: Acetaminophen 325 MG TABLET 650 MG PO ×2 (10:36→18:09)
[2022-08-21] MEDS: oxyCODONE HCl Immed Release 5 MG TABLET 2.5 MG PO ×2 (10:37→18:09)
[2022-08-21 11:30] VITALS: BP 121/69; PULSE 80; RESP 18; O2SAT 96
--- NOTE | 2022-08-21 12:02 | MHC.CLN ---
F/U DIET=REGULAR WITH ENSURE BID. SUPPLEMENT PROVIDES ADDITIONAL 700 KCALS, 40 G PROTEIN. TAKING ABOUT 50% AT MEALS. SHOWS SIGNIFICANT WEIGHT LOSS X 6 MONTHS. MONITOR PO INTAKE CLOSELY.
[2022-08-21 12:57] VITALS: BP 97/57; PULSE 77; RESP 18; O2SAT 98
[2022-08-21 18:00] VITALS: BP 140/75; PULSE 84; RESP 18; TEMP 36.2; O2SAT 98
[2022-08-21] MEDS: QUEtiapine Fumarate 50 MG TABLET 150 MG PO (19:58)
[2022-08-21] MEDS: traZODone HCL 50 MG TABLET PO (19:59)
[2022-08-21] MEDS: hydrOXYzine HCL 25 MG TABLET PO (19:59)
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
[2022-08-22] MEDS: oxyCODONE HCl Immed Release 5 MG TABLET 2.5 MG PO (03:45)
[2022-08-22 06:00] VITALS: BP 100/60; TEMP 36.7
[2022-08-22] MEDS: Isosorbide Mononitrate 60 MG TAB.ER.24H PO (08:56)
[2022-08-22] MEDS: Mirabegron 25 MG TAB.ER.24H PO (08:56)
[2022-08-22] MEDS: carvediloL 25 MG TABLET PO ×2 (08:56→21:09)
[2022-08-22] MEDS: Gabapentin 300 MG CAPSULE PO ×2 (08:56→21:09)
[2022-08-22] MEDS: Atorvastatin Calcium 20 MG TABLET PO (08:56)
[2022-08-22 09:15] LABS: COVID-19 Test Negative (Negative); IDNOW Serial# 16C4AD1C
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
[2022-08-22 18:00] VITALS: BP 132/86; PULSE 97; RESP 17; TEMP 36.7; O2SAT 96
[2022-08-22] MEDS: Acetaminophen 325 MG TABLET 650 MG PO (21:09)
[2022-08-22] MEDS: traZODone HCL 50 MG TABLET PO (21:09)
[2022-08-22] MEDS: QUEtiapine Fumarate 50 MG TABLET 150 MG PO (21:52)
[2022-08-23 07:30] VITALS: BP 148/76; PULSE 88; RESP 16; TEMP 36.4; O2SAT 98
[2022-08-23] MEDS: carvediloL 25 MG TABLET PO ×2 (10:57→22:10)
[2022-08-23] MEDS: Gabapentin 300 MG CAPSULE PO ×2 (10:57→22:09)
[2022-08-23] MEDS: Isosorbide Mononitrate 60 MG TAB.ER.24H PO (10:57)
[2022-08-23] MEDS: Mirabegron 25 MG TAB.ER.24H PO (10:58)
[2022-08-23] MEDS: Atorvastatin Calcium 20 MG TABLET PO (10:58)
[2022-08-23] MEDS: QUEtiapine Fumarate 25 MG TABLET PO ×2 (10:58→15:25)
[2022-08-23] MEDS: hydrALAZINE HCl 50 MG TABLET PO ×2 (10:58→15:25)
--- NOTE | 2022-08-23 13:06 | MHC.CLN ---
F/U DIET=REGULAR WITH ENSURE BID. SUPPLEMENT PROVIDES ADDITIONAL 700 KCALS, 40 G PROTEIN. OBSERVED AT LUNCH TODAY. HAD BITES ONLY WHILE SEATED IN COMMON DINING AREA. MONITOR PO INTAKE CLOSELY.
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
[2022-08-23] MEDS: Mirtazapine 7.5 MG TABLET PO (22:09)
[2022-08-23] MEDS: QUEtiapine Fumarate 50 MG TABLET 150 MG PO (22:10)
[2022-08-23] MEDS: oxyCODONE HCl Immed Release 5 MG TABLET 2.5 MG PO (22:20)
[2022-08-24 06:00] VITALS: BP 137/87; PULSE 94; RESP 20; TEMP 36.7; O2SAT 96
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
[2022-08-24] MEDS: Gabapentin 300 MG CAPSULE PO ×2 (10:32→20:17)
[2022-08-24] MEDS: carvediloL 25 MG TABLET PO ×2 (10:32→20:16)
[2022-08-24] MEDS: Atorvastatin Calcium 20 MG TABLET PO (10:33)
[2022-08-24] MEDS: QUEtiapine Fumarate 25 MG TABLET PO ×2 (10:33→16:15)
[2022-08-24] MEDS: Isosorbide Mononitrate 60 MG TAB.ER.24H PO (10:33)
[2022-08-24] MEDS: hydrALAZINE HCl 50 MG TABLET PO (10:33)
[2022-08-24] MEDS: Mirabegron 25 MG TAB.ER.24H PO (10:33)
[2022-08-24 13:12] LABS: Estimated Average Glucose 77 mg/dL; Hemoglobin A1c % 4.3 %
[2022-08-24 13:13] LABS: Alanine Aminotransferase 20 U/L (0-31); Albumin Level 3.8 g/dL (3.5-5.0); Alkaline Phosphatase 61 U/L (39-117); Anion Gap 14 (12-20); Aspartate Amino Transferase 24 U/L (5-31); Bilirubin Total 0.4 mg/dL (0.0-1.0); Blood Urea Nitrogen 14 mg/dL (9-16); Calcium 10.2 mg/dL (8.4-10.2); Carbon Dioxide 26 mmol/L (22-29); Chloride 110 mmol/L (96-108); Creatinine Clr Calc Pharmacy 45.5; Estimated Glomerular Filt Rate 58; Glucose Random 100 mg/dL (60-115); Potassium 3.9 mmol/L (3.3-5.1); Sodium 146 mmol/L (135-145); Total Protein 5.9 g/dL (6.5-8.0)
[2022-08-24 19:15] VITALS: BP 130/68; PULSE 90; RESP 18; TEMP 36.6; O2SAT 94
[2022-08-24] MEDS: risperiDONE 0.5 MG TABLET PO (20:15)
[2022-08-24] MEDS: QUEtiapine Fumarate 50 MG TABLET 150 MG PO (20:16)
[2022-08-24] MEDS: Mirtazapine 7.5 MG TABLET PO (20:16)
[2022-08-24] MEDS: traZODone HCL 50 MG TABLET PO (20:16)
[2022-08-24] MEDS: oxyCODONE HCl Immed Release 5 MG TABLET 2.5 MG PO (23:07)
[2022-08-25 06:00] VITALS: BP 151/89; PULSE 96; RESP 18; TEMP 36.6; O2SAT 96
[2022-08-25] MEDS: carvediloL 25 MG TABLET PO ×2 (10:37→20:49)
[2022-08-25] MEDS: risperiDONE 0.5 MG TABLET PO ×2 (10:37→20:50)
[2022-08-25] MEDS: hydrALAZINE HCl 50 MG TABLET PO (10:37)
[2022-08-25] MEDS: QUEtiapine Fumarate 25 MG TABLET PO (10:37)
[2022-08-25] MEDS: Mirabegron 25 MG TAB.ER.24H PO (10:37)
[2022-08-25] MEDS: Gabapentin 300 MG CAPSULE PO ×2 (10:37→20:50)
[2022-08-25] MEDS: Isosorbide Mononitrate 60 MG TAB.ER.24H PO (10:37)
[2022-08-25] MEDS: Atorvastatin Calcium 20 MG TABLET PO (10:38)
--- NOTE | 2022-08-25 11:39 | MHC.CLN ---
F/U DIET=REGULAR WITH ENSURE BID. SUPPLEMENT PROVIDES ADDITIONAL 700 KCALS, 40 G PROTEIN. POOR PO NOTED. CONTINUE CURRENT DIET AND SUPPLEMENT. MONITOR PO INTAKE CLOSELY.
[2022-08-25] MEDS: Acetaminophen 325 MG TABLET 650 MG PO (16:09)
[2022-08-25 18:00] VITALS: BP 140/66; PULSE 75; RESP 18; TEMP 36.9; O2SAT 96
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
[2022-08-25 20:38] LABS: Appearance Urine Turbid; Color Urine Yellow; Glucose Urine UA Negative (Negative); Leukocyte Esterase Urine Large (3+) (Negative); Nitrite Urine Positive (Negative); PH 7.5 (5.0-9.0); UMIC TRIGGER UA YES; Urine Blood Negative (Negative); Urine Ketones 15 mg/dL (Negative); Urine Protein 30 (1+) mg/dL (Neg-Trace)
[2022-08-25] MEDS: Mirtazapine 7.5 MG TABLET PO (20:50)
[2022-08-25 20:54] LABS: Bacteria Urine 3+ (None Seen); Calcium Oxalate Crystals Urine Present; WBC Urine >50 /HPF (0-5)
[2022-08-25] MEDS: traZODone HCL 50 MG TABLET PO (22:31)
[2022-08-25] MEDS: oxyCODONE HCl Immed Release 5 MG TABLET 2.5 MG PO (22:31)
[2022-08-26] MEDS: Acetaminophen 325 MG TABLET 650 MG PO (00:56)
[2022-08-26] MEDS: traZODone HCL 50 MG TABLET PO ×3 (02:39→22:48)
[2022-08-26 06:00] VITALS: BP 133/71; PULSE 84; RESP 15; TEMP 36.1; O2SAT 96
[2022-08-26] MEDS: hydrALAZINE HCl 50 MG TABLET PO (09:19)
[2022-08-26] MEDS: Atorvastatin Calcium 20 MG TABLET PO (09:19)
[2022-08-26] MEDS: QUEtiapine Fumarate 25 MG TABLET PO ×2 (09:19→14:48)
[2022-08-26] MEDS: risperiDONE 0.5 MG TABLET PO ×3 (09:19→20:27)
[2022-08-26] MEDS: Mirabegron 25 MG TAB.ER.24H PO (09:19)
[2022-08-26] MEDS: Gabapentin 300 MG CAPSULE PO ×2 (09:19→20:27)
[2022-08-26] MEDS: carvediloL 25 MG TABLET PO ×2 (09:19→20:27)
[2022-08-26] MEDS: Isosorbide Mononitrate 60 MG TAB.ER.24H PO (09:19)
[2022-08-26] MEDS: oxyCODONE HCl Immed Release 5 MG TABLET 2.5 MG PO ×3 (09:26→22:46)
[2022-08-26] MEDS: Acetaminophen 325 MG TABLET PO (09:27)
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
[2022-08-26 18:00] VITALS: BP 133/92; PULSE 80; RESP 18; TEMP 36.4; O2SAT 97
--- NOTE | 2022-08-26 19:41 | ECG_ITS ---
Test Reason : Chest Pain Blood Pressure : / mmHG Vent. Rate : 084 BPM Atrial Rate : 084 BPM P-R Int : 188 ms QRS Dur : 080 ms QT Int : 382 ms P-R-T Axes : 081 -06 028 degrees QTc Int : 451 ms Normal sinus rhythm Normal ECG When compared with ECG of 08-JUN-2005 08:07, ST now depressed in Inferior leads Referred By: Ruba Duarte Electronically Signed By:Rigoberto Soto
[2022-08-26] MEDS: Mirtazapine 7.5 MG TABLET PO (20:27)
[2022-08-27] MEDS: Gabapentin 300 MG CAPSULE PO (09:04)
[2022-08-27] MEDS: hydrALAZINE HCl 50 MG TABLET PO (09:04)
[2022-08-27] MEDS: Isosorbide Mononitrate 60 MG TAB.ER.24H PO (09:04)
[2022-08-27] MEDS: risperiDONE 0.5 MG TABLET PO (09:04)
[2022-08-27] MEDS: carvediloL 25 MG TABLET PO (09:05)
[2022-08-27] MEDS: Atorvastatin Calcium 20 MG TABLET PO (09:05)
[2022-08-27] MEDS: QUEtiapine Fumarate 25 MG TABLET PO (09:05)
[2022-08-27] MEDS: Mirabegron 25 MG TAB.ER.24H PO (09:05)
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
--- NOTE | 2022-08-27 15:13 | PM.EVENT ---
Event Note Date of Service: 08/27/22 Event Note: Urine C & S ordered and started her on Ceftin 500 mg BID after speaking with the Hospitalist Time Spent With Patient Time: Total time managing care of this patient today ____ minutes.
--- NOTE | 2022-08-27 17:00 | PC.NURSE ---
Pt refused a visit from her son today, stated she was in too much pain . Pt refused admin of prn pain medication. This RN spoke with the pt's son Imer outside of the unit in the hallway to inform him the pt is declining a visit with him today, reporting pain and refusing pain medication. The pt's son became upset and said I think you are hiding her from me , and I think this is because I said something the other day about how her clothes don't get changed, and now she is always in a nissa. The pt's son also said I want you to tell this to the team, I want her paperwork started to have her discharged home this way . Imer also stated I am her health care proxy, I think you should be able to force her to see me even when she doesn't want to. Imer also stated Tell her that is she doesn't want to see me then I will stop coming to see her and she can just stay here for the rest of her life and not get better . This RN explained to the pt's son Imer that the pt had the right to refuse visitors, even visitors who are the health care proxy. The pt rested in bed for the rest of the shift, refused to eat dinner, or come out of her room.
[2022-08-28 03:55] LABS: Appearance Urine Turbid; Color Urine Yellow; Glucose Urine UA Negative (Negative); Leukocyte Esterase Urine Large (3+) (Negative); Nitrite Urine Positive (Negative); PH 6.5 (5.0-9.0); Specific Gravity - Urine 1.015 (1.005-1.025); UMIC TRIGGER UACC YES; Urine Blood Negative (Negative); Urine Ketones 15 mg/dL (Negative); Urine Protein 100 (2+) mg/dL (Neg-Trace)
[2022-08-28 04:14] LABS: Bacteria Urine 4+ (None Seen); UACC Culture Trigger YES; WBC Urine >50 /HPF (0-5)
[2022-08-28] MEDS: Gabapentin 300 MG CAPSULE PO ×2 (08:36→19:52)
[2022-08-28] MEDS: hydrALAZINE HCl 50 MG TABLET PO (08:36)
[2022-08-28] MEDS: Isosorbide Mononitrate 60 MG TAB.ER.24H PO (08:36)
[2022-08-28] MEDS: Atorvastatin Calcium 20 MG TABLET PO (08:37)
[2022-08-28] MEDS: Mirabegron 25 MG TAB.ER.24H PO (08:37)
[2022-08-28] MEDS: QUEtiapine Fumarate 25 MG TABLET PO (08:37)
[2022-08-28] MEDS: carvediloL 25 MG TABLET PO ×2 (08:37→19:52)
[2022-08-28] MEDS: risperiDONE 0.5 MG TABLET PO ×2 (08:37→19:51)
[2022-08-28 08:41] VITALS: BP 155/93; PULSE 76; RESP 16; TEMP 36.1; O2SAT 96
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
--- NOTE | 2022-08-28 11:32 | PM.EVENT ---
Event Note Date of Service: 08/28/22 Event Note: I was informed, late morning that Racheal had 2 bouts of diarrhea. In light of her history of recent C diff and treatment we try to order a stool culture for that however I had trouble putting it in and the nurse consulted with Yesenia Aguilera and she stated that there is a certain protocol including 3 or more episodes of diarrhea, examination of the smell. She did have a 3rd bowel movement which was more formed so we will wait to see how this develops and will be addressed tomorrow Time Spent With Patient Time: Total time managing care of this patient today _10___ minutes.
[2022-08-28 12:23] VITALS: BP 80/55; PULSE 72
--- NOTE | 2022-08-28 12:24 | PC.NURSE ---
Pt had manualy Blood pressure of 80/55 with a Heart rate of [address] Crawley notified 1200 hydralazine held per MD Crawley. Pt on 1:1, denies dizziness.
--- NOTE | 2022-08-28 12:27 | MHC.CLN ---
F/U DIET=REGULAR WITH ENSURE BID. SUPPLEMENT PROVIDES ADDITIONAL 700 KCALS, 40 G PROTEIN. VISITED AT LUNCH TODAY. ATE ABOUT 50% OF MEAL AND DRINKING ENSURE. CONTINUE CURRENT DIET AND SUPPLEMENT. MONITOR FOR INTAKE AND WEIGHT. RD TO FOLLOW WEEKLY.
[2022-08-28] MEDS: oxyCODONE HCl Immed Release 5 MG TABLET 2.5 MG PO (15:45)
[2022-08-28] MEDS: Acetaminophen 325 MG TABLET 650 MG PO (17:59)
[2022-08-28 19:19] VITALS: BP 114/66; PULSE 73; RESP 18; TEMP 35.9; O2SAT 96
[2022-08-28] MEDS: Mirtazapine 7.5 MG TABLET PO (19:52)
[2022-08-29] MEDS: oxyCODONE HCl Immed Release 5 MG TABLET 2.5 MG PO (11:33)
--- NOTE | 2022-08-29 12:51 | ECG_ITS ---
Test Reason : cp hx mi Blood Pressure : / mmHG Vent. Rate : 086 BPM Atrial Rate : 086 BPM P-R Int : 166 ms QRS Dur : 080 ms QT Int : 368 ms P-R-T Axes : 066 -16 041 degrees QTc Int : 440 ms Artifact in tracing Normal sinus rhythm Probably normal EKG When compared with ECG of 26-AUG-2022 20:43, No significant change was found Referred By: Adan Clifford Electronically Signed By:COLLEEN BOYD
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
[2022-08-29 13:20] VITALS: BP 109/65; PULSE 89; RESP 15; TEMP 36.7; O2SAT 95
[2022-08-29] MEDS: hydrALAZINE HCl 50 MG TABLET PO ×2 (13:39→18:02)
[2022-08-29] MEDS: QUEtiapine Fumarate 25 MG TABLET PO (13:40)
[2022-08-29 14:38] LABS: Troponin-I High Sensitivity 14.4 ng/L (<3.5-17.0)
--- NOTE | 2022-08-29 14:42 | W.PM.IDCN ---
History of Present Illness Data of Consult Service Date: 08/29/22 Requesting physician: Adan Clifford Primary Care Provider: Flor Reddy MD HPI Reason for consult: UTI concerns,Cdiff concerns She presents with increasing agitation toward on 08/17. She has been receiving care on [facility]. She has had report of Cdiff positive PCR stool at [facility] on 08/08 and was given 10 days po Vancomycin 125 qid by report. She has had two loose stools per [facility] nursing yesterday but not completely watery. She had no loose stools today. Urine has been contaminated with fecal matter as well. She now has chest pain and shortness of breath and is getting EKG. She was hospitalized one year ago at [facility] with E coli bacteremia 08/08 and received IV CTX. She had loose stools although no Cdiff there and was give po Vancomycin 125 qid. She had enterococcus faecium 08/17/2021 urine at [facility] sensitive to linezolid and vancomycin and intermediate to nitrofurantoin and not treated due to colonization suspected. She did receive vaginal estrogen and po methenamine 1 g bid to help prevent UTI. Today she has no urinary complaints and no hematuria. WBC is 7,000 and there is no fever. Urine has nitrites,esterase and WBC. Review of Systems Review of Systems: Yes Unobtainable due to mental status PMFSH Past Medical History Medical History (Updated 08/29/22 @ 15:00 by Adrianna Uriostegui MD) Alcohol use with alcohol-induced disorder Bacteriuria Bipolar disorder Cognitive and neurobehavioral dysfunction Dementia Elimination disorder with fecal symptoms Hypertension Family History Family history: reviewed and not pertinent Surgical History Surgical History History of spinal fusion Social History Social History Household Members: Spouse and Other Household Members Other:: son Housing: House Do you presently have visiting nurse or other home services: Yes (Every six months') Patient Tobacco Use Status: Never used Tobacco Smoked in Last 30 Days: No Patient Interested in Nicotine Replacement: No Patient Given Instructions on How to Stop Smoking: No Second Hand Smoke Exposure: No Use of substances other than those prescribed or required for medical reasons: No Currently Displaying Signs/Symptoms of Drug Intoxication Withdrawal: No Any prior treatment program specific to substance use: No Have you been hit, kicked, punched, or otherwise hurt by someone within the past year? If so, by whom?: No Do you feel safe in your current relationship?: Yes Is there a partner from a previous relationship who is making you feel unsafe now?: No Are you made to feel afraid or neglected: No Advance Directives: No Advance Directives Information Provided: No Do you have thoughts of harming others: None Do you have a plan to hurt others: No Plan Recently lost weight without trying: Yes How much weight loss: Unsure Eating poorly because of decreased appetite: Yes Nutrition screen score: 5 Nutrition Risks: Poor intake 0-25% >4 days Patient : No : No Poor oral hygiene: No service: No Sexual orientation: Straight/Heterosexual Meds Allergies Allergy/AdvReac Type Severity Reaction Status Date / Time latex Allergy Facial Verified 01/30/22 15:29 Swelling red meat Allergy Severe Swelling Uncoded 01/30/22 15:27 Active Medications: Current Medications Acetaminophen (Acetaminophen 325 Mg Tablet) 650 mg PO Q6H PRN PRN Reason: Headache/Pain Mild Scale (1-3) Last Admin: 08/28/22 17:59 Dose: 650 mg Acetaminophen (Acetaminophen 325 Mg Tablet) 325 mg PO TID PRN PRN Reason: pain Last Admin: 08/26/22 09:27 Dose: 325 mg Al Hydroxide/Mg Hydroxide (Magnesium Hydrox/Alum Hydrox 30 Ml Oral.Susp) 30 ml PO Q6H PRN PRN Reason: Heartburn/Nausea Last Admin: 08/15/22 21:30 Dose: 30 ml Atorvastatin Calcium (Atorvastatin Calcium 20 Mg Tablet) 20 mg PO DAILY [facility] Last Admin: 08/29/22 09:36 Dose: Not Given Carvedilol (Carvedilol 25 Mg Tablet) 25 mg PO BID [facility]; Protocol Last Admin: 08/29/22 09:36 Dose: Not Given Cefuroxime Axetil (Cefuroxime Axetil 500 Mg Tablet) 500 mg PO Q12H [facility] Stop: 09/03/22 19:00 Last Admin: 08/29/22 09:36 Dose: Not Given Estrogens Conjugated (Estrogens, Conjugated Cream 30 Gm Tube) 0.5 gm VAGINAL Mo@2100 [facility] Last Admin: 08/28/22 22:34 Dose: Not Given Gabapentin (Gabapentin 300 Mg Capsule) 300 mg PO BID [facility] Last Admin: 08/29/22 09:37 Dose: Not Given Hydralazine HCl (Hydralazine Hcl 50 Mg Tablet) 50 mg PO TIDWM [facility] Last Admin: 08/29/22 13:39 Dose: 50 mg Isosorbide Mononitrate (Isosorbide Mononitrate 60 Mg Tab.Er.24h) 60 mg PO DAILY [facility]; Protocol Last Admin: 08/29/22 09:37 Dose: Not Given Lidocaine HCl (Lidocaine 4 % Cream Kit) 1 appl TOPICAL BID PRN PRN Reason: Analgesia Last Admin: 08/21/22 18:10 Dose: 1 appl Loperamide HCl (Loperamide Hcl 2 Mg Capsule) 2 mg PO BID PRN PRN Reason: Loose Stool Last Admin: 08/18/22 13:08 Dose: 2 mg Magnesium Hydroxide (Milk Of Magnesia 30 Ml Oral.Susp) 30 ml PO DAILY PRN PRN Reason: Constipation Mirabegron (Mirabegron 25 Mg Tab.Er.24h) 25 mg PO DAILY [facility] Last Admin: 08/29/22 09:37 Dose: Not Given Mirtazapine (Mirtazapine 7.5 Mg Tablet) 7.5 mg PO BEDTIME [facility] Last Admin: 08/28/22 19:52 Dose: 7.5 mg Non-Formulary Medication (Methenamine Hippurate) 1 gm PO BID [facility] Oxycodone HCl (Oxycodone Hcl Immed Release 5 Mg Tablet) 2.5 mg PO TID PRN PRN Reason: Pain Last Admin: 08/29/22 11:33 Dose: 2.5 mg Quetiapine Fumarate (Quetiapine Fumarate 25 Mg Tablet) 25 mg PO BID@0830,1330 [facility] Last Admin: 08/29/22 13:40 Dose: 25 mg Risperidone (Risperidone 0.5 Mg Tablet) 0.5 mg PO TID [facility] Last Admin: 08/29/22 09:37 Dose: Not Given Trazodone HCl (Trazodone Hcl 50 Mg Tablet) 50 mg PO BEDTIME MRX1 PRN PRN Reason: Insomnia Last Admin: 08/26/22 22:48 Dose: 50 mg Home Medications Medication Instructions Recorded Confirmed Last Taken Type hydralazine 50 mg PO TIDWM 08/16/22 08/16/22 Unknown History loperamide 2 mg capsule 2 mg PO BID PRN Loose Stool 08/16/22 08/16/22 Unknown History mirabegron 25 mg tablet,extended 25 mg PO DAILY 08/16/22 08/16/22 Unknown History release 24 hr (Myrbetriq) oxycodone-acetaminophen 2.5 mg-325 1 tab PO TID PRN Pain 08/16/22 08/16/22 Unknown History mg tablet (Percocet) quetiapine 100 mg tablet 150 mg PO BEDTIME 08/16/22 08/16/22 Unknown History quetiapine 50 mg tablet 50 mg PO DAILY PRN Psychosis 08/16/22 08/16/22 Unknown History Physical Exam Vital Signs: Vital Signs: Last Vital Signs Temp 98.1 F 08/29/22 13:20 Pulse 89 08/29/22 13:20 Resp 15 08/29/22 13:20 BP 109/65 08/29/22 13:20 Pulse Ox 95 08/29/22 13:20 O2 Del Method 08/29/22 13:20 BMI result Body Mass Index 21.7 Const: General: cooperative HEENT: Head: Yes normal to inspection Face and sinus: Yes normal facial exam Mouth: Normal oral and palatal mucosa present Teeth and gingiva: dentition normal Eyes: General: appearance normal, both eyes and all related structures Pupils: Equal, round and reactive pupils present Resp: Effort & Inspection: normal respiratory effort Cardio: Rate: regular rate Rhythm: regular rhythm GI: Palpation (GI): Soft to palpation and nontender : General: Yes no CVA tenderness Back/Spine/Pelvis: Back: no CVA tenderness Skin: General skin exam: no rashes or lesions noted Neuro: General: moves all extremities Cranial nerves: Yes Equal, round and reactive pupils present Extrem: General: Yes normal to inspection Psych: Other: confusion and agitation Results Labs 08/21/22 08:11 08/24/22 12:28 Microbiology Microbiology Results: Microbiology 08/28/22 Unknown Urine clean catch - Urine chicas top Urine Culture - Preliminary Enterococcus/Streptococcus sp 08/25/22 Unknown Urine clean catch - Urine chicas top Urine Culture - Final 08/19/22 Unknown Urine clean catch - Urine chicas top Urine Culture - Final No growth. Assessment and Plan (1) Bacteriuria: Status: Acute She has rather chronic bacteriuria due to fecal soiling and incontinence of urine and feces. She will always have bacteria in urinalysis likely so need to treat if objective signs of infection in urine such as hematuria,fever or leukocytosis only. Dont treat for confusion or urine odor . Likely this organisms is enterococcus again. Treatment with antibiotics will not prevent active infection from developing or eliminate colonization (or carrier) state. (2) Elimination disorder with fecal symptoms: Status: Acute There is prior positive Cdiff PCR. Active Cdiff infection is defined as at least three episodes of diarrhea in a day that are so watery as to take shape of container. There is often abdominal pain and/or fever. She doesnt meet above criteria so checking value now would only reveal asymptomatic carrier state for Cdiff (often see as PCR with negative toxin) not to treat. Plan Stop cephalosporin as not active UTI at this time and antibiotics can promote Cdiff. Reevaluate with blood culture if fever or signs of sepsis. Do not check Cdiff at this time per above note. Time Spent With Patient Time: Total time managing care of this patient today ____ minutes.
[2022-08-29] MEDS: risperiDONE 0.5 MG TABLET PO (14:43)
[2022-08-29 18:00] VITALS: BP 115/65; PULSE 90; RESP 18; TEMP 35.9; O2SAT 97
[2022-08-30] MEDS: oxyCODONE HCl Immed Release 5 MG TABLET 2.5 MG PO ×2 (00:10→22:14)
[2022-08-30] MEDS: Acetaminophen 325 MG TABLET 650 MG PO (00:57)
[2022-08-30] MEDS: traZODone HCL 50 MG TABLET PO (02:26)
[2022-08-30 07:30] VITALS: BP 123/72; PULSE 76; RESP 15; TEMP 35.9; O2SAT 99
[2022-08-30] MEDS: risperiDONE 0.5 MG TABLET PO ×2 (07:49→13:35)
[2022-08-30] MEDS: carvediloL 25 MG TABLET PO (07:49)
[2022-08-30] MEDS: Isosorbide Mononitrate 60 MG TAB.ER.24H PO (07:50)
[2022-08-30] MEDS: Atorvastatin Calcium 20 MG TABLET PO (07:50)
[2022-08-30] MEDS: hydrALAZINE HCl 50 MG TABLET PO (07:50)
[2022-08-30] MEDS: Mirabegron 25 MG TAB.ER.24H PO (07:50)
[2022-08-30] MEDS: Gabapentin 300 MG CAPSULE PO (07:50)
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
[2022-08-30 19:20] VITALS: BP 90/50; PULSE 58; RESP 16; TEMP 36.2; O2SAT 96
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
--- NOTE | 2022-08-31 14:52 | PM.NEUROCN ---
History of Present Illness Data of Consult Service Date: 08/31/22 Primary Care Provider: Flor Reddy MD [facility] Reason for consult: Parkinson's 71 years old woman with severe depression admitted on psychiatric floor I was asked to see for possible Parkinson's disease per when I arrived she was walking in the hallway with a walker. She has been treated with antipsychotics. Detail history was not available at this time. Review of Systems Review of Systems: No history of head trauma. [facility] Past Medical History Medical History (Updated 08/31/22 @ 14:54 by Vanessa Martel MD) Alcohol use with alcohol-induced disorder Bacteriuria Bipolar disorder Cognitive and neurobehavioral dysfunction Dementia Elimination disorder with fecal symptoms Hypertension Family History Family history: reviewed and not pertinent Surgical History Surgical History History of spinal fusion Social History Social History Household Members: Spouse and Other Household Members Other:: son Housing: House Do you presently have visiting nurse or other home services: Yes (Every six months') Patient Tobacco Use Status: Never used Tobacco Smoked in Last 30 Days: No Patient Interested in Nicotine Replacement: No Patient Given Instructions on How to Stop Smoking: No Second Hand Smoke Exposure: No Use of substances other than those prescribed or required for medical reasons: No Currently Displaying Signs/Symptoms of Drug Intoxication Withdrawal: No Any prior treatment program specific to substance use: No Have you been hit, kicked, punched, or otherwise hurt by someone within the past year? If so, by whom?: No Do you feel safe in your current relationship?: Yes Is there a partner from a previous relationship who is making you feel unsafe now?: No Are you made to feel afraid or neglected: No Advance Directives: No Advance Directives Information Provided: No Do you have thoughts of harming others: None Do you have a plan to hurt others: No Plan Recently lost weight without trying: Yes How much weight loss: Unsure Eating poorly because of decreased appetite: Yes Nutrition screen score: 5 Nutrition Risks: Poor intake 0-25% >4 days Patient : No : No Poor oral hygiene: No service: No Sexual orientation: Straight/Heterosexual Meds Allergies Allergy/AdvReac Type Severity Reaction Status Date / Time latex Allergy Facial Verified 01/30/22 15:29 Swelling red meat Allergy Severe Swelling Uncoded 01/30/22 15:27 Active Medications: Current Medications Acetaminophen (Acetaminophen 325 Mg Tablet) 650 mg PO Q6H PRN PRN Reason: Headache/Pain Mild Scale (1-3) Last Admin: 08/30/22 00:57 Dose: 650 mg Acetaminophen (Acetaminophen 325 Mg Tablet) 325 mg PO TID PRN PRN Reason: pain Last Admin: 08/26/22 09:27 Dose: 325 mg Al Hydroxide/Mg Hydroxide (Magnesium Hydrox/Alum Hydrox 30 Ml Oral.Susp) 30 ml PO Q6H PRN PRN Reason: Heartburn/Nausea Last Admin: 08/15/22 21:30 Dose: 30 ml Ascorbic Acid (Ascorbic Acid 250 Mg Tablet) 250 mg PO BID [facility] Last Admin: 08/31/22 14:22 Dose: Not Given Atorvastatin Calcium (Atorvastatin Calcium 20 Mg Tablet) 20 mg PO DAILY [facility] Last Admin: 08/31/22 14:22 Dose: Not Given Carvedilol (Carvedilol 25 Mg Tablet) 25 mg PO BID [facility]; Protocol Last Admin: 08/31/22 14:22 Dose: Not Given Estrogens Conjugated (Estrogens, Conjugated Cream 30 Gm Tube) 0.5 gm VAGINAL Mo@2100 [facility] Last Admin: 08/28/22 22:34 Dose: Not Given Gabapentin (Gabapentin 300 Mg Capsule) 300 mg PO BID [facility] Last Admin: 08/31/22 14:22 Dose: Not Given Isosorbide Mononitrate (Isosorbide Mononitrate 60 Mg Tab.Er.24h) 60 mg PO DAILY [facility]; Protocol Last Admin: 08/31/22 14:23 Dose: Not Given Lidocaine HCl (Lidocaine 4 % Cream Kit) 1 appl TOPICAL BID PRN PRN Reason: Analgesia Last Admin: 08/21/22 18:10 Dose: 1 appl Loperamide HCl (Loperamide Hcl 2 Mg Capsule) 2 mg PO BID PRN PRN Reason: Loose Stool Last Admin: 08/18/22 13:08 Dose: 2 mg Magnesium Hydroxide (Milk Of Magnesia 30 Ml Oral.Susp) 30 ml PO DAILY PRN PRN Reason: Constipation Mirabegron (Mirabegron 25 Mg Tab.Er.24h) 25 mg PO DAILY [facility] Last Admin: 08/31/22 14:23 Dose: Not Given Mirtazapine (Mirtazapine 7.5 Mg Tablet) 7.5 mg PO BEDTIME [facility] Last Admin: 08/30/22 22:16 Dose: Not Given Pt Own (Methenamine Hippurate 1 Gram Tablet) 1 gm PO BID [facility] Last Admin: 08/31/22 14:23 Dose: Not Given Oxycodone HCl (Oxycodone Hcl Immed Release 5 Mg Tablet) 2.5 mg PO TID PRN PRN Reason: Pain Last Admin: 08/30/22 22:14 Dose: 2.5 mg Risperidone (Risperidone 0.5 Mg Tablet) 0.5 mg PO TID [facility] Last Admin: 08/31/22 14:44 Dose: Not Given Trazodone HCl (Trazodone Hcl 50 Mg Tablet) 50 mg PO BEDTIME MRX1 PRN PRN Reason: Insomnia Last Admin: 08/30/22 02:26 Dose: 50 mg Home Medications Medication Instructions Recorded Confirmed Last Taken Type hydralazine 50 mg PO TIDWM 08/16/22 08/16/22 Unknown History loperamide 2 mg capsule 2 mg PO BID PRN Loose Stool 08/16/22 08/16/22 Unknown History mirabegron 25 mg tablet,extended 25 mg PO DAILY 08/16/22 08/16/22 Unknown History release 24 hr (Myrbetriq) oxycodone-acetaminophen 2.5 mg-325 1 tab PO TID PRN Pain 08/16/22 08/16/22 Unknown History mg tablet (Percocet) quetiapine 100 mg tablet 150 mg PO BEDTIME 08/16/22 08/16/22 Unknown History quetiapine 50 mg tablet 50 mg PO DAILY PRN Psychosis 08/16/22 08/16/22 Unknown History Physical Exam Vital Signs: Vital Signs: Last Vital Signs Temp 97.2 F 08/30/22 19:20 Pulse 58 08/30/22 19:20 Resp 16 08/30/22 19:20 BP 90/50 L 08/30/22 19:20 Pulse Ox 96 08/30/22 19:20 O2 Del Method 08/30/22 19:20 BMI result Body Mass Index 21.7 Neuro: Other: Alert and awake with normal spontaneity of speech fluency comprehension and flat affect. She was able to comprehend and follow commands. Facial expression blinking were diminished. There was moderate generalized bradykinesia and moderate bilateral cogwheeling rigidity in upper extremities. There was no size significant tremor. There was significant truncal ataxia with bradykinesia. Results Labs 08/21/22 08:11 08/24/22 12:28 Labs: MRI of brain could not be completed but 1 sagittal T1 image was taken that did not reveal any significant finding. Microbiology Microbiology Results: Microbiology 08/28/22 Unknown Urine clean catch - Urine chicas top Urine Culture - Final Enterococcus faecalis 08/25/22 Unknown Urine clean catch - Urine chicas top Urine Culture - Final 08/19/22 Unknown Urine clean catch - Urine chicas top Urine Culture - Final No growth. Assessment and Plan (1) Parkinsonism: Status: Acute 71 years old woman taking significant amount of antipsychotic medicines for psychiatric disease has moderate amount of generalized parkinsonism including bradykinesia, rigidity, and gait disorder. I suggest starting her on carbidopa levodopa 25/101 every 4 hours. Time Spent With Patient Time: Total time managing care of this patient today ____ minutes. Procedures Date of Service Date of Service: 08/31/22
[2022-08-31 19:50] VITALS: BP 180/94; PULSE 90; RESP 16; TEMP 36.3; O2SAT 97
[2022-08-31] MEDS: carvediloL 25 MG TABLET PO (20:26)
[2022-08-31] MEDS: oxyCODONE HCl Immed Release 5 MG TABLET 2.5 MG PO (20:27)
[2022-08-31] MEDS: Gabapentin 300 MG CAPSULE PO (20:28)
[2022-08-31] MEDS: risperiDONE 0.5 MG TABLET PO (20:28)
--- NOTE | 2022-08-31 20:58 | PC.NURSE ---
MD Harris notified at 1950 of PT putting self on ground and saying, I cannot walk, PT able to move all extremities wnl for this PT, and BP of 180/94. Recheck manual BP was 144/78, PT made 1:1 at this time. PT took HS meds and is now resting in bed.
[2022-09-01 07:30] VITALS: BP 152/80; PULSE 95; RESP 16; TEMP 36.8; O2SAT 94
[2022-09-01] MEDS: Atorvastatin Calcium 20 MG TABLET PO (10:22)
[2022-09-01] MEDS: risperiDONE 0.5 MG TABLET PO (10:22)
[2022-09-01] MEDS: Mirabegron 25 MG TAB.ER.24H PO (10:22)
[2022-09-01] MEDS: Gabapentin 300 MG CAPSULE PO ×2 (10:23→19:49)
[2022-09-01] MEDS: Isosorbide Mononitrate 60 MG TAB.ER.24H PO (10:23)
[2022-09-01] MEDS: Ascorbic Acid 250 MG TABLET PO ×2 (10:23→19:49)
[2022-09-01] MEDS: carvediloL 25 MG TABLET PO ×2 (10:23→19:50)
[2022-09-01 19:15] VITALS: BP 132/72; PULSE 96; RESP 16; TEMP 36.3; O2SAT 95
[2022-09-01] MEDS: Mirtazapine 7.5 MG TABLET PO (19:49)
[2022-09-01] MEDS: oxyCODONE HCl Immed Release 5 MG TABLET 2.5 MG PO (19:59)
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
[2022-09-02] MEDS: traZODone HCL 50 MG TABLET PO ×2 (00:41→19:57)
[2022-09-02 06:00] VITALS: BP 154/92; PULSE 78; RESP 16; TEMP 36.1; O2SAT 95
[2022-09-02 06:55] LABS: Basophils Percent Auto 0.5 % (0-2); PLT CLUMP 1; Red Cell Distribution Width 11.2 % (11.0-16.0); SCAN SMEAR FLAG 1
[2022-09-02 06:57] LABS: Eosinophils Absolute Auto 0.1 X10*3/uL (0.0-0.4); Eosinophils Percent Auto 3.7 % (0-4); Hematocrit 31.5 % (37.0-47.0); Hemoglobin 10.7 g/dl (12.0-16.0); Imm Gran Abs Auto 0.01 X10*3/uL (0.00-0.03); Imm Gran Pct Auto 0.3 % (0.0-0.4); Lymphocytes Absolute Auto 1.7 X10*3/uL (1.2-4.9); Lymphocytes Percent Auto 43.1 % (20-40); MANUAL DIFF FLAG SCAN; Mean Corpuscular Hemoglobin 35.4 pg (27.0-33.0); Mean Corpuscular Volume 104.3 fL (80.0-98.0); Monocytes Absolute Auto 0.4 X10*3/uL (0.1-1.2); Monocytes Percent Auto 9.4 % (2-11); Neutrophils Absolute Auto 1.7 x10*3/uL (2.0-8.3); Red Blood Count 3.02 X10*6/uL (4.20-5.50)
[2022-09-02 06:58] LABS: White Blood Count 3.8 X10*3/uL (4.8-10.8)
[2022-09-02 07:12] LABS: Mean Platelet Volume 11.2 fL (9.4-12.3); Platelet Count 121 X10*3/uL (160-400); SLIDE REVIEW VERIFIED
[2022-09-02 07:41] LABS: Estimated Average Glucose 82 mg/dL; Hemoglobin A1c % 4.5 %
[2022-09-02 07:43] LABS: Alanine Aminotransferase 21 U/L (0-31); Albumin Level 3.6 g/dL (3.5-5.0); Alkaline Phosphatase 63 U/L (39-117); Anion Gap 12 (12-20); Aspartate Amino Transferase 28 U/L (5-31); Bilirubin Total 0.5 mg/dL (0.0-1.0); Blood Urea Nitrogen 19 mg/dL (9-16); Calcium 9.6 mg/dL (8.4-10.2); Carbon Dioxide 28 mmol/L (22-29); Chloride 110 mmol/L (96-108); Creatinine Clr Calc Pharmacy 48.5; Estimated Glomerular Filt Rate > 60; Glucose Fasting 95 mg/dL (60-99); Potassium 3.7 mmol/L (3.3-5.1); Sodium 146 mmol/L (135-145); Total Protein 5.9 g/dL (6.5-8.0)
[2022-09-02] MEDS: risperiDONE 0.5 MG TABLET PO ×2 (10:38→19:56)
[2022-09-02] MEDS: carvediloL 25 MG TABLET PO ×2 (10:38→19:58)
[2022-09-02] MEDS: Ascorbic Acid 250 MG TABLET PO ×2 (10:39→19:58)
[2022-09-02] MEDS: Atorvastatin Calcium 20 MG TABLET PO (10:39)
[2022-09-02] MEDS: Mirabegron 25 MG TAB.ER.24H PO (10:39)
[2022-09-02] MEDS: Gabapentin 300 MG CAPSULE PO ×2 (10:39→19:58)
[2022-09-02] MEDS: Isosorbide Mononitrate 60 MG TAB.ER.24H PO (10:39)
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
[2022-09-02 18:00] VITALS: BP 133/75; PULSE 87; RESP 16; TEMP 36.2; O2SAT 96
[2022-09-02] MEDS: Mirtazapine 7.5 MG TABLET PO (19:57)
[2022-09-02] MEDS: oxyCODONE HCl Immed Release 5 MG TABLET 2.5 MG PO (19:57)
[2022-09-03 06:00] VITALS: BP 141/85; PULSE 78; RESP 16; TEMP 36.6; O2SAT 96
[2022-09-03] MEDS: Ascorbic Acid 250 MG TABLET PO ×2 (09:16→20:10)
[2022-09-03] MEDS: Isosorbide Mononitrate 60 MG TAB.ER.24H PO (09:16)
[2022-09-03] MEDS: Gabapentin 300 MG CAPSULE PO ×2 (09:16→20:10)
[2022-09-03] MEDS: risperiDONE 0.5 MG TABLET PO ×3 (09:16→20:10)
[2022-09-03] MEDS: Mirabegron 25 MG TAB.ER.24H PO (09:16)
[2022-09-03] MEDS: Atorvastatin Calcium 20 MG TABLET PO (09:16)
[2022-09-03] MEDS: carvediloL 25 MG TABLET PO ×2 (09:16→20:10)
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
[2022-09-03 18:00] VITALS: BP 114/70; PULSE 72; RESP 16; TEMP 36.1; O2SAT 92
--- NOTE | 2022-09-03 18:53 | PC.NURSE ---
Son brought upper dentures home on 09/02/22.
[2022-09-03] MEDS: Mirtazapine 7.5 MG TABLET PO (20:10)
[2022-09-04 06:00] VITALS: BP 118/72; PULSE 79; RESP 18; TEMP 521.6; TEMP 971; O2SAT 94
[2022-09-04] MEDS: risperiDONE 0.5 MG TABLET PO ×2 (09:10→20:41)
[2022-09-04] MEDS: Ascorbic Acid 250 MG TABLET PO ×2 (09:10→20:37)
[2022-09-04] MEDS: Isosorbide Mononitrate 60 MG TAB.ER.24H PO (09:10)
[2022-09-04] MEDS: Mirabegron 25 MG TAB.ER.24H PO (09:10)
[2022-09-04] MEDS: Gabapentin 300 MG CAPSULE PO ×2 (09:10→20:41)
[2022-09-04] MEDS: carvediloL 25 MG TABLET PO ×2 (09:15→20:39)
[2022-09-04] MEDS: Atorvastatin Calcium 20 MG TABLET PO (09:15)
[2022-09-04] MEDS: Acetaminophen 325 MG TABLET 650 MG PO (12:56)
[2022-09-04] MEDS: oxyCODONE HCl Immed Release 5 MG TABLET 2.5 MG PO (12:57)
--- NOTE | 2022-09-04 14:49 | MHC.CLN ---
F/U DIET=REGULAR WITH ENSURE TID. SUPPLEMENT PROVIDES ADDITIONAL 1050 KCALS, 60 G PROTEIN. INTAKE USUALLY POOR. WILL TAKE ENSURE. SON TOOK UPPER DENTURES 09/03. UNSURE IF MODIFIED CONSISTENCY NEEDED. CONTINUE CURRENT DIET AND SUPPLEMENT. MONITOR FOR INTAKE, DIET TOLERANCE, AND WEIGHT. RD TO FOLLOW WEEKLY.
[2022-09-04 14:50] LABS: COVID-19 Test Negative (Negative); IDNOW Serial# 16C4AD1C
--- NOTE | 2022-09-04 14:53 | P.EN_ITS ---
Event Note Date of Service: 09/04/22 Event Note: 71 year old female with history recurrent UTI, CAD, htn, urinary frequency, chronic pain syndrome, and HLD with recent CDiff infection diagnosed 08/08 and treated for 10 days with PO sudhao at [facility] admitted to Psychiatry with consult placed to Medicine for evaluation of ?worsening anemia and leukopenia. CBC on 09/02 revealed pancytopenia with WBC 3.8, RBC 3.14, H/H 10.7/31.5 %, platelets 121. Patient reports feeling well. Has not had any recurrent diarrhe a episodes in the last 3 days. No fevers, chills, weakness, abdominal pain, nausea, vomiting, melena, hematochezia, shortness of breath, chest pain. CBC repeated with resolution of 5.0, RBC improved to 3.14. Has chronic macrocytic anemia likely related to history of alcohol dependence. H/H improved to 11.1/33.0%, improved and above transfusion threshold. Vitamin B12 and folic acid levels are normal. Did also check copper, zinc, and methylmalonic acid levels which are still pending. Would not recommend further work up inpt. Follow up outpt with PCP. Time Spent With Patient Time: Total time managing care of this patient today ____ minutes.
[2022-09-04 18:00] VITALS: BP 127/70; PULSE 73; RESP 17; TEMP 36.3; O2SAT 92
[2022-09-04 18:42] LABS: MANUAL DIFF FLAG NO
[2022-09-04 18:43] LABS: Basophils Percent Auto 0.4 % (0-2); Imm Gran Abs Auto 0.01 X10*3/uL (0.00-0.03); Imm Gran Pct Auto 0.2 % (0.0-0.4); Mean Platelet Volume 11.4 fL (9.4-12.3); PLT CLUMP 1; SCAN SMEAR FLAG 1
[2022-09-04 18:44] LABS: Immature Retic Fraction 12.3 % (3.0-15.9); Retic HGB Equivalent 38.7 pg (30.0-35.0); Reticulocyte Percent 1.1 % (0.5-1.8); Reticulocytes Absolute 0.036 X10*6/uL (0.026-0.095)
[2022-09-04 18:45] LABS: Eosinophils Absolute Auto 0.2 X10*3/uL (0.0-0.4); Eosinophils Percent Auto 3.8 % (0-4); Hemoglobin 11.1 g/dl (12.0-16.0); Lymphocytes Percent Auto 40.3 % (20-40); Mean Corpuscular HGB Conc 33.6 g/dl (31.0-35.0); Mean Corpuscular Hemoglobin 35.4 pg (27.0-33.0); Mean Corpuscular Volume 105.1 fL (80.0-98.0); Monocytes Absolute Auto 0.3 X10*3/uL (0.1-1.2); Monocytes Percent Auto 5.6 % (2-11); Neutrophils Absolute Auto 2.5 x10*3/uL (2.0-8.3); Neutrophils Percent Auto 49.7 % (45-73); Red Blood Count 3.14 X10*6/uL (4.20-5.50); Red Cell Distribution Width 11.4 % (11.0-16.0)
[2022-09-04 18:48] LABS: Platelet Count 142 X10*3/uL (160-400)
[2022-09-04 18:49] LABS: INTERNATIONAL NORM RATIO 1.1 (0.9-1.1); Prothrombin Time 12.5 SEC (10.0-13.1)
[2022-09-04 18:51] LABS: Partial Thromboplastin Time 28.3 SEC (26.0-36.4)
[2022-09-04 18:55] LABS: Ammonia 29 umol/L (13-55)
[2022-09-04 19:03] LABS: Alanine Aminotransferase 18 U/L (0-31); Albumin Level 3.7 g/dL (3.5-5.0); Alkaline Phosphatase 70 U/L (39-117); Anion Gap 13 (12-20); Aspartate Amino Transferase 19 U/L (5-31); Bilirubin Total 0.5 mg/dL (0.0-1.0); Blood Urea Nitrogen 26 mg/dL (9-16); Calcium 9.9 mg/dL (8.4-10.2); Carbon Dioxide 26 mmol/L (22-29); Chloride 112 mmol/L (96-108); Creatinine Clr Calc Pharmacy 44.1; Estimated Glomerular Filt Rate 56; Glucose Random 121 mg/dL (60-115); Lactate Dehydrogenase 157 U/L (122-220); Potassium 3.6 mmol/L (3.3-5.1); Sodium 147 mmol/L (135-145); Total Protein 6.2 g/dL (6.5-8.0)
[2022-09-04 19:38] LABS: Folate 14.1 ng/mL (> or = 4.0); Vitamin B12 888 pg/mL (200-900)
[2022-09-04] MEDS: Mirtazapine 7.5 MG TABLET PO (20:41)
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
[2022-09-05 07:30] VITALS: BP 132/79; PULSE 70; RESP 16; TEMP 36.4; O2SAT 93
[2022-09-05] MEDS: Isosorbide Mononitrate 60 MG TAB.ER.24H PO (09:55)
[2022-09-05] MEDS: carvediloL 25 MG TABLET PO ×2 (09:55→20:44)
[2022-09-05] MEDS: Gabapentin 300 MG CAPSULE PO ×2 (09:55→20:46)
[2022-09-05] MEDS: Mirabegron 25 MG TAB.ER.24H PO (09:56)
[2022-09-05] MEDS: Ascorbic Acid 250 MG TABLET PO ×2 (09:56→20:46)
[2022-09-05] MEDS: Atorvastatin Calcium 20 MG TABLET PO (09:56)
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
[2022-09-05] MEDS: Dextrose 5 % and 0.45 % NaCl 1,000 ML 500 ML IVCONT (20:44)
[2022-09-05] MEDS: risperiDONE 0.5 MG TABLET PO (20:46)
[2022-09-05] MEDS: Mirtazapine 7.5 MG TABLET PO (20:46)
[2022-09-05 21:23] VITALS: BP 101/61; PULSE 68; RESP 18; TEMP 36.2; O2SAT 91
[2022-09-06 06:00] VITALS: BP 130/79; PULSE 85; RESP 14; TEMP 36.4; O2SAT 90
[2022-09-06 09:10] LABS: Anion Gap 14 (12-20); Blood Urea Nitrogen 21 mg/dL (9-16); Calcium 9.5 mg/dL (8.4-10.2); Carbon Dioxide 25 mmol/L (22-29); Chloride 111 mmol/L (96-108); Creatinine Clr Calc Pharmacy 52.7; Estimated Glomerular Filt Rate > 60; Glucose Random 107 mg/dL (60-115); Potassium 4.2 mmol/L (3.3-5.1); Sodium 146 mmol/L (135-145)
[2022-09-06] MEDS: Mirabegron 25 MG TAB.ER.24H PO (09:58)
[2022-09-06] MEDS: Gabapentin 300 MG CAPSULE PO ×2 (09:58→20:56)
[2022-09-06] MEDS: Isosorbide Mononitrate 60 MG TAB.ER.24H PO (09:58)
[2022-09-06] MEDS: carvediloL 25 MG TABLET PO ×2 (09:58→20:56)
[2022-09-06] MEDS: Ascorbic Acid 250 MG TABLET PO ×2 (10:07→20:56)
[2022-09-06] MEDS: Atorvastatin Calcium 20 MG TABLET PO (10:08)
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
--- NOTE | 2022-09-06 11:33 | PM.EVENT ---
Event Note Date of Service: 09/06/22 Event Note: Pt received 1L D5 1/2 NS last night due to poor PO intake and hypernatremia. Still with mild hypernetramia this morning but improved to 146. Renal function is normal. Please encourage PO intake, especially fluids. No further intervention needed at this time. Time Spent With Patient Time: Total time managing care of this patient today ____ minutes.
[2022-09-06] MEDS: Carbidopa/Levodopa 25/100 TABLET 1 TAB PO ×2 (12:06→15:52)
--- NOTE | 2022-09-06 16:51 | MHC.SLORD ---
Addendum entered and electronically signed by Gina Virgen MA, CCC-OIL AND G[employer] LEASE PUMPER 09/06/22 17:34: D.S. Original Note: Speech Language Pathology Order Status: Per conversation w/ RN, pt has been asleep all day. OIL AND G[employer] LEASE PUMPER to do bedside swallow evaluation tomorrow, 09/07/22.
[2022-09-06] MEDS: Dextrose 5 % and 0.45 % NaCl 1,000 ML 250 ML IVCONT (17:04)
[2022-09-06 18:00] VITALS: BP 114/78; PULSE 68; RESP 16; TEMP 36.7; O2SAT 94
[2022-09-06] MEDS: oxyCODONE HCl Immed Release 5 MG TABLET 2.5 MG PO (20:54)
[2022-09-06] MEDS: Mirtazapine 7.5 MG TABLET PO (20:56)
[2022-09-07 07:00] VITALS: BMI 20.7
[2022-09-07 08:32] LABS: MANUAL DIFF FLAG NO
[2022-09-07 08:44] LABS: Basophils Percent Auto 0.4 % (0-2); Eosinophils Absolute Auto 0.2 X10*3/uL (0.0-0.4); Eosinophils Percent Auto 3.3 % (0-4); Hematocrit 36.2 % (37.0-47.0); Imm Gran Abs Auto 0.02 X10*3/uL (0.00-0.03); Imm Gran Pct Auto 0.4 % (0.0-0.4); Lymphocytes Absolute Auto 1.5 X10*3/uL (1.2-4.9); Lymphocytes Percent Auto 27.3 % (20-40); Mean Corpuscular HGB Conc 33.1 g/dl (31.0-35.0); Mean Corpuscular Hemoglobin 34.4 pg (27.0-33.0); Mean Corpuscular Volume 103.7 fL (80.0-98.0); Mean Platelet Volume 11.4 fL (9.4-12.3); Monocytes Absolute Auto 0.3 X10*3/uL (0.1-1.2); Monocytes Percent Auto 6.1 % (2-11); Neutrophils Absolute Auto 3.4 x10*3/uL (2.0-8.3); Neutrophils Percent Auto 62.5 % (45-73); Platelet Count 136 X10*3/uL (160-400); Red Blood Count 3.49 X10*6/uL (4.20-5.50); Red Cell Distribution Width 11.3 % (11.0-16.0); White Blood Count 5.4 X10*3/uL (4.8-10.8)
[2022-09-07] MEDS: Mirabegron 25 MG TAB.ER.24H PO (09:00)
[2022-09-07] MEDS: Gabapentin 300 MG CAPSULE PO ×2 (09:01→20:25)
[2022-09-07] MEDS: carvediloL 25 MG TABLET PO ×2 (09:01→20:25)
[2022-09-07] MEDS: Atorvastatin Calcium 20 MG TABLET PO (09:01)
[2022-09-07 09:02] LABS: Alanine Aminotransferase 8 U/L (0-31); Albumin Level 3.6 g/dL (3.5-5.0); Alkaline Phosphatase 74 U/L (39-117); Anion Gap 12 (12-20); Aspartate Amino Transferase 17 U/L (5-31); Bilirubin Total 0.6 mg/dL (0.0-1.0); Blood Urea Nitrogen 16 mg/dL (9-16); Calcium 9.3 mg/dL (8.4-10.2); Carbon Dioxide 23 mmol/L (22-29); Chloride 112 mmol/L (96-108); Creatinine Clr Calc Pharmacy 55.4; Estimated Glomerular Filt Rate > 60; Glucose Random 123 mg/dL (60-115); Potassium 3.8 mmol/L (3.3-5.1); Sodium 143 mmol/L (135-145); Total Protein 6.3 g/dL (6.5-8.0)
[2022-09-07] MEDS: Isosorbide Mononitrate 60 MG TAB.ER.24H PO (09:02)
[2022-09-07] MEDS: Ascorbic Acid 250 MG TABLET PO ×2 (09:02→20:25)
[2022-09-07] MEDS: Carbidopa/Levodopa 25/100 TABLET 1 TAB PO ×3 (09:02→15:41)
[2022-09-07 09:09] VITALS: BP 160/106; PULSE 83; RESP 16; TEMP 36.3; O2SAT 96
[2022-09-07 09:16] LABS: TSH reflex Free T4 1.69 uIU/mL (0.32-4.0)
--- NOTE | 2022-09-07 12:52 | MHC.CLN ---
RE: CONSULT HT 64 WT 121# IBW 120#+/-10% PT IS 101% IBW INDICATES ADEQUATE WT FOR HT HOWEVER PREVIOUS WT HX REVEALS 71.8KG (01/28/22) PT TRIGGERS FOR 20% SIGNIFICANT WT LOSS X 6 MONTHS ENN: 1540KALS, 55G PROTEIN, 1700ML FLUID DIET RX: REGULAR-APPROPRIATE SPOKE WITH PT, NURSE AND NSG AID TODAY REGARDING PT'S APPETITE PT REPORTED POOR APPETITE- LOUSY NSG ASSIST REPORTED PT CONSUMED >50% OF LUNCH TODAY, BUT PT TYPICALLY LOSES INTEREST IN FOOD QUICKLY AID PROVIDES ASSIST DURING MEALS. PT WITH ENSURE SUPPLEMENT AT BEDSIDE-PT DOES DRINK THROUGHOUT THE DAY PT RECEIVING ENSURE TID PROVIDES 1050KCALS (68% est KCAL NEEDS), 60G PROTEIN (109% EST PROTEIN NEEDS) AWAITING SCIENTIST ELECTRONICS EVAL AND INPUT-NOTED 09/03 SON TOOK UPPER DENTURES HOME PT RECEPTIVE TO TRIAL MAGIC CUP WITH MEALS -WILL ADD CAN CONSIDER APPETITE STIMULANT IF PO DOES NOT IMPROVE VIA MD APPROVAL CONTINUE TO MONITOR PO INTAKE CLOSELY
[2022-09-07 13:41] LABS: Magnesium 1.7 mg/dL (1.6-2.6)
[2022-09-07 14:05] LABS: Rheumatoid Factor < 13.0 IU/mL (<15.0)
[2022-09-07] MEDS: Dextrose 5 % and 0.45 % NaCl 1,000 ML 250 ML IVCONT (17:32)
[2022-09-07 18:00] VITALS: BP 130/80; PULSE 74; RESP 16; TEMP 36.2; O2SAT 96
[2022-09-07] MEDS: Mirtazapine 7.5 MG TABLET PO (20:26)
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
[2022-09-08 00:59] LABS: Copper, serum 108 mcg/dL (70-175)
[2022-09-08] MEDS: oxyCODONE HCl Immed Release 5 MG TABLET 2.5 MG PO ×2 (05:41→23:02)
[2022-09-08 06:03] LABS: Zinc 54 mcg/dL (60-130)
[2022-09-08] MEDS: Carbidopa/Levodopa 25/100 TABLET 1 TAB PO ×2 (06:03→11:25)
[2022-09-08 07:10] VITALS: BP 189/95; PULSE 78; RESP 20; TEMP 36.2; O2SAT 95
[2022-09-08] MEDS: Mirabegron 25 MG TAB.ER.24H PO (08:30)
[2022-09-08] MEDS: Atorvastatin Calcium 20 MG TABLET PO (08:31)
[2022-09-08] MEDS: Gabapentin 300 MG CAPSULE PO ×2 (08:31→22:40)
[2022-09-08] MEDS: Cariprazine HCl 1.5 MG CAPSULE PO (08:31)
[2022-09-08] MEDS: Ascorbic Acid 250 MG TABLET PO ×2 (08:31→22:40)
[2022-09-08] MEDS: carvediloL 25 MG TABLET PO ×2 (08:31→22:40)
[2022-09-08] MEDS: Isosorbide Mononitrate 60 MG TAB.ER.24H PO (08:31)
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
--- NOTE | 2022-09-08 12:08 | MHC.CLN ---
F/U OBSERVED PATIENT AT LUNCH TODAY. ACCEPTED FEEDING FROM STAFF. NEEDED ENCOURAGEMENT TO STAY SEATED AND TAKE PO. ATE GREATER THAN 50% AT LUNCH. DIET=REGULAR. SUPPLEMENT ENSURE TID AND MAGIC CUP TID TO INCREASE NUTRITIONAL INTAKE. RD TO FOLLOW WEEKLY.
[2022-09-08 17:48] LABS: Methylmalonic Acid 243 nmol/L (87-318)
--- NOTE | 2022-09-08 17:55 | PM.EVENT ---
Event Note Date of Service: 09/08/22 Event Note: called to see for globus sensation. Patient appears comfortable. Reported tolerated pudding and drinks after Sensation began. Doubt any current food impaction. Will order esophagram and defer to GI for any further workup. Time Spent With Patient Time: Total time managing care of this patient today ____ minutes.
[2022-09-08 18:00] VITALS: BP 155/82; PULSE 80; RESP 16; TEMP 36.6; O2SAT 97
[2022-09-08] MEDS: Mirtazapine 7.5 MG TABLET PO (22:42)
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
[2022-09-09] MEDS: Acetaminophen 325 MG TABLET 650 MG PO ×2 (02:24→20:03)
[2022-09-09 07:30] VITALS: BP 185/105; PULSE 84; RESP 16; TEMP 36.9; O2SAT 95
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
--- NOTE | 2022-09-09 09:15 | ECG_ITS ---
Test Reason : Hypertension Blood Pressure : / mmHG Vent. Rate : 071 BPM Atrial Rate : 000 BPM P-R Int : 000 ms QRS Dur : 090 ms QT Int : 422 ms P-R-T Axes : 000 -03 036 degrees QTc Int : 458 ms Poor data quality Normal sinus rhythm Inferior infarct , age undetermined Abnormal ECG When compared to the previous EKG of Poor data quality in current ECG precludes serial comparison Referred By: Adan Clifford Electronically Signed By:RERE CLINE MD
[2022-09-09 14:29] LABS: CRP High Sensitivity >10.0 mg/L
[2022-09-09 15:53] LABS: Anti Nuclear Antibody Screen NEGATIVE (NEGATIVE)
[2022-09-09] MEDS: Carbidopa/Levodopa 25/100 TABLET 1 TAB PO (16:59)
[2022-09-09 18:00] VITALS: BP 152/78; PULSE 74; RESP 16; TEMP 36.2; O2SAT 94
[2022-09-09] MEDS: oxyCODONE HCl Immed Release 5 MG TABLET 2.5 MG PO (20:01)
[2022-09-09] MEDS: carvediloL 25 MG TABLET PO (20:02)
[2022-09-09] MEDS: Mirtazapine 7.5 MG TABLET PO (20:04)
[2022-09-09] MEDS: Gabapentin 300 MG CAPSULE PO (20:05)
[2022-09-09] MEDS: Ascorbic Acid 250 MG TABLET PO (20:05)
[2022-09-10 07:30] VITALS: BP 192/98; PULSE 84; RESP 16; TEMP 36.4; O2SAT 95
[2022-09-10] MEDS: Gabapentin 300 MG CAPSULE PO ×2 (08:24→20:05)
[2022-09-10] MEDS: Isosorbide Mononitrate 60 MG TAB.ER.24H PO (08:24)
[2022-09-10] MEDS: carvediloL 25 MG TABLET PO ×2 (08:24→20:04)
[2022-09-10] MEDS: Mirabegron 25 MG TAB.ER.24H PO (08:24)
[2022-09-10] MEDS: Carbidopa/Levodopa 25/100 TABLET 1 TAB PO ×3 (08:24→16:19)
[2022-09-10] MEDS: Atorvastatin Calcium 20 MG TABLET PO (08:24)
[2022-09-10] MEDS: Cariprazine HCl 1.5 MG CAPSULE PO (08:25)
[2022-09-10] MEDS: Ascorbic Acid 250 MG TABLET PO ×2 (08:25→20:05)
[2022-09-10 08:30] VITALS: BP 108/64
[2022-09-10 18:00] VITALS: BP 107/64; PULSE 69; RESP 16; TEMP 35.9; O2SAT 96
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
[2022-09-10] MEDS: Mirtazapine 7.5 MG TABLET PO (20:04)
[2022-09-11 06:00] VITALS: BP 125/74; PULSE 66; RESP 20; TEMP 36.4; O2SAT 95
[2022-09-11] MEDS: Carbidopa/Levodopa 25/100 TABLET 1 TAB PO ×3 (08:41→15:47)
[2022-09-11] MEDS: Cariprazine HCl 1.5 MG CAPSULE PO (08:41)
[2022-09-11] MEDS: carvediloL 25 MG TABLET PO ×2 (08:41→20:38)
[2022-09-11] MEDS: Atorvastatin Calcium 20 MG TABLET PO (08:41)
[2022-09-11] MEDS: Isosorbide Mononitrate 60 MG TAB.ER.24H PO (08:41)
[2022-09-11] MEDS: Mirabegron 25 MG TAB.ER.24H PO (08:41)
[2022-09-11] MEDS: Gabapentin 300 MG CAPSULE PO ×2 (08:42→20:39)
[2022-09-11] MEDS: Ascorbic Acid 250 MG TABLET PO ×2 (08:42→20:38)
--- NOTE | 2022-09-11 11:23 | PM.NEUROPN ---
Subjective Subjective Date of Service: 09/11/22 Interval History: Parkinsonian Sx superimposed on mild dementia and agitation and aggression Critical Care Time (minutes): 0 Physical Exam Vital Signs: Vital Signs: Last Vital Signs Temp 97.6 F 09/11/22 06:00 Pulse 66 09/11/22 06:00 Resp 20 09/11/22 06:00 BP 125/74 09/11/22 06:00 Pulse Ox 95 09/11/22 06:00 O2 Del Method 09/11/22 06:00 BMI result Body Mass Index 20.7 Const: General: cooperative HEENT: Head: Yes normal to inspection Face and sinus: Yes normal facial exam Mouth: Normal oral and palatal mucosa present Teeth and gingiva: dentition normal Eyes: General: appearance normal, both eyes and all related structures Pupils: Equal, round and reactive pupils present Resp: Effort & Inspection: normal respiratory effort Cardio: Rate: regular rate Rhythm: regular rhythm GI: Palpation (GI): Soft to palpation and nontender : General: Yes no CVA tenderness Back/Spine/Pelvis: Back: no CVA tenderness Skin: General skin exam: no rashes or lesions noted Neuro: Other: Alert and awake with normal spontaneity of speech fluency comprehension and flat affect. She was able to comprehend and follow commands. Facial expression blinking were diminished. There was moderate generalized bradykinesia and moderate bilateral cogwheeling rigidity in upper extremities. There was no size significant tremor. There was significant truncal ataxia with bradykinesia. General: moves all extremities Cranial nerves: Yes Equal, round and reactive pupils present Extrem: General: Yes normal to inspection Psych: Other: confusion and agitation Objective Data Labs 09/07/22 08:28 09/07/22 08:28 Microbiology Microbiology Results: Microbiology 08/28/22 Unknown Urine clean catch - Urine chicas top Urine Culture - Final Enterococcus faecalis 08/25/22 Unknown Urine clean catch - Urine chicas top Urine Culture - Final 08/19/22 Unknown Urine clean catch - Urine chicas top Urine Culture - Final No growth. Progress Note: A&P Assessment and plan (1) Bipolar disorder: Status: Acute (2) Cognitive and neurobehavioral dysfunction: Status: Acute (3) Parkinsonism: Status: Acute Assessment and Plan: She has been started on Sinemet 25/100 tid on 09/06/22. It takes 6 wks to see the full effects of this dose. Continue this dose for now. Dose adjustment will not be done for 5 wks. Suggest OP f/u with Dr. Martel a month after discharge. Time Spent With Patient Time: Total time managing care of this patient today ____ minutes. Procedures Date of Service Date of Service: 09/11/22 Quality Stroke Does the patient have a stroke diagnosis?: No VTE Prior VTE?: No VTE Risk Level:: Medical - low VTE Device Contraindication: Treatment Not Indicated VTE Drug Contraindication: Treatment Not Indicated
--- NOTE | 2022-09-11 13:29 | MHC.SL.SWA ---
Speech Pathologist Impression: Risk of aspiration Risk of Aspiration Due to: Lethargy Poor PO Intake Dysphasia Diet Status: Limited PO trials, no changes at this time Liquid Consistency and Strategies for Safe Swallow: Liquid Intake Recommendation: Thin Liquid Intake Strategies: Small Sips Solid Food Consistency: Dietary Recommendations: Grnd/Mech Altered (NDD2) Additional Modifications to Solid Foods: VEGETABLE WORKER to f/u to trial for possible advancement if appropriate. Oral Medication Intake: Crushed with Puree Please contact the pharmacy regarding appropriate crushable or liquid drug formulations that are available whenever modified delivery is recommended. Compensatory Strategies and Precautions to be Taken for Safe Swallow: Sitting Upright (90 deg) Small Bites and Sips Rate of Ingestion Change Avoid Specific Foods Supervision While Eating and Drinking for Safe Swallow: Total Assistance (1:1) Foods to Avoid: Shopiere sticky purees Swallowing Recommended Treatments: Compens. Strategy Educat. Recommendation for Speech: f/u to re-assess for potential upgrade Production Quality Analyst Clinican/Clinical Fellow: Yes Supervisory Statement: I have reviewed and agree with the student/clinical fellow's documentation: No Speech Language Pathologist: Gina Virgen M.A., CCC-VEGETABLE WORKER
[2022-09-11 18:00] VITALS: BP 122/77; PULSE 74; RESP 17; TEMP 36.4; O2SAT 96
[2022-09-11] MEDS: Mirtazapine 7.5 MG TABLET PO (20:39)
[2022-09-11] MEDS: oxyCODONE HCl Immed Release 5 MG TABLET 2.5 MG PO (20:40)
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
[2022-09-12 08:50] VITALS: BP 140/80; PULSE 88; RESP 16; TEMP 35.9; O2SAT 97
[2022-09-12] MEDS: Gabapentin 300 MG CAPSULE PO ×2 (08:58→20:27)
[2022-09-12] MEDS: Cariprazine HCl 1.5 MG CAPSULE PO (08:59)
[2022-09-12] MEDS: Carbidopa/Levodopa 25/100 TABLET 1 TAB PO ×3 (08:59→15:32)
[2022-09-12] MEDS: Mirabegron 25 MG TAB.ER.24H PO (08:59)
[2022-09-12] MEDS: Isosorbide Mononitrate 60 MG TAB.ER.24H PO (08:59)
[2022-09-12] MEDS: Atorvastatin Calcium 20 MG TABLET PO (08:59)
[2022-09-12] MEDS: carvediloL 25 MG TABLET PO ×2 (09:00→20:26)
[2022-09-12] MEDS: Ascorbic Acid 250 MG TABLET PO ×2 (09:00→20:25)
[2022-09-12 18:00] VITALS: BP 146/88; PULSE 70; RESP 16; TEMP 36.2; O2SAT 97
[2022-09-12] MEDS: oxyCODONE HCl Immed Release 5 MG TABLET 2.5 MG PO (20:23)
[2022-09-12] MEDS: Mirtazapine 7.5 MG TABLET PO (20:24)
[2022-09-12] MEDS: Acetaminophen 325 MG TABLET 650 MG PO (20:25)
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
[2022-09-12] MEDS: LORazepam 1 MG TABLET PO (22:39)
[2022-09-12] MEDS: QUEtiapine Fumarate 25 MG TABLET PO (23:09)
--- NOTE | 2022-09-12 23:16 | PC.NURSE ---
2199-covering provider marianne jamison called notified 1. pt restless and paranoid 2. pt verbalizes fears that staff is plotting to kill her over night 3. pt medicated with oxycodone 2.5 mg/tylenol 650 mg at 2099 4. received remeron 15 mg po at 2099 5. pt is experiencing insomnia because of paranoia. plan a. ativan 1 mg po b. seroquel 25 mg po
[2022-09-13 06:00] VITALS: BP 122/68; PULSE 60; RESP 18; TEMP 36.8; O2SAT 98
[2022-09-13] MEDS: Mirabegron 25 MG TAB.ER.24H PO (08:31)
[2022-09-13] MEDS: Atorvastatin Calcium 20 MG TABLET PO (08:31)
[2022-09-13] MEDS: Isosorbide Mononitrate 60 MG TAB.ER.24H PO (08:32)
[2022-09-13] MEDS: Carbidopa/Levodopa 25/100 TABLET 1 TAB PO (08:32)
[2022-09-13] MEDS: Gabapentin 300 MG CAPSULE PO ×2 (08:32→20:10)
[2022-09-13] MEDS: Ascorbic Acid 250 MG TABLET PO ×2 (08:32→20:10)
[2022-09-13] MEDS: carvediloL 25 MG TABLET PO ×2 (08:32→20:10)
[2022-09-13] MEDS: Cariprazine HCl 1.5 MG CAPSULE PO (08:32)
--- NOTE | 2022-09-13 12:56 | MHC.CLN ---
F/U STAFF REPORTS THAT CURRENT INTAKE IS POOR. SEEN BY DIRECTOR OF STUDENT AFFAIRS WITH DIET CONSISTENCY CHANGED TO NDD3. ADDING MAGIC CUP TID AND ENSURE TID. SUPPLEMENTS PROVIDE ADDITIONAL 1920 KCALS, 87 G PROTEIN. WEIGHT LOSS 3.5% SINCE ADMISSION. CONTINUE TO FOLLOW FOR INTAKE AND DIET/SUPPLEMENT ACCEPTANCE.
--- NOTE | 2022-09-13 15:45 | MHC.SLORD ---
Addendum entered and electronically signed by Gina Virgen MA, CCC-GREEN PIPEFITTER 09/13/22 17:08: D.S. Original Note: Speech Language Pathology Order Status: Attempted to see pt to monitor for toleration of diet upgrade. Pt refused PO trials. Staff reports that pt continues w/ little PO intake. Pt reportedly ate only pureed solids during breakfast & lunch meals. GREEN PIPEFITTER to continue to follow.
[2022-09-13 18:00] VITALS: PULSE 85; RESP 18; O2SAT 96
[2022-09-13] MEDS: Mirtazapine 7.5 MG TABLET PO (20:10)
[2022-09-13] MEDS: oxyCODONE HCl Immed Release 5 MG TABLET 2.5 MG PO (20:10)
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
[2022-09-13] MEDS: QUEtiapine Fumarate 25 MG TABLET PO (21:33)
[2022-09-13] MEDS: LORazepam 1 MG TABLET PO (21:33)
[2022-09-14] MEDS: oxyCODONE HCl Immed Release 5 MG TABLET 2.5 MG PO (04:48)
[2022-09-14] MEDS: Acetaminophen 325 MG TABLET 650 MG PO (05:10)
[2022-09-14] MEDS: Atorvastatin Calcium 20 MG TABLET PO (08:49)
[2022-09-14] MEDS: Carbidopa/Levodopa 25/100 TABLET 1 TAB PO ×3 (08:49→14:10)
[2022-09-14] MEDS: Mirabegron 25 MG TAB.ER.24H PO (08:49)
[2022-09-14] MEDS: carvediloL 25 MG TABLET PO ×2 (08:50→20:27)
[2022-09-14] MEDS: Ascorbic Acid 250 MG TABLET PO ×2 (08:50→20:28)
[2022-09-14] MEDS: Gabapentin 300 MG CAPSULE PO ×2 (08:50→20:28)
[2022-09-14] MEDS: Isosorbide Mononitrate 60 MG TAB.ER.24H PO (08:50)
[2022-09-14] MEDS: Cariprazine HCl 1.5 MG CAPSULE PO (08:50)
[2022-09-14 08:53] VITALS: BP 159/83; PULSE 73; RESP 18; O2SAT 97
[2022-09-14] MEDS: QUEtiapine Fumarate 25 MG TABLET PO ×3 (14:10→21:40)
[2022-09-14] MEDS: Mirtazapine 7.5 MG TABLET PO (20:28)
[2022-09-14] MEDS: LORazepam 1 MG TABLET PO (21:41)
[2022-09-14 21:42] VITALS: BP 119/64; PULSE 79; RESP 16; TEMP 36.2; O2SAT 96
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
[2022-09-15 09:11] VITALS: BP 135/82; PULSE 84; RESP 18; O2SAT 97
[2022-09-15] MEDS: Mirabegron 25 MG TAB.ER.24H PO (09:11)
[2022-09-15] MEDS: Isosorbide Mononitrate 60 MG TAB.ER.24H PO (09:11)
[2022-09-15] MEDS: Cariprazine HCl 1.5 MG CAPSULE PO (09:12)
[2022-09-15] MEDS: carvediloL 25 MG TABLET PO (09:12)
[2022-09-15] MEDS: Ascorbic Acid 250 MG TABLET PO (09:12)
[2022-09-15] MEDS: Carbidopa/Levodopa 25/100 TABLET 1 TAB PO (09:12)
[2022-09-15] MEDS: Atorvastatin Calcium 20 MG TABLET PO (09:12)
== END 2022-09-15 14:15 | disposition home health service (06) | DRG 885 ==
PROVIDERS: Clinical Nurse Specialist Psychiatric/Mental Health; Physician Assistant; Social Worker; Admitting Provider Psychiatry & Neurology Psychiatry; PCP Internal Medicine Geriatric Medicine; Visit Provider Psychiatry & Neurology Psychiatry
DX: F31.9 Bipolar disorder, unspecified (principal); E87.1 Hypo-osmolality and hyponatremia; F02.A11 Dementia in other diseases classified elsewhere, mild, with agitation; G30.9 Alzheimer's disease, unspecified; G20 Parkinson's disease; E78.5 Hyperlipidemia, unspecified; N32.81 Overactive bladder; D53.9 Nutritional anemia, unspecified; F10.21 Alcohol dependence, in remission; Z20.822 Contact with and (suspected) exposure to COVID-19; Z87.440 Personal history of urinary (tract) infections; Z91.040 Latex allergy status; Z79.899 Other long term (current) drug therapy
CPT/HCPCS: 36415; 70551; 74220; 80048; 80053; 80061; 81001; 82140; 82525; 82607; 82746; 83036; 83615; 83735; 83921; 84443; 84484; 84630; 85025; 85045; 85610; 85730; 86038; 86039; 86141; 86431; 86780; 87086; 87088; 87186; 87635; 92526; 92610; 93005; 97162